=== PATIENT | male | born 1960 | race Caucasian/White ===

== ENCOUNTER 2017-05-19 13:11 | Inpatient (IN) | payer MEDICARE, MEDICAID, SELFPAY ==
[2017-05-19] VITALS (19 sets, daily range): BP systolic 96–156; BP diastolic 62–92; PULSE 86–105; RESP 10–26; TEMP 36.4–36.8; O2SAT 91–100; BMI 25.0
--- NOTE | 2017-05-19 13:38 | RAD_ITS ---
STUDY: X-RAY CHEST REASON FOR EXAM: Male, 56 years old. Chest pain TECHNIQUE: Single frontal view COMPARISON: May 17, 2017 FINDINGS: The lungs are clear and expanded. There is no demonstrated pleural abnormality. There is a vascular stent noted near the left lung apex. Normal size heart. Normal mediastinum. There are surgical clips over the left hilum.. Normal visualized pulmonary arteries. Normal visualized aortic arch and descending thoracic aorta. Normal visualized thoracic spine. Normal visualized ribs, clavicles, and shoulders. There is no demonstrated abnormality of the visualized soft tissue structures of the upper abdomen. RAD/Chest 1 View (Portable) IMPRESSION: No acute pulmonary pathology of the chest. Electronically Signed: Everett Churchill DO at 15:03 EST Tel [phone], Service support ,
--- NOTE | 2017-05-19 13:38 | EKG12_ITS ---
Test Reason : CHEST BURNING Blood Pressure : / mmHG Vent. Rate : 100 BPM Atrial Rate : 100 BPM P-R Int : 138 ms QRS Dur : 086 ms QT Int : 352 ms P-R-T Axes : 074 060 080 degrees QTc Int : 454 ms Normal sinus rhythm Normal ECG Confirmed by LATHA LEÓN, SANTY ([id number]), international editorial producer VANNA IBANEZ ([id number]) on 05/22/2017 4:07:29 PM Referred By: Confirmed By:SANTY AZUL MD
--- NOTE | 2017-05-19 13:40 | ED.VISSUMM ---
- ER Visit Summary Date of Service: 05/19/17 Chief Complaint: Nausea, vomiting History of Present Illness: The patient is a 56 M presenting with nausea, vomiting. He states he has not been able to keep anything down ?2 days. He has not had a bowel movement in 2 days. He complains of diffuse chest burning. He states this is worse with belching. His blood sugar has been running high at home. He denies fever. Denies other complaints. He was admitted in April for right foot infection with concern of osteomyelitis. Physical Examination: Vitals are stable. Patient is afebrile. Alert no acute distress. HEENT exam is unremarkable. Neck is supple. Lungs are clear and equal bilaterally. Heart is regular rate and rhythm. Abdomen is soft nontender nondistended. No guarding or rebound. Extremities right foot wound distal 4th metatarsal. Skin is warm and dry. No focal neurologic deficit. Remainder of exam is unremarkable. Emergency Department Course and Treatment: Patient given IV fluids, morphine, Phenergan. Chest x-ray shows no acute process. EKG is sinus rate of 100. White count is 18.7. Chemistries show CO2 13, anion gap 17, glucose 204, BUN 36. Lipase is normal. Troponin is negative. Blood cultures were sent. Ketones are small. Lactic acid is normal. Patient was given Zosyn and Vancomycin. He is given insulin IV as well as IV fluids. He is given morphine and Phenergan. Discussed with Dr. Delgado for admission. Disposition: Admission Impression: Mild DKA, recent osteomyelitis right foot, intractable vomiting This note was generated with [employer] dictation software. It may contain incorrect words, spelling, and punctuation that were not noted in review of the chart prior to signing ED Disposition - Plan for ED Patient: Chief Complaint: Nausea/Vomiting Referrals: Darrian Henderson Chi, MD [Primary Care Provider] -
[2017-05-19 14:21] LABS: Absolute Lymphocyte Count 1.27 X10^3/ul (0.83-4.51); Absolute Neutrophil Count 15.6 X10^3/uL (2.0-7.7); Basophil# 0.01 X10^3/uL; Basophil% 0.1 % (0-1); Hematocrit 47.5 % (40-54); Hemoglobin 15.5 g/dl (13.0-16.5); Lymphocyte # 1.27 X10^3/ul (4.0); Lymphocyte % 6.8 % (19-41); Mean Corp Hgb Conc 32.6 g/gl (32-36); Mean Corpuscular Hgb 30.4 pg (27.0-32.0); Mean Corpuscular Volume 93.1 fL (80-94); Mean Platelet Vol. 9.8 fl (6.2-12.0); Monocyte# 1.74 X10^3/uL; Monocyte% 9.3 % (0-10); Neutrophil # 15.55 X10^3/uL (2.7-7.7); Neutrophil % 83.3 % (47-70); POSITIVE COUNT NO; POSITIVE DIFFERENTIAL YES; POSITIVE MORPHOLOGY NO; Platelet Count 290 K/mm3 (150-450); RBC Distribution Width CV 13.3 % (11.6-14.6); RBC Distribution Width SD 45.2 fl (35.1-43.9); White Blood Count 18.7 K/mm3 (4.4-11.0)
[2017-05-19 14:22] LABS: Differential Indicated SCAN CRITERIA MET
[2017-05-19 14:35] LABS: Bacteria 0 SEEN /hpf (None Seen); Mucous, Urine 0 SEEN /hpf (<or=2+); Squamous Epithelial Cells - UA 0 SEEN /hpf (0-5); White Blood Cells 0 SEEN /hpf (0-5)
[2017-05-19 14:36] LABS: Color, Urine Yellow (Yellow); Glucose, Dipstick 1000 mg/dl (Normal); Leukocyte Esterase-Dipstick Negative /ul (Negative); Nitrite-Dipstick Negative (Negative); Occult Blood-Urine 10 /ul (Negative); Protein-Dipstick 30 mg/dl (Negative); Specific Gravity, Urine 1.025 (1.002-1.030); Urine Bilirubin Dipstick Negative (Negative); Urine Clarity Clear (Clear); Urine Urobilinogen Normal (Normal)
[2017-05-19 14:36] LABS: Differential Comment SCANNED
[2017-05-19 14:40] LABS: AST(SGOT) 30 U/L (15-37); Alanine Aminotransfer ALT/SGPT 26 U/L (12-78); Albumin, Serum 3.6 g/dL (3.4-5.0); Alkaline Phosphatase 121 U/L (45-117); Anion Gap 17 (5-15); BUN 36 mg/dL (7-18); Chloride 103 mmol/L (98-107); Creatinine, Serum 1.06 mg/dL (0.70-1.30); EST Glomerular Filtration Rate 77 mL/min (>60); Est Glom Filt Rate - Afr Amer 93 mL/min (>60); Estimated Creatinine Clearance 75.28 ml/min; Globulin 3.7 g/dL (2.2-4.2); Glucose 204 mg/dL (70-110); Lipase 162 U/L (73-393); Potassium 4.7 mmol/L (3.5-5.1); Protein, Total 7.3 g/dL (6.4-8.2); Sodium Level 133 mmol/L (136-145)
[2017-05-19 14:42] LABS: Calcium,Total 8.7 mg/dL (8.5-10.1)
[2017-05-19] MEDS: 0.9% Normal Saline 1,000 ML 1000 ML IV (14:43)
[2017-05-19 14:44] LABS: Ketone-Dipstick 150 mg/dl (Negative)
--- NOTE | 2017-05-19 14:46 | ED.RN ---
pt was a difficult iv start.
[2017-05-19 14:47] LABS: Red Blood Cells-Urine 0-5 SEEN /hpf (0-5)
--- NOTE | 2017-05-19 15:26 | PCM.HP.STD ---
Problem List (1) Chronic osteomyelitis, other specified site Status: Suspected (2) Peripheral vascular disease Status: Chronic (3) HTN (hypertension) Status: Chronic (4) Nicotine abuse Status: Chronic (5) Peripheral neuropathy Status: Chronic (6) CAD (coronary artery disease) Status: Chronic (7) COPD (chronic obstructive pulmonary disease) Status: Chronic (8) Type 2 diabetes mellitus with diabetic polyneuropathy Status: Chronic History of Present Illness Date of Admission: 05/19/17 Chief Complaint: N/V, cough, chest pain, shortness of breath. The patient is a 56 year old M who presents with a 3 day history of nausea, vomiting, productive cough, chest pain and shortness of breath. Patient's ex- who lives with patient is at bedside and provides most of HPI. Patient is lethargic and frustrated with questions. Ex- states patient has unable to keep any liquids or food down for 3 days. She states he has not had any diarrhea. She states he has been complaining of chest pain/burning sensation with associated shortness of breath which has been constant and not associated with exertion. She states she has been checking his blood sugar at home and it has been in the 200s. Patient was recently discharged from the emergency room 05/17/2017 where he was treated with IV fluids and Zofran for suspected viral gastroenteritis. He did not improve since that time. Patient underwent amputation of the right fourth toe due to gangrenous right fourth toe on 02/15/[address] Cantu who he had followed up with as outpatient as well. Following surgery, patient was readmitted 04/30/2017 and was found to have wound dehiscence and infected wound with suspected osteomyelitis. He was treated with IV antibiotics and left AMA the following day on 05/01/2017. Patient has an upcoming appointment 05/22/[address] Swan due to right lower extremity arterial occlusive disease. His other chronic medical history includes type 2 diabetes mellitus, hypertension, CAD status post CABG, PVD, hyperlipidemia, COPD, tobacco abuse. Past Medical History Past Medical History (Chronic Problems): Chronic Problems Peripheral vascular disease (Chronic) HTN (hypertension) (Chronic) Nicotine abuse (Chronic) Peripheral neuropathy (Chronic) CAD (coronary artery disease) (Chronic) COPD (chronic obstructive pulmonary disease) (Chronic) Type 2 diabetes mellitus with diabetic polyneuropathy (Chronic) Allergies No Known Allergies Allergy (Verified 05/19/17 13:17) Home Medications: Ambulatory Orders Medication Instructions Recorded Gabapentin [Neurontin] 800 mg PO 4X/DAY 02/14/17 Lisinopril 20 mg PO DAILY 02/14/17 Metoprolol Succinate 25 mg PO DAILY 02/14/17 Simvastatin 40 mg PO DAILY 02/14/17 Aspirin [Aspirin, Baby] 81 mg PO DAILY 02/16/17 Albuterol Inhaler [Ventolin Hfa 2 puff INHALATION Q4H PRN PRN 04/30/17 (SP)] Empagliflozin [Jardiance] 1 tab PO DAILY 05/19/17 Liraglutide [Victoza 2-Juan] 1.2 mg SQ DAILY 05/19/17 Surgical History: coronary bypass surgery, - - debridement left arm, 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 carpal tunnel release Psychiatric History: No pertinent psych hx Lives: Spouse/ Significant Other Smoking Status: Current every day smoker Tobacco Use: Cigarettes Alcohol: None Drugs: None - *Family History Maternal History Items: Heart Disease Paternal History Items: Heart Disease Review of Systems Constitutional: Reports: Anorexia, Malaise, Weakness. Denies: Chills, Fever HEENT: Reports: Sinus Congestion. Denies: Head Aches, Sinus Drainage Cardiovascular: Reports: Chest Pain, Chest Tightness. Denies: Edema, Palpitations, Syncope Respiratory: Reports: Cough, Shortness of Breath, Sputum production Gastrointestinal: Reports: Nausea, Vomiting. Denies: Abdominal Pain, Diarrhea, Hematemesis, Hematochezia Genitourinary: Denies: Dysuria Musculoskeletal: Reports: Foot Pain - Right foot pain. Denies: Joint Pain, Joint Tenderness Skin: Reports: Wounds - Nonhealing wound dehiscence status post right fourth toe amputation Neurological: Denies: Numbness, Tingling, Focal weakness Psychiatric: Denies: Anxiety, Depression, Homicidal Ideations, Suicidal Ideations Hematologic/ Lymphatic: Denies: Easy Bruising, Easy Bleeding VTE Information - Inpt Only VTE Present on Admission: No VTE Mechan Device Prophylaxis: SCD's VTE Pharm Prophylaxis ordered?: Yes - Physical Exam General: No apparent distress, Lethargic HEENT: Atraumatic, PERRLA, EOMI, Normocephalic Oral: Dry Mucosa Neck: Supple, No JVD, Negative Carotid Bruits Lungs: Clear to auscultation, Diminished Cardiovascular: Normal S1, Normal S2, No murmurs, Tachycardic Abdomen: Bowel Sounds Present, Soft, Non Tender, Non-Distended Extremities: No clubbing, No cyanosis, No edema, Capillary Refill Less than 3 Seconds Skin: No rashes, - - Right fourth toe nonhealing dehisced wound, no drainage noted however appears infected. Musculoskeletal: No Tenderness to Palpation of Joints or Extremities Neurological: Cranial nerves II-XII grossly intact Psych/Mental Status: Normal Affect, Appropriate Vital Signs Temp Pulse Resp BP Pulse Ox 97.5 F L 102 H 11 L 156/80 H 100 05/19/17 13:11 05/19/17 13:23 05/19/17 13:23 05/19/17 13:23 05/19/17 13:23 Oxygen Delivery Method Room Air Weight: 74.843 kg Body Mass Index (BMI) 25.0 Finger Stick Blood Glucose 101 Laboratory Tests Past 24 Hrs 05/19/17 05/19/17 05/19/17 14:05 14:05 14:20 WBC 18.7 H RBC 5.10 Hgb 15.5 Hct 47.5 MCV 93.1 MCH 30.4 MCHC 32.6 RDW 13.3 RDW Differential 45.2 H Plt Count 290 MPV 9.8 Immature Gran % (Auto) 0.500 Neut % (Auto) 83.3 H Lymph % (Auto) 6.8 L [place] % (Auto) 9.3 Eos % (Auto) 0.0 Baso % (Auto) 0.1 Absolute Neuts (auto) 15.6 H Absolute Lymphs (auto) 1.27 Total Counted Not Reportable Differential Comment SCANNED Sodium 133 L Potassium 4.7 Chloride 103 Carbon Dioxide 13.0 L Anion Gap 17 H BUN 36 H Creatinine 1.06 Estim Creat Clear Calc 75.28 Est GFR (MDRD) Af Amer 93 Est GFR (MDRD) Non-Af 77 BUN/Creatinine Ratio 34.0 H Glucose 204 H Lactic Acid Calcium 8.7 Total Bilirubin 0.40 AST 30 ALT 26 Alkaline Phosphatase 121 H Troponin I 0.02 Total Protein 7.3 Albumin 3.6 Globulin 3.7 Albumin/Globulin Ratio 1.0 Lipase 162 Urine Color Yellow Urine Clarity Clear Urine pH 5.0 Ur Specific [place] 1.025 Urine Protein 30 H Urine Glucose (UA) 1000 H Urine Ketones 150 H Urine Occult Blood 10 H Urine Nitrite Negative Urine Bilirubin Negative Urine Urobilinogen Normal Ur Leukocyte Esterase Negative Urine RBC 0-5 SEEN Urine WBC 0 SEEN Ur Squamous Epith Cells 0 SEEN Urine Bacteria 0 SEEN Urine Mucus 0 SEEN Acetone Level 05/19/17 05/19/17 14:58 14:58 WBC RBC Hgb Hct MCV MCH MCHC RDW RDW Differential Plt Count MPV Immature Gran % (Auto) Neut % (Auto) Lymph % (Auto) [place] % (Auto) Eos % (Auto) Baso % (Auto) Absolute Neuts (auto) Absolute Lymphs (auto) Total Counted Differential Comment Sodium Potassium Chloride Carbon Dioxide Anion Gap BUN Creatinine Estim Creat Clear Calc Est GFR (MDRD) Af Amer Est GFR (MDRD) Non-Af BUN/Creatinine Ratio Glucose Lactic Acid Pending Calcium Total Bilirubin AST ALT Alkaline Phosphatase Troponin I Total Protein Albumin Globulin Albumin/Globulin Ratio Lipase Urine Color Urine Clarity Urine pH Ur Specific [place] Urine Protein Urine Glucose (UA) Urine Ketones Urine Occult Blood Urine Nitrite Urine Bilirubin Urine Urobilinogen Ur Leukocyte Esterase Urine RBC Urine WBC Ur Squamous Epith Cells Urine Bacteria Urine Mucus Acetone Level Pending Assessment/Plan 1. Infected nonhealing wound dehiscence status post right fourth toe amputation-patient underwent right fourth toe amputation 02/15/[address] Cantu secondary to gangrene. He was again admitted and [facility] due to infection and signed out AMA. Previous wound cultures 04/30/2017 show Providencia rettgeri and Staphylococcus aureus. Recently treated as outpatient with oral Cipro and Augmentin which he began taking 05/02/17. Begin IV Vanco and Zosyn. Consult Dr. Cantu. Consult Dr. Swan. Patient has an upcoming appointment with Dr. Swan due to right lower extremity arterial occlusive disease which may be contributing to poor wound healing along with multiple comorbidities including type 2 diabetes mellitus. Blood cultures pending. Patient has an elevated white count, 18.7. Afebrile. Lactic within normal limits. Consult wound RN. 2. Mild acute DKA in the context of type 2 diabetes mellitus-blood glucose on admission 204. Anion gap 17. Urine glucose 1000. Serial BMP every 4. Aggressive IV fluids. Initiate insulin drip with Accu-Cheks per protocol. Hold home oral regimen and Victoza. 3. Intractable nausea/vomiting-possibly secondary to #2 versus underlying viral gastroenteritis-n.p.o. for now. Zofran as needed for nausea. IV fluids. 4. Hypertension-mildly elevated, continue to monitor. Continue home lisinopril and metoprolol regimen. 5. Hyperlipidemia-continue statin. 6. CAD status post CABG-complains of continuous chest pain and shortness of breath. Cycle enzymes. Repeat EKG in a.m. Continue aspirin, statin. 7. PVD/PAD-continue aspirin, statin. Consult Dr. Swan. 8. Chronic COPD-no acute exacerbation. Albuterol aerosol as needed. ATC duonebs. 9. Tobacco tsnae-ps-[id number] states patient was recently prescribed Chantix by Dr. Henderson but it was not covered by insurance. Continues to smoke daily. Encourage smoking cessation. Nicotine replacement patch if needed. DVT prophylaxis-Lovenox subcu. This patient was seen by ELYSSA Henry under the supervision of Dr. Delgado.
[2017-05-19 15:42] LABS: Lactic Acid 1.7 mmol/L (0.4-2.0)
[2017-05-19] MEDS: Piperacil/Tazobactam 3.375 GM/50 ML ML IV ×2 (16:03→22:06)
[2017-05-19] MEDS: 0.9% Normal Saline 1,000 ML 999 ML IV ×2 (17:00→17:27)
[2017-05-19 17:27] LABS: Bedside Glucose 172 mg/dL (70-110)
[2017-05-19 17:32] LABS: Anion Gap 17 (5-15); BUN 38 mg/dL (7-18); BUN/Creat Ratio 33.9 RATIO (10-20); Calcium,Total 8.3 mg/dL (8.5-10.1); Chloride 107 mmol/L (98-107); Creatinine, Serum 1.12 mg/dL (0.70-1.30); EST Glomerular Filtration Rate 72 mL/min (>60); Est Glom Filt Rate - Afr Amer 87 mL/min (>60); Estimated Creatinine Clearance 71.25 ml/min; Glucose 182 mg/dL (70-110); Potassium 4.9 mmol/L (3.5-5.1); Sodium Level 135 mmol/L (136-145)
[2017-05-19 17:44] LABS: Hemoglobin A1c 10.6 % (4.2-6.3)
[2017-05-19 17:49] LABS: Magnesium 2.4 mg/dL (1.8-2.4); Phosphorus 3.3 mg/dL (2.5-4.9)
[2017-05-19 18:26] LABS: Bedside Glucose 167 mg/dL (70-110)
--- NOTE | 2017-05-19 18:35 | PCM.HP.STD ---
Problem List (1) Ulcer of right foot with fat layer exposed Status: Chronic (2) Cellulitis of right foot Status: Resolved (3) Peripheral vascular disease Status: Chronic (4) Type 2 diabetes mellitus with diabetic polyneuropathy Status: Chronic (5) Malnutrition Status: Chronic (6) Compliance poor Status: Chronic History of Present Illness Date of Admission: 05/19/17 Chief Complaint: Right foot wound This 56-year-old male with multiple comorbidities was seen bedside in the intensive care unit for right foot wound. He is currently also diagnosed with diabetic ketoacidosis and is participating in his exam and the limited amount. He denies new foot injury progressive pain. His wound has been open since his fourth toe amputation. He has previously diagnosed peripheral vascular disease in which intervention is planned but not yet completed. He was recently treated in the outpatient setting with oral antibiotics for positive wound culture and suspected cellulitis which he reports compliance. He is not wear wound dressing all the time. Past Medical History Past Medical History (Chronic Problems): Chronic Problems Ulcer of right foot with fat layer exposed (Chronic) Malnutrition (Chronic) Compliance poor (Chronic) Peripheral vascular disease (Chronic) HTN (hypertension) (Chronic) Nicotine abuse (Chronic) Peripheral neuropathy (Chronic) CAD (coronary artery disease) (Chronic) COPD (chronic obstructive pulmonary disease) (Chronic) Type 2 diabetes mellitus with diabetic polyneuropathy (Chronic) Allergies No Known Allergies Allergy (Verified 05/19/17 13:17) Home Medications: Ambulatory Orders Medication Instructions Recorded Gabapentin [Neurontin] 800 mg PO 4X/DAY 02/14/17 Lisinopril 20 mg PO DAILY 02/14/17 Metoprolol Succinate 25 mg PO DAILY 02/14/17 Simvastatin 40 mg PO DAILY 02/14/17 Aspirin [Aspirin, Baby] 81 mg PO DAILY 02/16/17 Albuterol Inhaler [Ventolin Hfa 2 puff INHALATION Q4H PRN PRN 04/30/17 (SP)] Empagliflozin [Jardiance] 1 tab PO DAILY 05/19/17 Liraglutide [Victoza 2-Juan] 1.2 mg SQ DAILY 05/19/17 Surgical History: coronary bypass surgery, - - debridement left arm, 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 carpal tunnel release Psychiatric History: No pertinent psych hx Lives: Spouse/ Significant Other Smoking Status: Current every day smoker Tobacco Use: Cigarettes Alcohol: None Drugs: None - *Family History Maternal History Items: Heart Disease Paternal History Items: Heart Disease Review of Systems Constitutional: Reports: Malaise, Weakness. Denies: Chills, Fever Cardiovascular: Reports: Claudication. Denies: Chest Pain Respiratory: Denies: Shortness of Breath Gastrointestinal: Reports: Nausea, Vomiting Musculoskeletal: Reports: Foot Pain Skin: Reports: Wounds Neurological: Reports: Numbness VTE Information - Inpt Only VTE Present on Admission: No VTE Mechan Device Prophylaxis: SCD's VTE Pharm Prophylaxis ordered?: Yes - Physical Exam General: Alert, Cooperative, Lethargic HEENT: Atraumatic Extremities: Capillary Refill Less than 3 Seconds - All digits of the left foot and digits 1-3 and 5 of the left foot, No Calf Tenderness - Negative Jaime and Valverde sign bilateral, Diminished Peripheral Pulses - Nonpalpable PT and DP pulses bilateral, Edema - Very mild bilateral lower extremities Skin: Ulcer/ Wound - Fourth toe amputation ulcer site measures 2.3 cm x 0.8 cm x 0.3 cm with granular, fibrotic, eschar approximately 60% of the wound. There is no erythema, no purulence, no streaking, no odor, no probing to bone or deeper joint structures. There is dry cracking skin to the left hallux and no other wound or ulcer noted bilateral lower extremities. His skin is atrophic and hairless bilateral Musculoskeletal: No Tenderness to Palpation of Joints or Extremities, Muscle Wasting, - - Right fourth toe amputation. Compartments of bilateral lower extremity is remain soft. Neurological: - - Lack of sensation epicritic to light touch bilateral lower extremities Psych/Mental Status: Normal Affect, Appropriate Vital Signs Temp Pulse Resp BP Pulse Ox 97.5 F L 96 15 96/62 95 05/19/17 13:11 05/19/17 16:05 05/19/17 16:05 05/19/17 16:05 05/19/17 16:05 Oxygen Delivery Method Room Air Weight: 74.7 kg Body Mass Index (BMI) 25.0 Finger Stick Blood Glucose 172 Laboratory Tests Past 24 Hrs 05/19/17 05/19/17 05/19/17 17:00 17:00 17:00 Sodium 135 L Potassium 4.9 Chloride 107 Carbon Dioxide 11.0 L Anion Gap 17 H BUN 38 H Creatinine 1.12 Estim Creat Clear Calc 71.25 Est GFR (MDRD) Af Amer 87 Est GFR (MDRD) Non-Af 72 BUN/Creatinine Ratio 33.9 H Glucose 182 H Hemoglobin A1c 10.6 H Calcium 8.3 L Phosphorus 3.3 Magnesium 2.4 Troponin I MRSA (PCR) 05/19/17 05/19/17 17:00 17:00 Sodium Potassium Chloride Carbon Dioxide Anion Gap BUN Creatinine Estim Creat Clear Calc Est GFR (MDRD) Af Amer Est GFR (MDRD) Non-Af BUN/Creatinine Ratio Glucose Hemoglobin A1c Calcium Phosphorus Magnesium Troponin I < 0.02 MRSA (PCR) Pending POC Glucose 05/19/17 05/19/17 18:19 17:12 POC Glucose 167 H 172 H Assessment/Plan Right foot with fat layer exposed ulcer and recently treated cellulitis-improving Diabetic neuropathy Diabetic ketoacidosis Peripheral vascular disease Smoker Malnutrition Noncompliance I discussed the patient's case this evening. His diagnostic data was reviewed and his white blood cell count is over 18.7. I do not suspect this coming from his foot at this time due to improved clinical appearance. To complete course of IV antibiotics to address any potential other sources of infection. His wound was cultured during his last hospital admission in which [place] and Staphylococcus aureus growth was noted. This was previously addressed with oral antibiotics the outpatient setting with Augmentin and Cipro. His most recent foot MRI demonstrated bone edema and was not suggesting osteomyelitis. Adaptic and a dry dressing was applied to the right foot. To change daily with Santyl, enzymatic debrider. I will follow him while in-house 1-2 times per week for wound care. It is noted that he does have peripheral vascular disease and intervention was recommended by Dr. Swan. The intervention date is to be determined. I recommend consulting Dr. Swan for continuity of care while he is hospitalized to see if intervention is possible while he is here versus in the outpatient setting as previously discussed. He understands his healing potential is impaired due to his lack of peripheral flow. To d/c smoking. To keep pressure off the wound by wearing a surgical shoe. This was previously dispensed. To optimize healing with better controlled glucose levels (hemoglobin A1C level over 10), improve medical management, and improve nutritional supplementation. He will continue receive nutritional supplementation while in house. It is noted he continues on IV fluids, and insulin drip, and follow-up diagnostic data for management of diabetic ketoacidosis. Medical management and DVT prophylaxis per primary team. Thank you for the consultation. Please not hesitate to call if you have any questions. Bettie Cantu, [facility] [phone]
[2017-05-19] MEDS: 0.9% Normal Saline 1,000 ML 150 ML IV (18:38)
[2017-05-19 18:42] LABS: M R Staph aureus DNA By PCR Negative (Negative); Probe Check PASS; Specimen Processing Control PASS
[2017-05-19 19:26] LABS: Bedside Glucose 127 mg/dL (70-110)
[2017-05-19] MEDS: Ipratropium/Albuterol Sulfate 3 ML AMPUL.NEB INHALATION (19:39)
[2017-05-19 20:21] LABS: Bedside Glucose 111 mg/dL (70-110)
--- NOTE | 2017-05-19 20:43 | CT_ITS ---
STUDY: CT ABDOMEN AND PELVIS WITH CONTRAST REASON FOR EXAM: Male, 56 years old. Severe abdominal pain. RADIATION DOSAGE (If Supplied By Facility): CTDIvol = ( 15.05 ) mGy, DLP = ( 1036.07 ) mGycm TECHNIQUE: Transaxial images were obtained from the dome of the diaphragm to the symphysis pubis without oral contrast. 100ML ml of Isovue 300 contrast was administered. Sagittal and coronal images were reconstructed. Individualized dose optimization techniques were used for this CT. COMPARISON: None. FINDINGS: The visualized lung bases are unremarkable. There are coronary artery calcifications present. There is decreased attenuation of the liver consistent with steatosis. There is a focus of low attenuation within segment 4 adjacent to the falciform ligament consistent with focal fat. The gallbladder is distended measuring up to 4.5 cm in short axis. Normal spleen. There is mild pancreatic duct dilatation present. No pancreatic atrophy is seen. Normal bilateral adrenal glands. Normal right kidney. Normal left kidney. There is a small hiatal hernia. Normal small intestine. Normal colon. The appendix is visualized and appears normal. There is diffuse atherosclerotic calcification of the abdominal aorta, without a demonstrated aneurysm. Normal inferior vena cava. Normal retroperitoneum. The urinary bladder is fluid-filled and distended. Normal abdominal wall. There are mild degenerative changes of the visualized lumbar spine. CT/Abdomen/Pelvis W IV Cont ONLY IMPRESSION: Fluid-filled distended urinary bladder. Fatty infiltration of the liver. Distended gallbladder consider ultrasound for further evaluation. Atherosclerosis. Hiatal hernia. Electronically Signed: Africa Dillard MD at 21:41 EST Tel , Service support ,
[2017-05-19 20:56] LABS: Anion Gap 11 (5-15); BUN 37 mg/dL (7-18); BUN/Creat Ratio 34.3 RATIO (10-20); Calcium,Total 8.1 mg/dL (8.5-10.1); Chloride 111 mmol/L (98-107); Creatinine, Serum 1.08 mg/dL (0.70-1.30); EST Glomerular Filtration Rate 75 mL/min (>60); Est Glom Filt Rate - Afr Amer 91 mL/min (>60); Estimated Creatinine Clearance 73.89 ml/min; Glucose 123 mg/dL (70-110); Potassium 4.3 mmol/L (3.5-5.1); Sodium Level 137 mmol/L (136-145)
--- NOTE | 2017-05-19 21:34 | EKG12_ITS ---
Test Reason : CHEST PAIN Blood Pressure : / mmHG Vent. Rate : 100 BPM Atrial Rate : 100 BPM P-R Int : 134 ms QRS Dur : 088 ms QT Int : 364 ms P-R-T Axes : 068 019 083 degrees QTc Int : 469 ms Normal sinus rhythm Normal ECG When compared with ECG of 19-MAY-2017 13:22, MANUAL COMPARISON REQUIRED, DATA IS UNCONFIRMED Confirmed by LATHA LEÓN, SANTY ([id number]), automobile travel club counselor VANNA IBANEZ ([id number]) on 05/22/2017 4:28:25 PM Referred By: Confirmed By:SANTY AZUL MD
[2017-05-19 21:56] LABS: Bedside Glucose 95 mg/dL (70-110)
[2017-05-19] MEDS: Atorvastatin Calcium 20 MG Tablet PO (22:06)
[2017-05-19] MEDS: Gabapentin 800 MG Tablet PO (22:06)
[2017-05-19 22:21] LABS: Bedside Glucose 73 mg/dL (70-110)
[2017-05-19 23:11] LABS: Bedside Glucose 87 mg/dL (70-110)
[2017-05-20] VITALS (23 sets, daily range): BP systolic 113–196; BP diastolic 53–105; PULSE 85–107; RESP 12–35; TEMP 36.7–37.3; O2SAT 93–100
[2017-05-20 00:17] LABS: Bedside Glucose 101 mg/dL (70-110)
[2017-05-20 00:32] LABS: Anion Gap 10 (5-15); BUN 33 mg/dL (7-18); BUN/Creat Ratio 34.8 RATIO (10-20); Calcium,Total 7.9 mg/dL (8.5-10.1); Chloride 113 mmol/L (98-107); Creatinine, Serum 0.95 mg/dL (0.70-1.30); EST Glomerular Filtration Rate 87 mL/min (>60); Est Glom Filt Rate - Afr Amer 105 mL/min (>60); Glucose 93 mg/dL (70-110); Sodium Level 140 mmol/L (136-145)
[2017-05-20] MEDS: 0.9% Normal Saline 1,000 ML 100 ML IV ×2 (01:04→10:55)
[2017-05-20 01:11] LABS: Bedside Glucose 97 mg/dL (70-110)
[2017-05-20] MEDS: Dextrose 50%-Water 25 GM/50 ML DISP.SYRIN IV (02:46)
[2017-05-20 02:56] LABS: Bedside Glucose 64 mg/dL (70-110)
[2017-05-20 02:56] LABS: Bedside Glucose 66 mg/dL (70-110)
[2017-05-20 03:28] LABS: Anion Gap 13 (5-15); BUN 30 mg/dL (7-18); BUN/Creat Ratio 29.4 RATIO (10-20); Calcium,Total 8.3 mg/dL (8.5-10.1); Chloride 108 mmol/L (98-107); Creatinine, Serum 1.02 mg/dL (0.70-1.30); EST Glomerular Filtration Rate 80 mL/min (>60); Est Glom Filt Rate - Afr Amer 97 mL/min (>60); Estimated Creatinine Clearance 78.24 ml/min; Glucose 130 mg/dL (70-110); Sodium Level 139 mmol/L (136-145)
[2017-05-20 04:03] LABS: Vista UDS pH Range 6
[2017-05-20 04:11] LABS: Bedside Glucose 138 mg/dL (70-110)
[2017-05-20 04:16] LABS: Bedside Glucose 133 mg/dL (70-110)
[2017-05-20 04:17] LABS: Amphetamine Urine VISTA NEGATIVE (<1000 ng/mL); Barbiturate Urine VISTA NEGATIVE (< 200 ng/mL); Benzodiazepine Urine VISTA NEGATIVE (< 200 ng/mL); Cocaine Urine VISTA NEGATIVE (< 300 ng/mL); Ecstacy Urine VISTA NEGATIVE (< 500 ng/mL); Methadone Urine VISTA NEGATIVE (< 300 ng/mL); PCP Urine VISTA NEGATIVE (< 25 ng/mL); THC Urine VISTA NEGATIVE (< 50 ng/mL)
[2017-05-20] MEDS: 0.9% NaCl Peripheral Flush Adult/Peds IV (04:24)
[2017-05-20 05:14] LABS: Absolute Lymphocyte Count 1.69 X10^3/ul (0.83-4.51); Absolute Neutrophil Count 13.9 X10^3/uL (2.0-7.7); Basophil# 0.01 X10^3/uL; Basophil% 0.1 % (0-1); Hematocrit 40.2 % (40-54); Lymphocyte # 1.69 X10^3/ul (4.0); Lymphocyte % 9.6 % (19-41); Mean Corp Hgb Conc 34.8 g/gl (32-36); Mean Corpuscular Volume 89.1 fL (80-94); Mean Platelet Vol. 9.9 fl (6.2-12.0); Monocyte# 1.93 X10^3/uL; Neutrophil # 13.91 X10^3/uL (2.7-7.7); POSITIVE COUNT NO; POSITIVE MORPHOLOGY NO; Platelet Count 254 K/mm3 (150-450); RBC Distribution Width CV 13.3 % (11.6-14.6); RBC Distribution Width SD 42.9 fl (35.1-43.9); Red Blood Count 4.51 M/mm3 (4.6-6.2); White Blood Count 17.6 K/mm3 (4.4-11.0)
[2017-05-20 05:39] LABS: Cholesterol 128 mg/dL (200); High Density Lipoprotein 44 mg/dL; Magnesium 2.3 mg/dL (1.8-2.4); Phosphorus 1.5 mg/dL (2.5-4.9); Triglycerides 116 mg/dL; Very Low Density Lipoprotein 23 mg/dL (5-40)
[2017-05-20] MEDS: Piperacil/Tazobactam 3.375 GM/50 ML ML IV ×3 (05:46→22:19)
--- NOTE | 2017-05-20 05:55 | EKG12_ITS ---
Test Reason : AM EKG Blood Pressure : / mmHG Vent. Rate : 093 BPM Atrial Rate : 093 BPM P-R Int : 178 ms QRS Dur : 090 ms QT Int : 374 ms P-R-T Axes : 059 020 089 degrees QTc Int : 465 ms Normal sinus rhythm Nonspecific T wave abnormality Prolonged QT Abnormal ECG When compared with ECG of 19-MAY-2017 13:22, MANUAL COMPARISON REQUIRED, DATA IS UNCONFIRMED Confirmed by LATHA LEÓN, SANTY ([id number]), proposal editor VANNA IBANEZ ([id number]) on 05/22/2017 4:28:12 PM Referred By: DR DANGELO Confirmed By:SANTY AZUL MD
--- NOTE | 2017-05-20 05:55 | US_ITS ---
STUDY: ABDOMINAL ULTRASOUND - RIGHT UPPER QUADRANT REASON FOR VISIT: Male, 56 years old. Fatty infiltration of the liver. Abnormal appearing gallbladder on the recent CT scan. TECHNIQUE: Ultrasound evaluation of the right upper quadrant was performed with real-time and static boothe-scale imaging. TECHNICAL QUALITY: Adequate. COMPARISON: Comparison is made with prior CT scan of the abdomen and pelvis dated generally 2017. FINDINGS: Liver: The liver measures 15.6 cm. There is increased echogenicity consistent with fatty infiltration. The bile ducts are within normal limits. There is hepatic color flow. The direction of portal flow is hepatopetal. There is no demonstrated mass lesion. Gallbladder: Normal distended gallbladder. The gallbladder wall measures 1.8 mm. There is a negative sonographic Michele's sign. There is no pericholecystic fluid. There are no gallstones. Common Bile Duct (C.B.D.): The common bile duct measures 5.8 mm. Pancreas: Normal size of the head, body of the pancreas. The tail portion of the pancreas was obscured due to overlying bowel gas. There is normal echogenicity of the pancreas. There is no demonstrated pancreatic mass or cyst. Right Kidney: Normal size of the right kidney. The right kidney measures 11.3 cm x 6.3 cm x 5.2 cm. Normal renal cortex. The right cortex measures 1.4 cm. There is no demonstrated renal mass or cyst. There is no right hydronephrosis. US/Abdomen Limited IMPRESSION: Fatty infiltration of the liver. Electronically Signed: Dylan Duarte MD at 12:41 EST Tel [phone], Service support ,
[2017-05-20 06:02] LABS: Differential Comment SCANNED; Differential Indicated SCAN CRITERIA MET; POSITIVE DIFFERENTIAL YES
[2017-05-20 06:25] LABS: Bedside Glucose 127 mg/dL (70-110)
[2017-05-20] MEDS: Ipratropium/Albuterol Sulfate 3 ML AMPUL.NEB INHALATION ×3 (06:33→19:11)
[2017-05-20 06:56] LABS: Lipase 439 U/L (73-393)
--- NOTE | 2017-05-20 08:02 | NURSING ---
medicated with hydralazine as per order for bp 180/94, medicated for epigastric pain as per order
[2017-05-20 08:27] LABS: Anion Gap 10 (5-15); BUN 29 mg/dL (7-18); BUN/Creat Ratio 31.2 RATIO (10-20); Calcium,Total 8.4 mg/dL (8.5-10.1); Chloride 113 mmol/L (98-107); Creatinine, Serum 0.93 mg/dL (0.70-1.30); EST Glomerular Filtration Rate 89 mL/min (>60); Est Glom Filt Rate - Afr Amer 108 mL/min (>60); Estimated Creatinine Clearance 85.81 ml/min; Glucose 125 mg/dL (70-110); Potassium 4.1 mmol/L (3.5-5.1); Sodium Level 142 mmol/L (136-145)
[2017-05-20] MEDS: fentaNYL 100 MCG/2 ML Ampul 50 MCG IV (09:21)
--- NOTE | 2017-05-20 10:04 | PCM.CON.CC ---
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 Status: Chronic (3) Malnutrition Status: Chronic (4) Compliance poor Status: Chronic (5) Peripheral vascular disease Status: Chronic (6) HTN (hypertension) Status: Chronic (7) Nicotine abuse Status: Chronic (8) Peripheral neuropathy Status: Chronic (9) CAD (coronary artery disease) Status: Chronic (10) COPD (chronic obstructive pulmonary disease) Status: Chronic (11) Type 2 diabetes mellitus with diabetic polyneuropathy Status: Chronic Reason for Consult Date of Consultation: 05/20/17 Reason for Consultation: DKA History of Present Illness: The patient is a 56 year old M, with past medical history listed below, who presented to [facility] on 05/19/2017 secondary to nausea, vomiting and malaise. Patient did also reported a burning sensation in the epigastric area. Patient was recently admitted to [facility] on 04/30/2017, but left AMA on 1220 prior to podiatry evaluation for a nonhealing fourth toe amputation that had dehisced secondary to reported noncompliance. Patient did receive some IV antibiotics at that time, but was given ciprofloxacin and Augmentin as an outpatient in an attempt to treat the infection. On evaluation in the emergency room, patient was noted to be hypertensive at 156/80, but saturating well on room air. Patient was tachypneic and laboratory workup was consistent with an anion gap metabolic acidosis. Patient was given IV fluids, placed on an insulin drip and admitted to the intensive care unit. Given patient's abdominal pain, a CT scan of the abdomen was ordered. This showed a distended gallbladder with hiatal hernia. No pancreatic findings were appreciated. Overnight, patient has remained hemodynamically stable. Patient is currently off of the insulin drip. Patient continues to report significant epigastric burning pain. Patient denies any hematemesis, melena or hematochezia. Patient does report a sore throat, but associates this with the emesis. No URI symptoms have been noted. Review of systems was otherwise negative ?10 systems. Past Medical History Past Medical History (Chronic Problems): Chronic Problems Ulcer of right foot with fat layer exposed (Chronic) Malnutrition (Chronic) Compliance poor (Chronic) Peripheral vascular disease (Chronic) HTN (hypertension) (Chronic) Nicotine abuse (Chronic) Peripheral neuropathy (Chronic) CAD (coronary artery disease) (Chronic) COPD (chronic obstructive pulmonary disease) (Chronic) Type 2 diabetes mellitus with diabetic polyneuropathy (Chronic) Allergies No Known Allergies Allergy (Verified 05/19/17 13:17) Home Medications: Ambulatory Orders Medication Instructions Recorded Gabapentin [Neurontin] 800 mg PO 4X/DAY 02/14/17 Lisinopril 20 mg PO DAILY 02/14/17 Metoprolol Succinate 25 mg PO DAILY 02/14/17 Simvastatin 40 mg PO DAILY 02/14/17 Aspirin [Aspirin, Baby] 81 mg PO DAILY 02/16/17 Albuterol Inhaler [Ventolin Hfa 2 puff INHALATION Q4H PRN PRN 04/30/17 (SP)] Empagliflozin [Jardiance] 1 tab PO DAILY 05/19/17 Liraglutide [Victoza 2-Juan] 1.2 mg SQ DAILY 05/19/17 Surgical History: coronary bypass surgery, - - debridement left arm, 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 carpal tunnel release Psychiatric History: No pertinent psych hx Lives: Spouse/ Significant Other Smoking Status: Current every day smoker Tobacco Use: Cigarettes Alcohol: None Drugs: None - *Family History Maternal History Items: Heart Disease Paternal History Items: Heart Disease Review of Systems Comment: See HPI Objective: All imaging was personally reviewed. Agree with formal interpretation. - Physical Exam General: Alert, Cooperative - Intermittently, - - Almost histrionic in complaints of abdominal pain. HEENT: Atraumatic, PERRLA, EOMI, Normocephalic, - - No scleral icterus or injection noted. Oral: No Gingival or Mucosal Lesions/ Ulcerations, Dry Mucosa Neck: Supple, No JVD, No Nodes, Trachea Midline Lungs: Clear to auscultation, Normal air movement, No rhonchi, No wheeze, No rales, - - Some splinting noted. Cardiovascular: Normal S1, Normal S2, No murmurs, No rub noted, No Gallop, Tachycardic Abdomen: Bowel Sounds Present, Non-Distended, Guarding - No rebound tenderness noted, Tender Extremities: No clubbing, No cyanosis, No edema, Capillary Refill Less than 3 Seconds, - - Amputations of fingers noted Skin: No rashes, No breakdown Musculoskeletal: No Tenderness to Palpation of Joints or Extremities, No Muscle Wasting Lymphatic: No Cervical, Supraclavicular, or Inguinal Adenopathy Neurological: Cranial nerves II-XII grossly intact, Neuro grossly intact, Motor Exam 5/5 strength throughout Psych/Mental Status: Anxious, Impulsive, Restless Vital Signs Temp Pulse Resp BP Pulse Ox 37.3 C H 103 H 13 150/85 H 97 05/20/17 08:00 05/20/17 09:00 05/20/17 09:00 05/20/17 09:00 05/20/17 09:00 Oxygen Delivery Method Room Air Weight: 77.1 kg Body Mass Index (BMI) 25.0 Finger Stick Blood Glucose 167 Intake and Output for Last 24 Hours 05/18/17 05/19/17 05/20/17 23:59 23:59 23:59 Intake Total 1682 / 1682 1633.8 / 1633.8 Output Total 0 / 0 2200 / 2200 Balance 1682 / 1682 -566.2 / -566.2 Microbiology Past 72 Hours 05/19/17 19:40 Influenza Types A,B Direct FA (QUIANA) - Final Mucosa - Nasopharyngeal Laboratory Tests Past 24 Hrs 05/19/17 05/19/17 05/19/17 17:00 17:00 17:00 WBC RBC Hgb Hct MCV MCH MCHC RDW RDW Differential Plt Count MPV Immature Gran % (Auto) Neut % (Auto) Lymph % (Auto) [place] % (Auto) Eos % (Auto) Baso % (Auto) Absolute Neuts (auto) Absolute Lymphs (auto) Total Counted Differential Comment Diff Path Review Sodium 135 L Potassium 4.9 Chloride 107 Carbon Dioxide 11.0 L Anion Gap 17 H BUN 38 H Creatinine 1.12 Estim Creat Clear Calc 71.25 Est GFR (MDRD) Af Amer 87 Est GFR (MDRD) Non-Af 72 BUN/Creatinine Ratio 33.9 H Glucose 182 H Hemoglobin A1c 10.6 H Calcium 8.3 L Phosphorus 3.3 Magnesium 2.4 Troponin I Triglycerides Cholesterol LDL Cholesterol VLDL Cholesterol HDL Cholesterol Lipase Urine Opiates Screen Urine Methadone Screen Ur Barbiturates Screen Ur Phencyclidine Scrn Ur Amphetamines Screen U Methamphetamin-MDMA U Benzodiazepines Scrn Urine Cocaine Screen U Cannabinoids Screen Ur Drug Screen Comment MRSA (PCR) 05/19/17 05/19/17 05/19/17 17:00 17:00 20:20 WBC RBC Hgb Hct MCV MCH MCHC RDW RDW Differential Plt Count MPV Immature Gran % (Auto) Neut % (Auto) Lymph % (Auto) [place] % (Auto) Eos % (Auto) Baso % (Auto) Absolute Neuts (auto) Absolute Lymphs (auto) Total Counted Differential Comment Diff Path Review Sodium 137 Potassium 4.3 Chloride 111 H Carbon Dioxide 15.0 L Anion Gap 11 BUN 37 H Creatinine 1.08 Estim Creat Clear Calc 73.89 Est GFR (MDRD) Af Amer 91 Est GFR (MDRD) Non-Af 75 BUN/Creatinine Ratio 34.3 H Glucose 123 H Hemoglobin A1c Calcium 8.1 L Phosphorus Magnesium Troponin I < 0.02 Triglycerides Cholesterol LDL Cholesterol VLDL Cholesterol HDL Cholesterol Lipase Urine Opiates Screen Urine Methadone Screen Ur Barbiturates Screen Ur Phencyclidine Scrn Ur Amphetamines Screen U Methamphetamin-MDMA U Benzodiazepines Scrn Urine Cocaine Screen U Cannabinoids Screen Ur Drug Screen Comment MRSA (PCR) Negative 05/19/17 05/20/17 05/20/17 20:20 00:05 02:55 WBC RBC Hgb Hct MCV MCH MCHC RDW RDW Differential Plt Count MPV Immature Gran % (Auto) Neut % (Auto) Lymph % (Auto) [place] % (Auto) Eos % (Auto) Baso % (Auto) Absolute Neuts (auto) Absolute Lymphs (auto) Total Counted Differential Comment Diff Path Review Sodium 140 139 Potassium 4.0 4.0 Chloride 113 H 108 H Carbon Dioxide 17.0 L 18.0 L Anion Gap 10 13 BUN 33 H 30 H Creatinine 0.95 1.02 Estim Creat Clear Calc 84.00 78.24 Est GFR (MDRD) Af Amer 105 97 Est GFR (MDRD) Non-Af 87 80 BUN/Creatinine Ratio 34.8 H 29.4 H Glucose 93 130 H Hemoglobin A1c Calcium 7.9 L 8.3 L Phosphorus Magnesium Troponin I 0.03 Triglycerides Cholesterol LDL Cholesterol VLDL Cholesterol HDL Cholesterol Lipase Urine Opiates Screen Urine Methadone Screen Ur Barbiturates Screen Ur Phencyclidine Scrn Ur Amphetamines Screen U Methamphetamin-MDMA U Benzodiazepines Scrn Urine Cocaine Screen U Cannabinoids Screen Ur Drug Screen Comment MRSA (PCR) 05/20/17 05/20/17 05/20/17 02:55 03:30 04:50 WBC 17.6 H RBC 4.51 L Hgb 14.0 Hct 40.2 MCV 89.1 MCH 31.0 MCHC 34.8 RDW 13.3 RDW Differential 42.9 Plt Count 254 MPV 9.9 Immature Gran % (Auto) 0.300 Neut % (Auto) 79.0 H Lymph % (Auto) 9.6 L [place] % (Auto) 11.0 H Eos % (Auto) 0.0 Baso % (Auto) 0.1 Absolute Neuts (auto) 13.9 H Absolute Lymphs (auto) 1.69 Total Counted Not Reportable Differential Comment SCANNED Diff Path Review May foll Sodium Potassium Chloride Carbon Dioxide Anion Gap BUN Creatinine Estim Creat Clear Calc Est GFR (MDRD) Af Amer Est GFR (MDRD) Non-Af BUN/Creatinine Ratio Glucose Hemoglobin A1c Calcium Phosphorus Magnesium Troponin I 0.02 Triglycerides Cholesterol LDL Cholesterol VLDL Cholesterol HDL Cholesterol Lipase Urine Opiates Screen POSITIVE H Urine Methadone Screen NEGATIVE Ur Barbiturates Screen NEGATIVE Ur Phencyclidine Scrn NEGATIVE Ur Amphetamines Screen NEGATIVE U Methamphetamin-MDMA NEGATIVE U Benzodiazepines Scrn NEGATIVE Urine Cocaine Screen NEGATIVE U Cannabinoids Screen NEGATIVE Ur Drug Screen Comment MRSA (PCR) 05/20/17 05/20/17 05/20/17 04:50 04:50 05:10 WBC RBC Hgb Hct MCV MCH MCHC RDW RDW Differential Plt Count MPV Immature Gran % (Auto) Neut % (Auto) Lymph % (Auto) [place] % (Auto) Eos % (Auto) Baso % (Auto) Absolute Neuts (auto) Absolute Lymphs (auto) Total Counted Differential Comment Diff Path Review Sodium Potassium Chloride Carbon Dioxide Anion Gap BUN Creatinine Estim Creat Clear Calc Est GFR (MDRD) Af Amer Est GFR (MDRD) Non-Af BUN/Creatinine Ratio Glucose Hemoglobin A1c Calcium Phosphorus Cancelled 1.5 L Magnesium Cancelled 2.3 Troponin I Triglycerides Cancelled 116 Cholesterol Cancelled 128 LDL Cholesterol Cancelled 61 VLDL Cholesterol Cancelled 23 HDL Cholesterol Cancelled 44 Lipase Urine Opiates Screen Urine Methadone Screen Ur Barbiturates Screen Ur Phencyclidine Scrn Ur Amphetamines Screen U Methamphetamin-MDMA U Benzodiazepines Scrn Urine Cocaine Screen U Cannabinoids Screen Ur Drug Screen Comment MRSA (PCR) 05/20/17 05/20/17 05:10 08:10 WBC RBC Hgb Hct MCV MCH MCHC RDW RDW Differential Plt Count MPV Immature Gran % (Auto) Neut % (Auto) Lymph % (Auto) [place] % (Auto) Eos % (Auto) Baso % (Auto) Absolute Neuts (auto) Absolute Lymphs (auto) Total Counted Differential Comment Diff Path Review Sodium 142 Potassium 4.1 Chloride 113 H Carbon Dioxide 19.0 L Anion Gap 10 BUN 29 H Creatinine 0.93 Estim Creat Clear Calc 85.81 Est GFR (MDRD) Af Amer 108 Est GFR (MDRD) Non-Af 89 BUN/Creatinine Ratio 31.2 H Glucose 125 H Hemoglobin A1c Calcium 8.4 L Phosphorus Magnesium Troponin I Triglycerides Cholesterol LDL Cholesterol VLDL Cholesterol HDL Cholesterol Lipase 439 H Urine Opiates Screen Urine Methadone Screen Ur Barbiturates Screen Ur Phencyclidine Scrn Ur Amphetamines Screen U Methamphetamin-MDMA U Benzodiazepines Scrn Urine Cocaine Screen U Cannabinoids Screen Ur Drug Screen Comment MRSA (PCR) POC Glucose 05/20/17 05/20/17 05/20/17 06:23 04:09 03:06 POC Glucose 127 H 133 H 138 H 05/20/17 05/20/17 05/20/17 02:33 02:10 01:08 POC Glucose 64 L 66 L 97 05/20/17 05/19/17 05/19/17 00:07 23:05 22:17 POC Glucose 101 87 73 05/19/17 05/19/17 05/19/17 21:28 20:15 19:22 POC Glucose 95 111 H 127 H 05/19/17 05/19/17 18:19 17:12 POC Glucose 167 H 172 H Clinical Impression(s) from Imaging Studies Chest X-Ray 05/19/17 13:38 IMPRESSION: No acute pulmonary pathology of the chest. Electronically Signed: Everett Churchill DO at 15:03 EST Tel [phone], Service support , Abdomen/Pelvis CT 05/19/17 20:43 IMPRESSION: Fluid-filled distended urinary bladder. Fatty infiltration of the liver. Distended gallbladder consider ultrasound for further evaluation. Atherosclerosis. Hiatal hernia. Electronically Signed: Africa Dillard MD at 21:41 EST Tel , Service support , Assessment/Plan RECOMMENDATIONS: 1. Obtain right upper quadrant ultrasound 2. Possible surgical evaluation pending results of ultrasound 3. Continue empiric antibiotics 4. Podiatry to address foot wound IMPRESSIONS: 1. 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 Patient likely has not been completing wound care as previously directed. Cultures are currently pending. Agree with empiric antibiotics for now. Patient is hypertensive and tachycardic, likely secondary to abdominal pain. 2. DKA/diabetes mellitus type 2/pancreatitis CT scan of the abdomen does show a distended gallbladder, so gallstone pancreatitis may be an etiology for his diabetes. Patient does have dehiscence of the foot, which is also a possible etiology. Blood sugars are well-controlled at this time. His gap is closed. Electrolyte repletion as tolerated. 3. Epigastric chest pain Unclear etiology at this time. Patient does have rising lipase levels to indicate pancreatitis. Patient may also have GERD. No signs of bleeding ulcer been noted. Reasonable to start a PPI. Await further workup. 4. Coronary artery disease/peripheral vascular disease/reported COPD/tobacco abuse/poor compliance Complicates care, management, recovery and prognosis. Patient does not appear to be in acute exacerbation of COPD at this time. Patient is describing the pain as a burning sensation, which would be atypical for cardiac etiology. Code Visit Inpatient E&M: 87373 Init Hosp L3
--- NOTE | 2017-05-20 10:44 | CASEMGMT ---
Addendum entered by Huan Castro 05/20/17 14:48: F/U appointment made with [facility] for Jun 05 2017 @ 9 am. Original Note: Readmission note. Pt was in ER 05/17/17 for CP, sob, NV: received treatment and was discharged to Home 04/30/17-: Pt was admitted for R fourth toe wound infection. Left AMA. 05/19/17 presents with severe abd/epigastric pain, CT showed dilated gallblader, Lactic acid 1.7, WBC 21, seen by Dr. Fine for foot wound. IV antibiotics, US of gallbladder ordered. PCP: Dr. Henderson Podiatry: Dr. Cantu Vascular: Dr. Swan Endocrinology: none. Card for Saritha Romero given to pt. (pt is agreeable to have appointment made for dc- message left with office requesting appt) Pharmacy: [facility]: in past with [facility], no [facility] currently RN CM will continue to follow and assist with dc planning.
[2017-05-20] MEDS: Gabapentin 800 MG Tablet PO ×4 (10:56→22:21)
[2017-05-20] MEDS: Aspirin 81 MG TAB.CHEW PO (10:56)
[2017-05-20] MEDS: Lisinopril 20 MG Tablet PO (10:57)
[2017-05-20] MEDS: Metoprolol(XL)Succ 25 MG Tablet PO (10:57)
--- NOTE | 2017-05-20 11:01 | PCM.PN.HOSP ---
Patient Problems: Active and Suspected Problems Sepsis (Acute) Subjective: States that he is I am doing. Does not elaborate further. Vitals/I&O's: Vital Signs Temp Pulse Resp BP Pulse Ox 37.3 C H 107 H 13 169/86 H 97 05/20/17 08:00 05/20/17 10:57 05/20/17 09:00 05/20/17 10:57 05/20/17 09:00 Oxygen Delivery Method Room Air Weight: 77.1 kg Body Mass Index (BMI) 25.0 Finger Stick Blood Glucose 167 Intake and Output for Last 24 Hours 05/18/17 05/19/17 05/20/17 23:59 23:59 23:59 Intake Total 1682 / 1682 1633.8 / 1633.8 Output Total 0 / 0 2200 / 2200 Balance 1682 / 1682 -566.2 / -566.2 General: Alert, Cooperative, No apparent distress HEENT: Atraumatic, Normocephalic Neck: No Nodes, Thyroid Normal Size and Texture Lungs: Clear to auscultation, Normal air movement, No rhonchi, No wheeze Cardiovascular: Regular rate, Regular Rhythm, Normal S1, Normal S2, No murmurs Abdomen: Bowel Sounds Present, Soft, Non Tender, Non-Distended, No Hepato-splenomegaly Extremities: No edema, No Calf Tenderness Psych/Mental Status: Normal Affect, Appropriate Microbiology Past 72 Hours 05/19/17 19:40 Mucosa - Nasopharyngeal Influenza Types A,B Direct FA (QUIANA) - Final Laboratory Results 05/19/17 17:00: Phosphorus 3.3, Magnesium 2.4 05/19/17 17:00: Hemoglobin A1c 10.6 H 05/19/17 17:00: Sodium 135 L, Potassium 4.9, Chloride 107, Carbon Dioxide 11.0 L, Anion Gap 17 H, BUN 38 H, Creatinine 1.12, Estim Creat Clear Calc 71.25, Est GFR (MDRD) Af Amer 87, Est GFR (MDRD) Non-Af 72, BUN/Creatinine Ratio 33.9 H, Glucose 182 H, Calcium 8.3 L 05/19/17 17:00: Troponin I < 0.02 05/19/17 17:00: MRSA (PCR) Negative 05/19/17 17:12: POC Glucose 172 H 05/19/17 18:19: POC Glucose 167 H 05/19/17 19:22: POC Glucose 127 H 05/19/17 20:15: POC Glucose 111 H 05/19/17 20:20: Sodium 137, Potassium 4.3, Chloride 111 H, Carbon Dioxide 15.0 L, Anion Gap 11, BUN 37 H, Creatinine 1.08, Estim Creat Clear Calc 73.89, Est GFR (MDRD) Af Amer 91, Est GFR (MDRD) Non-Af 75, BUN/Creatinine Ratio 34.3 H, Glucose 123 H, Calcium 8.1 L 05/19/17 20:20: Troponin I 0.03 05/19/17 21:28: POC Glucose 95 05/19/17 22:17: POC Glucose 73 05/19/17 23:05: POC Glucose 87 05/20/17 00:05: Sodium 140, Potassium 4.0, Chloride 113 H, Carbon Dioxide 17.0 L, Anion Gap 10, BUN 33 H, Creatinine 0.95, Estim Creat Clear Calc 84.00, Est GFR (MDRD) Af Amer 105, Est GFR (MDRD) Non-Af 87, BUN/Creatinine Ratio 34.8 H, Glucose 93, Calcium 7.9 L 05/20/17 00:07: POC Glucose 101 05/20/17 01:08: POC Glucose 97 05/20/17 02:10: POC Glucose 66 L 05/20/17 02:33: POC Glucose 64 L 05/20/17 02:55: Sodium 139, Potassium 4.0, Chloride 108 H, Carbon Dioxide 18.0 L, Anion Gap 13, BUN 30 H, Creatinine 1.02, Estim Creat Clear Calc 78.24, Est GFR (MDRD) Af Amer 97, Est GFR (MDRD) Non-Af 80, BUN/Creatinine Ratio 29.4 H, Glucose 130 H, Calcium 8.3 L 05/20/17 02:55: Troponin I 0.02 05/20/17 03:06: POC Glucose 138 H 05/20/17 03:30: Urine Opiates Screen POSITIVE H, Urine Methadone Screen NEGATIVE, Ur Barbiturates Screen NEGATIVE, Ur Phencyclidine Scrn NEGATIVE, Ur Amphetamines Screen NEGATIVE, U Methamphetamin-MDMA NEGATIVE, U Benzodiazepines Scrn NEGATIVE, Urine Cocaine Screen NEGATIVE, U Cannabinoids Screen NEGATIVE, Ur Drug Screen Comment 01/08/18 04:09: POC Glucose 133 H 05/20/17 04:50: WBC 17.6 H, RBC 4.51 L, Hgb 14.0, Hct 40.2, MCV 89.1, MCH 31.0, MCHC 34.8, RDW 13.3, RDW Differential 42.9, Plt Count 254, MPV 9.9, Immature Gran % (Auto) 0.300, Neut % (Auto) 79.0 H, Lymph % (Auto) 9.6 L, [place] % (Auto) 11.0 H, Eos % (Auto) 0.0, Baso % (Auto) 0.1, Absolute Neuts (auto) 13.9 H, Absolute Lymphs (auto) 1.69, Total Counted Not Reportable, Differential Comment SCANNED, Diff Path Review September05/20/17 04:50: Magnesium Cancelled, Triglycerides Cancelled, Cholesterol Cancelled, LDL Cholesterol Cancelled, VLDL Cholesterol Cancelled, HDL Cholesterol Cancelled 05/20/17 04:50: Phosphorus Cancelled 05/20/17 05:10: Phosphorus 1.5 L, Magnesium 2.3, Triglycerides 116, Cholesterol 128, LDL Cholesterol 61, VLDL Cholesterol 23, HDL Cholesterol 44 05/20/17 05:10: Lipase 439 H 05/20/17 06:23: POC Glucose 127 H 05/20/17 08:10: Sodium 142, Potassium 4.1, Chloride 113 H, Carbon Dioxide 19.0 L, Anion Gap 10, BUN 29 H, Creatinine 0.93, Estim Creat Clear Calc 85.81, Est GFR (MDRD) Af Amer 108, Est GFR (MDRD) Non-Af 89, BUN/Creatinine Ratio 31.2 H, Glucose 125 H, Calcium 8.4 L Current Medications Acetaminophen (Tylenol) 650 mg PO Q6H PRN PRN PRN Reason: Mild Pain (scale 0-3)/T>100.7 Al Hydroxide/Mg Hydroxide (Mylanta Ii) 30 ml PO Q6H PRN PRN PRN Reason: Gastric burning Albuterol Sulfate (Ventolin Aerosols) 2.5 mg INHALATION Q2H PRN PRN PRN Reason: dyspnea, wheezing Albuterol/Ipratropium (Duoneb) 3 ml INHALATION Q6HWA.RT CECE Last Admin: 05/20/17 06:33 Dose: 3 ml Aspirin (Aspirin, Baby) 81 mg PO DAILY@0800 [facility] Last Admin: 05/20/17 10:56 Dose: 81 mg Atorvastatin Calcium (Lipitor) 20 mg PO DAILY@2200 [facility] Last Admin: 05/19/17 22:06 Dose: 20 mg Collagenase (Santyl) 1 applic TOPICAL DAILY CECE PRN Reason: Protocol Dextrose (D50w Syringe) 0 gm IV X1 PRN; Protocol PRN Reason: HYPOGLYCEMIA Last Admin: 05/20/17 02:46 Dose: 12.5 gm Fentanyl Citrate (Sublimaze) 50 mcg IV Q2H PRN PRN PRN Reason: PAIN Last Admin: 05/20/17 09:21 Dose: 50 mcg Gabapentin (Neurontin) 800 mg PO 4X/DAYCM [facility] Last Admin: 05/20/17 10:56 Dose: 800 mg Glucagon () 1 mg IM .X1 PRN PRN Reason: Hypoglycemia Heparin Sodium (Porcine) () 5,000 units SC BID [facility] Last Admin: 05/19/17 22:10 Dose: Not Given Hydralazine HCl (Apresoline) 10 mg IV Q4H PRN PRN PRN Reason: SBP > 160 Last Admin: 05/20/17 07:55 Dose: 10 mg Piperacillin Sod/Tazobactam Sod (Zosyn) 3.375 gm in 50 mls @ 12.5 mls/hr IV Q8 [facility] Last Admin: 05/20/17 05:46 Dose: 12.5 mls/hr Sodium Chloride () 1,000 mls @ 100 mls/hr IV .Q10H [facility] Last Admin: 05/20/17 10:55 Dose: 100 mls/hr Insulin Aspart (Novolog Flexpen (Bkc)) 0 units SC ACHS [facility] PRN Reason: Protocol Last Admin: 05/20/17 09:39 Dose: Not Given Insulin Detemir (Levemir (Bkc)) 10 units SC QHS [facility] Last Admin: 05/20/17 01:14 Dose: 10 u Lisinopril (Zestril) 20 mg PO DAILY [facility] Last Admin: 05/20/17 10:57 Dose: 20 mg Magnesium Hydroxide (Milk Of Magnesia) 30 ml PO DAILY PRN PRN Reason: Constipation Metoprolol Succinate (Toprol Xl (Beta Herminio)) 25 mg PO DAILY [facility] Last Admin: 05/20/17 10:57 Dose: 25 mg Morphine Sulfate (Morphine) 1 - 2 mg IV Q4H PRN PRN PRN Reason: Moderate Pain (pain scale 4-5) Nicotine (Nicoderm Cq (Pbkc)) 21 mg TRANSDERM. DAILY [facility] Last Admin: 05/20/17 10:56 Dose: 21 mg Nitroglycerin (Nitrostat) 0.4 mg SUBLINGUAL Q5M PRN PRN Reason: Angina pain Nutritional Formula (Juma - [place] Flavor) 1 packet PO BIDCM [facility] Last Admin: 05/20/17 10:55 Dose: 1 packet Ondansetron HCl (Zofran) 4 mg IV Q8H PRN PRN PRN Reason: NAUSEA Promethazine HCl (Phenergan (Ll)) 12.5 mg IV Q6H PRN PRN PRN Reason: NAUSEA/VOMITING Sodium Chloride () 5 - 30 ml IV UD PRN PRN Reason: SALINE FLUSH Last Admin: 05/20/17 04:24 Dose: 20 ml Assessment/Plan Active and Suspected Problems Sepsis (Acute) 1. Sepsis Unclear source at this time but the concern would be for right foot infection versus cholecystitis versus other. Influenza negative. Only one blood culture done yesterday and so far negative. On Zosyn plus vancomycin. 2. Right foot ulcer Not felt to be osteomyelitis by podiatry. MRI from May 01 showed slight bony edema in the fourth metatarsal head without T1 bone marrow signal alteration. And felt to be likely a reactive bone edema rather than osteomyelitis. May consider repeat MRI depending on the patient's clinical course. 3. Diabetes mellitus type 2, uncontrolled Improved Off insulin drip and on prandial basal insulin Impression not sure the patient had diabetic ketoacidosis. This is an elevated anion gap may be related with the sepsis the patient was experiencing upon arrival. 4. Distended gallbladder Really not having abdominal pain. Ultrasound has been ordered, follow-up results on that. 5. DVT prophylaxis with subcu heparin. Transfer the patient to the progressive care unit.
--- NOTE | 2017-05-20 11:12 | PN_ITS ---
Patient Problems: Active and Suspected Problems Sepsis (Acute) Subjective: States that he is I am doing. Does not elaborate further. Vitals/I&O's: Vital Signs Temp Pulse Resp BP Pulse Ox 37.3 C H 107 H 13 169/86 H 97 05/20/17 08:00 05/20/17 10:57 05/20/17 09:00 05/20/17 10:57 05/20/17 09:00 Oxygen Delivery Method Room Air Weight: 77.1 kg Body Mass Index (BMI) 25.0 Finger Stick Blood Glucose 167 Intake and Output for Last 24 Hours 05/18/17 05/19/17 05/20/17 23:59 23:59 23:59 Intake Total 1682 / 1682 1633.8 / 1633.8 Output Total 0 / 0 2200 / 2200 Balance 1682 / 1682 -566.2 / -566.2 General: Alert, Cooperative, No apparent distress HEENT: Atraumatic, Normocephalic Neck: No Nodes, Thyroid Normal Size and Texture Lungs: Clear to auscultation, Normal air movement, No rhonchi, No wheeze Cardiovascular: Regular rate, Regular Rhythm, Normal S1, Normal S2, No murmurs Abdomen: Bowel Sounds Present, Soft, Non Tender, Non-Distended, No Hepato- splenomegaly Extremities: No edema, No Calf Tenderness Psych/Mental Status: Normal Affect, Appropriate Microbiology Past 72 Hours 05/19/17 19:40 Mucosa - Nasopharyngeal Influenza Types A,B Direct FA (QUIANA) - Final Laboratory Results 05/19/17 17:00: Phosphorus 3.3, Magnesium 2.4 05/19/17 17:00: Hemoglobin A1c 10.6 H 05/19/17 17:00: Sodium 135 L, Potassium 4.9, Chloride 107, Carbon Dioxide 11.0 L , Anion Gap 17 H, BUN 38 H, Creatinine 1.12, Estim Creat Clear Calc 71.25, Est GFR (MDRD) Af Amer 87, Est GFR (MDRD) Non-Af 72, BUN/Creatinine Ratio 33.9 H, Glucose 182 H, Calcium 8.3 L 05/19/17 17:00: Troponin I < 0.02 05/19/17 17:00: MRSA (PCR) Negative 05/19/17 17:12: POC Glucose 172 H 05/19/17 18:19: POC Glucose 167 H 05/19/17 19:22: POC Glucose 127 H 05/19/17 20:15: POC Glucose 111 H 05/19/17 20:20: Sodium 137, Potassium 4.3, Chloride 111 H, Carbon Dioxide 15.0 L , Anion Gap 11, BUN 37 H, Creatinine 1.08, Estim Creat Clear Calc 73.89, Est GFR (MDRD) Af Amer 91, Est GFR (MDRD) Non-Af 75, BUN/Creatinine Ratio 34.3 H, Glucose 123 H, Calcium 8.1 L 05/19/17 20:20: Troponin I 0.03 05/19/17 21:28: POC Glucose 95 05/19/17 22:17: POC Glucose 73 05/19/17 23:05: POC Glucose 87 05/20/17 00:05: Sodium 140, Potassium 4.0, Chloride 113 H, Carbon Dioxide 17.0 L , Anion Gap 10, BUN 33 H, Creatinine 0.95, Estim Creat Clear Calc 84.00, Est GFR (MDRD) Af Amer 105, Est GFR (MDRD) Non-Af 87, BUN/Creatinine Ratio 34.8 H, Glucose 93, Calcium 7.9 L 05/20/17 00:07: POC Glucose 101 05/20/17 01:08: POC Glucose 97 05/20/17 02:10: POC Glucose 66 L 05/20/17 02:33: POC Glucose 64 L 05/20/17 02:55: Sodium 139, Potassium 4.0, Chloride 108 H, Carbon Dioxide 18.0 L , Anion Gap 13, BUN 30 H, Creatinine 1.02, Estim Creat Clear Calc 78.24, Est GFR (MDRD) Af Amer 97, Est GFR (MDRD) Non-Af 80, BUN/Creatinine Ratio 29.4 H, Glucose 130 H, Calcium 8.3 L 05/20/17 02:55: Troponin I 0.02 05/20/17 03:06: POC Glucose 138 H 05/20/17 03:30: Urine Opiates Screen POSITIVE H, Urine Methadone Screen NEGATIVE , Ur Barbiturates Screen NEGATIVE, Ur Phencyclidine Scrn NEGATIVE, Ur Amphetamines Screen NEGATIVE, U Methamphetamin-MDMA NEGATIVE, U Benzodiazepines Scrn NEGATIVE, Urine Cocaine Screen NEGATIVE, U Cannabinoids Screen NEGATIVE, Ur Drug Screen Comment 01/08/18 04:09: POC Glucose 133 H 05/20/17 04:50: WBC 17.6 H, RBC 4.51 L, Hgb 14.0, Hct 40.2, MCV 89.1, MCH 31.0, MCHC 34.8, RDW 13.3, RDW Differential 42.9, Plt Count 254, MPV 9.9, Immature Gran % (Auto) 0.300, Neut % (Auto) 79.0 H, Lymph % (Auto) 9.6 L, [place] % (Auto) 11.0 H, Eos % (Auto) 0.0, Baso % (Auto) 0.1, Absolute Neuts (auto) 13.9 H, Absolute Lymphs (auto) 1.69, Total Counted Not Reportable, Differential Comment SCANNED, Diff Path Review September05/20/17 04:50: Magnesium Cancelled, Triglycerides Cancelled, Cholesterol Cancelled, LDL Cholesterol Cancelled, VLDL Cholesterol Cancelled, HDL Cholesterol Cancelled 05/20/17 04:50: Phosphorus Cancelled 05/20/17 05:10: Phosphorus 1.5 L, Magnesium 2.3, Triglycerides 116, Cholesterol 128, LDL Cholesterol 61, VLDL Cholesterol 23, HDL Cholesterol 44 05/20/17 05:10: Lipase 439 H 05/20/17 06:23: POC Glucose 127 H 05/20/17 08:10: Sodium 142, Potassium 4.1, Chloride 113 H, Carbon Dioxide 19.0 L , Anion Gap 10, BUN 29 H, Creatinine 0.93, Estim Creat Clear Calc 85.81, Est GFR (MDRD) Af Amer 108, Est GFR (MDRD) Non-Af 89, BUN/Creatinine Ratio 31.2 H, Glucose 125 H, Calcium 8.4 L Current Medications Acetaminophen (Tylenol) 650 mg PO Q6H PRN PRN PRN Reason: Mild Pain (scale 0-3)/T>100.7 Al Hydroxide/Mg Hydroxide (Mylanta Ii) 30 ml PO Q6H PRN PRN PRN Reason: Gastric burning Albuterol Sulfate (Ventolin Aerosols) 2.5 mg INHALATION Q2H PRN PRN PRN Reason: dyspnea, wheezing Albuterol/Ipratropium (Duoneb) 3 ml INHALATION Q6HWA.RT CECE Last Admin: 05/20/17 06:33 Dose: 3 ml Aspirin (Aspirin, Baby) 81 mg PO DAILY@0800 [facility] Last Admin: 05/20/17 10:56 Dose: 81 mg Atorvastatin Calcium (Lipitor) 20 mg PO DAILY@2200 [facility] Last Admin: 05/19/17 22:06 Dose: 20 mg Collagenase (Santyl) 1 applic TOPICAL DAILY CECE PRN Reason: Protocol Dextrose (D50w Syringe) 0 gm IV X1 PRN; Protocol PRN Reason: HYPOGLYCEMIA Last Admin: 05/20/17 02:46 Dose: 12.5 gm Fentanyl Citrate (Sublimaze) 50 mcg IV Q2H PRN PRN PRN Reason: PAIN Last Admin: 05/20/17 09:21 Dose: 50 mcg Gabapentin (Neurontin) 800 mg PO 4X/DAYCM [facility] Last Admin: 05/20/17 10:56 Dose: 800 mg Glucagon () 1 mg IM .X1 PRN PRN Reason: Hypoglycemia Heparin Sodium (Porcine) () 5,000 units SC BID [facility] Last Admin: 05/19/17 22:10 Dose: Not Given Hydralazine HCl (Apresoline) 10 mg IV Q4H PRN PRN PRN Reason: SBP > 160 Last Admin: 05/20/17 07:55 Dose: 10 mg Piperacillin Sod/Tazobactam Sod (Zosyn) 3.375 gm in 50 mls @ 12.5 mls/hr IV Q8 [facility] Last Admin: 05/20/17 05:46 Dose: 12.5 mls/hr Sodium Chloride () 1,000 mls @ 100 mls/hr IV .Q10H [facility] Last Admin: 05/20/17 10:55 Dose: 100 mls/hr Insulin Aspart (Novolog Flexpen (Bkc)) 0 units SC ACHS [facility] PRN Reason: Protocol Last Admin: 05/20/17 09:39 Dose: Not Given Insulin Detemir (Levemir (Bkc)) 10 units SC QHS [facility] Last Admin: 05/20/17 01:14 Dose: 10 u Lisinopril (Zestril) 20 mg PO DAILY [facility] Last Admin: 05/20/17 10:57 Dose: 20 mg Magnesium Hydroxide (Milk Of Magnesia) 30 ml PO DAILY PRN PRN Reason: Constipation Metoprolol Succinate (Toprol Xl (Beta Herminio)) 25 mg PO DAILY [facility] Last Admin: 05/20/17 10:57 Dose: 25 mg Morphine Sulfate (Morphine) 1 - 2 mg IV Q4H PRN PRN PRN Reason: Moderate Pain (pain scale 4-5) Nicotine (Nicoderm Cq (Pbkc)) 21 mg TRANSDERM. DAILY [facility] Last Admin: 05/20/17 10:56 Dose: 21 mg Nitroglycerin (Nitrostat) 0.4 mg SUBLINGUAL Q5M PRN PRN Reason: Angina pain Nutritional Formula (Juma - [place] Flavor) 1 packet PO BIDCM [facility] Last Admin: 05/20/17 10:55 Dose: 1 packet Ondansetron HCl (Zofran) 4 mg IV Q8H PRN PRN PRN Reason: NAUSEA Promethazine HCl (Phenergan (Ll)) 12.5 mg IV Q6H PRN PRN PRN Reason: NAUSEA/VOMITING Sodium Chloride () 5 - 30 ml IV UD PRN PRN Reason: SALINE FLUSH Last Admin: 05/20/17 04:24 Dose: 20 ml Assessment/Plan Active and Suspected Problems Sepsis (Acute) 1. Sepsis Unclear source at this time but the concern would be for right foot infection versus cholecystitis versus other. Influenza negative. Only one blood culture done yesterday and so far negative. On Zosyn plus vancomycin. 2. Right foot ulcer Not felt to be osteomyelitis by podiatry. MRI from May 01 showed slight bony edema in the fourth metatarsal head without T1 bone marrow signal alteration. And felt to be likely a reactive bone edema rather than osteomyelitis. May consider repeat MRI depending on the patient's clinical course. 3. Diabetes mellitus type 2, uncontrolled Improved Off insulin drip and on prandial basal insulin Impression not sure the patient had diabetic ketoacidosis. This is an elevated anion gap may be related with the sepsis the patient was experiencing upon arrival. 4. Distended gallbladder Really not having abdominal pain. Ultrasound has been ordered, follow-up results on that. 5. DVT prophylaxis with subcu heparin. Transfer the patient to the progressive care unit.
[2017-05-20] MEDS: Heparin Injection 5,000 UNITS/ML Syringe 5000 UNITS SC ×2 (11:40→22:20)
[2017-05-20 11:56] LABS: Anion Gap 16 (5-15); BUN 28 mg/dL (7-18); BUN/Creat Ratio 32.7 RATIO (10-20); Calcium,Total 8.3 mg/dL (8.5-10.1); Chloride 109 mmol/L (98-107); Creatinine, Serum 0.86 mg/dL (0.70-1.30); EST Glomerular Filtration Rate 98 mL/min (>60); Est Glom Filt Rate - Afr Amer 118 mL/min (>60); Estimated Creatinine Clearance 92.79 ml/min; Glucose 116 mg/dL (70-110); Potassium 3.9 mmol/L (3.5-5.1); Sodium Level 142 mmol/L (136-145)
[2017-05-20 13:37] LABS: Pathologist Review Reviewed
[2017-05-20 13:42] LABS: Pathologist Review Reviewed
[2017-05-20] MEDS: Acetaminophen 325 MG Tablet 650 MG PO ×2 (13:49→20:50)
[2017-05-20] MEDS: Mag Hydrox/Al Hydrox/Simeth 30 ML UDC PO ×2 (13:52→20:50)
--- NOTE | 2017-05-20 15:13 | NURSING ---
report called to [facility] fro transfer to [id number], transferred per wheelchair with belongings
[2017-05-20 16:41] LABS: Bedside Glucose 206 mg/dL (70-110)
[2017-05-20 22:10] LABS: BUN 32 mg/dL (7-18); Creatinine, Serum 0.78 mg/dL (0.70-1.30); Estimated Creatinine Clearance 102.31 ml/min; Glucose 244 mg/dL (70-110)
[2017-05-20 22:11] LABS: Anion Gap 13 (5-15); BUN/Creat Ratio 41.2 RATIO (10-20); Calcium,Total 8.5 mg/dL (8.5-10.1); Chloride 109 mmol/L (98-107); EST Glomerular Filtration Rate 110 mL/min (>60); Est Glom Filt Rate - Afr Amer 133 mL/min (>60); Sodium Level 140 mmol/L (136-145)
[2017-05-20] MEDS: Atorvastatin Calcium 20 MG Tablet PO (22:21)
[2017-05-20 22:35] LABS: Bedside Glucose 233 mg/dL (70-110)
[2017-05-21] VITALS (20 sets, daily range): BP systolic 139–199; BP diastolic 64–95; PULSE 95–110; RESP 16–20; TEMP 36.8–37.3; O2SAT 96–99
[2017-05-21] MEDS: Collagenase 30gm Tube 1 APPLIC TOPICAL ×2 (00:17→09:27)
[2017-05-21] MEDS: 0.9% NaCl Peripheral Flush Adult/Peds IV ×3 (02:30→22:59)
[2017-05-21] MEDS: Mag Hydrox/Al Hydrox/Simeth 30 ML UDC PO ×3 (03:03→15:31)
[2017-05-21] MEDS: Piperacil/Tazobactam 3.375 GM/50 ML ML IV ×3 (05:00→22:05)
[2017-05-21] MEDS: Ipratropium/Albuterol Sulfate 3 ML AMPUL.NEB INHALATION ×3 (06:48→18:46)
[2017-05-21 06:50] LABS: Bedside Glucose 143 mg/dL (70-110)
[2017-05-21 07:51] LABS: Absolute Lymphocyte Count 2.27 X10^3/ul (0.83-4.51); Absolute Neutrophil Count 8.4 X10^3/uL (2.0-7.7); Basophil# 0.01 X10^3/uL; Basophil% 0.1 % (0-1); Eosinophil# 0.02 X10^3/uL; Eosinophils% 0.2 % (0-5); Hematocrit 42.2 % (40-54); Lymphocyte # 2.27 X10^3/ul (4.0); Lymphocyte % 18.5 % (19-41); Mean Corp Hgb Conc 33.2 g/gl (32-36); Mean Corpuscular Hgb 29.9 pg (27.0-32.0); Mean Platelet Vol. 10.9 fl (6.2-12.0); Monocyte% 12.2 % (0-10); Neutrophil # 8.42 X10^3/uL (2.7-7.7); Neutrophil % 68.7 % (47-70); Platelet Count 207 K/mm3 (150-450); RBC Distribution Width CV 13.5 % (11.6-14.6); RBC Distribution Width SD 44.1 fl (35.1-43.9); Red Blood Count 4.69 M/mm3 (4.6-6.2); White Blood Count 12.3 K/mm3 (4.4-11.0)
[2017-05-21 07:54] LABS: POSITIVE COUNT NO; POSITIVE DIFFERENTIAL NO; POSITIVE MORPHOLOGY NO
[2017-05-21 08:05] LABS: Anion Gap 13 (5-15); BUN 25 mg/dL (7-18); BUN/Creat Ratio 38.1 RATIO (10-20); Calcium,Total 8.6 mg/dL (8.5-10.1); Chloride 107 mmol/L (98-107); Creatinine, Serum 0.66 mg/dL (0.70-1.30); EST Glomerular Filtration Rate 133 mL/min (>60); Est Glom Filt Rate - Afr Amer 161 mL/min (>60); Estimated Creatinine Clearance 120.91 ml/min; Glucose 119 mg/dL (70-110); Magnesium 2.2 mg/dL (1.8-2.4); Phosphorus 0.9 mg/dL (2.5-4.9); Potassium 3.7 mmol/L (3.5-5.1); Sodium Level 139 mmol/L (136-145)
[2017-05-21] MEDS: Acetaminophen 325 MG Tablet 650 MG PO (08:22)
--- NOTE | 2017-05-21 08:22 | PCM.PROGNOTE ---
Patient Problems: Active and Suspected Problems Sepsis (Acute) Subjective: Patient was seen and examined. Upon my entering room, patient appeared to be sleeping. He awakened to voice, then reported he is having severe epigastric pain. He does complain of a somewhat sore throat and burning sensation epigastric area up to throat. Is been given Mylanta 4 separate times with very short-lived relief. Leukocytosis has improved. Patient remains hemodynamically stable and afebrile. He continues to be somewhat tachycardic. Patient maintaining saturations on room air. Objective: Clinical Impression(s) from Imaging Studies Chest X-Ray 05/19/17 13:38 IMPRESSION: No acute pulmonary pathology of the chest. Electronically Signed: Everett Churchill DO at 15:03 EST Tel [phone], Service support , Abdomen/Pelvis CT 05/19/17 20:43 IMPRESSION: Fluid-filled distended urinary bladder. Fatty infiltration of the liver. Distended gallbladder consider ultrasound for further evaluation. Atherosclerosis. Hiatal hernia. Electronically Signed: Africa Dillard MD at 21:41 EST Tel , Service support , Abdomen Ultrasound 05/20/17 05:55 IMPRESSION: Fatty infiltration of the liver. Electronically Signed: Dylan Duarte MD at 12:41 EST Tel [phone], Service support , - Physical Exam General: Alert, Oriented x3, Cooperative, - - grimacing once awakened, painful epigastric area HEENT: Atraumatic, Normocephalic Oral: Moist Mucosa, No Gingival or Mucosal Lesions/ Ulcerations Neck: Supple, No Nodes, Trachea Midline Lungs: Clear to auscultation, No rhonchi, No wheeze, No rales, Diminished Cardiovascular: Regular Rhythm, Normal S1, Normal S2, No murmurs, No rub noted, No Gallop, Tachycardic Abdomen: Bowel Sounds Present, Soft, Tender - epigastric Extremities: No clubbing, No cyanosis, No edema, - - finger amputations-remote. R foot wrapped Skin: No rashes, Ulcer/ Wound Musculoskeletal: Tenderness - R foot Lymphatic: No Cervical, Supraclavicular, or Inguinal Adenopathy Neurological: Cranial nerves II-XII grossly intact, Neuro grossly intact, Motor Exam 5/5 strength throughout Psych/Mental Status: Anxious, - - grimacing. Alert and oriented Vital Signs Temp Pulse Resp BP Pulse Ox 98.3 F 101 H 18 154/79 H 96 05/21/17 03:30 05/21/17 07:15 05/21/17 03:30 05/21/17 03:30 05/21/17 03:30 Oxygen Delivery Method Room Air Weight: 173 lb 11.588 oz Body Mass Index (BMI) 25.0 Finger Stick Blood Glucose 167 Intake and Output for Last 24 Hours 05/19/17 05/20/17 05/21/17 23:59 23:59 23:59 Intake Total 1682 / 1682 2696.8 / 2696.8 1225.4 / 1225.4 Output Total 0 / 0 4400 / 4400 1150 / 1150 Balance 1682 / 1682 -1703.2 / -1703.2 75.4 / 75.4 Microbiology Past 72 Hours 05/19/17 19:40 Influenza Types A,B Direct FA (QUIANA) - Final Mucosa - Nasopharyngeal Laboratory Tests Past 24 Hrs 05/20/17 05/20/17 05/20/17 04:50 08:10 11:40 WBC RBC Hgb Hct MCV MCH MCHC RDW RDW Differential Plt Count MPV Immature Gran % (Auto) Neut % (Auto) Lymph % (Auto) [place] % (Auto) Eos % (Auto) Baso % (Auto) Absolute Neuts (auto) Absolute Lymphs (auto) Total Counted Diff Path Review Reviewed Sodium 142 142 Potassium 4.1 3.9 Chloride 113 H 109 H Carbon Dioxide 19.0 L 17.0 L Anion Gap 10 16 H BUN 29 H 28 H Creatinine 0.93 0.86 Estim Creat Clear Calc 85.81 92.79 Est GFR (MDRD) Af Amer 108 118 Est GFR (MDRD) Non-Af 89 98 BUN/Creatinine Ratio 31.2 H 32.7 H Glucose 125 H 116 H Calcium 8.4 L 8.3 L Phosphorus Magnesium Hep C Antibody RIBA Hep C RIBA Interpret HCV RNA Quant (PCR) Hepatitis C Genotype Hepatitis C Comment 05/20/17 05/20/17 05/21/17 11:40 21:20 06:37 WBC 12.3 H RBC 4.69 Hgb 14.0 Hct 42.2 MCV 90.0 MCH 29.9 MCHC 33.2 RDW 13.5 RDW Differential 44.1 H Plt Count 207 MPV 10.9 Immature Gran % (Auto) 0.300 Neut % (Auto) 68.7 Lymph % (Auto) 18.5 L [place] % (Auto) 12.2 H Eos % (Auto) 0.2 Baso % (Auto) 0.1 Absolute Neuts (auto) 8.4 H Absolute Lymphs (auto) 2.27 Total Counted Not Reportable Diff Path Review Sodium 140 Potassium 4.0 Chloride 109 H Carbon Dioxide 18.0 L Anion Gap 13 BUN 32 H Creatinine 0.78 Estim Creat Clear Calc 102.31 Est GFR (MDRD) Af Amer 133 Est GFR (MDRD) Non-Af 110 BUN/Creatinine Ratio 41.2 H Glucose 244 H Calcium 8.5 Phosphorus Magnesium Hep C Antibody RIBA Pending Hep C RIBA Interpret Pending HCV RNA Quant (PCR) Pending Hepatitis C Genotype Pending Hepatitis C Comment Pending 05/21/17 05/21/17 06:37 06:37 WBC RBC Hgb Hct MCV MCH MCHC RDW RDW Differential Plt Count MPV Immature Gran % (Auto) Neut % (Auto) Lymph % (Auto) [place] % (Auto) Eos % (Auto) Baso % (Auto) Absolute Neuts (auto) Absolute Lymphs (auto) Total Counted Diff Path Review Sodium 139 Potassium 3.7 Chloride 107 Carbon Dioxide 19.0 L Anion Gap 13 BUN 25 H Creatinine 0.66 L Estim Creat Clear Calc 120.91 Est GFR (MDRD) Af Amer 161 Est GFR (MDRD) Non-Af 133 BUN/Creatinine Ratio 38.1 H Glucose 119 H Calcium 8.6 Phosphorus 0.9 L* Magnesium 2.2 Hep C Antibody RIBA Hep C RIBA Interpret HCV RNA Quant (PCR) Hepatitis C Genotype Hepatitis C Comment POC Glucose 05/21/17 05/20/17 05/20/17 06:48 22:19 16:20 POC Glucose 143 H 233 H 206 H Assessment/Plan Active and Suspected Problems Sepsis (Acute) RECOMMENDATIONS: 1. Continue empiric antibiotics 2. Podiatry to address foot wound 3. Electrolyte replacement as indicated 4. Await repeat lipase 5. Would initiate PPI 6. Will sign off at this time IMPRESSIONS: 1. 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 Patient likely has not been completing wound care as previously directed. Cultures are currently pending. Agree with empiric antibiotics for now. Patient is hypertensive and tachycardic, likely secondary to ongoing abdominal pain. Leukocytosis has improved. Patient has been afebrile. 2. DKA/diabetes mellitus type 2/pancreatitis CT scan of the abdomen does show a distended gallbladder, so gallstone pancreatitis was a considered etiology for his diabetes. Patient does have dehiscence of the foot, which is also a possible etiology. Blood sugars are well-controlled at this time. His gap is closed. Electrolyte repletion as tolerated. 3. Epigastric chest pain Unclear etiology at this time. Patient did have rising lipase levels to indicate pancreatitis, however repeat level is normal this a.m. Patient may also have GERD. No signs of bleeding ulcer been noted. CT the abdomen/pelvis showed distended urinary bladder, again fatty infiltration of the liver, and distended gallbladder. Also a hiatal hernia and evidence of atherosclerosis. Abdominal ultrasound was obtained and showed fatty infiltration of the liver, nothing acute. He is again today complaining of epigastric pain, hospitalist has ordered a repeat lipase. Patient is not on a PPI, will initiate today. 4. Coronary artery disease/peripheral vascular disease/reported COPD/tobacco abuse/poor compliance Complicates care, management, recovery and prognosis. Patient does not appear to be in acute exacerbation of COPD at this time. Patient is describing the pain as a burning sensation, which would be atypical for cardiac etiology. 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 This note was generated with ebridge dictation software. It may contain incorrect words, spelling, and punctuation that were not noted in checking the note before signing.
[2017-05-21] MEDS: Gabapentin 800 MG Tablet PO ×4 (08:23→21:20)
[2017-05-21] MEDS: Aspirin 81 MG TAB.CHEW PO (08:23)
[2017-05-21] MEDS: Lisinopril 20 MG Tablet PO (09:28)
[2017-05-21] MEDS: Metoprolol(XL)Succ 25 MG Tablet PO (09:28)
[2017-05-21] MEDS: Heparin Injection 5,000 UNITS/ML Syringe 5000 UNITS SC (09:29)
--- NOTE | 2017-05-21 09:53 | PCM.PN.HOSP ---
Patient Problems: Active and Suspected Problems Sepsis (Acute) Subjective: Complains of belly pain that midepigastric and then radiates up into his chest. Patient is trying to eat yogurt to coat it. Vitals/I&O's: Vital Signs Temp Pulse Resp BP Pulse Ox 37.1 C 110 H 20 H 139/64 H 97 05/21/17 09:25 05/21/17 09:28 05/21/17 09:25 05/21/17 09:25 05/21/17 09:25 Oxygen Delivery Method Room Air Weight: 78.8 kg Body Mass Index (BMI) 25.0 Finger Stick Blood Glucose 167 Intake and Output for Last 24 Hours 05/19/17 05/20/17 05/21/17 23:59 23:59 23:59 Intake Total 1682 / 1682 2696.8 / 2696.8 1225.4 / 1225.4 Output Total 0 / 0 4400 / 4400 1150 / 1150 Balance 1682 / 1682 -1703.2 / -1703.2 75.4 / 75.4 General: Alert, Cooperative, No apparent distress, - - More alert today. Speech more coherent today. HEENT: Atraumatic, Normocephalic Neck: No Nodes, Thyroid Normal Size and Texture Lungs: Clear to auscultation, Normal air movement, No rhonchi, No wheeze Cardiovascular: Regular rate, Regular Rhythm, Normal S1, Normal S2, No murmurs Abdomen: Soft, Non-Distended, Tender - Slight epigastric tenderness Extremities: No edema, No Calf Tenderness, - Microbiology Past 72 Hours 05/19/17 19:40 Mucosa - Nasopharyngeal Influenza Types A,B Direct FA (QUIANA) - Final Laboratory Results 05/20/17 04:50: Diff Path Review Reviewed 05/20/17 11:40: Sodium 142, Potassium 3.9, Chloride 109 H, Carbon Dioxide 17.0 L, Anion Gap 16 H, BUN 28 H, Creatinine 0.86, Estim Creat Clear Calc 92.79, Est GFR (MDRD) Af Amer 118, Est GFR (MDRD) Non-Af 98, BUN/Creatinine Ratio 32.7 H, Glucose 116 H, Calcium 8.3 L 05/20/17 11:40: Hep C Antibody RIBA Pending, Hep C RIBA Interpret Pending, HCV RNA Quant (PCR) Pending, Hepatitis C Genotype Pending, Hepatitis C Comment Pending 05/20/17 16:20: POC Glucose 206 H 05/20/17 21:20: Sodium 140, Potassium 4.0, Chloride 109 H, Carbon Dioxide 18.0 L, Anion Gap 13, BUN 32 H, Creatinine 0.78, Estim Creat Clear Calc 102.31, Est GFR (MDRD) Af Amer 133, Est GFR (MDRD) Non-Af 110, BUN/Creatinine Ratio 41.2 H, Glucose 244 H, Calcium 8.5 05/20/17 22:19: POC Glucose 233 H 05/21/17 06:37: WBC 12.3 H, RBC 4.69, Hgb 14.0, Hct 42.2, MCV 90.0, MCH 29.9, MCHC 33.2, RDW 13.5, RDW Differential 44.1 H, Plt Count 207, MPV 10.9, Immature Gran % (Auto) 0.300, Neut % (Auto) 68.7, Lymph % (Auto) 18.5 L, [place] % (Auto) 12.2 H, Eos % (Auto) 0.2, Baso % (Auto) 0.1, Absolute Neuts (auto) 8.4 H, Absolute Lymphs (auto) 2.27, Total Counted Not Reportable 05/21/17 06:37: Phosphorus 0.9 L*, Magnesium 2.2 05/21/17 06:37: Sodium 139, Potassium 3.7, Chloride 107, Carbon Dioxide 19.0 L, Anion Gap 13, BUN 25 H, Creatinine 0.66 L, Estim Creat Clear Calc 120.91, Est GFR (MDRD) Af Amer 161, Est GFR (MDRD) Non-Af 133, BUN/Creatinine Ratio 38.1 H, Glucose 119 H, Calcium 8.6 05/21/17 06:48: POC Glucose 143 H Current Medications Acetaminophen (Tylenol) 650 mg PO Q6H PRN PRN PRN Reason: Mild Pain (scale 0-3)/T>100.7 Last Admin: 05/21/17 08:22 Dose: 650 mg Al Hydroxide/Mg Hydroxide (Mylanta Ii) 30 ml PO Q6H PRN PRN PRN Reason: Gastric burning Last Admin: 05/21/17 09:27 Dose: 30 ml Albuterol Sulfate (Ventolin Aerosols) 2.5 mg INHALATION Q2H PRN PRN PRN Reason: dyspnea, wheezing Albuterol/Ipratropium (Duoneb) 3 ml INHALATION Q6HWA.RT [facility] Last Admin: 05/21/17 06:48 Dose: 3 ml Aspirin (Aspirin, Baby) 81 mg PO DAILY@0800 [facility] Last Admin: 05/21/17 08:23 Dose: 81 mg Atorvastatin Calcium (Lipitor) 20 mg PO DAILY@2200 [facility] Last Admin: 05/20/17 22:21 Dose: 20 mg Collagenase (Santyl) 1 applic TOPICAL DAILY [facility] PRN Reason: Protocol Last Admin: 05/21/17 09:27 Dose: 1 applicatio Dextrose (D50w Syringe) 0 gm IV X1 PRN; Protocol PRN Reason: HYPOGLYCEMIA Last Admin: 05/20/17 02:46 Dose: 12.5 gm Gabapentin (Neurontin) 800 mg PO 4X/DAYCM [facility] Last Admin: 05/21/17 08:23 Dose: 800 mg Glucagon () 1 mg IM .X1 PRN PRN Reason: Hypoglycemia Heparin Sodium (Porcine) () 5,000 units SC BID [facility] Last Admin: 05/21/17 09:29 Dose: 5,000 units Hydralazine HCl (Apresoline) 20 mg IV Q6H PRN PRN PRN Reason: BLOOD PRESSURE Last Admin: 05/21/17 08:34 Dose: 20 mg Piperacillin Sod/Tazobactam Sod (Zosyn) 3.375 gm in 50 mls @ 12.5 mls/hr IV Q8 [facility] Last Admin: 05/21/17 05:00 Dose: 12.5 mls/hr Insulin Aspart (Novolog Flexpen (Bkc)) 0 units SC ACHS [facility] PRN Reason: Protocol Last Admin: 05/21/17 06:55 Dose: Not Given Insulin Detemir (Levemir (Bkc)) 10 units SC QHS [facility] Last Admin: 05/20/17 22:20 Dose: 10 u Lisinopril (Zestril) 20 mg PO DAILY [facility] Last Admin: 05/21/17 09:28 Dose: 20 mg Magnesium Hydroxide (Milk Of Magnesia) 30 ml PO DAILY PRN PRN Reason: Constipation Metoprolol Succinate (Toprol Xl (Beta Herminio)) 25 mg PO DAILY [facility] Last Admin: 05/21/17 09:28 Dose: 25 mg Nicotine (Nicoderm Cq (Pbkc)) 21 mg TRANSDERM. DAILY [facility] Last Admin: 05/21/17 09:27 Dose: 21 mg Nitroglycerin (Nitrostat) 0.4 mg SUBLINGUAL Q5M PRN PRN Reason: Angina pain Nutritional Formula (Juma - [place] Flavor) 1 packet PO BIDCM [facility] Last Admin: 05/21/17 08:23 Dose: 1 packet Ondansetron HCl (Zofran) 4 mg IV Q8H PRN PRN PRN Reason: NAUSEA Promethazine HCl (Phenergan (Ll)) 12.5 mg IV Q6H PRN PRN PRN Reason: NAUSEA/VOMITING Sodium Chloride () 5 - 30 ml IV UD PRN PRN Reason: SALINE FLUSH Last Admin: 05/21/17 06:54 Dose: 10 ml Tramadol HCl (Ultram (G)) 50 mg PO Q6H PRN PRN PRN Reason: MODERATE PAIN (4-5/10) Last Admin: 05/21/17 04:58 Dose: 50 mg Assessment/Plan Active and Suspected Problems Sepsis (Acute) 1. Sepsis Unclear source at this time but the concern would be for right foot infection. Influenza negative. Gallbladder ultrasound negative for cholecystitis Only one blood culture done yesterday and so far negative. On Zosyn plus vancomycin. 2. Right foot ulcer Not felt to be osteomyelitis by podiatry. MRI from May 01 showed slight bony edema in the fourth metatarsal head without T1 bone marrow signal alteration. And felt to be likely a reactive bone edema rather than osteomyelitis. May consider repeat MRI depending on the patient's clinical course. 3. Diabetes mellitus type 2, uncontrolled Improved Off insulin drip and on prandial basal insulin Impression not sure the patient had diabetic ketoacidosis. This is an elevated anion gap may be related with the sepsis the patient was experiencing upon arrival. 4. Distended gallbladder Ultrasound negative. Patient was slightly elevated lipase yesterday. Patient with epigastric abdominal pain. Will recheck lipase today 5. DVT prophylaxis with subcu heparin. Code Visit Inpatient E&M: 82980 Subs Hosp L2
--- NOTE | 2017-05-21 09:57 | PN_ITS ---
Patient Problems: Active and Suspected Problems Sepsis (Acute) Subjective: Complains of belly pain that midepigastric and then radiates up into his chest. Patient is trying to eat yogurt to coat it. Vitals/I&O's: Vital Signs Temp Pulse Resp BP Pulse Ox 37.1 C 110 H 20 H 139/64 H 97 05/21/17 09:25 05/21/17 09:28 05/21/17 09:25 05/21/17 09:25 05/21/17 09:25 Oxygen Delivery Method Room Air Weight: 78.8 kg Body Mass Index (BMI) 25.0 Finger Stick Blood Glucose 167 Intake and Output for Last 24 Hours 05/19/17 05/20/17 05/21/17 23:59 23:59 23:59 Intake Total 1682 / 1682 2696.8 / 2696.8 1225.4 / 1225.4 Output Total 0 / 0 4400 / 4400 1150 / 1150 Balance 1682 / 1682 -1703.2 / -1703.2 75.4 / 75.4 General: Alert, Cooperative, No apparent distress, - - More alert today. Speech more coherent today. HEENT: Atraumatic, Normocephalic Neck: No Nodes, Thyroid Normal Size and Texture Lungs: Clear to auscultation, Normal air movement, No rhonchi, No wheeze Cardiovascular: Regular rate, Regular Rhythm, Normal S1, Normal S2, No murmurs Abdomen: Soft, Non-Distended, Tender - Slight epigastric tenderness Extremities: No edema, No Calf Tenderness, - Microbiology Past 72 Hours 05/19/17 19:40 Mucosa - Nasopharyngeal Influenza Types A,B Direct FA (QUIANA) - Final Laboratory Results 05/20/17 04:50: Diff Path Review Reviewed 05/20/17 11:40: Sodium 142, Potassium 3.9, Chloride 109 H, Carbon Dioxide 17.0 L , Anion Gap 16 H, BUN 28 H, Creatinine 0.86, Estim Creat Clear Calc 92.79, Est GFR (MDRD) Af Amer 118, Est GFR (MDRD) Non-Af 98, BUN/Creatinine Ratio 32.7 H, Glucose 116 H, Calcium 8.3 L 05/20/17 11:40: Hep C Antibody RIBA Pending, Hep C RIBA Interpret Pending, HCV RNA Quant (PCR) Pending, Hepatitis C Genotype Pending, Hepatitis C Comment Pending 05/20/17 16:20: POC Glucose 206 H 05/20/17 21:20: Sodium 140, Potassium 4.0, Chloride 109 H, Carbon Dioxide 18.0 L , Anion Gap 13, BUN 32 H, Creatinine 0.78, Estim Creat Clear Calc 102.31, Est GFR (MDRD) Af Amer 133, Est GFR (MDRD) Non-Af 110, BUN/Creatinine Ratio 41.2 H, Glucose 244 H, Calcium 8.5 05/20/17 22:19: POC Glucose 233 H 05/21/17 06:37: WBC 12.3 H, RBC 4.69, Hgb 14.0, Hct 42.2, MCV 90.0, MCH 29.9, MCHC 33.2, RDW 13.5, RDW Differential 44.1 H, Plt Count 207, MPV 10.9, Immature Gran % (Auto) 0.300, Neut % (Auto) 68.7, Lymph % (Auto) 18.5 L, [place] % (Auto) 12.2 H, Eos % (Auto) 0.2, Baso % (Auto) 0.1, Absolute Neuts (auto) 8.4 H, Absolute Lymphs (auto) 2.27, Total Counted Not Reportable 05/21/17 06:37: Phosphorus 0.9 L*, Magnesium 2.2 05/21/17 06:37: Sodium 139, Potassium 3.7, Chloride 107, Carbon Dioxide 19.0 L, Anion Gap 13, BUN 25 H, Creatinine 0.66 L, Estim Creat Clear Calc 120.91, Est GFR (MDRD) Af Amer 161, Est GFR (MDRD) Non-Af 133, BUN/Creatinine Ratio 38.1 H, Glucose 119 H, Calcium 8.6 05/21/17 06:48: POC Glucose 143 H Current Medications Acetaminophen (Tylenol) 650 mg PO Q6H PRN PRN PRN Reason: Mild Pain (scale 0-3)/T>100.7 Last Admin: 05/21/17 08:22 Dose: 650 mg Al Hydroxide/Mg Hydroxide (Mylanta Ii) 30 ml PO Q6H PRN PRN PRN Reason: Gastric burning Last Admin: 05/21/17 09:27 Dose: 30 ml Albuterol Sulfate (Ventolin Aerosols) 2.5 mg INHALATION Q2H PRN PRN PRN Reason: dyspnea, wheezing Albuterol/Ipratropium (Duoneb) 3 ml INHALATION Q6HWA.RT [facility] Last Admin: 05/21/17 06:48 Dose: 3 ml Aspirin (Aspirin, Baby) 81 mg PO DAILY@0800 [facility] Last Admin: 05/21/17 08:23 Dose: 81 mg Atorvastatin Calcium (Lipitor) 20 mg PO DAILY@2200 [facility] Last Admin: 05/20/17 22:21 Dose: 20 mg Collagenase (Santyl) 1 applic TOPICAL DAILY [facility] PRN Reason: Protocol Last Admin: 05/21/17 09:27 Dose: 1 applicatio Dextrose (D50w Syringe) 0 gm IV X1 PRN; Protocol PRN Reason: HYPOGLYCEMIA Last Admin: 05/20/17 02:46 Dose: 12.5 gm Gabapentin (Neurontin) 800 mg PO 4X/DAYCM [facility] Last Admin: 05/21/17 08:23 Dose: 800 mg Glucagon () 1 mg IM .X1 PRN PRN Reason: Hypoglycemia Heparin Sodium (Porcine) () 5,000 units SC BID [facility] Last Admin: 05/21/17 09:29 Dose: 5,000 units Hydralazine HCl (Apresoline) 20 mg IV Q6H PRN PRN PRN Reason: BLOOD PRESSURE Last Admin: 05/21/17 08:34 Dose: 20 mg Piperacillin Sod/Tazobactam Sod (Zosyn) 3.375 gm in 50 mls @ 12.5 mls/hr IV Q8 [facility] Last Admin: 05/21/17 05:00 Dose: 12.5 mls/hr Insulin Aspart (Novolog Flexpen (Bkc)) 0 units SC ACHS [facility] PRN Reason: Protocol Last Admin: 05/21/17 06:55 Dose: Not Given Insulin Detemir (Levemir (Bkc)) 10 units SC QHS [facility] Last Admin: 05/20/17 22:20 Dose: 10 u Lisinopril (Zestril) 20 mg PO DAILY [facility] Last Admin: 05/21/17 09:28 Dose: 20 mg Magnesium Hydroxide (Milk Of Magnesia) 30 ml PO DAILY PRN PRN Reason: Constipation Metoprolol Succinate (Toprol Xl (Beta Herminio)) 25 mg PO DAILY [facility] Last Admin: 05/21/17 09:28 Dose: 25 mg Nicotine (Nicoderm Cq (Pbkc)) 21 mg TRANSDERM. DAILY [facility] Last Admin: 05/21/17 09:27 Dose: 21 mg Nitroglycerin (Nitrostat) 0.4 mg SUBLINGUAL Q5M PRN PRN Reason: Angina pain Nutritional Formula (Juma - [place] Flavor) 1 packet PO BIDCM [facility] Last Admin: 05/21/17 08:23 Dose: 1 packet Ondansetron HCl (Zofran) 4 mg IV Q8H PRN PRN PRN Reason: NAUSEA Promethazine HCl (Phenergan (Ll)) 12.5 mg IV Q6H PRN PRN PRN Reason: NAUSEA/VOMITING Sodium Chloride () 5 - 30 ml IV UD PRN PRN Reason: SALINE FLUSH Last Admin: 05/21/17 06:54 Dose: 10 ml Tramadol HCl (Ultram (G)) 50 mg PO Q6H PRN PRN PRN Reason: MODERATE PAIN (4-5/10) Last Admin: 05/21/17 04:58 Dose: 50 mg Assessment/Plan Active and Suspected Problems Sepsis (Acute) 1. Sepsis Unclear source at this time but the concern would be for right foot infection. Influenza negative. Gallbladder ultrasound negative for cholecystitis Only one blood culture done yesterday and so far negative. On Zosyn plus vancomycin. 2. Right foot ulcer Not felt to be osteomyelitis by podiatry. MRI from May 01 showed slight bony edema in the fourth metatarsal head without T1 bone marrow signal alteration. And felt to be likely a reactive bone edema rather than osteomyelitis. May consider repeat MRI depending on the patient's clinical course. 3. Diabetes mellitus type 2, uncontrolled Improved Off insulin drip and on prandial basal insulin Impression not sure the patient had diabetic ketoacidosis. This is an elevated anion gap may be related with the sepsis the patient was experiencing upon arrival. 4. Distended gallbladder Ultrasound negative. Patient was slightly elevated lipase yesterday. Patient with epigastric abdominal pain. Will recheck lipase today 5. DVT prophylaxis with subcu heparin. Code Visit Inpatient E&M: 02797 Subs Hosp L2
[2017-05-21 10:33] LABS: Lipase 176 U/L (73-393)
[2017-05-21] MEDS: Na Biphos/Potassium Phosphate PACKET 1 PACKET PO ×4 (11:29→21:21)
[2017-05-21] MEDS: Pantoprazole Sodium 40 MG Tablet PO ×2 (11:29→21:20)
[2017-05-21 11:31] LABS: Bedside Glucose 247 mg/dL (70-110)
[2017-05-21 16:41] LABS: Bedside Glucose 182 mg/dL (70-110)
[2017-05-21] MEDS: Atorvastatin Calcium 20 MG Tablet PO (21:21)
[2017-05-21 21:36] LABS: Bedside Glucose 207 mg/dL (70-110)
[2017-05-22] VITALS (13 sets, daily range): BP systolic 139–182; BP diastolic 83–95; PULSE 88–111; RESP 16–18; TEMP 36.6–37.1; O2SAT 96–99
[2017-05-22] MEDS: 0.9% NaCl Peripheral Flush Adult/Peds IV (03:18)
[2017-05-22] MEDS: Piperacil/Tazobactam 3.375 GM/50 ML ML IV (05:07)
[2017-05-22 06:36] LABS: Absolute Lymphocyte Count 2.33 X10^3/ul (0.83-4.51); Absolute Neutrophil Count 5.7 X10^3/uL (2.0-7.7); Basophil# 0.02 X10^3/uL; Basophil% 0.2 % (0-1); Eosinophil# 0.08 X10^3/uL; Eosinophils% 0.9 % (0-5); Hematocrit 40.3 % (40-54); Hemoglobin 13.8 g/dl (13.0-16.5); Lymphocyte # 2.33 X10^3/ul (4.0); Lymphocyte % 24.8 % (19-41); Mean Corp Hgb Conc 34.2 g/gl (32-36); Mean Corpuscular Hgb 30.7 pg (27.0-32.0); Mean Corpuscular Volume 89.6 fL (80-94); Monocyte# 1.28 X10^3/uL; Monocyte% 13.6 % (0-10); Neutrophil # 5.67 X10^3/uL (2.7-7.7); Neutrophil % 60.3 % (47-70); Platelet Count 208 K/mm3 (150-450); RBC Distribution Width CV 13.3 % (11.6-14.6); White Blood Count 9.4 K/mm3 (4.4-11.0)
[2017-05-22 06:38] LABS: POSITIVE COUNT NO; POSITIVE DIFFERENTIAL NO; POSITIVE MORPHOLOGY NO
[2017-05-22 06:51] LABS: Bedside Glucose 158 mg/dL (70-110)
[2017-05-22 06:57] LABS: Phosphorus 1.9 mg/dL (2.5-4.9)
[2017-05-22] MEDS: Ipratropium/Albuterol Sulfate 3 ML AMPUL.NEB INHALATION ×2 (07:02→13:58)
--- NOTE | 2017-05-22 08:04 | CON.PCM_ITS ---
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 Status: Chronic (3) Peripheral vascular disease Status: Chronic Reason for Consult Date of Consultation: 05/22/17 History of Present Illness: The patient is a 56 year old M with nonhealing toe amputation site and his known peripheral arterial disease with history of noncompliance poorly controlled diabetes admitted with diabetic ketoacidosis. We seen him about a month ago had missed 1 of the follow-up appointments was actually due to see me in the clinic today had a duplex last visit that showed a distal right SFA occlusion discussed with him that we are probably need to do an angiogram through this have not been able to get scheduled yet. He is now in inpatient vascular surgeon been asked to evaluate see if we can do intervention while he is here we discussed with the patient. His previous studies showed the right distal SFA occluded right peroneal occluded GABRIEL with biphasic flow is 0.61 with the digit brachial index around 0.49 on the right side. [] Past Medical History Past Medical History (Chronic Problems): Chronic Problems Ulcer of right foot with fat layer exposed (Chronic) Malnutrition (Chronic) Compliance poor (Chronic) Peripheral vascular disease (Chronic) HTN (hypertension) (Chronic) Nicotine abuse (Chronic) Peripheral neuropathy (Chronic) CAD (coronary artery disease) (Chronic) COPD (chronic obstructive pulmonary disease) (Chronic) Type 2 diabetes mellitus with diabetic polyneuropathy (Chronic) Allergies No Known Allergies Allergy (Verified 05/19/17 13:17) Home Medications: Ambulatory Orders Medication Instructions Recorded Gabapentin [Neurontin] 800 mg PO 4X/DAY 02/14/17 Lisinopril 20 mg PO DAILY 02/14/17 Metoprolol Succinate 25 mg PO DAILY 02/14/17 Simvastatin 40 mg PO DAILY 02/14/17 Aspirin [Aspirin, Baby] 81 mg PO DAILY 02/16/17 Albuterol Inhaler [Ventolin Hfa 2 puff INHALATION Q4H PRN PRN 04/30/17 (SP)] Empagliflozin [Jardiance] 1 tab PO DAILY 05/19/17 Liraglutide [Victoza 2-Juan] 1.2 mg SQ DAILY 05/19/17 Surgical History: coronary bypass surgery, - - debridement left arm, 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 carpal tunnel release Psychiatric History: No pertinent psych hx Lives: Spouse/ Significant Other Smoking Status: Current every day smoker Tobacco Use: Cigarettes Alcohol: None Drugs: None - *Family History Maternal History Items: Heart Disease Paternal History Items: Heart Disease Review of Systems Constitutional: Denies: Chills, Fever, Weight Change HEENT: Denies: Head Aches, Sinus Congestion, Sinus Drainage Cardiovascular: Denies: Chest Pain, Palpitations Respiratory: Denies: Cough, Shortness of breath at rest, Sputum production Gastrointestinal: Denies: Abdominal Pain, Nausea, Vomiting Genitourinary: Denies: Dysuria Musculoskeletal: Reports: - - nonhealing. Denies: Joint Pain, Joint Tenderness Skin: Denies: Rash, Wounds Psychiatric: Denies: Anxiety, Depression, Homicidal Ideations, Suicidal Ideations Patient Problems: Active and Suspected Problems Sepsis (Acute) - Physical Exam General: Alert, Oriented x3, Cooperative HEENT: Atraumatic, PERRLA, EOMI, Normocephalic Neck: Supple, No JVD, Negative Carotid Bruits Lungs: Clear to auscultation Cardiovascular: Regular rate Abdomen: Soft, Non Tender Extremities: - - Signals noted in the foot. Palpable femoral pulse. Nonhealing wound right foot dressing intact Vital Signs Temp Pulse Resp BP Pulse Ox 98.8 F 98 16 165/87 H 99 05/22/17 03:20 05/22/17 07:03 05/22/17 07:03 05/22/17 03:20 05/22/17 07:03 Oxygen Flow Rate 1.5 Oxygen Delivery Method Nasal Cannula Weight: 174 lb 9.698 oz Body Mass Index (BMI) 25.0 Finger Stick Blood Glucose 167 Intake and Output for Last 24 Hours 05/20/17 05/21/17 05/22/17 23:59 23:59 23:59 Intake Total 2696.8 / 2696.8 2804.4 / 2804.4 58 / 58 Output Total 4400 / 4400 2850 / 2850 975 / 975 Balance -1703.2 / -1703.2 -45.6 / -45.6 -917 / -917 Microbiology Past 72 Hours 05/19/17 19:40 Influenza Types A,B Direct FA (QUIANA) - Final Mucosa - Nasopharyngeal Laboratory Tests Past 24 Hrs 05/21/17 05/21/17 05/21/17 06:12 06:37 06:37 WBC RBC Hgb Hct MCV MCH MCHC RDW RDW Differential Plt Count MPV Immature Gran % (Auto) Neut % (Auto) Lymph % (Auto) [place] % (Auto) Eos % (Auto) Baso % (Auto) Absolute Neuts (auto) Absolute Lymphs (auto) Total Counted Sodium 139 Potassium 3.7 Chloride 107 Carbon Dioxide 19.0 L Anion Gap 13 BUN 25 H Creatinine 0.66 L Estim Creat Clear Calc 120.91 Est GFR (MDRD) Af Amer 161 Est GFR (MDRD) Non-Af 133 BUN/Creatinine Ratio 38.1 H Glucose 119 H Calcium 8.6 Phosphorus 0.9 L* Magnesium 2.2 Lipase 176 05/22/17 05/22/17 06:15 06:15 WBC 9.4 RBC 4.50 L Hgb 13.8 Hct 40.3 MCV 89.6 MCH 30.7 MCHC 34.2 RDW 13.3 RDW Differential 43.0 Plt Count 208 MPV 10.0 Immature Gran % (Auto) 0.200 Neut % (Auto) 60.3 Lymph % (Auto) 24.8 [place] % (Auto) 13.6 H Eos % (Auto) 0.9 Baso % (Auto) 0.2 Absolute Neuts (auto) 5.7 Absolute Lymphs (auto) 2.33 Total Counted Not Reportable Sodium Potassium Chloride Carbon Dioxide Anion Gap BUN Creatinine Estim Creat Clear Calc Est GFR (MDRD) Af Amer Est GFR (MDRD) Non-Af BUN/Creatinine Ratio Glucose Calcium Phosphorus 1.9 L Magnesium 2.0 Lipase POC Glucose 05/22/17 05/21/17 05/21/17 06:44 21:19 16:26 POC Glucose 158 H 207 H 182 H 05/21/17 11:21 POC Glucose 247 H Assessment/Plan Active and Suspected Problems Sepsis (Acute) Patient with severe PAD and poorly controlled diabetes with nonhealing wound. 1. PAD we will plan for right leg angiogram with SFA stent this Saturday
[2017-05-22] MEDS: Aspirin 81 MG TAB.CHEW PO (08:43)
[2017-05-22] MEDS: Gabapentin 800 MG Tablet PO ×4 (08:43→21:51)
[2017-05-22] MEDS: Na Biphos/Potassium Phosphate PACKET 1 PACKET PO ×4 (08:44→21:51)
[2017-05-22] MEDS: Pantoprazole Sodium 40 MG Tablet PO ×2 (08:53→21:52)
--- NOTE | 2017-05-22 10:04 | PCM.PN.HOSP ---
Patient Problems: Active and Suspected Problems Sepsis (Acute) Subjective: Feeling better. Tolerating diet. Patient's entered the room and said that she was very concerned about his significant pain that he was having with his reflux. Informed her that his infection may have been viral and she seemed completely dismissive of that to be a possibility. Vitals/I&O's: Vital Signs Temp Pulse Resp BP Pulse Ox 37.1 C 99 16 165/87 H 99 05/22/17 03:20 05/22/17 07:03 05/22/17 07:03 05/22/17 03:20 05/22/17 07:03 Oxygen Flow Rate 1.5 Oxygen Delivery Method Nasal Cannula Weight: 79.2 kg Body Mass Index (BMI) 25.0 Finger Stick Blood Glucose 167 Intake and Output for Last 24 Hours 05/20/17 05/21/17 05/22/17 23:59 23:59 23:59 Intake Total 2696.8 / 2696.8 2804.4 / 2804.4 58 / 58 Output Total 4400 / 4400 2850 / 2850 975 / 975 Balance -1703.2 / -1703.2 -45.6 / -45.6 -917 / -917 General: Alert, Cooperative, No apparent distress HEENT: Atraumatic, Normocephalic Neck: No Nodes, Thyroid Normal Size and Texture Lungs: Clear to auscultation, Normal air movement, No rhonchi, No wheeze Cardiovascular: Regular rate, Regular Rhythm, Normal S1, Normal S2 Abdomen: Bowel Sounds Present, Soft, Non Tender, Non-Distended, No Hepato-splenomegaly Extremities: No edema, No Calf Tenderness Microbiology Past 72 Hours 05/19/17 19:40 Mucosa - Nasopharyngeal Influenza Types A,B Direct FA (QUIANA) - Final Laboratory Results 05/21/17 06:12: Lipase 176 05/21/17 11:21: POC Glucose 247 H 05/21/17 16:26: POC Glucose 182 H 05/21/17 21:19: POC Glucose 207 H 05/22/17 06:15: WBC 9.4, RBC 4.50 L, Hgb 13.8, Hct 40.3, MCV 89.6, MCH 30.7, MCHC 34.2, RDW 13.3, RDW Differential 43.0, Plt Count 208, MPV 10.0, Immature Gran % (Auto) 0.200, Neut % (Auto) 60.3, Lymph % (Auto) 24.8, [place] % (Auto) 13.6 H, Eos % (Auto) 0.9, Baso % (Auto) 0.2, Absolute Neuts (auto) 5.7, Absolute Lymphs (auto) 2.33, Total Counted Not Reportable 05/22/17 06:15: Phosphorus 1.9 L, Magnesium 2.0 05/22/17 06:44: POC Glucose 158 H Current Medications Acetaminophen (Tylenol) 650 mg PO Q6H PRN PRN PRN Reason: Mild Pain (scale 0-3)/T>100.7 Last Admin: 05/21/17 08:22 Dose: 650 mg Al Hydroxide/Mg Hydroxide (Mylanta Ii) 30 ml PO Q6H PRN PRN PRN Reason: Gastric burning Last Admin: 05/21/17 15:31 Dose: 30 ml Albuterol Sulfate (Ventolin Aerosols) 2.5 mg INHALATION Q2H PRN PRN PRN Reason: dyspnea, wheezing Albuterol/Ipratropium (Duoneb) 3 ml INHALATION Q6HWA.RT [facility] Last Admin: 05/22/17 07:02 Dose: 3 ml Aspirin (Aspirin, Baby) 81 mg PO DAILY@0800 [facility] Last Admin: 05/22/17 08:43 Dose: 81 mg Atorvastatin Calcium (Lipitor) 20 mg PO DAILY@2200 [facility] Last Admin: 05/21/17 21:21 Dose: 20 mg Collagenase (Santyl) 1 applic TOPICAL DAILY [facility] PRN Reason: Protocol Last Admin: 05/21/17 09:27 Dose: 1 applicatio Dextrose (D50w Syringe) 0 gm IV X1 PRN; Protocol PRN Reason: HYPOGLYCEMIA Last Admin: 05/20/17 02:46 Dose: 12.5 gm [facility] ([facility]) [facility] Last Admin: 05/22/17 08:43 Dose: 800 mg Glucagon () 1 mg IM .X1 PRN PRN Reason: Hypoglycemia Heparin Sodium (Porcine) () 5,000 units SC BID [facility] Last Admin: 05/21/17 21:21 Dose: Not Given Hydralazine HCl (Apresoline) 20 mg IV Q6H PRN PRN PRN Reason: BLOOD PRESSURE Last Admin: 05/22/17 03:19 Dose: 20 mg Piperacillin Sod/Tazobactam Sod (Zosyn) 3.375 gm in 50 mls @ 12.5 mls/hr IV Q8 [facility] Last Admin: 05/22/17 05:07 Dose: 12.5 mls/hr Insulin Aspart (Novolog Flexpen (Bk)) 0 units SC ACHS [facility] PRN Reason: Protocol Last Admin: 05/22/17 08:43 Dose: 3 u Insulin Detemir (Levemir (Bkc)) 10 units SC QHS [facility] Last Admin: 05/21/17 21:21 Dose: 10 u Lisinopril (Zestril) 20 mg PO DAILY [facility] Last Admin: 05/21/17 09:28 Dose: 20 mg Magnesium Hydroxide (Milk Of Magnesia) 30 ml PO DAILY PRN PRN Reason: Constipation Metoprolol Succinate (Toprol Xl (Beta Herminio)) 25 mg PO DAILY [facility] Last Admin: 05/21/17 09:28 Dose: 25 mg Nicotine (Nicoderm Cq (Pbkc)) 21 mg TRANSDERM. DAILY [facility] Last Admin: 05/21/17 09:27 Dose: 21 mg Nitroglycerin (Nitrostat) 0.4 mg SUBLINGUAL Q5M PRN PRN Reason: Angina pain Nutritional Formula (Juma - [place] Flavor) 1 packet PO BIDCM [facility] Last Admin: 05/22/17 08:43 Dose: 1 packet Ondansetron HCl (Zofran) 4 mg IV Q8H PRN PRN PRN Reason: NAUSEA Pantoprazole Sodium (Protonix) 40 mg PO BID [facility] Last Admin: 05/22/17 08:53 Dose: 40 mg Potassium Phos/Sodium Phos (Neutra-Phos Packet) 1 packet PO 4X/DAY [facility] Last Admin: 05/22/17 08:44 Dose: 1 packet Promethazine HCl (Phenergan (Ll)) 12.5 mg IV Q6H PRN PRN PRN Reason: NAUSEA/VOMITING Sodium Chloride () 5 - 30 ml IV UD PRN PRN Reason: SALINE FLUSH Last Admin: 05/22/17 03:18 Dose: 10 ml Tramadol HCl (Ultram (G)) 50 mg PO Q6H PRN PRN PRN Reason: MODERATE PAIN (4-5/10) Last Admin: 05/21/17 11:29 Dose: 50 mg Assessment/Plan Active and Suspected Problems Sepsis (Acute) 1. Sepsis Unclear source at this time but the concern would be for right foot infection. Influenza negative. Gallbladder ultrasound negative for cholecystitis Only one blood culture done on the and was negative. Change antibiotics over to Levaquin. Patient had previously had procidentia as well as MSSA from a wound culture that were both sensitive to Levaquin. Though it is still unclear if this is actual infection or just a viral infection. And despite the patient's insisted that it was not viral this infection could very well been viral. 2. Right foot ulcer Not felt to be osteomyelitis by podiatry. MRI from May 01 showed slight bony edema in the fourth metatarsal head without T1 bone marrow signal alteration. And felt to be likely a reactive bone edema rather than osteomyelitis. May consider repeat MRI depending on the patient's clinical course. 3. Diabetes mellitus type 2, uncontrolled Improved Off insulin drip and on prandial basal insulin Impression not sure the patient had diabetic ketoacidosis. This is an elevated anion gap may be related with the sepsis the patient was experiencing upon arrival. 4. Distended gallbladder Ultrasound negative. Patient was slightly elevated lipase yesterday. Patient with epigastric abdominal pain. Will recheck lipase today 5. Peripheral arterial disease Patient is to undergo angiogram with stents on the with Dr. Swan. 6. Possible reflux May have esophageal spasms patient seen to be better at this time. Try to reassure the patient's that we will continue with PPI as well as supportive therapy. Did recommend patient gastroenterology follow-up for this. She was very upset saying that her daughter was brushed off as having the flu and she apparently had an issue with her flap. Asked her to clarify this is related with an epiglottal issue but she did not further elaborate. I told her that I am not concerned about his epiglottis and so seems to have more esophageal spasms. 7. DVT prophylaxis with subcu heparin. Code Visit Inpatient E&M: 18404 Subs Hosp L2
--- NOTE | 2017-05-22 10:09 | PN_ITS ---
Patient Problems: Active and Suspected Problems Sepsis (Acute) Subjective: Feeling better. Tolerating diet. Patient's entered the room and said that she was very concerned about his significant pain that he was having with his reflux. Informed her that his infection may have been viral and she seemed completely dismissive of that to be a possibility. Vitals/I&O's: Vital Signs Temp Pulse Resp BP Pulse Ox 37.1 C 99 16 165/87 H 99 05/22/17 03:20 05/22/17 07:03 05/22/17 07:03 05/22/17 03:20 05/22/17 07:03 Oxygen Flow Rate 1.5 Oxygen Delivery Method Nasal Cannula Weight: 79.2 kg Body Mass Index (BMI) 25.0 Finger Stick Blood Glucose 167 Intake and Output for Last 24 Hours 05/20/17 05/21/17 05/22/17 23:59 23:59 23:59 Intake Total 2696.8 / 2696.8 2804.4 / 2804.4 58 / 58 Output Total 4400 / 4400 2850 / 2850 975 / 975 Balance -1703.2 / -1703.2 -45.6 / -45.6 -917 / -917 General: Alert, Cooperative, No apparent distress HEENT: Atraumatic, Normocephalic Neck: No Nodes, Thyroid Normal Size and Texture Lungs: Clear to auscultation, Normal air movement, No rhonchi, No wheeze Cardiovascular: Regular rate, Regular Rhythm, Normal S1, Normal S2 Abdomen: Bowel Sounds Present, Soft, Non Tender, Non-Distended, No Hepato- splenomegaly Extremities: No edema, No Calf Tenderness Microbiology Past 72 Hours 05/19/17 19:40 Mucosa - Nasopharyngeal Influenza Types A,B Direct FA (QUIANA) - Final Laboratory Results 05/21/17 06:12: Lipase 176 05/21/17 11:21: POC Glucose 247 H 05/21/17 16:26: POC Glucose 182 H 05/21/17 21:19: POC Glucose 207 H 05/22/17 06:15: WBC 9.4, RBC 4.50 L, Hgb 13.8, Hct 40.3, MCV 89.6, MCH 30.7, MCHC 34.2, RDW 13.3, RDW Differential 43.0, Plt Count 208, MPV 10.0, Immature Gran % (Auto) 0.200, Neut % (Auto) 60.3, Lymph % (Auto) 24.8, [place] % (Auto) 13.6 H, Eos % (Auto) 0.9, Baso % (Auto) 0.2, Absolute Neuts (auto) 5.7, Absolute Lymphs (auto) 2.33, Total Counted Not Reportable 05/22/17 06:15: Phosphorus 1.9 L, Magnesium 2.0 05/22/17 06:44: POC Glucose 158 H Current Medications Acetaminophen (Tylenol) 650 mg PO Q6H PRN PRN PRN Reason: Mild Pain (scale 0-3)/T>100.7 Last Admin: 05/21/17 08:22 Dose: 650 mg Al Hydroxide/Mg Hydroxide (Mylanta Ii) 30 ml PO Q6H PRN PRN PRN Reason: Gastric burning Last Admin: 05/21/17 15:31 Dose: 30 ml Albuterol Sulfate (Ventolin Aerosols) 2.5 mg INHALATION Q2H PRN PRN PRN Reason: dyspnea, wheezing Albuterol/Ipratropium (Duoneb) 3 ml INHALATION Q6HWA.RT [facility] Last Admin: 05/22/17 07:02 Dose: 3 ml Aspirin (Aspirin, Baby) 81 mg PO DAILY@0800 [facility] Last Admin: 05/22/17 08:43 Dose: 81 mg Atorvastatin Calcium (Lipitor) 20 mg PO DAILY@2200 [facility] Last Admin: 05/21/17 21:21 Dose: 20 mg Collagenase (Santyl) 1 applic TOPICAL DAILY [facility] PRN Reason: Protocol Last Admin: 05/21/17 09:27 Dose: 1 applicatio Dextrose (D50w Syringe) 0 gm IV X1 PRN; Protocol PRN Reason: HYPOGLYCEMIA Last Admin: 05/20/17 02:46 Dose: 12.5 gm Gabapentin (Neurontin) [facility] Last Admin: 05/22/17 08:43 Dose: 800 mg Glucagon () 1 mg IM .X1 PRN PRN Reason: Hypoglycemia Heparin Sodium (Porcine) () 5,000 units SC BID [facility] Last Admin: 05/21/17 21:21 Dose: Not Given Hydralazine HCl (Apresoline) 20 mg IV Q6H PRN PRN PRN Reason: BLOOD PRESSURE Last Admin: 05/22/17 03:19 Dose: 20 mg Piperacillin Sod/Tazobactam Sod (Zosyn) 3.375 gm in 50 mls @ 12.5 mls/hr IV Q8 [facility] Last Admin: 05/22/17 05:07 Dose: 12.5 mls/hr Insulin Aspart (Novolog Flexpen (Bk)) 0 units SC ACHS [facility] PRN Reason: Protocol Last Admin: 05/22/17 08:43 Dose: 3 u Insulin Detemir (Levemir (Bkc)) 10 units SC QHS [facility] Last Admin: 05/21/17 21:21 Dose: 10 u Lisinopril (Zestril) 20 mg PO DAILY [facility] Last Admin: 05/21/17 09:28 Dose: 20 mg Magnesium Hydroxide (Milk Of Magnesia) 30 ml PO DAILY PRN PRN Reason: Constipation Metoprolol Succinate (Toprol Xl (Beta Herminio)) 25 mg PO DAILY [facility] Last Admin: 05/21/17 09:28 Dose: 25 mg Nicotine (Nicoderm Cq (Pbkc)) 21 mg TRANSDERM. DAILY [facility] Last Admin: 05/21/17 09:27 Dose: 21 mg Nitroglycerin (Nitrostat) 0.4 mg SUBLINGUAL Q5M PRN PRN Reason: Angina pain Nutritional Formula (Juma - [place] Flavor) 1 packet PO BIDCM [facility] Last Admin: 05/22/17 08:43 Dose: 1 packet Ondansetron HCl (Zofran) 4 mg IV Q8H PRN PRN PRN Reason: NAUSEA Pantoprazole Sodium (Protonix) 40 mg PO BID [facility] Last Admin: 05/22/17 08:53 Dose: 40 mg Potassium Phos/Sodium Phos (Neutra-Phos Packet) 1 packet PO 4X/DAY [facility] Last Admin: 05/22/17 08:44 Dose: 1 packet Promethazine HCl (Phenergan (Ll)) 12.5 mg IV Q6H PRN PRN PRN Reason: NAUSEA/VOMITING Sodium Chloride () 5 - 30 ml IV UD PRN PRN Reason: SALINE FLUSH Last Admin: 05/22/17 03:18 Dose: 10 ml Tramadol HCl (Ultram (G)) 50 mg PO Q6H PRN PRN PRN Reason: MODERATE PAIN (4-5/10) Last Admin: 05/21/17 11:29 Dose: 50 mg Assessment/Plan Active and Suspected Problems Sepsis (Acute) 1. Sepsis Unclear source at this time but the concern would be for right foot infection. Influenza negative. Gallbladder ultrasound negative for cholecystitis Only one blood culture done on the and was negative. Change antibiotics over to Levaquin. Patient had previously had procidentia as well as MSSA from a wound culture that were both sensitive to Levaquin. Though it is still unclear if this is actual infection or just a viral infection. And despite the patient's insisted that it was not viral this infection could very well been viral. 2. Right foot ulcer Not felt to be osteomyelitis by podiatry. MRI from May 01 showed slight bony edema in the fourth metatarsal head without T1 bone marrow signal alteration. And felt to be likely a reactive bone edema rather than osteomyelitis. May consider repeat MRI depending on the patient's clinical course. 3. Diabetes mellitus type 2, uncontrolled Improved Off insulin drip and on prandial basal insulin Impression not sure the patient had diabetic ketoacidosis. This is an elevated anion gap may be related with the sepsis the patient was experiencing upon arrival. 4. Distended gallbladder Ultrasound negative. Patient was slightly elevated lipase yesterday. Patient with epigastric abdominal pain. Will recheck lipase today 5. Peripheral arterial disease Patient is to undergo angiogram with stents on the with Dr. Swan. 6. Possible reflux May have esophageal spasms patient seen to be better at this time. Try to reassure the patient's that we will continue with PPI as well as supportive therapy. Did recommend patient gastroenterology follow-up for this. She was very upset saying that her daughter was brushed off as having the flu and she apparently had an issue with her flap. Asked her to clarify this is related with an epiglottal issue but she did not further elaborate. I told her that I am not concerned about his epiglottis and so seems to have more esophageal spasms. 7. DVT prophylaxis with subcu heparin. Code Visit Inpatient E&M: 69293 Subs Hosp L2
[2017-05-22] MEDS: Metoprolol(XL)Succ 25 MG Tablet PO (12:03)
[2017-05-22] MEDS: Heparin Injection 5,000 UNITS/ML Syringe 5000 UNITS SC ×2 (12:03→21:51)
[2017-05-22] MEDS: Lisinopril 20 MG Tablet PO (12:03)
[2017-05-22 12:11] LABS: Bedside Glucose 193 mg/dL (70-110)
[2017-05-22] MEDS: Mag Hydrox/Al Hydrox/Simeth 30 ML UDC PO (12:13)
[2017-05-22] MEDS: levoFLOXacin 500 MG Tablet PO (14:36)
[2017-05-22] MEDS: Collagenase 30gm Tube 1 APPLIC TOPICAL (14:36)
[2017-05-22 17:15] LABS: Bedside Glucose 163 mg/dL (70-110)
[2017-05-22] MEDS: Atorvastatin Calcium 20 MG Tablet PO (21:51)
[2017-05-22 22:41] LABS: Bedside Glucose 217 mg/dL (70-110)
[2017-05-23] VITALS (17 sets, daily range): BP systolic 129–196; BP diastolic 62–96; PULSE 86–100; RESP 16–24; TEMP 36.5–37.3; O2SAT 94–99
[2017-05-23] MEDS: Mag Hydrox/Al Hydrox/Simeth 30 ML UDC PO ×3 (01:30→18:05)
[2017-05-23] MEDS: levoFLOXacin 500 MG Tablet PO (05:52)
[2017-05-23 06:11] LABS: Absolute Lymphocyte Count 2.96 X10^3/ul (0.83-4.51); Absolute Neutrophil Count 4.3 X10^3/uL (2.0-7.7); Basophil# 0.02 X10^3/uL; Basophil% 0.2 % (0-1); Eosinophil# 0.18 X10^3/uL; Eosinophils% 2.1 % (0-5); Hematocrit 39.3 % (40-54); Hemoglobin 12.9 g/dl (13.0-16.5); Lymphocyte # 2.96 X10^3/ul (4.0); Lymphocyte % 35.2 % (19-41); Mean Corp Hgb Conc 32.8 g/gl (32-36); Mean Corpuscular Hgb 29.7 pg (27.0-32.0); Mean Corpuscular Volume 90.3 fL (80-94); Mean Platelet Vol. 10.4 fl (6.2-12.0); Monocyte# 0.92 X10^3/uL; Monocyte% 10.9 % (0-10); Neutrophil # 4.32 X10^3/uL (2.7-7.7); Neutrophil % 51.4 % (47-70); Platelet Count 215 K/mm3 (150-450); RBC Distribution Width CV 12.9 % (11.6-14.6); RBC Distribution Width SD 42.8 fl (35.1-43.9); Red Blood Count 4.35 M/mm3 (4.6-6.2); White Blood Count 8.4 K/mm3 (4.4-11.0)
[2017-05-23 06:14] LABS: POSITIVE COUNT NO; POSITIVE DIFFERENTIAL NO; POSITIVE MORPHOLOGY NO
[2017-05-23 06:28] LABS: Magnesium 1.8 mg/dL (1.8-2.4); Phosphorus 2.7 mg/dL (2.5-4.9)
[2017-05-23 06:46] LABS: Bedside Glucose 155 mg/dL (70-110)
[2017-05-23] MEDS: Ipratropium/Albuterol Sulfate 3 ML AMPUL.NEB INHALATION (06:51)
[2017-05-23] MEDS: Aspirin 81 MG TAB.CHEW PO (09:48)
[2017-05-23] MEDS: Gabapentin 800 MG Tablet PO ×4 (09:48→21:10)
[2017-05-23] MEDS: Pantoprazole Sodium 40 MG Tablet PO ×2 (09:49→21:10)
[2017-05-23] MEDS: Metoprolol(XL)Succ 25 MG Tablet PO (09:49)
[2017-05-23] MEDS: Na Biphos/Potassium Phosphate PACKET 1 PACKET PO ×4 (09:49→21:10)
[2017-05-23] MEDS: Lisinopril 20 MG Tablet PO (09:50)
[2017-05-23] MEDS: Collagenase 30gm Tube 1 APPLIC TOPICAL (10:27)
--- NOTE | 2017-05-23 10:30 | NURSING ---
Dressing changed to right foot 4th digit. Scant amount of dry still drainage noted on old dressing. No active drainage noted. Area cleansed with normal saline and patted dry. Santyl applied to wound bed per order. Area covered with gauze. Right foot wrapped with Kerlix and secured with tape. Patient tolerated well. Dr. Cantu at bedside and observed wound.
[2017-05-23 11:06] LABS: Bedside Glucose 208 mg/dL (70-110)
--- NOTE | 2017-05-23 12:37 | OP.PCM_ITS ---
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 Status: Chronic (3) Peripheral vascular disease Status: Chronic Report of Operation Date of Procedure: 05/23/17 Pre-Operative Diagnosis: Nonhealing wound right lower extremity with severe PAD Post-Operative Diagnosis: The same Surgery/Procedure Performed:: 1. Ultrasound-guided access retrograde left common femoral artery. #2 right lower extremity angiogram. Catheter placed into the popliteal artery. #3 stent the SFA to through the proximal popliteal with a 6 x 1 50 balloon and post balloon with a 5 and 6 mm. #4 closure was Star close Type of Anesthesia:: Sedation,Conscious Description of Procedure: Patient brought to the [employer] [facility]. Underwent the appropriate timeout consent. Underwent conscious sedation. Prepped and draped in a sterile fashion. We did also get access retrograde in the left common femoral artery put a wire and 5 [place] sheath gave 5000 units of heparin. We got up and over the bifurcation image from the right external iliac artery show in the profunda common femoral widely patent SFA widely patent to the, distal SFA proximal popliteal at the adductor with some stenosis occlusion about over 10 cm segment proximal popliteal and recanalized with flow down through the anterior tib posterior tib into the ankle some disease in the peroneal appeared occluded in the distal third of the calf. We replaced brought in a long 6 [place]ian sheath using a quick cross catheter got through the area the occlusion confirmed in the [place] popliteal we ballooned it with a 5 x 1 22 different inflations to get a better flow channel still significant narrowing throughout this we then stented with a 6 x 1 50 stent post ballooned with a 5 mm balloon part of it was not expanding within the ballooned that with a 6 x 80 for over 2 minutes this appear to be much improved with brisk flow all the way through this and still good rundown all the way to the ankle we then removed out the sheath deployed a Star close with good hemostasis he was brought to recovery stable condition
[2017-05-23] MEDS: hydroCHLOROthiazide 25 MG Tablet PO (14:45)
--- NOTE | 2017-05-23 15:28 | CT_ITS ---
STUDY: CT CHEST WITH CONTRAST REASON FOR EXAM: Male, 56 years old. Chest pain when eating or drinking. Patient has to spit up. Recent sepsis, DTPA. Diabetes. Infection of the fourth toe. RADIATION DOSAGE (If Supplied By Facility): CTDIvol = ( 18.55 ) mGy, DLP = ( 367.68 ) mGycm TECHNIQUE: Transaxial imaging was performed following intravenous administration of 100ML ml of Isovue 300 contrast material. Individualized dose optimization techniques were used for this CT. COMPARISON: CT scan abdomen and pelvis 05/19/2017. FINDINGS: There is mild atelectasis in the posterior lungs and lung bases. There are no demonstrated pulmonary infiltrates. There are a few small pleural calcifications in the posterior right lung base. There is a very small right pleural effusion. Normal heart and pericardium. There are coronary artery calcifications. There is at least one coronary artery stent. There is evidence for previous mediastinal surgery. There are multiple small lymph nodes within the mediastinum, which are normal in size and morphology most compatible with reactive lymph hyperplasia. There are bilateral hilar lymph nodes which are normal in size and morphology. Normal enhanced pulmonary arteries. There are atherosclerotic calcifications of the thoracic aorta and great vessels. There is a proximal left subclavian artery stent, which appears to be occluded. There is contrast enhancement of the distal left subclavian vein which may receive some of its blood supply from the contrast-enhanced left vertebral artery.. There are mild multi-level degenerative changes of the thoracic spine. There is mild diffuse mural thickening of the distal thoracic esophagus with adjacent fat infiltration, suggesting esophagitis. There is no demonstrated paraesophageal fluid collection. Assessment of the esophagus is limited by nondistention. There is fatty infiltration of the liver. CT/Chest WITH Contrast IMPRESSION: Mural thickening of the distal thoracic esophagus with mild adjacent fat infiltration, probably representing esophagitis. Suggest upper endoscopy for further evaluation. Status post stent placement in the left subclavian artery. The stent is occluded. This may result in subclavian steal syndrome. Atherosclerosis. Very small right pleural effusion. No demonstrated pulmonary infiltrates. Fatty liver. Electronically Signed: Ankit Xie MD at 2:10 EST , Service support ,
--- NOTE | 2017-05-23 15:29 | PCM.PN.HOSP ---
Patient Problems: Active and Suspected Problems Sepsis (Acute) Subjective: Still with chest pain. Vomits when he eats or drinks. Vitals/I&O's: Vital Signs Temp Pulse Resp BP Pulse Ox 36.5 C L 100 24 H 184/93 H 99 05/23/17 14:36 05/23/17 14:36 05/23/17 14:36 05/23/17 14:36 05/23/17 14:36 Oxygen Flow Rate 2 Oxygen Delivery Method Room Air Weight: 78.8 kg Body Mass Index (BMI) 25.0 Finger Stick Blood Glucose 167 Intake and Output for Last 24 Hours 05/21/17 05/22/17 05/23/17 23:59 23:59 23:59 Intake Total 2804.4 / 2804.4 478 / 478 1140 / 1140 Output Total 2850 / 2850 1825 / 1825 1275 / 1275 Balance -45.6 / -45.6 -1347 / -1347 -135 / -135 General: Alert, Cooperative, No apparent distress HEENT: Atraumatic, Normocephalic Neck: No Nodes, Thyroid Normal Size and Texture Lungs: Clear to auscultation, Normal air movement, No rhonchi, No wheeze Cardiovascular: Regular rate, Regular Rhythm, Normal S1, Normal S2, No murmurs Extremities: No edema, - - Right foot wrapped, did not remove. Psych/Mental Status: Normal Affect, Appropriate Laboratory Results 05/22/17 16:44: POC Glucose 163 H 05/22/17 22:04: POC Glucose 217 H 05/23/17 04:55: WBC 8.4, RBC 4.35 L, Hgb 12.9 L, Hct 39.3 L, MCV 90.3, MCH 29.7, MCHC 32.8, RDW 12.9, RDW Differential 42.8, Plt Count 215, MPV 10.4, Immature Gran % (Auto) 0.200, Neut % (Auto) 51.4, Lymph % (Auto) 35.2, Tate % (Auto) 10.9 H, Eos % (Auto) 2.1, Baso % (Auto) 0.2, Absolute Neuts (auto) 4.3, Absolute Lymphs (auto) 2.96, Total Counted Not Reportable 05/23/17 04:55: Phosphorus 2.7, Magnesium 1.8 05/23/17 06:37: POC Glucose 155 H 05/23/17 11:02: POC Glucose 208 H Current Medications Acetaminophen (Tylenol) 650 mg PO Q6H PRN PRN PRN Reason: Mild Pain (scale 0-3)/T>100.7 Last Admin: 05/21/17 08:22 Dose: 650 mg Acetaminophen (Tylenol) 325 - 650 mg PO Q6H PRN PRN PRN Reason: PAIN Al Hydroxide/Mg Hydroxide (Mylanta Ii) 30 ml PO Q6H PRN PRN PRN Reason: Gastric burning Last Admin: 05/23/17 10:13 Dose: 30 ml Albuterol Sulfate (Ventolin Aerosols) 2.5 mg INHALATION Q2H PRN PRN PRN Reason: dyspnea, wheezing Albuterol/Ipratropium (Duoneb) 3 ml INHALATION Q6HWA.RT [facility] Last Admin: 05/23/17 12:38 Dose: Not Given Aspirin (Aspirin, Baby) 81 mg PO DAILY@0800 [facility] Last Admin: 05/23/17 09:48 Dose: 81 mg Atorvastatin Calcium (Lipitor) 20 mg PO DAILY@2200 [facility] Last Admin: 05/22/17 21:51 Dose: 20 mg Collagenase (Santyl) 1 applic TOPICAL DAILY [facility] PRN Reason: Protocol Last Admin: 05/23/17 10:27 Dose: 1 applicatio Dextrose (D50w Syringe) 0 gm IV X1 PRN; Protocol PRN Reason: HYPOGLYCEMIA Last Admin: 05/20/17 02:46 Dose: 12.5 gm Gabapentin (Neurontin) 800 mg PO 4X/DAYCM [facility] Last Admin: 05/23/17 14:46 Dose: 800 mg Glucagon () 1 mg IM .X1 PRN PRN Reason: Hypoglycemia Heparin Sodium (Porcine) () 5,000 units SC BID [facility] Last Admin: 05/23/17 12:58 Dose: Not Given Hydralazine HCl (Apresoline) 20 mg IV Q6H PRN PRN PRN Reason: BLOOD PRESSURE Last Admin: 05/22/17 03:19 Dose: 20 mg Hydrochlorothiazide (Hctz) 25 mg PO DAILY [facility] Last Admin: 05/23/17 14:45 Dose: 25 mg Sodium Chloride () 500 mls @ 100 mls/hr IV .Q5H [facility] Stop: 05/23/17 18:58 Last Admin: 05/23/17 14:46 Dose: 100 mls/hr Insulin Aspart (Novolog Flexpen (Bkc)) 0 units SC ACHS [facility] PRN Reason: Protocol Last Admin: 05/23/17 14:45 Dose: 3 u Insulin Detemir (Levemir (Bkc)) 10 units SC QHS [facility] Last Admin: 05/22/17 22:04 Dose: 10 u Levofloxacin (Levaquin) 500 mg PO DAILY@0600 [facility] Last Admin: 05/23/17 05:52 Dose: 500 mg Lisinopril (Zestril) 20 mg PO DAILY [facility] Last Admin: 05/23/17 09:50 Dose: 20 mg Magnesium Hydroxide (Milk Of Magnesia) 30 ml PO DAILY PRN PRN Reason: Constipation Metoprolol Succinate (Toprol Xl (Beta Herminio)) 25 mg PO DAILY [facility] Last Admin: 05/23/17 09:49 Dose: 25 mg Morphine Sulfate (Morphine) 2 mg IV Q3H PRN PRN PRN Reason: SEVERE PAIN () Nicotine (Nicoderm Cq (Pbkc)) 21 mg TRANSDERM. DAILY [facility] Last Admin: 05/23/17 09:49 Dose: 21 mg Nitroglycerin (Nitrostat) 0.4 mg SUBLINGUAL Q5M PRN PRN Reason: Angina pain Nutritional Formula (Juma - Yulee Flavor) [facility] Last Admin: 05/23/17 09:48 Dose: 1 packet Ondansetron HCl (Zofran) 4 mg IV Q8H PRN PRN PRN Reason: NAUSEA Pantoprazole Sodium (Protonix) 40 mg PO BID [facility] Last Admin: 05/23/17 09:49 Dose: 40 mg Potassium Phos/Sodium Phos (Neutra-Phos Packet) 1 packet PO 4X/DAY [facility] Last Admin: 05/23/17 14:46 Dose: 1 packet Promethazine HCl (Phenergan (Ll)) 12.5 mg IV Q6H PRN PRN PRN Reason: NAUSEA/VOMITING Sodium Chloride () 5 - 30 ml IV UD PRN PRN Reason: SALINE FLUSH Last Admin: 05/22/17 03:18 Dose: 10 ml Tramadol HCl (Ultram (G)) 50 mg PO Q6H PRN PRN PRN Reason: MODERATE PAIN (4-5/10) Last Admin: 05/21/17 11:29 Dose: 50 mg Assessment/Plan Active and Suspected Problems Sepsis (Acute) 1. Sepsis Unclear source at this time but the concern would be for right foot infection. Influenza negative. Gallbladder ultrasound negative for cholecystitis Only one blood culture done on the seventh and was negative. Change antibiotics over to Levaquin. Patient had previously had procidentia as well as MSSA from a wound culture that were both sensitive to Levaquin. Though it is still unclear if this is actual infection or just a viral infection. And despite the patient's insisted that it was not viral this infection could very well been viral. 2. Right foot ulcer Not felt to be osteomyelitis by podiatry. MRI from May 01 showed slight bony edema in the fourth metatarsal head without T1 bone marrow signal alteration. And felt to be likely a reactive bone edema rather than osteomyelitis. May consider repeat MRI depending on the patient's clinical course. 3. Diabetes mellitus type 2, uncontrolled Improved Off insulin drip and on prandial basal insulin Impression not sure the patient had diabetic ketoacidosis. This is an elevated anion gap may be related with the sepsis the patient was experiencing upon arrival. 4. Distended gallbladder Ultrasound negative. Patient was slightly elevated lipase yesterday. Patient with epigastric abdominal pain. Will recheck lipase today 5. Peripheral arterial disease Patient is to undergo angiogram with stents on the with Dr. Swan. 6. Possible reflux May have esophageal spasms patient seen to be better at this time. Try to reassure the patient's that we will continue with PPI as well as supportive therapy. Did recommend patient gastroenterology follow-up for this. She was very upset saying that her daughter was brushed off as having the flu and she apparently had an issue with her flap. Asked her to clarify this is related with an epiglottal issue but she did not further elaborate. I told her that I am not concerned about his epiglottis and so seems to have more esophageal spasms. 7. DVT prophylaxis with subcu heparin. 8. Chest pain: Patient is having issues where he was eating earlier during this admission but now he does have ischemic pain where he eats or drinks something. Patient said he had a grilled cheese and then he vomited that up and is able to drink but just gets this exquisite midsternal pain when he does so. Explained to him that initially is felt to be reflux and start him on PPI therapy would be of benefit but he has been on it and does not seem to be affecting him. Thought may be esophageal spasm but the fact that it happens every time he eats is concerning for something such as a stricture or some kind of mass or some the else going on. Pain patient does not have any coffee-ground emesis.. So I recommended an esophagram as well as a CT of his chest to see what else may be going on in regards to his symptoms which are certainly atypical. I did see if we have gastroenterology coverage here. We do not. So I have recommended patient given his symptoms affect his vomiting for him to go to a tertiary center with gastroenterology coverage. He states that he would rather just be discharged and then discard the clinic and set up an appointment I told him that if that were the case with severity of symptoms and that it may be a few weeks out before he can actually see someone and then they may not even do an endoscopy at that time that would be at a later point. He is in a talk with his and get back to us. Greater than 35 minutes of which greater than 50% of the time was counseling and coordinating care with the patient in regards to his chest pain and reflux and vomiting. Code Visit Inpatient E&M: [id number] [facility] Hosp L3
--- NOTE | 2017-05-23 15:42 | PN_ITS ---
Patient Problems: Active and Suspected Problems Sepsis (Acute) Subjective: Still with chest pain. Vomits when he eats or drinks. Vitals/I&O's: Vital Signs Temp Pulse Resp BP Pulse Ox 36.5 C L 100 24 H 184/93 H 99 05/23/17 14:36 05/23/17 14:36 05/23/17 14:36 05/23/17 14:36 05/23/17 14:36 Oxygen Flow Rate 2 Oxygen Delivery Method Room Air Weight: 78.8 kg Body Mass Index (BMI) 25.0 Finger Stick Blood Glucose 167 Intake and Output for Last 24 Hours 05/21/17 05/22/17 05/23/17 23:59 23:59 23:59 Intake Total 2804.4 / 2804.4 478 / 478 1140 / 1140 Output Total 2850 / 2850 1825 / 1825 1275 / 1275 Balance -45.6 / -45.6 -1347 / -1347 -135 / -135 General: Alert, Cooperative, No apparent distress HEENT: Atraumatic, Normocephalic Neck: No Nodes, Thyroid Normal Size and Texture Lungs: Clear to auscultation, Normal air movement, No rhonchi, No wheeze Cardiovascular: Regular rate, Regular Rhythm, Normal S1, Normal S2, No murmurs Extremities: No edema, - - Right foot wrapped, did not remove. Psych/Mental Status: Normal Affect, Appropriate Laboratory Results 05/22/17 16:44: POC Glucose 163 H 05/22/17 22:04: POC Glucose 217 H 05/23/17 04:55: WBC 8.4, RBC 4.35 L, Hgb 12.9 L, Hct 39.3 L, MCV 90.3, MCH 29.7 , MCHC 32.8, RDW 12.9, RDW Differential 42.8, Plt Count 215, MPV 10.4, Immature Gran % (Auto) 0.200, Neut % (Auto) 51.4, Lymph % (Auto) 35.2, Reynolds % (Auto) 10.9 H, Eos % (Auto) 2.1, Baso % (Auto) 0.2, Absolute Neuts (auto) 4.3, Absolute Lymphs (auto) 2.96, Total Counted Not Reportable 05/23/17 04:55: Phosphorus 2.7, Magnesium 1.8 05/23/17 06:37: POC Glucose 155 H 05/23/17 11:02: POC Glucose 208 H Current Medications Acetaminophen (Tylenol) 650 mg PO Q6H PRN PRN PRN Reason: Mild Pain (scale 0-3)/T>100.7 Last Admin: 05/21/17 08:22 Dose: 650 mg Acetaminophen (Tylenol) 325 - 650 mg PO Q6H PRN PRN PRN Reason: PAIN Al Hydroxide/Mg Hydroxide (Mylanta Ii) 30 ml PO Q6H PRN PRN PRN Reason: Gastric burning Last Admin: 05/23/17 10:13 Dose: 30 ml Albuterol Sulfate (Ventolin Aerosols) 2.5 mg INHALATION Q2H PRN PRN PRN Reason: dyspnea, wheezing Albuterol/Ipratropium (Duoneb) 3 ml INHALATION Q6HWA.RT [facility] Last Admin: 05/23/17 12:38 Dose: Not Given Aspirin (Aspirin, Baby) 81 mg PO DAILY@0800 [facility] Last Admin: 05/23/17 09:48 Dose: 81 mg Atorvastatin Calcium (Lipitor) 20 mg PO DAILY@2200 [facility] Last Admin: 05/22/17 21:51 Dose: 20 mg Collagenase (Santyl) 1 applic TOPICAL DAILY [facility] PRN Reason: Protocol Last Admin: 05/23/17 10:27 Dose: 1 applicatio Dextrose (D50w Syringe) 0 gm IV X1 PRN; Protocol PRN Reason: HYPOGLYCEMIA Last Admin: 05/20/17 02:46 Dose: 12.5 gm Gabapentin (Neurontin) 800 mg PO 4X/DAYCM [facility] Last Admin: 05/23/17 14:46 Dose: 800 mg Glucagon () 1 mg IM .X1 PRN PRN Reason: Hypoglycemia Heparin Sodium (Porcine) () 5,000 units SC BID [facility] Last Admin: 05/23/17 12:58 Dose: Not Given Hydralazine HCl (Apresoline) 20 mg IV Q6H PRN PRN PRN Reason: BLOOD PRESSURE Last Admin: 05/22/17 03:19 Dose: 20 mg Hydrochlorothiazide (Hctz) 25 mg PO DAILY [facility] Last Admin: 05/23/17 14:45 Dose: 25 mg Sodium Chloride () 500 mls @ 100 mls/hr IV .Q5H [facility] Stop: 05/23/17 18:58 Last Admin: 05/23/17 14:46 Dose: 100 mls/hr Insulin Aspart (Novolog Flexpen (Bkc)) 0 units SC ACHS [facility] PRN Reason: Protocol Last Admin: 05/23/17 14:45 Dose: 3 u Insulin Detemir (Levemir (Bkc)) 10 units SC QHS [facility] Last Admin: 05/22/17 22:04 Dose: 10 u Levofloxacin (Levaquin) 500 mg PO DAILY@0600 [facility] Last Admin: 05/23/17 05:52 Dose: 500 mg Lisinopril (Zestril) 20 mg PO DAILY [facility] Last Admin: 05/23/17 09:50 Dose: 20 mg Magnesium Hydroxide (Milk Of Magnesia) 30 ml PO DAILY PRN PRN Reason: Constipation Metoprolol Succinate (Toprol Xl (Beta Herminio)) 25 mg PO DAILY [facility] Last Admin: 05/23/17 09:49 Dose: 25 mg Morphine Sulfate (Morphine) 2 mg IV Q3H PRN PRN PRN Reason: SEVERE PAIN () Nicotine (Nicoderm Cq (Pbkc)) 21 mg TRANSDERM. DAILY [facility] Last Admin: 05/23/17 09:49 Dose: 21 mg Nitroglycerin (Nitrostat) 0.4 mg SUBLINGUAL Q5M PRN PRN Reason: Angina pain Nutritional Formula (Juma - Garden Flavor) [facility] Last Admin: 05/23/17 09:48 Dose: 1 packet Ondansetron HCl (Zofran) 4 mg IV Q8H PRN PRN PRN Reason: NAUSEA Pantoprazole Sodium (Protonix) 40 mg PO BID [facility] Last Admin: 05/23/17 09:49 Dose: 40 mg Potassium Phos/Sodium Phos (Neutra-Phos Packet) 1 packet PO 4X/DAY [facility] Last Admin: 05/23/17 14:46 Dose: 1 packet Promethazine HCl (Phenergan (Ll)) 12.5 mg IV Q6H PRN PRN PRN Reason: NAUSEA/VOMITING Sodium Chloride () 5 - 30 ml IV UD PRN PRN Reason: SALINE FLUSH Last Admin: 05/22/17 03:18 Dose: 10 ml Tramadol HCl (Ultram (G)) 50 mg PO Q6H PRN PRN PRN Reason: MODERATE PAIN (4-5/10) Last Admin: 05/21/17 11:29 Dose: 50 mg Assessment/Plan Active and Suspected Problems Sepsis (Acute) 1. Sepsis Unclear source at this time but the concern would be for right foot infection. Influenza negative. Gallbladder ultrasound negative for cholecystitis Only one blood culture done on the seventh and was negative. Change antibiotics over to Levaquin. Patient had previously had procidentia as well as MSSA from a wound culture that were both sensitive to Levaquin. Though it is still unclear if this is actual infection or just a viral infection. And despite the patient's insisted that it was not viral this infection could very well been viral. 2. Right foot ulcer Not felt to be osteomyelitis by podiatry. MRI from May 01 showed slight bony edema in the fourth metatarsal head without T1 bone marrow signal alteration. And felt to be likely a reactive bone edema rather than osteomyelitis. May consider repeat MRI depending on the patient's clinical course. 3. Diabetes mellitus type 2, uncontrolled Improved Off insulin drip and on prandial basal insulin Impression not sure the patient had diabetic ketoacidosis. This is an elevated anion gap may be related with the sepsis the patient was experiencing upon arrival. 4. Distended gallbladder Ultrasound negative. Patient was slightly elevated lipase yesterday. Patient with epigastric abdominal pain. Will recheck lipase today 5. Peripheral arterial disease Patient is to undergo angiogram with stents on the with Dr. Swan. 6. Possible reflux May have esophageal spasms patient seen to be better at this time. Try to reassure the patient's that we will continue with PPI as well as supportive therapy. Did recommend patient gastroenterology follow-up for this. She was very upset saying that her daughter was brushed off as having the flu and she apparently had an issue with her flap. Asked her to clarify this is related with an epiglottal issue but she did not further elaborate. I told her that I am not concerned about his epiglottis and so seems to have more esophageal spasms. 7. DVT prophylaxis with subcu heparin. 8. Chest pain: Patient is having issues where he was eating earlier during this admission but now he does have ischemic pain where he eats or drinks something. Patient said he had a grilled cheese and then he vomited that up and is able to drink but just gets this exquisite midsternal pain when he does so. Explained to him that initially is felt to be reflux and start him on PPI therapy would be of benefit but he has been on it and does not seem to be affecting him. Thought may be esophageal spasm but the fact that it happens every time he eats is concerning for something such as a stricture or some kind of mass or some the else going on. Pain patient does not have any coffee-ground emesis.. So I recommended an esophagram as well as a CT of his chest to see what else may be going on in regards to his symptoms which are certainly atypical. I did see if we have gastroenterology coverage here. We do not. So I have recommended patient given his symptoms affect his vomiting for him to go to a tertiary center with gastroenterology coverage. He states that he would rather just be discharged and then discard the clinic and set up an appointment I told him that if that were the case with severity of symptoms and that it may be a few weeks out before he can actually see someone and then they may not even do an endoscopy at that time that would be at a later point. He is in a talk with his and get back to us. Greater than 35 minutes of which greater than 50% of the time was counseling and coordinating care with the patient in regards to his chest pain and reflux and vomiting. Code Visit Inpatient E&M: [id number] [facility] Hosp L3
--- NOTE | 2017-05-23 17:29 | PCM.PROGNOTE ---
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 He has demonstrated significant delayed healing and is scheduled for vascular intervention this afternoon with Dr. Swan to restore peripheral perfusion. He denies worsening foot pain, redness, or odor. He is trying to keep weight on his heel during ambulation. - Physical Exam General: Alert, Oriented x3, Cooperative Extremities: Capillary Refill Less than 3 Seconds - Digits 1, 2, 3, 5 right foot, No Calf Tenderness - Negative Jaime and Valverde sign bilateral, Diminished Peripheral Pulses, Edema - Scant right foot Skin: Ulcer/ Wound - Delayed healing ulcer at previous fourth right toe amputation site is 100% fibers. There is no probe to bone or eschar noted at this time. There is no granulation tissue. There is no streaking, odor, maceration, erythema noted to the right foot. His skin is atrophic. Musculoskeletal: No Tenderness to Palpation of Joints or Extremities, Muscle Wasting, Tenderness - Pain with wound manipulation right foot, - - Fourth toe amputation Neurological: - - Lack of normal epicritic sensation light touch right foot Psych/Mental Status: Normal Affect, Appropriate Vital Signs Temp Pulse Resp BP Pulse Ox 98.9 F 97 18 156/77 H 98 05/23/17 16:36 05/23/17 16:36 05/23/17 16:36 05/23/17 16:36 05/23/17 16:36 Oxygen Flow Rate 2 Oxygen Delivery Method Room Air Weight: 78.8 kg Body Mass Index (BMI) 25.0 Finger Stick Blood Glucose 167 Intake and Output for Last 24 Hours 05/21/17 05/22/17 05/23/17 23:59 23:59 23:59 Intake Total 2804.4 / 2804.4 478 / 478 1140 / 1140 Output Total 2850 / 2850 1825 / 1825 1275 / 1275 Balance -45.6 / -45.6 -1347 / -1347 -135 / -135 Laboratory Tests Past 24 Hrs 05/23/17 05/23/17 04:55 04:55 WBC 8.4 RBC 4.35 L Hgb 12.9 L Hct 39.3 L MCV 90.3 MCH 29.7 MCHC 32.8 RDW 12.9 RDW Differential 42.8 Plt Count 215 MPV 10.4 Immature Gran % (Auto) 0.200 Neut % (Auto) 51.4 Lymph % (Auto) 35.2 Bledsoe % (Auto) 10.9 H Eos % (Auto) 2.1 Baso % (Auto) 0.2 Absolute Neuts (auto) 4.3 Absolute Lymphs (auto) 2.96 Total Counted Not Reportable Phosphorus 2.7 Magnesium 1.8 POC Glucose 05/23/17 05/23/17 05/22/17 11:02 06:37 22:04 POC Glucose 208 H 155 H 217 H Assessment/Plan Active and Suspected Problems Sepsis (Acute) Right foot with fat layer exposed ulcer and resolved cellulitis Diabetic neuropathy Peripheral vascular disease Smoker Malnutrition Noncompliance Other comorbidities I discussed the patient's case this morning. Santyl dry dressing was applied to the right foot. To change daily with Santyl, enzymatic debrider daily. He is scheduled for vascular intervention with Dr. Swan this afternoon. Anticipated healing and wound care plan was discussed in detail. He understands serial debridements and close monitoring will be required after perfusion is hopefully restore this afternoon. I recommend he follow up with the wound care center next Saturday after discharge. To d/c smoking. To keep pressure off the wound by wearing a surgical shoe; heel weight-bear. This was previously dispensed. To optimize healing with better controlled glucose levels (hemoglobin A1C level over 10), improve medical management, and improve nutritional supplementation. He will continue receive nutritional supplementation while in house. Medical management and DVT prophylaxis per primary team. Please not hesitate to call if you have any questions. Bettie Cantu [facility]PC[facility] [phone]
[2017-05-23 18:06] LABS: Bedside Glucose 133 mg/dL (70-110)
--- NOTE | 2017-05-23 18:17 | NURSING ---
Patient states that he wants to try and take his Gabapentin. Same given per his request. After patient took med, he immediately began complaining of a stabbing pain in his epigastric area that radiates into his back. Patient reports that the pain is similiar to how he felt when he took a bite of his sandwich earlier. Morphine 2mg given for pain. Patient states that his pain is getting better. Patient encouraged to wait to eat anything solid until after his chest CT tonight. Patient agrees to same.
[2017-05-23 20:08] LABS: HCV Quant. RNA PCR HCV Not Detected IU/mL (.)
[2017-05-23] MEDS: Atorvastatin Calcium 20 MG Tablet PO (21:10)
[2017-05-23 21:11] LABS: Bedside Glucose 200 mg/dL (70-110)
[2017-05-23] MEDS: 0.9% NaCl Peripheral Flush Adult/Peds IV (21:17)
[2017-05-24] VITALS (9 sets, daily range): BP systolic 121–187; BP diastolic 69–83; PULSE 81–110; RESP 17–19; TEMP 36.9–37.1; O2SAT 93–98
[2017-05-24] MEDS: Mag Hydrox/Al Hydrox/Simeth 30 ML UDC PO ×2 (02:23→21:34)
[2017-05-24] MEDS: 0.9% NaCl Peripheral Flush Adult/Peds IV ×3 (02:29→19:57)
[2017-05-24 05:53] LABS: Absolute Neutrophil Count 6.4 X10^3/uL (2.0-7.7); Basophil# 0.03 X10^3/uL; Basophil% 0.3 % (0-1); Eosinophil# 0.23 X10^3/uL; Eosinophils% 2.1 % (0-5); Hematocrit 41.9 % (40-54); Hemoglobin 13.8 g/dl (13.0-16.5); Lymphocyte % 25.2 % (19-41); Mean Corp Hgb Conc 32.9 g/gl (32-36); Mean Corpuscular Hgb 29.9 pg (27.0-32.0); Mean Corpuscular Volume 90.7 fL (80-94); Mean Platelet Vol. 9.9 fl (6.2-12.0); Monocyte# 1.28 X10^3/uL; Neutrophil # 6.44 X10^3/uL (2.7-7.7); Neutrophil % 60.1 % (47-70); Platelet Count 232 K/mm3 (150-450); RBC Distribution Width SD 42.6 fl (35.1-43.9); Red Blood Count 4.62 M/mm3 (4.6-6.2); White Blood Count 10.7 K/mm3 (4.4-11.0)
[2017-05-24 06:03] LABS: POSITIVE COUNT NO; POSITIVE DIFFERENTIAL NO; POSITIVE MORPHOLOGY NO
[2017-05-24 06:04] LABS: Magnesium 1.9 mg/dL (1.8-2.4)
[2017-05-24 06:13] LABS: Phosphorus 2.9 mg/dL (2.5-4.9)
[2017-05-24 06:56] LABS: Bedside Glucose 179 mg/dL (70-110)
[2017-05-24] MEDS: Ipratropium/Albuterol Sulfate 3 ML AMPUL.NEB INHALATION ×2 (07:15→18:50)
--- NOTE | 2017-05-24 08:50 | PCM.PN.HOSP ---
Patient Problems: Active and Suspected Problems Dysphagia (Acute) Sepsis (Acute) Subjective: Still with difficulty swallowing. Discussed with the patient last night that we do a CAT scan as well as a esophagram to evaluate that issues in regards to his dysphagia. He did not want to make any further decisions in regards to being transferred. I did contact see if we do have gastroneurology coverage and we do not. The patient did have CAT scan that showed what appeared to be some esophagitis and recommended upper endoscopy. I contacted Dr. Erazo, who would be willing to see the patient for an EGD tentatively planned for this afternoon. Vitals/I&O's: Vital Signs Temp Pulse Resp BP Pulse Ox 37.1 C 81 19 H 147/80 H 93 05/24/17 03:06 05/24/17 07:00 05/24/17 07:00 05/24/17 03:06 05/24/17 07:37 Oxygen Flow Rate 2 Oxygen Delivery Method Room Air Weight: 77.1 kg Body Mass Index (BMI) 25.0 Finger Stick Blood Glucose 167 Intake and Output for Last 24 Hours 05/22/17 05/23/17 05/24/17 23:59 23:59 23:59 Intake Total 478 / 478 1380 / 1380 60 / 60 Output Total 1825 / 1825 2225 / 2225 Balance -1347 / -1347 -845 / -845 60 / 60 General: Alert, Cooperative, No apparent distress HEENT: Atraumatic, Normocephalic Neck: No Nodes, Thyroid Normal Size and Texture Lungs: Clear to auscultation, Normal air movement, No rhonchi, No wheeze Cardiovascular: Regular rate, Regular Rhythm, Normal S1, Normal S2 Abdomen: Bowel Sounds Present, Soft, Non Tender, Non-Distended Extremities: No edema, No Calf Tenderness Skin: No rashes, No breakdown Psych/Mental Status: Normal Affect, Appropriate Laboratory Results 05/20/17 11:40: Hepatitis C Ab Confirm >11.0 H, HCV RNA Quant (PCR) HCV Not Detected, HCV RNA (PCR) log10 TNP, Hepatitis C RNA Comment Comment, Hep C Genotype Comment TNP 05/23/17 11:02: POC Glucose 208 H 05/23/17 17:59: POC Glucose 133 H 05/23/17 21:07: POC Glucose 200 H 05/24/17 05:30: WBC 10.7, RBC 4.62, Hgb 13.8, Hct 41.9, MCV 90.7, MCH 29.9, MCHC 32.9, RDW 13.0, RDW Differential 42.6, Plt Count 232, MPV 9.9, Immature Gran % (Auto) 0.300, Neut % (Auto) 60.1, Lymph % (Auto) 25.2, [place] % (Auto) 12.0 H, Eos % (Auto) 2.1, Baso % (Auto) 0.3, Absolute Neuts (auto) 6.4, Absolute Lymphs (auto) 2.70, Total Counted Not Reportable 05/24/17 05:30: Magnesium 1.9 05/24/17 05:30: Phosphorus 2.9 05/24/17 06:51: POC Glucose 179 H Current Medications Acetaminophen (Tylenol) 650 mg PO Q6H PRN PRN PRN Reason: Mild Pain (scale 0-3)/T>100.7 Last Admin: 05/21/17 08:22 Dose: 650 mg Acetaminophen (Tylenol) 325 - 650 mg PO Q6H PRN PRN PRN Reason: PAIN Al Hydroxide/Mg Hydroxide (Mylanta Ii) 30 ml PO Q6H PRN PRN PRN Reason: Gastric burning Last Admin: 05/24/17 02:23 Dose: 30 ml Albuterol Sulfate (Ventolin Aerosols) 2.5 mg INHALATION Q2H PRN PRN PRN Reason: dyspnea, wheezing Albuterol/Ipratropium (Duoneb) 3 ml INHALATION Q6HWA.RT [facility] Last Admin: 05/24/17 07:15 Dose: 3 ml Atorvastatin Calcium (Lipitor) 20 mg PO DAILY@2200 [facility] Last Admin: 05/23/17 21:10 Dose: 20 mg Collagenase (Santyl) 1 applic TOPICAL DAILY [facility] PRN Reason: Protocol Last Admin: 05/23/17 10:27 Dose: 1 applicatio Dextrose (D50w Syringe) 0 gm IV X1 PRN; Protocol PRN Reason: HYPOGLYCEMIA Last Admin: 05/20/17 02:46 Dose: 12.5 gm Gabapentin (Neurontin) 800 mg PO 4X/DAYCM [facility] Last Admin: 05/23/17 21:10 Dose: 800 mg Glucagon () 1 mg IM .X1 PRN PRN Reason: Hypoglycemia Hydralazine HCl (Apresoline) 20 mg IV Q6H PRN PRN PRN Reason: BLOOD PRESSURE Last Admin: 05/22/17 03:19 Dose: 20 mg Hydrochlorothiazide (Hctz) 25 mg PO DAILY [facility] Last Admin: 05/23/17 14:45 Dose: 25 mg Pantoprazole Sodium 40 mg/ (Sodium Chloride) 110 mls @ 330 mls/hr IV Q12 [facility] Insulin Aspart (Novolog Flexpen (Bkc)) 0 units SC ACHS [facility] PRN Reason: Protocol Last Admin: 05/23/17 21:10 Dose: 3 u Insulin Detemir (Levemir (Bkc)) 10 units SC QHS [facility] Last Admin: 05/23/17 21:10 Dose: 10 u Levofloxacin (Levaquin) 500 mg PO DAILY@0600 [facility] Last Admin: 05/23/17 05:52 Dose: 500 mg Lisinopril (Zestril) 20 mg PO DAILY [facility] Last Admin: 05/23/17 09:50 Dose: 20 mg Magnesium Hydroxide (Milk Of Magnesia) 30 ml PO DAILY PRN PRN Reason: Constipation Metoprolol Succinate (Toprol Xl (Beta Herminio)) 25 mg PO DAILY [facility] Last Admin: 05/23/17 09:49 Dose: 25 mg Morphine Sulfate (Morphine) 2 mg IV Q3H PRN PRN PRN Reason: SEVERE PAIN (6-10/10) Last Admin: 05/24/17 02:29 Dose: 2 mg Nicotine (Nicoderm Cq (Pbkc)) 21 mg TRANSDERM. DAILY [facility] Last Admin: 05/23/17 09:49 Dose: 21 mg Nitroglycerin (Nitrostat) 0.4 mg SUBLINGUAL Q5M PRN PRN Reason: Angina pain Nutritional Formula (Juma - [place] Flavor) 1 packet PO BIDCM [facility] Last Admin: 05/24/17 08:42 Dose: Not Given Ondansetron HCl (Zofran) 4 mg IV Q8H PRN PRN PRN Reason: NAUSEA Potassium Phos/Sodium Phos (Neutra-Phos Packet) 1 packet PO 4X/DAY [facility] Last Admin: 05/23/17 21:10 Dose: 1 packet Promethazine HCl (Phenergan (Ll)) 12.5 mg IV Q6H PRN PRN PRN Reason: NAUSEA/VOMITING Sodium Chloride () 5 - 30 ml IV UD PRN PRN Reason: SALINE FLUSH Last Admin: 05/24/17 02:29 Dose: 10 ml Sucralfate (Carafate) 1 gm PO 1HR_ACHS CECE Tramadol HCl (Ultram (G)) 50 mg PO Q6H PRN PRN PRN Reason: MODERATE PAIN (4-5/10) Last Admin: 05/21/17 11:29 Dose: 50 mg Assessment/Plan Active and Suspected Problems Dysphagia (Acute) Sepsis (Acute) 1. Sepsis Unclear source at this time but the concern would be for right foot infection. Influenza negative. Gallbladder ultrasound negative for cholecystitis Only one blood culture done on the and was negative. Change antibiotics over to Levaquin. Patient had previously had procidentia as well as MSSA from a wound culture that were both sensitive to Levaquin. Though it is still unclear if this is actual infection or just a viral infection. And despite the patient's insisted that it was not viral this infection could very well been viral. 2. Right foot ulcer Not felt to be osteomyelitis by podiatry. MRI from May 01 showed slight bony edema in the fourth metatarsal head without T1 bone marrow signal alteration. And felt to be likely a reactive bone edema rather than osteomyelitis. May consider repeat MRI depending on the patient's clinical course. continue with levaquin through 05/26 3. Diabetes mellitus type 2, uncontrolled Improved Off insulin drip and on prandial basal insulin Impression not sure the patient had diabetic ketoacidosis. This is an elevated anion gap may be related with the sepsis the patient was experiencing upon arrival. 4. Distended gallbladder Ultrasound negative. Patient was slightly elevated lipase yesterday. Patient with epigastric abdominal pain. Will recheck lipase today 5. Peripheral arterial disease Patient is to undergo angiogram with stents on the with Dr. Swan. #3 stent the SFA to through the proximal popliteal with a 6 x 1 50 balloon and post balloon with a 5 and 6 mm. On May 23. Incidentally, with CT of his chest, patient was noted to have a stent in the left subclavian artery and was noted to be occluded. Follow-up Dr. Swan in regards to further evaluation of this. Patient appears to be asymptomatic with that at this time. 6. Dysphagia: Patient is having issues where he was eating earlier during this admission but now he does have ischemic pain where he eats or drinks something. Patient said he had a grilled cheese and then he vomited that up and is able to drink but just gets this exquisite midsternal pain when he does so. Explained to him that initially is felt to be reflux and start him on PPI therapy would be of benefit but he has been on it and does not seem to be affecting him. Thought may be esophageal spasm but the fact that it happens every time he eats is concerning for something such as a stricture or some kind of mass or some the else going on. Pain patient does not have any coffee-ground emesis.. CAT scan yesterday shows what appears to be esophagitis. We will change patient over to IV PPI therapy as well as add Carafate. Discussed with Dr. Erazo, general surgery, he be willing to do an EGD possibly later on today. So we will see what the EGD shows and patient's response to treatments and then proceed from there. 7. DVT prophylaxis with subcu heparin. Code Visit Inpatient E&M: 02191 Subs Hosp L2
--- NOTE | 2017-05-24 08:57 | PN_ITS ---
Patient Problems: Active and Suspected Problems Dysphagia (Acute) Sepsis (Acute) Subjective: Still with difficulty swallowing. Discussed with the patient last night that we do a CAT scan as well as a esophagram to evaluate that issues in regards to his dysphagia. He did not want to make any further decisions in regards to being transferred. I did contact see if we do have gastroneurology coverage and we do not. The patient did have CAT scan that showed what appeared to be some esophagitis and recommended upper endoscopy. I contacted Dr. Erazo, who would be willing to see the patient for an EGD tentatively planned for this afternoon. Vitals/I&O's: Vital Signs Temp Pulse Resp BP Pulse Ox 37.1 C 81 19 H 147/80 H 93 05/24/17 03:06 05/24/17 07:00 05/24/17 07:00 05/24/17 03:06 05/24/17 07:37 Oxygen Flow Rate 2 Oxygen Delivery Method Room Air Weight: 77.1 kg Body Mass Index (BMI) 25.0 Finger Stick Blood Glucose 167 Intake and Output for Last 24 Hours 05/22/17 05/23/17 05/24/17 23:59 23:59 23:59 Intake Total 478 / 478 1380 / 1380 60 / 60 Output Total 1825 / 1825 2225 / 2225 Balance -1347 / -1347 -845 / -845 60 / 60 General: Alert, Cooperative, No apparent distress HEENT: Atraumatic, Normocephalic Neck: No Nodes, Thyroid Normal Size and Texture Lungs: Clear to auscultation, Normal air movement, No rhonchi, No wheeze Cardiovascular: Regular rate, Regular Rhythm, Normal S1, Normal S2 Abdomen: Bowel Sounds Present, Soft, Non Tender, Non-Distended Extremities: No edema, No Calf Tenderness Skin: No rashes, No breakdown Psych/Mental Status: Normal Affect, Appropriate Laboratory Results 05/20/17 11:40: Hepatitis C Ab Confirm >11.0 H, HCV RNA Quant (PCR) HCV Not Detected, HCV RNA (PCR) log10 TNP, Hepatitis C RNA Comment Comment, Hep C Genotype Comment TNP 05/23/17 11:02: POC Glucose 208 H 05/23/17 17:59: POC Glucose 133 H 05/23/17 21:07: POC Glucose 200 H 05/24/17 05:30: WBC 10.7, RBC 4.62, Hgb 13.8, Hct 41.9, MCV 90.7, MCH 29.9, MCHC 32.9, RDW 13.0, RDW Differential 42.6, Plt Count 232, MPV 9.9, Immature Gran % (Auto) 0.300, Neut % (Auto) 60.1, Lymph % (Auto) 25.2, [place] % (Auto) 12.0 H, Eos % (Auto) 2.1, Baso % (Auto) 0.3, Absolute Neuts (auto) 6.4, Absolute Lymphs (auto) 2.70, Total Counted Not Reportable 05/24/17 05:30: Magnesium 1.9 05/24/17 05:30: Phosphorus 2.9 05/24/17 06:51: POC Glucose 179 H Current Medications Acetaminophen (Tylenol) 650 mg PO Q6H PRN PRN PRN Reason: Mild Pain (scale 0-3)/T>100.7 Last Admin: 05/21/17 08:22 Dose: 650 mg Acetaminophen (Tylenol) 325 - 650 mg PO Q6H PRN PRN PRN Reason: PAIN Al Hydroxide/Mg Hydroxide (Mylanta Ii) 30 ml PO Q6H PRN PRN PRN Reason: Gastric burning Last Admin: 05/24/17 02:23 Dose: 30 ml Albuterol Sulfate (Ventolin Aerosols) 2.5 mg INHALATION Q2H PRN PRN PRN Reason: dyspnea, wheezing Albuterol/Ipratropium (Duoneb) 3 ml INHALATION Q6HWA.RT [facility] Last Admin: 05/24/17 07:15 Dose: 3 ml Atorvastatin Calcium (Lipitor) 20 mg PO DAILY@2200 [facility] Last Admin: 05/23/17 21:10 Dose: 20 mg Collagenase (Santyl) 1 applic TOPICAL DAILY [facility] PRN Reason: Protocol Last Admin: 05/23/17 10:27 Dose: 1 applicatio Dextrose (D50w Syringe) 0 gm IV X1 PRN; Protocol PRN Reason: HYPOGLYCEMIA Last Admin: 05/20/17 02:46 Dose: 12.5 gm Gabapentin (Neurontin) 800 mg PO 4X/DAYCM [facility] Last Admin: 05/23/17 21:10 Dose: 800 mg Glucagon () 1 mg IM .X1 PRN PRN Reason: Hypoglycemia Hydralazine HCl (Apresoline) 20 mg IV Q6H PRN PRN PRN Reason: BLOOD PRESSURE Last Admin: 05/22/17 03:19 Dose: 20 mg Hydrochlorothiazide (Hctz) 25 mg PO DAILY [facility] Last Admin: 05/23/17 14:45 Dose: 25 mg Pantoprazole Sodium 40 mg/ (Sodium Chloride) 110 mls @ 330 mls/hr IV Q12 [facility] Insulin Aspart (Novolog Flexpen (Bkc)) 0 units SC ACHS [facility] PRN Reason: Protocol Last Admin: 05/23/17 21:10 Dose: 3 u Insulin Detemir (Levemir (Bkc)) 10 units SC QHS [facility] Last Admin: 05/23/17 21:10 Dose: 10 u Levofloxacin (Levaquin) 500 mg PO DAILY@0600 [facility] Last Admin: 05/23/17 05:52 Dose: 500 mg Lisinopril (Zestril) 20 mg PO DAILY [facility] Last Admin: 05/23/17 09:50 Dose: 20 mg Magnesium Hydroxide (Milk Of Magnesia) 30 ml PO DAILY PRN PRN Reason: Constipation Metoprolol Succinate (Toprol Xl (Beta Herminio)) 25 mg PO DAILY [facility] Last Admin: 05/23/17 09:49 Dose: 25 mg Morphine Sulfate (Morphine) 2 mg IV Q3H PRN PRN PRN Reason: SEVERE PAIN (6-10/10) Last Admin: 05/24/17 02:29 Dose: 2 mg Nicotine (Nicoderm Cq (Pbkc)) 21 mg TRANSDERM. DAILY [facility] Last Admin: 05/23/17 09:49 Dose: 21 mg Nitroglycerin (Nitrostat) 0.4 mg SUBLINGUAL Q5M PRN PRN Reason: Angina pain Nutritional Formula (Juma - [place] Flavor) 1 packet PO BIDCM [facility] Last Admin: 05/24/17 08:42 Dose: Not Given Ondansetron HCl (Zofran) 4 mg IV Q8H PRN PRN PRN Reason: NAUSEA Potassium Phos/Sodium Phos (Neutra-Phos Packet) 1 packet PO 4X/DAY [facility] Last Admin: 05/23/17 21:10 Dose: 1 packet Promethazine HCl (Phenergan (Ll)) 12.5 mg IV Q6H PRN PRN PRN Reason: NAUSEA/VOMITING Sodium Chloride () 5 - 30 ml IV UD PRN PRN Reason: SALINE FLUSH Last Admin: 05/24/17 02:29 Dose: 10 ml Sucralfate (Carafate) 1 gm PO 1HR_ACHS CECE Tramadol HCl (Ultram (G)) 50 mg PO Q6H PRN PRN PRN Reason: MODERATE PAIN (4-5/10) Last Admin: 05/21/17 11:29 Dose: 50 mg Assessment/Plan Active and Suspected Problems Dysphagia (Acute) Sepsis (Acute) 1. Sepsis Unclear source at this time but the concern would be for right foot infection. Influenza negative. Gallbladder ultrasound negative for cholecystitis Only one blood culture done on the and was negative. Change antibiotics over to Levaquin. Patient had previously had procidentia as well as MSSA from a wound culture that were both sensitive to Levaquin. Though it is still unclear if this is actual infection or just a viral infection. And despite the patient's insisted that it was not viral this infection could very well been viral. 2. Right foot ulcer Not felt to be osteomyelitis by podiatry. MRI from May 01 showed slight bony edema in the fourth metatarsal head without T1 bone marrow signal alteration. And felt to be likely a reactive bone edema rather than osteomyelitis. May consider repeat MRI depending on the patient's clinical course. continue with levaquin through 05/26 3. Diabetes mellitus type 2, uncontrolled Improved Off insulin drip and on prandial basal insulin Impression not sure the patient had diabetic ketoacidosis. This is an elevated anion gap may be related with the sepsis the patient was experiencing upon arrival. 4. Distended gallbladder Ultrasound negative. Patient was slightly elevated lipase yesterday. Patient with epigastric abdominal pain. Will recheck lipase today 5. Peripheral arterial disease Patient is to undergo angiogram with stents on the with Dr. Swan. #3 stent the SFA to through the proximal popliteal with a 6 x 1 50 balloon and post balloon with a 5 and 6 mm. On May 23. Incidentally, with CT of his chest, patient was noted to have a stent in the left subclavian artery and was noted to be occluded. Follow-up Dr. Sawn in regards to further evaluation of this. Patient appears to be asymptomatic with that at this time. 6. Dysphagia: Patient is having issues where he was eating earlier during this admission but now he does have ischemic pain where he eats or drinks something. Patient said he had a grilled cheese and then he vomited that up and is able to drink but just gets this exquisite midsternal pain when he does so. Explained to him that initially is felt to be reflux and start him on PPI therapy would be of benefit but he has been on it and does not seem to be affecting him. Thought may be esophageal spasm but the fact that it happens every time he eats is concerning for something such as a stricture or some kind of mass or some the else going on. Pain patient does not have any coffee-ground emesis.. CAT scan yesterday shows what appears to be esophagitis. We will change patient over to IV PPI therapy as well as add Carafate. Discussed with Dr. Erazo, general surgery, he be willing to do an EGD possibly later on today. So we will see what the EGD shows and patient's response to treatments and then proceed from there. 7. DVT prophylaxis with subcu heparin. Code Visit Inpatient E&M: 15066 Subs Hosp L2
--- NOTE | 2017-05-24 09:26 | NURSING ---
Explained to pt as to why test was pushed back till 11am. pt very upset, yelling at this RN stating he does not care about test, that he needs to eat and they can do test tomorrow. Explained that the doctors have schedules and have fit him into their schedule today and tomorrow they may not have a time. Pt yelled at nurse to leave room and shut the door behind me.
--- NOTE | 2017-05-24 11:25 | PCM.CONS.GEN ---
Problem List (1) Nausea & vomiting Status: Acute (2) Abnormal CT scan, esophagus Status: Acute Reason for Consult Date of Consultation: 05/24/17 History of Present Illness: The patient is a 56 year old M who was admitted to [facility] with sepsis diabetic ketoacidosis. Through his hospitalization he subsequently underwent an arteriogram with balloon dilatation of his popliteal artery and stent placement. Since then he has been complaining of some chest pain with nausea and vomiting. A CAT scan of the chest revealed there to be some thickening of the esophagus. He is subsequently going to undergo an esophagram today. I am being consulted for possible upper endoscopy. Past Medical History Past Medical History (Chronic Problems): Chronic Problems Ulcer of right foot with fat layer exposed (Chronic) Malnutrition (Chronic) Compliance poor (Chronic) Peripheral vascular disease (Chronic) HTN (hypertension) (Chronic) Nicotine abuse (Chronic) Peripheral neuropathy (Chronic) CAD (coronary artery disease) (Chronic) COPD (chronic obstructive pulmonary disease) (Chronic) Type 2 diabetes mellitus with diabetic polyneuropathy (Chronic) Allergies No Known Allergies Allergy (Verified 05/19/17 13:17) Home Medications: Ambulatory Orders Medication Instructions Recorded Gabapentin [Neurontin] 800 mg PO 4X/DAY 02/14/17 Lisinopril 20 mg PO DAILY 02/14/17 Metoprolol Succinate 25 mg PO DAILY 02/14/17 Simvastatin 40 mg PO DAILY 02/14/17 Aspirin [Aspirin, Baby] 81 mg PO DAILY 02/16/17 Albuterol Inhaler [Ventolin Hfa 2 puff INHALATION Q4H PRN PRN 04/30/17 (SP)] Empagliflozin [Jardiance] 1 tab PO DAILY 05/19/17 Liraglutide [Victoza 2-Juan] 1.2 mg SQ DAILY 05/19/17 Surgical History: coronary bypass surgery, - - debridement left arm, 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 carpal tunnel release Psychiatric History: No pertinent psych hx Lives: Spouse/ Significant Other Smoking Status: Current every day smoker Tobacco Use: Cigarettes Alcohol: None Drugs: None - *Family History Maternal History Items: Heart Disease Paternal History Items: Heart Disease Review of Systems Cardiovascular: Reports: Chest Pain - Patient is complaining of midsternal chest pain. He is having difficulty keeping things down and it is tender when he swallows. Patient Problems: Active and Suspected Problems Nausea & vomiting (Acute) Abnormal CT scan, esophagus (Acute) Dysphagia (Acute) Sepsis (Acute) - Physical Exam HEENT: Atraumatic, PERRLA, EOMI, Normocephalic Lungs: Clear to auscultation Cardiovascular: Regular rate, Regular Rhythm, No murmurs Abdomen: Bowel Sounds Present, Soft, Non Tender, Non-Distended Vital Signs Temp Pulse Resp BP Pulse Ox 98.4 F 107 H 18 166/83 H 97 05/24/17 09:00 05/24/17 09:00 05/24/17 09:00 05/24/17 09:00 05/24/17 09:00 Oxygen Flow Rate 2 Oxygen Delivery Method Room Air Weight: 169 lb 15.622 oz Body Mass Index (BMI) 25.0 Finger Stick Blood Glucose 167 Intake and Output for Last 24 Hours 05/22/17 05/23/17 05/24/17 23:59 23:59 23:59 Intake Total 478 / 478 1380 / 1380 60 / 60 Output Total 1825 / 1825 2225 / 2225 Balance -1347 / -1347 -845 / -845 60 / 60 Microbiology Past 72 Hours 05/23/17 10:28 Gram Stain - Final Wound - Right Foot Laboratory Tests Past 24 Hrs 05/20/17 05/24/17 05/24/17 11:40 05:30 05:30 WBC 10.7 RBC 4.62 Hgb 13.8 Hct 41.9 MCV 90.7 MCH 29.9 MCHC 32.9 RDW 13.0 RDW Differential 42.6 Plt Count 232 MPV 9.9 Immature Gran % (Auto) 0.300 Neut % (Auto) 60.1 Lymph % (Auto) 25.2 [place] % (Auto) 12.0 H Eos % (Auto) 2.1 Baso % (Auto) 0.3 Absolute Neuts (auto) 6.4 Absolute Lymphs (auto) 2.70 Total Counted Not Reportable Phosphorus Magnesium 1.9 Hepatitis C Ab Confirm >11.0 H HCV RNA Quant (PCR) HCV Not Detected HCV RNA (PCR) log10 TNP Hepatitis C RNA Comment Comment Hep C Genotype Comment TNP 05/24/17 05:30 WBC RBC Hgb Hct MCV MCH MCHC RDW RDW Differential Plt Count MPV Immature Gran % (Auto) Neut % (Auto) Lymph % (Auto) [place] % (Auto) Eos % (Auto) Baso % (Auto) Absolute Neuts (auto) Absolute Lymphs (auto) Total Counted Phosphorus 2.9 Magnesium Hepatitis C Ab Confirm HCV RNA Quant (PCR) HCV RNA (PCR) log10 Hepatitis C RNA Comment Hep C Genotype Comment POC Glucose 05/24/17 05/23/17 05/23/17 06:51 21:07 17:59 POC Glucose 179 H 200 H 133 H Assessment/Plan Active and Suspected Problems Nausea & vomiting (Acute) Abnormal CT scan, esophagus (Acute) Dysphagia (Acute) Sepsis (Acute) My plan is to evaluate the esophagram. If this shows no abnormality then I probably will elect not to do an upper endoscopy at this admission providing his nausea and vomiting resolves. If the esophagram does show some abnormality and I am more likely going to do an EGD sometime on Saturday.
[2017-05-24] MEDS: Na Biphos/Potassium Phosphate PACKET 1 PACKET PO ×4 (11:56→21:28)
[2017-05-24] MEDS: Lisinopril 20 MG Tablet PO (11:57)
[2017-05-24] MEDS: hydroCHLOROthiazide 25 MG Tablet PO (11:57)
[2017-05-24] MEDS: Metoprolol(XL)Succ 25 MG Tablet PO (11:57)
[2017-05-24] MEDS: Gabapentin 800 MG Tablet PO ×3 (11:58→21:28)
[2017-05-24] MEDS: Collagenase 30gm Tube 1 APPLIC TOPICAL (11:58)
[2017-05-24] MEDS: Sucralfate 1 GM Tablet PO ×3 (12:06→21:28)
[2017-05-24 12:20] LABS: Bedside Glucose 169 mg/dL (70-110)
--- NOTE | 2017-05-24 15:24 | RAD_ITS ---
STUDY: AIR-CONTRAST UPPER GI SERIES. REASON FOR EXAM: Male, 56 years old. Vomiting. Chest burning. FLUOROSCOPY TIME (if supplied): (0:59) minutes/seconds TECHNIQUE: The patient ingested barium. Multiple images of the esophagus stomach and duodenum were obtained. COMPARISON: None. FINDINGS: Surgical clips are seen in the left hilar region. A vascular stent is seen in the left subclavian region. The patient ingested barium. The patient experienced extreme chest discomfort during ingestion of barium. There appears to be small ulcerations in the mid and distal esophagus. Candidiasis should be ruled out. There is no evidence of gastric esophageal reflux. The stomach and duodenum are unremarkable. RAD/Upper GI Series Only IMPRESSION: Possible candidiasis of the esophagus. The patient is experiencing severe chest pain during ingestion of the barium. Electronically Signed: Dylan Duarte MD at 12:22 EST Tel [phone], Service support ,
[2017-05-24 16:30] LABS: Bedside Glucose 208 mg/dL (70-110)
[2017-05-24] MEDS: Atorvastatin Calcium 20 MG Tablet PO (21:28)
[2017-05-25] VITALS (13 sets, daily range): BP systolic 96–156; BP diastolic 57–93; PULSE 88–104; RESP 16–18; TEMP 36.6–37.3; O2SAT 95–98; BMI 25.7
[2017-05-25] MEDS: 0.9% NaCl Peripheral Flush Adult/Peds IV ×7 (00:39→22:49)
[2017-05-25 01:01] LABS: Bedside Glucose 338 mg/dL (70-110)
[2017-05-25] MEDS: Sucralfate 1 GM Tablet PO ×4 (06:23→22:08)
[2017-05-25] MEDS: levoFLOXacin 500 MG Tablet PO (06:23)
[2017-05-25 07:06] LABS: Bedside Glucose 132 mg/dL (70-110)
[2017-05-25] MEDS: Ipratropium/Albuterol Sulfate 3 ML AMPUL.NEB INHALATION ×2 (07:13→19:05)
[2017-05-25] MEDS: Gabapentin 800 MG Tablet PO ×4 (10:07→22:07)
[2017-05-25] MEDS: hydroCHLOROthiazide 25 MG Tablet PO (10:07)
[2017-05-25] MEDS: Lisinopril 20 MG Tablet PO (10:08)
[2017-05-25] MEDS: Metoprolol(XL)Succ 25 MG Tablet PO (10:08)
--- NOTE | 2017-05-25 10:12 | PCM.PN.HOSP ---
Patient Problems: Active and Suspected Problems Nausea & vomiting (Acute) Abnormal CT scan, esophagus (Acute) Subjective: States that he still had some dysphasia last night and today but feels somewhat better than the previous. Vitals/I&O's: Vital Signs Temp Pulse Resp BP Pulse Ox 37.1 C 96 18 130/68 H 96 05/25/17 06:21 05/25/17 07:16 05/25/17 07:16 05/25/17 06:21 05/25/17 07:16 Oxygen Flow Rate 2 Oxygen Delivery Method Room Air Weight: 76.6 kg Body Mass Index (BMI) 25.7 Finger Stick Blood Glucose 167 Intake and Output for Last 24 Hours 05/23/17 05/24/17 05/25/17 23:59 23:59 23:59 Intake Total 1380 / 1380 640 / 640 607 / 607 Output Total 2225 / 2225 1200 / 1200 Balance -845 / -845 -560 / -560 606 / 606 General: Alert, Cooperative, No apparent distress HEENT: Atraumatic, Normocephalic Neck: No Nodes, Thyroid Normal Size and Texture Lungs: Clear to auscultation, Normal air movement, No rhonchi, No wheeze Cardiovascular: Regular rate, Regular Rhythm, Normal S1, Normal S2 Abdomen: Bowel Sounds Present, Soft, Non Tender, Non-Distended Extremities: No edema, No Calf Tenderness Microbiology Past 72 Hours 05/23/17 10:28 Wound - Right Foot Gram Stain - Final 05/23/17 10:28 Wound - Right Foot Wound Culture - Final Escherichia coli Enterococcus faecalis Laboratory Results 05/24/17 12:05: POC Glucose 169 H 05/24/17 16:19: POC Glucose 208 H 05/24/17 21:25: POC Glucose 338 H 05/25/17 06:51: POC Glucose 132 H Current Medications Acetaminophen (Tylenol) 650 mg PO Q6H PRN PRN PRN Reason: Mild Pain (scale 0-3)/T>100.7 Last Admin: 05/21/17 08:22 Dose: 650 mg Acetaminophen (Tylenol) 325 - 650 mg PO Q6H PRN PRN PRN Reason: PAIN Al Hydroxide/Mg Hydroxide (Mylanta Ii) 30 ml PO Q6H PRN PRN PRN Reason: Gastric burning Last Admin: 05/24/17 21:34 Dose: 30 ml Albuterol Sulfate (Ventolin Aerosols) 2.5 mg INHALATION Q2H PRN PRN PRN Reason: dyspnea, wheezing Albuterol/Ipratropium (Duoneb) 3 ml INHALATION Q6HWA.RT [facility] Last Admin: 05/25/17 07:13 Dose: 3 ml Atorvastatin Calcium (Lipitor) 20 mg PO DAILY@2200 [facility] Last Admin: 05/24/17 21:28 Dose: 20 mg Collagenase (Santyl) 1 applic TOPICAL DAILY CECE PRN Reason: Protocol Last Admin: 05/24/17 11:58 Dose: 1 applicatio Dextrose (D50w Syringe) 0 gm IV X1 PRN; Protocol PRN Reason: HYPOGLYCEMIA Last Admin: 05/20/17 02:46 Dose: 12.5 gm Gabapentin (Neurontin) 800 mg PO 4X/DAYCM [facility] Last Admin: 05/24/17 21:28 Dose: 800 mg Glucagon () 1 mg IM .X1 PRN PRN Reason: Hypoglycemia Hydralazine HCl (Apresoline) 20 mg IV Q6H PRN PRN PRN Reason: BLOOD PRESSURE Last Admin: 05/22/17 03:19 Dose: 20 mg Hydrochlorothiazide (Hctz) 25 mg PO DAILY [facility] Last Admin: 05/24/17 11:57 Dose: 25 mg Pantoprazole Sodium 40 mg/ (Sodium Chloride) 110 mls @ 330 mls/hr IV Q12 [facility] Last Admin: 05/24/17 21:28 Dose: 330 mls/hr Fluconazole (Diflucan) 200 mg in 100 mls @ 100 mls/hr IV Q24 [facility] Insulin Aspart (Novolog Flexpen (Bkc)) 0 units SC ACHS [facility] PRN Reason: Protocol Last Admin: 05/25/17 08:14 Dose: Not Given Insulin Detemir (Levemir (Bkc)) 10 units SC QHS [facility] Last Admin: 05/24/17 21:26 Dose: 10 u Levofloxacin (Levaquin) 500 mg PO DAILY@0600 [facility] Last Admin: 05/25/17 06:23 Dose: 500 mg Lisinopril (Zestril) 20 mg PO DAILY [facility] Last Admin: 05/24/17 11:57 Dose: 20 mg Magnesium Hydroxide (Milk Of Magnesia) 30 ml PO DAILY PRN PRN Reason: Constipation Metoprolol Succinate (Toprol Xl (Beta Herminio)) 25 mg PO DAILY [facility] Last Admin: 05/24/17 11:57 Dose: 25 mg Morphine Sulfate (Morphine) 2 mg IV Q3H PRN PRN PRN Reason: SEVERE PAIN (6-10/10) Last Admin: 05/25/17 06:25 Dose: 2 mg Nicotine (Nicoderm Cq (Pbkc)) 21 mg TRANSDERM. DAILY [facility] Last Admin: 05/24/17 11:57 Dose: 21 mg Nitroglycerin (Nitrostat) 0.4 mg SUBLINGUAL Q5M PRN PRN Reason: Angina pain Nutritional Formula (Juma - [place] Flavor) 1 packet PO BIDCM [facility] Last Admin: 05/24/17 14:18 Dose: 1 packet Ondansetron HCl (Zofran) 4 mg IV Q8H PRN PRN PRN Reason: NAUSEA Potassium Phos/Sodium Phos (Neutra-Phos Packet) 1 packet PO 4X/DAY [facility] Last Admin: 05/24/17 21:28 Dose: 1 packet Promethazine HCl (Phenergan (Ll)) 12.5 mg IV Q6H PRN PRN PRN Reason: NAUSEA/VOMITING Sodium Chloride () 5 - 30 ml IV UD PRN PRN Reason: SALINE FLUSH Last Admin: 05/25/17 06:25 Dose: 10 ml Sucralfate (Carafate) 1 gm PO 1HR_ACHS [facility] Last Admin: 05/25/17 06:23 Dose: 1 gm Tramadol HCl (Ultram (G)) 50 mg PO Q6H PRN PRN PRN Reason: MODERATE PAIN (4-5/10) Last Admin: 05/21/17 11:29 Dose: 50 mg Assessment/Plan Active and Suspected Problems Nausea & vomiting (Acute) Abnormal CT scan, esophagus (Acute) 1. Sepsis Unclear source at this time but the concern would be for right foot infection. Influenza negative. Gallbladder ultrasound negative for cholecystitis Only one blood culture done on the seventh and was negative. Change antibiotics over to Levaquin. Patient had previously had procidentia as well as MSSA from a wound culture that were both sensitive to Levaquin. Though it is still unclear if this is actual infection or just a viral infection. And despite the patient's insisted that it was not viral this infection could very well been viral. 2. Right foot ulcer Not felt to be osteomyelitis by podiatry. MRI from May 01 showed slight bony edema in the fourth metatarsal head without T1 bone marrow signal alteration. And felt to be likely a reactive bone edema rather than osteomyelitis. May consider repeat MRI depending on the patient's clinical course. continue with levaquin through 05/26 3. Diabetes mellitus type 2, uncontrolled Improved Off insulin drip and on prandial basal insulin Impression not sure the patient had diabetic ketoacidosis. This is an elevated anion gap may be related with the sepsis the patient was experiencing upon arrival. 4. Distended gallbladder Ultrasound negative. Patient was slightly elevated lipase yesterday. Patient with epigastric abdominal pain. Will recheck lipase today 5. Peripheral arterial disease Patient is to undergo angiogram with stents on the with Dr. Swan. #3 stent the SFA to through the proximal popliteal with a 6 x 1 50 balloon and post balloon with a 5 and 6 mm. On May 23. Incidentally, with CT of his chest, patient was noted to have a stent in the left subclavian artery and was noted to be occluded. Follow-up Dr. Swan in regards to further evaluation of this. Patient appears to be asymptomatic with that at this time. 6. Dysphagia: Patient is having issues where he was eating earlier during this admission but now he does have ischemic pain where he eats or drinks something. Patient said he had a grilled cheese and then he vomited that up and is able to drink but just gets this exquisite midsternal pain when he does so. Explained to him that initially is felt to be reflux and start him on PPI therapy would be of benefit but he has been on it and does not seem to be affecting him. Thought may be esophageal spasm but the fact that it happens every time he eats is concerning for something such as a stricture or some kind of mass or some the else going on. Pain patient does not have any coffee-ground emesis. CAT scan yesterday shows what appears to be esophagitis. We will change patient over to IV PPI therapy as well as add Carafate. Discussed with Dr. Erazo, general surgery, he be willing to do an EGD possibly later on today. So we will see what the EGD shows and patient's response to treatments and then proceed from there. Patient will Yee esophagitis on barium esophagram. Patient was started on fluconazole. EGD will definitely told the patient does have Yee esophagitis or not however some other process that may be causing his symptoms. If no obvious Yee esophagitis then would discontinue fluconazole. 7. DVT prophylaxis with subcu heparin. Code Visit Inpatient E&M: 09224 Subs Hosp L2
[2017-05-25] MEDS: Collagenase 30gm Tube 1 APPLIC TOPICAL (10:27)
[2017-05-25 11:15] LABS: Bedside Glucose 140 mg/dL (70-110)
--- NOTE | 2017-05-25 12:20 | EGD_PTH ---
PATIENT: ROMELIA DAVIS Jr. LOC: [facility] U#:[id number] AGE/SX: 56/M ROOM: [facility] RE05/19/[address]: Dr. Tico Steve DO : 1960 BED: 1 DIS: 05/26/2017 SPEC #: [id number] RECD: 05/25/17 13:36 STATUS: ARASH REQ #: [id number] FABI: 05/25/17 12:[address]: Daniel Erazo DEPT: SURGICAL PATHOLOGY RECD BY: Chuy Hutchinson ENTERED: 05/27/17 07:56 SP TYPE: EGD BIOPSY OTHR DR: MD Dr. Chet Serrano MD Dr. Derek Brown, DO Dr. Bettie Chavez Dr., ORALIA Henderson MD Tissues: Esophagus, NOS Procedures: Special Stain Group I Surgery Specimen Level IV GMS Stain (control) Comments: @ Ordering doctor for SUIV edited from to @ by FLIP at 05/27/17 1439 @ Submitting doctor edited from to @ by FLIP at 05/27/17 1434 HEADER OPERATION: EGD PRE-OP DIAGNOSIS: Nausea and vomiting; abnormal CT scan TISSUE SUBMITTED: Esophageal biopsy MICROSCOPIC DIAGNOSIS Esophageal biopsy: Fragments of fibrinopurulent exudate. See comment. Special stain for fungi is negative for organisms; matched control is appropriate. SJ:elaina 05/28/17 COMMENT No viable epithelium is noted. Correlation with clinical, endoscopic findings and appropriate follow up are necessary. Case has been reviewed in consultation with Dr. Yañez who concurs with the above diagnosis. IDC:AM MICROSCOPIC DESCRIPTION Slides are reviewed. GROSS DESCRIPTION Received in fixative is one container labeled with the patient's name and designated esophageal biopsy. The specimen consists of two irregular fragments of light still soft tissue that in aggregate measure 0.4 x 0.3 x 0.1 cm. The specimen is totally submitted in one cassette. / GOVIND:elaina 05/27/17 TC:2 CPT: 12542, 01694
--- NOTE | 2017-05-25 13:06 | PCM.OPRPT ---
Problem List (1) Nausea & vomiting Status: Acute (2) Abnormal CT scan, esophagus Status: Acute Report of Operation Date of Procedure: 05/23/17 Pre-Operative Diagnosis: 1. Nausea and vomiting. 2. Abnormal finding on CT scan of esophagus consistent with Yee esophagitis Post-Operative Diagnosis: The same Surgery/Procedure Performed:: Esophagogastroduodenoscopy with biopsy Type of Anesthesia:: MAC, Sedation,Conscious Anesthesiologist: Natalia Lopes Description of Procedure: Patient was brought into the endoscopy suite. Back of his throat was sprayed with Cetacaine spray. Bite block was placed. He was placed in the left lateral decubitus position. He was given graded anesthesia. Scope was inserted into the oropharynx and directed down through the esophagus into the stomach and into the duodenum. Operative findings: 1. Duodenum: Normal appearance no mass lesions no ulcerations. 2. Stomach: Mild to moderate amount of gastritis is identified I see for H. pylori was taken. Retroflexion did not show any signs of hiatal hernia 3. Esophagus: The distal two thirds of the esophagus was consistent with Yee esophagitis and a severe form. White plaque exudate throughout the distal esophagus. I suck some aspirate into a Luken's tube and will send for culture to confirm Yee infection. A biopsy of this was also obtained and sent. The scope was withdrawn he tolerated this well. I discussed the case with the hospitalist. He will need to be placed on high doses of Diflucan and continued with this as an outpatient basis for at least 2 weeks. - Admit VTE Documentation VTE Present on Admission: No VTE Mechan Device Prophylaxis: SCD's VTE Pharm Prophylaxis ordered?: No Reason prophylaxis not ordered:: Treatment Not Indicated
[2017-05-25 17:20] LABS: Bedside Glucose 321 mg/dL (70-110)
[2017-05-25] MEDS: Mag Hydrox/Al Hydrox/Simeth 30 ML UDC PO (21:59)
[2017-05-25] MEDS: Atorvastatin Calcium 20 MG Tablet PO (22:07)
[2017-05-25 22:21] LABS: Bedside Glucose 336 mg/dL (70-110)
[2017-05-26] MEDS: 0.9% NaCl Peripheral Flush Adult/Peds IV ×4 (03:54→10:34)
[2017-05-26 04:04] VITALS: BP 143/77; PULSE 103; RESP 18; TEMP 36.7; O2SAT 100
[2017-05-26] MEDS: Mag Hydrox/Al Hydrox/Simeth 30 ML UDC PO (04:09)
[2017-05-26 04:15] VITALS: PULSE 93; RESP 18
[2017-05-26] MEDS: Albuterol 2.5 MG/3 ML VIAL.NEB. INHALATION (04:15)
[2017-05-26] MEDS: Sucralfate 1 GM Tablet PO ×2 (05:55→11:26)
[2017-05-26] MEDS: levoFLOXacin 500 MG Tablet PO (05:55)
[2017-05-26 06:57] VITALS: BP 132/72
[2017-05-26 07:11] LABS: Bedside Glucose 321 mg/dL (70-110)
[2017-05-26] MEDS: Ipratropium/Albuterol Sulfate 3 ML AMPUL.NEB INHALATION (07:24)
[2017-05-26 07:25] VITALS: PULSE 87; RESP 18; O2SAT 97
[2017-05-26] MEDS: Gabapentin 800 MG Tablet PO ×2 (07:42→11:26)
--- NOTE | 2017-05-26 09:02 | PCM.PN.HOSP ---
Patient Problems: Active and Suspected Problems Nausea & vomiting (Acute) Abnormal CT scan, esophagus (Acute) Yee esophagitis (Acute) Dysphagia (Acute) Sepsis (Acute) Subjective: Still some chest pain overall better. Patient is able to eat soft food and tolerated well without throwing it up. States that he has been checked for HIV about a year ago and was negative states that he has not been sexually active in 2 years. Denies any history of IV drug abuse. Vitals/I&O's: Vital Signs Temp Pulse Resp BP Pulse Ox 36.7 C 87 18 132/72 H 97 05/26/17 04:04 05/26/17 07:25 05/26/17 07:25 05/26/17 06:57 05/26/17 07:25 Oxygen Flow Rate 2 Oxygen Delivery Method Room Air Weight: 77 kg Body Mass Index (BMI) 25.7 Finger Stick Blood Glucose 167 Intake and Output for Last 24 Hours 05/24/17 05/25/17 05/26/17 23:59 23:59 23:59 Intake Total 640 / 640 2162 / 2162 400 / 400 Output Total 1200 / 1200 326 / 326 Balance -560 / -560 1836 / 1836 400 / 400 General: Alert, Cooperative, No apparent distress, Well developed, Well nourished HEENT: Atraumatic, Normocephalic Psych/Mental Status: Normal Affect, Appropriate Microbiology Past 72 Hours 05/25/17 Unknown Aspirate - Other Gram Stain - Final 05/23/17 10:28 Wound - Right Foot Gram Stain - Final 05/23/17 10:28 Wound - Right Foot Wound Culture - Final Escherichia coli Enterococcus faecalis Laboratory Results 05/25/17 11:10: POC Glucose 140 H 05/25/17 16:48: POC Glucose 321 H 05/25/17 22:03: POC Glucose 336 H 05/26/17 06:54: POC Glucose 321 H Current Medications Acetaminophen (Tylenol) 650 mg PO Q6H PRN PRN PRN Reason: Mild Pain (scale 0-3)/T>100.7 Last Admin: 05/21/17 08:22 Dose: 650 mg Acetaminophen (Tylenol) 325 - 650 mg PO Q6H PRN PRN PRN Reason: PAIN Al Hydroxide/Mg Hydroxide (Mylanta Ii) 30 ml PO Q6H PRN PRN PRN Reason: Gastric burning Last Admin: 05/26/17 04:09 Dose: 30 ml Albuterol Sulfate (Ventolin Aerosols) 2.5 mg INHALATION Q2H PRN PRN PRN Reason: dyspnea, wheezing Last Admin: 05/26/17 04:15 Dose: 2.5 mg Albuterol/Ipratropium (Duoneb) 3 ml INHALATION Q6HWA.RT [facility] Last Admin: 05/26/17 07:24 Dose: 3 ml Atorvastatin Calcium (Lipitor) 20 mg PO DAILY@2200 [facility] Last Admin: 05/25/17 22:07 Dose: 20 mg Collagenase (Santyl) 1 applic TOPICAL DAILY [facility] PRN Reason: Protocol Last Admin: 05/25/17 10:27 Dose: 1 applicatio Dextrose (D50w Syringe) 0 gm IV X1 PRN; Protocol PRN Reason: HYPOGLYCEMIA Last Admin: 05/20/17 02:46 Dose: 12.5 gm Gabapentin (Neurontin) 800 mg PO 4X/DAYCM [facility] Last Admin: 05/26/17 07:42 Dose: 800 mg Glucagon () 1 mg IM .X1 PRN PRN Reason: Hypoglycemia Hydralazine HCl (Apresoline) 20 mg IV Q6H PRN PRN PRN Reason: BLOOD PRESSURE Last Admin: 05/22/17 03:19 Dose: 20 mg Hydrochlorothiazide (Hctz) 25 mg PO DAILY [facility] Last Admin: 05/25/17 10:07 Dose: 25 mg Pantoprazole Sodium 40 mg/ (Sodium Chloride) 110 mls @ 330 mls/hr IV Q12 [facility] Last Admin: 05/25/17 22:08 Dose: 330 mls/hr Fluconazole (Diflucan) 400 mg in 200 mls @ 100 mls/hr IV Q24 [facility] Insulin Aspart (Novolog Flexpen (Bkc)) 0 units SC ACHS [facility] PRN Reason: Protocol Last Admin: 05/26/17 07:41 Dose: 9 u Insulin Detemir (Levemir (Bkc)) 10 units SC QHS [facility] Last Admin: 05/25/17 22:08 Dose: 10 u Levofloxacin (Levaquin) 500 mg PO DAILY@0600 [facility] Last Admin: 05/26/17 05:55 Dose: 500 mg Lisinopril (Zestril) 20 mg PO DAILY [facility] Last Admin: 05/25/17 10:08 Dose: 20 mg Magnesium Hydroxide (Milk Of Magnesia) 30 ml PO DAILY PRN PRN Reason: Constipation Metoprolol Succinate (Toprol Xl (Beta Herminio)) 25 mg PO DAILY [facility] Last Admin: 05/25/17 10:08 Dose: 25 mg Morphine Sulfate (Morphine) 2 mg IV Q3H PRN PRN PRN Reason: SEVERE PAIN (6-10/10) Last Admin: 05/26/17 07:02 Dose: 2 mg Nicotine (Nicoderm Cq (Pbkc)) 21 mg TRANSDERM. DAILY [facility] Last Admin: 05/25/17 10:27 Dose: 21 mg Nitroglycerin (Nitrostat) 0.4 mg SUBLINGUAL Q5M PRN PRN Reason: Angina pain Nutritional Formula (Juma - [place] Flavor) 1 packet PO BIDCM [facility] Last Admin: 05/26/17 07:42 Dose: 1 packet Ondansetron HCl (Zofran) 4 mg IV Q8H PRN PRN PRN Reason: NAUSEA Potassium Phos/Sodium Phos (Neutra-Phos Packet) 1 packet PO 4X/DAY [facility] Last Admin: 05/25/17 22:17 Dose: Not Given Promethazine HCl (Phenergan (Ll)) 12.5 mg IV Q6H PRN PRN PRN Reason: NAUSEA/VOMITING Sodium Chloride () 5 - 30 ml IV UD PRN PRN Reason: SALINE FLUSH Last Admin: 05/26/17 07:02 Dose: 10 ml Sucralfate (Carafate) 1 gm PO 1HR_ACHS [facility] Last Admin: 05/26/17 05:55 Dose: 1 gm Tramadol HCl (Ultram (G)) 50 mg PO Q6H PRN PRN PRN Reason: MODERATE PAIN (4-5/10) Last Admin: 05/21/17 11:29 Dose: 50 mg Assessment/Plan Active and Suspected Problems Nausea & vomiting (Acute) Abnormal CT scan, esophagus (Acute) Yee esophagitis (Acute) Dysphagia (Acute) Sepsis (Acute) 1. Sepsis Unclear source at this time but the concern would be for right foot infection. Influenza negative. Gallbladder ultrasound negative for cholecystitis Only one blood culture done on the seventh and was negative. Change antibiotics over to Levaquin. Patient had previously had procidentia as well as MSSA from a wound culture that were both sensitive to Levaquin. Though it is still unclear if this is actual infection or just a viral infection. And despite the patient's insisted that it was not viral this infection could very well been viral. 2. Right foot ulcer Not felt to be osteomyelitis by podiatry. MRI from May 01 showed slight bony edema in the fourth metatarsal head without T1 bone marrow signal alteration. And felt to be likely a reactive bone edema rather than osteomyelitis. May consider repeat MRI depending on the patient's clinical course. continue with levaquin through 05/26 3. Diabetes mellitus type 2, uncontrolled Improved Off insulin drip and on prandial basal insulin Impression not sure the patient had diabetic ketoacidosis. This is an elevated anion gap may be related with the sepsis the patient was experiencing upon arrival. 4. Distended gallbladder Ultrasound negative. Patient was slightly elevated lipase yesterday. Patient with epigastric abdominal pain. Will recheck lipase today 5. Peripheral arterial disease Patient is to undergo angiogram with stents on the with Dr. Swan. #3 stent the SFA to through the proximal popliteal with a 6 x 1 50 balloon and post balloon with a 5 and 6 mm. On May 23. Incidentally, with CT of his chest, patient was noted to have a stent in the left subclavian artery and was noted to be occluded. Follow-up Dr. Swan in regards to further evaluation of this. Patient appears to be asymptomatic with that at this time. 6. Dysphagia: Patient is having issues where he was eating earlier during this admission but now he does have ischemic pain where he eats or drinks something. Patient said he had a grilled cheese and then he vomited that up and is able to drink but just gets this exquisite midsternal pain when he does so. Explained to him that initially is felt to be reflux and start him on PPI therapy would be of benefit but he has been on it and does not seem to be affecting him. Thought may be esophageal spasm but the fact that it happens every time he eats is concerning for something such as a stricture or some kind of mass or some the else going on. Pain patient does not have any coffee-ground emesis. CAT scan yesterday shows what appears to be esophagitis. Likely Yee esophagitis on EGD. Cultures were obtained with the results are still pending. Patient on GI Diflucan patient is actually improving. Continue Diflucan and PPI therapy. Patient will Yee esophagitis on barium esophagram. Patient was started on fluconazole. EGD will definitely told the patient does have Yee esophagitis or not however some other process that may be causing his symptoms. If no obvious Yee esophagitis then would discontinue fluconazole. 7. DVT prophylaxis with subcu heparin. 8. Yee esophagitis: Patient denies any history of IV drug abuse and states he is not sexually active in 2 years. States is also been checked for HIV about a year ago and that was reportedly negative. I told him that Yee esophagitis is an AIDS defining illness and I recommend HIV test. He is okay with getting a check. Told that we would not have the results right away and that he would follow-up with Dr. Ward anyways for post hospital follow-up to see if that is come back positive or not. In the meantime, patient will continue with Diflucan 400 mg daily for 2 weeks. Follow-up with Dr. Erazo for results of the biopsies.
--- NOTE | 2017-05-26 09:05 | PN_ITS ---
Patient Problems: Active and Suspected Problems Nausea & vomiting (Acute) Abnormal CT scan, esophagus (Acute) Yee esophagitis (Acute) Dysphagia (Acute) Sepsis (Acute) Subjective: Still some chest pain overall better. Patient is able to eat soft food and tolerated well without throwing it up. States that he has been checked for HIV about a year ago and was negative states that he has not been sexually active in 2 years. Denies any history of IV drug abuse. Vitals/I&O's: Vital Signs Temp Pulse Resp BP Pulse Ox 36.7 C 87 18 132/72 H 97 05/26/17 04:04 05/26/17 07:25 05/26/17 07:25 05/26/17 06:57 05/26/17 07:25 Oxygen Flow Rate 2 Oxygen Delivery Method Room Air Weight: 77 kg Body Mass Index (BMI) 25.7 Finger Stick Blood Glucose 167 Intake and Output for Last 24 Hours 05/24/17 05/25/17 05/26/17 23:59 23:59 23:59 Intake Total 640 / 640 2162 / 2162 400 / 400 Output Total 1200 / 1200 326 / 326 Balance -560 / -560 1836 / 1836 400 / 400 General: Alert, Cooperative, No apparent distress, Well developed, Well nourished HEENT: Atraumatic, Normocephalic Psych/Mental Status: Normal Affect, Appropriate Microbiology Past 72 Hours 05/25/17 Unknown Aspirate - Other Gram Stain - Final 05/23/17 10:28 Wound - Right Foot Gram Stain - Final 05/23/17 10:28 Wound - Right Foot Wound Culture - Final Escherichia coli Enterococcus faecalis Laboratory Results 05/25/17 11:10: POC Glucose 140 H 05/25/17 16:48: POC Glucose 321 H 05/25/17 22:03: POC Glucose 336 H 05/26/17 06:54: POC Glucose 321 H Current Medications Acetaminophen (Tylenol) 650 mg PO Q6H PRN PRN PRN Reason: Mild Pain (scale 0-3)/T>100.7 Last Admin: 05/21/17 08:22 Dose: 650 mg Acetaminophen (Tylenol) 325 - 650 mg PO Q6H PRN PRN PRN Reason: PAIN Al Hydroxide/Mg Hydroxide (Mylanta Ii) 30 ml PO Q6H PRN PRN PRN Reason: Gastric burning Last Admin: 05/26/17 04:09 Dose: 30 ml Albuterol Sulfate (Ventolin Aerosols) 2.5 mg INHALATION Q2H PRN PRN PRN Reason: dyspnea, wheezing Last Admin: 05/26/17 04:15 Dose: 2.5 mg Albuterol/Ipratropium (Duoneb) 3 ml INHALATION Q6HWA.RT [facility] Last Admin: 05/26/17 07:24 Dose: 3 ml Atorvastatin Calcium (Lipitor) 20 mg PO DAILY@2200 [facility] Last Admin: 05/25/17 22:07 Dose: 20 mg Collagenase (Santyl) 1 applic TOPICAL DAILY [facility] PRN Reason: Protocol Last Admin: 05/25/17 10:27 Dose: 1 applicatio Dextrose (D50w Syringe) 0 gm IV X1 PRN; Protocol PRN Reason: HYPOGLYCEMIA Last Admin: 05/20/17 02:46 Dose: 12.5 gm Gabapentin (Neurontin) 800 mg PO 4X/DAYCM [facility] Last Admin: 05/26/17 07:42 Dose: 800 mg Glucagon () 1 mg IM .X1 PRN PRN Reason: Hypoglycemia Hydralazine HCl (Apresoline) 20 mg IV Q6H PRN PRN PRN Reason: BLOOD PRESSURE Last Admin: 05/22/17 03:19 Dose: 20 mg Hydrochlorothiazide (Hctz) 25 mg PO DAILY [facility] Last Admin: 05/25/17 10:07 Dose: 25 mg Pantoprazole Sodium 40 mg/ (Sodium Chloride) 110 mls @ 330 mls/hr IV Q12 [facility] Last Admin: 05/25/17 22:08 Dose: 330 mls/hr Fluconazole (Diflucan) 400 mg in 200 mls @ 100 mls/hr IV Q24 [facility] Insulin Aspart (Novolog Flexpen (Bkc)) 0 units SC ACHS [facility] PRN Reason: Protocol Last Admin: 05/26/17 07:41 Dose: 9 u Insulin Detemir (Levemir (Bkc)) 10 units SC QHS [facility] Last Admin: 05/25/17 22:08 Dose: 10 u Levofloxacin (Levaquin) 500 mg PO DAILY@0600 [facility] Last Admin: 05/26/17 05:55 Dose: 500 mg Lisinopril (Zestril) 20 mg PO DAILY [facility] Last Admin: 05/25/17 10:08 Dose: 20 mg Magnesium Hydroxide (Milk Of Magnesia) 30 ml PO DAILY PRN PRN Reason: Constipation Metoprolol Succinate (Toprol Xl (Beta Herminio)) 25 mg PO DAILY [facility] Last Admin: 05/25/17 10:08 Dose: 25 mg Morphine Sulfate (Morphine) 2 mg IV Q3H PRN PRN PRN Reason: SEVERE PAIN (6-10/10) Last Admin: 05/26/17 07:02 Dose: 2 mg Nicotine (Nicoderm Cq (Pbkc)) 21 mg TRANSDERM. DAILY [facility] Last Admin: 05/25/17 10:27 Dose: 21 mg Nitroglycerin (Nitrostat) 0.4 mg SUBLINGUAL Q5M PRN PRN Reason: Angina pain Nutritional Formula (Juma - [place] Flavor) 1 packet PO BIDCM [facility] Last Admin: 05/26/17 07:42 Dose: 1 packet Ondansetron HCl (Zofran) 4 mg IV Q8H PRN PRN PRN Reason: NAUSEA Potassium Phos/Sodium Phos (Neutra-Phos Packet) 1 packet PO 4X/DAY [facility] Last Admin: 05/25/17 22:17 Dose: Not Given Promethazine HCl (Phenergan (Ll)) 12.5 mg IV Q6H PRN PRN PRN Reason: NAUSEA/VOMITING Sodium Chloride () 5 - 30 ml IV UD PRN PRN Reason: SALINE FLUSH Last Admin: 05/26/17 07:02 Dose: 10 ml Sucralfate (Carafate) 1 gm PO 1HR_ACHS [facility] Last Admin: 05/26/17 05:55 Dose: 1 gm Tramadol HCl (Ultram (G)) 50 mg PO Q6H PRN PRN PRN Reason: MODERATE PAIN (4-5/10) Last Admin: 05/21/17 11:29 Dose: 50 mg Assessment/Plan Active and Suspected Problems Nausea & vomiting (Acute) Abnormal CT scan, esophagus (Acute) Yee esophagitis (Acute) Dysphagia (Acute) Sepsis (Acute) 1. Sepsis Unclear source at this time but the concern would be for right foot infection. Influenza negative. Gallbladder ultrasound negative for cholecystitis Only one blood culture done on the seventh and was negative. Change antibiotics over to Levaquin. Patient had previously had procidentia as well as MSSA from a wound culture that were both sensitive to Levaquin. Though it is still unclear if this is actual infection or just a viral infection. And despite the patient's insisted that it was not viral this infection could very well been viral. 2. Right foot ulcer Not felt to be osteomyelitis by podiatry. MRI from May 01 showed slight bony edema in the fourth metatarsal head without T1 bone marrow signal alteration. And felt to be likely a reactive bone edema rather than osteomyelitis. May consider repeat MRI depending on the patient's clinical course. continue with levaquin through 05/26 3. Diabetes mellitus type 2, uncontrolled Improved Off insulin drip and on prandial basal insulin Impression not sure the patient had diabetic ketoacidosis. This is an elevated anion gap may be related with the sepsis the patient was experiencing upon arrival. 4. Distended gallbladder Ultrasound negative. Patient was slightly elevated lipase yesterday. Patient with epigastric abdominal pain. Will recheck lipase today 5. Peripheral arterial disease Patient is to undergo angiogram with stents on the with Dr. Swan. #3 stent the SFA to through the proximal popliteal with a 6 x 1 50 balloon and post balloon with a 5 and 6 mm. On May 23. Incidentally, with CT of his chest, patient was noted to have a stent in the left subclavian artery and was noted to be occluded. Follow-up Dr. Swan in regards to further evaluation of this. Patient appears to be asymptomatic with that at this time. 6. Dysphagia: Patient is having issues where he was eating earlier during this admission but now he does have ischemic pain where he eats or drinks something. Patient said he had a grilled cheese and then he vomited that up and is able to drink but just gets this exquisite midsternal pain when he does so. Explained to him that initially is felt to be reflux and start him on PPI therapy would be of benefit but he has been on it and does not seem to be affecting him. Thought may be esophageal spasm but the fact that it happens every time he eats is concerning for something such as a stricture or some kind of mass or some the else going on. Pain patient does not have any coffee-ground emesis. CAT scan yesterday shows what appears to be esophagitis. Likely Yee esophagitis on EGD. Cultures were obtained with the results are still pending. Patient on GI Diflucan patient is actually improving. Continue Diflucan and PPI therapy. Patient will Yee esophagitis on barium esophagram. Patient was started on fluconazole. EGD will definitely told the patient does have Yee esophagitis or not however some other process that may be causing his symptoms. If no obvious Yee esophagitis then would discontinue fluconazole. 7. DVT prophylaxis with subcu heparin. 8. Yee esophagitis: Patient denies any history of IV drug abuse and states he is not sexually active in 2 years. States is also been checked for HIV about a year ago and that was reportedly negative. I told him that Yee esophagitis is an AIDS defining illness and I recommend HIV test. He is okay with getting a check. Told that we would not have the results right away and that he would follow-up with Dr. Ward anyways for post hospital follow-up to see if that is come back positive or not. In the meantime, patient will continue with Diflucan 400 mg daily for 2 weeks. Follow-up with Dr. Erazo for results of the biopsies.
--- NOTE | 2017-05-26 09:21 | PCM.DC ---
- Discharge Diagnoses Current Active Problems: Current Active and Chronic Problems Yee esophagitis (Acute) Nausea & vomiting (Acute) Abnormal CT scan, esophagus (Acute) Dysphagia (Acute) Sepsis (Acute) Ulcer of right foot with fat layer exposed (Chronic) Malnutrition (Chronic) Compliance poor (Chronic) You will use the following diet at home:: Calorie/Carbohydrate Controlled (specify 1200, 1400, etc) - 2000 kcal/day Your food should be the consistency of: Mechanical soft (ground) - advance as tolerated Your liquids should be the consistency of: Regular/Thin Call your doctor if you observe: Fever of 101 or Higher, Shortness of breath, - - more difficulty swallowing. Allergies/Adverse Reactions: Allergies No Known Allergies Allergy (Verified 05/19/17 13:17) Medications to take at Discharge Gabapentin [Neurontin] 800 mg PO 4X/DAY 02/14/17 Lisinopril 20 mg PO DAILY 02/14/17 Metoprolol Succinate 25 mg PO DAILY 02/14/17 Simvastatin 40 mg PO DAILY 02/14/17 Aspirin [Aspirin, Baby] 81 mg PO DAILY 02/16/17 Albuterol Inhaler [Ventolin Hfa] 2 puff INHALATION Q4H PRN PRN 04/30/17 Empagliflozin [Jardiance] 1 tab PO DAILY 05/19/17 Liraglutide [Victoza 2-Juan] 1.2 mg SQ DAILY 05/19/17 Fluconazole [Diflucan] 400 mg PO DAILY #21 tab 05/26/17 Hydrocodone/Acetaminophen [[place] 5-325 Tablet] 1 each PO Q6H PRN #12 tablet 05/26/17 Mag Hydrox/Al Hydrox/Simeth [Mylanta II] 30 ml PO Q6H PRN PRN udc 05/26/17 Pantoprazole Sodium [Protonix] 40 mg PO DAILY #30 tab 05/26/17 The following prescriptions were given: Fluconazole [Diflucan] 400 mg PO DAILY #21 tab Pantoprazole Sodium [Protonix] 40 mg PO DAILY #30 tab Hydrocodone/Acetaminophen [[place] 5-325 Tablet] 1 each PO Q6H PRN #12 tablet PRN Reason: Severe Pain (6-10/10) Primary Care Physician: Darrian Henderson Chi, MD [Primary Care Provider] - Within 2 Weeks Please Follow Up With: Daniel Erazo MD When: 1-2 months Please Follow Up With: Berkley Romero [employer] CONSULTANT-C When: Saturday Please Follow Up With: Chet Swan MD When: 2-4 weeks Proposed Discharge Date: 05/26/17
--- NOTE | 2017-05-26 09:23 | PCM.DC.SUM ---
Discharge Date and Diagnosis - Problem List Patient Problems: Active and Suspected Problems Yee esophagitis (Acute) Nausea & vomiting (Acute) Abnormal CT scan, esophagus (Acute) Dysphagia (Acute) Sepsis (Acute) Date of Admission: 05/19/17 Date of Discharge: 05/26/17 - Primary Discharge Diagnosis Active and Suspected Problems Yee esophagitis (Acute) Nausea & vomiting (Acute) Abnormal CT scan, esophagus (Acute) Dysphagia (Acute) Sepsis (Acute) 1. Sepsis Unclear source at this time but the concern would be for right foot infection. Influenza negative. Gallbladder ultrasound negative for cholecystitis Only one blood culture done on the and was negative. Change antibiotics over to Levaquin. Patient had previously had procidentia as well as MSSA from a wound culture that were both sensitive to Levaquin. Though it is still unclear if this is actual infection or just a viral infection. And despite the patient's insisted that it was not viral this infection could very well been viral. 2. Right foot ulcer Not felt to be osteomyelitis by podiatry. MRI from May 01 showed slight bony edema in the fourth metatarsal head without T1 bone marrow signal alteration. And felt to be likely a reactive bone edema rather than osteomyelitis. May consider repeat MRI depending on the patient's clinical course. continue with levaquin through 05/26 3. Diabetes mellitus type 2, uncontrolled Improved Off insulin drip and on prandial basal insulin Impression not sure the patient had diabetic ketoacidosis. This is an elevated anion gap may be related with the sepsis the patient was experiencing upon arrival. 4. Distended gallbladder Ultrasound negative. Patient was slightly elevated lipase yesterday. Patient with epigastric abdominal pain. Will recheck lipase today 5. Peripheral arterial disease Patient is to undergo angiogram with stents on the with Dr. Swan. #3 stent the SFA to through the proximal popliteal with a 6 x 1 50 balloon and post balloon with a 5 and 6 mm. On May 23. Incidentally, with CT of his chest, patient was noted to have a stent in the left subclavian artery and was noted to be occluded. Follow-up Dr. Swan in regards to further evaluation of this. Patient appears to be asymptomatic with that at this time. 6. Dysphagia: Patient is having issues where he was eating earlier during this admission but now he does have ischemic pain where he eats or drinks something. Patient said he had a grilled cheese and then he vomited that up and is able to drink but just gets this exquisite midsternal pain when he does so. Explained to him that initially is felt to be reflux and start him on PPI therapy would be of benefit but he has been on it and does not seem to be affecting him. Thought may be esophageal spasm but the fact that it happens every time he eats is concerning for something such as a stricture or some kind of mass or some the else going on. Pain patient does not have any coffee-ground emesis. CAT scan yesterday shows what appears to be esophagitis. Likely Yee esophagitis on EGD. Cultures were obtained with the results are still pending. Patient on GI Diflucan patient is actually improving. Continue Diflucan and PPI therapy. Patient will Yee esophagitis on barium esophagram. Patient was started on fluconazole. EGD will definitely told the patient does have Yee esophagitis or not however some other process that may be causing his symptoms. If no obvious Yee esophagitis then would discontinue fluconazole. 7. DVT prophylaxis with subcu heparin. 8. Yee esophagitis: Patient denies any history of IV drug abuse and states he is not sexually active in 2 years. States is also been checked for HIV about a year ago and that was reportedly negative. I told him that Yee esophagitis is an AIDS defining illness and I recommend HIV test. He is okay with getting a check. Told that we would not have the results right away and that he would follow-up with Dr. Ward anyways for post hospital follow-up to see if that is come back positive or not. In the meantime, patient will continue with Diflucan 400 mg daily for 2 weeks. Follow-up with Dr. Erazo for results of the biopsies. - Secondary Discharge Diagnosis Chronic Problems Ulcer of right foot with fat layer exposed (Chronic) Malnutrition (Chronic) Compliance poor (Chronic) Peripheral vascular disease (Chronic) HTN (hypertension) (Chronic) Nicotine abuse (Chronic) Peripheral neuropathy (Chronic) CAD (coronary artery disease) (Chronic) COPD (chronic obstructive pulmonary disease) (Chronic) Type 2 diabetes mellitus with diabetic polyneuropathy (Chronic) Hospital Course and Treatment Imaging Results: Clinical Impression(s) from Imaging Studies Chest X-Ray 05/19/17 13:38 IMPRESSION: No acute pulmonary pathology of the chest. Electronically Signed: Everett Churchill DO at 15:03 EST Tel [phone], Service support , Abdomen/Pelvis CT 05/19/17 20:43 IMPRESSION: Fluid-filled distended urinary bladder. Fatty infiltration of the liver. Distended gallbladder consider ultrasound for further evaluation. Atherosclerosis. Hiatal hernia. Electronically Signed: Africa Dillard MD at 21:41 EST Tel , Service support , Abdomen Ultrasound 05/20/17 05:55 IMPRESSION: Fatty infiltration of the liver. Electronically Signed: Dylan Duarte MD at 12:41 EST Tel [phone], Service support , Chest CT 05/23/17 15:28 IMPRESSION: Mural thickening of the distal thoracic esophagus with mild adjacent fat infiltration, probably representing esophagitis. Suggest upper endoscopy for further evaluation. Status post stent placement in the left subclavian artery. The stent is occluded. This may result in subclavian steal syndrome. Atherosclerosis. Very small right pleural effusion. No demonstrated pulmonary infiltrates. Fatty liver. Electronically Signed: Ankit Xie MD at 2:10 EST , Service support , Upper GI Series 05/24/17 15:24 IMPRESSION: Possible candidiasis of the esophagus. The patient is experiencing severe chest pain during ingestion of the barium. Electronically Signed: Dylan Duarte MD at 12:22 EST Tel [phone], Service support , Operations: - - amputation of affected toe Procedures: EGD, - - . Ultrasound-guided access retrograde left common femoral artery. #2 right lower extremity angiogram. Catheter placed into the popliteal artery. #3 stent the SFA to through the proximal popliteal with a 6 x 1 50 balloon and post balloon with a 5 and 6 mm. #4 closure was Star close Summary of Care Provided: The patient is a 56 year old M presents with sepsis. Concern was also for DKA as well. Patient was having intractable nausea and vomiting. Patient is also having trouble swallowing as well. Patient has a known ulcer on his right fourth toe. Patient seen in consultation by Dr. ayala did not feel that there is any active infection. And patient started on broad-spectrum antibiotics. Overall patient sepsis did improve and his antibiotics changed from Levaquin to cover previous organisms from that foot infection. Patient complete a seven-day course of antibiotics during his hospitalization is now being discontinued. Patient does have peripheral vascular disease and was seen by Dr. Swan and did actually perform a angiogram the right lower extremity and this #3 stent to this superficial femoral artery as well as angioplasty. The patient has done well from that standpoint but and his question will diabetic ketoacidosis patient was put on insulin drip the patient may just had severe sepsis which may explain the metabolic acidosis but the patient was eventually transitioned over to subcu Levemir and log. Patient blood sugars remained fairly controlled and still does have some insulins and 300 range. Patient will be resumed back on his oral regimen at home and patient has a follow-up appointment with CHEYENNE Romero. Also no clear source is identified for the patient's sepsis questionable right foot cellulitis but no pneumonia. Patient's big complaint was trouble swallowing and just exquisite pain. Patient had a CAT scan that showed esophagitis. Patient had a barium esophagram that was concerning for Yee esophagitis. Patient was seen by Dr. Erazo, of general surgery, and had an EGD performed on the that showed Yee esophagitis. Patient was started on high-dose Diflucan and has improved still has having difficulty swallowing but much improved now. Concern is that this being an AIDS defining illness that an HIV test has been ordered. Patient states that he has not been sexually active in 2 years and has been checked previously for HIV about a year ago which was negative. I told patient that I feel it is most appropriate to check HIV and see if he does indeed have it. The patient will be on Diflucan 400 mg daily for 21 days. Patient will follow up with Dr. Erazo in regards to results of the biopsies he did perform looking for H pylori and. But otherwise patient is ready for discharge. [] Discharge Diet: Soft diet, 2000 Calorie Control Diet Discharge Activity: Return to Normal Activity Call your doctor if you observe: Fever of 101 or Higher, Shortness of breath, - - more difficulty swallowing. Home Medications: Medications to take at Discharge Gabapentin [Neurontin] 800 mg PO 4X/DAY 02/14/17 Lisinopril 20 mg PO DAILY 02/14/17 Metoprolol Succinate 25 mg PO DAILY 02/14/17 Simvastatin 40 mg PO DAILY 02/14/17 Aspirin [Aspirin, Baby] 81 mg PO DAILY 02/16/17 Albuterol Inhaler [Ventolin Hfa] 2 puff INHALATION Q4H PRN PRN 04/30/17 Empagliflozin [Jardiance] 1 tab PO DAILY 05/19/17 Liraglutide [Victoza 2-Juan] 1.2 mg SQ DAILY 05/19/17 Fluconazole [Diflucan] 400 mg PO DAILY #21 tab 05/26/17 Hydrocodone/Acetaminophen [[place] 5-325 Tablet] 1 each PO Q6H PRN #12 tablet 05/26/17 Mag Hydrox/Al Hydrox/Simeth [Mylanta II] 30 ml PO Q6H PRN PRN udc 05/26/17 Pantoprazole Sodium [Protonix] 40 mg PO DAILY #30 tab 05/26/17 Following Prescrptions Were Given to Patient: Fluconazole [Diflucan] 400 mg PO DAILY #21 tab Pantoprazole Sodium [Protonix] 40 mg PO DAILY #30 tab Hydrocodone/Acetaminophen [[place] 5-325 Tablet] 1 each PO Q6H PRN #12 tablet PRN Reason: Severe Pain (6-10) Primary Care Physician: Darrian Henderson Chi, MD [Primary Care Provider] - Within 2 Weeks Please Follow Up With: Daniel Erazo MD When: 1-2 months Please Follow Up With: Berkley Romero [employer]ER-C When: Saturday Please Follow Up With: Chet Swan MD When: 2-4 weeks Disposition: Home Minutes spent on discharge:: 35 Patient Condition:: Good Meaningful Use Info Meaningful Use Diagnoses (Choose all that apply): None applicable Code Visit Inpatient E&M: 95701 Disch Hosp
[2017-05-26 09:28] VITALS: BP 123/61; PULSE 102; RESP 17; TEMP 37.2; O2SAT 98
--- NOTE | 2017-05-26 09:32 | DS.PCM_ITS ---
Discharge Date and Diagnosis - Problem List Patient Problems: Active and Suspected Problems Yee esophagitis (Acute) Nausea & vomiting (Acute) Abnormal CT scan, esophagus (Acute) Dysphagia (Acute) Sepsis (Acute) Date of Admission: 05/19/17 Date of Discharge: 05/26/17 - Primary Discharge Diagnosis Active and Suspected Problems Yee esophagitis (Acute) Nausea & vomiting (Acute) Abnormal CT scan, esophagus (Acute) Dysphagia (Acute) Sepsis (Acute) 1. Sepsis Unclear source at this time but the concern would be for right foot infection. Influenza negative. Gallbladder ultrasound negative for cholecystitis Only one blood culture done on the and was negative. Change antibiotics over to Levaquin. Patient had previously had procidentia as well as MSSA from a wound culture that were both sensitive to Levaquin. Though it is still unclear if this is actual infection or just a viral infection. And despite the patient's insisted that it was not viral this infection could very well been viral. 2. Right foot ulcer Not felt to be osteomyelitis by podiatry. MRI from May 01 showed slight bony edema in the fourth metatarsal head without T1 bone marrow signal alteration. And felt to be likely a reactive bone edema rather than osteomyelitis. May consider repeat MRI depending on the patient's clinical course. continue with levaquin through 05/26 3. Diabetes mellitus type 2, uncontrolled Improved Off insulin drip and on prandial basal insulin Impression not sure the patient had diabetic ketoacidosis. This is an elevated anion gap may be related with the sepsis the patient was experiencing upon arrival. 4. Distended gallbladder Ultrasound negative. Patient was slightly elevated lipase yesterday. Patient with epigastric abdominal pain. Will recheck lipase today 5. Peripheral arterial disease Patient is to undergo angiogram with stents on the with Dr. Swan. #3 stent the SFA to through the proximal popliteal with a 6 x 1 50 balloon and post balloon with a 5 and 6 mm. On May 23. Incidentally, with CT of his chest, patient was noted to have a stent in the left subclavian artery and was noted to be occluded. Follow-up Dr. Swan in regards to further evaluation of this. Patient appears to be asymptomatic with that at this time. 6. Dysphagia: Patient is having issues where he was eating earlier during this admission but now he does have ischemic pain where he eats or drinks something. Patient said he had a grilled cheese and then he vomited that up and is able to drink but just gets this exquisite midsternal pain when he does so. Explained to him that initially is felt to be reflux and start him on PPI therapy would be of benefit but he has been on it and does not seem to be affecting him. Thought may be esophageal spasm but the fact that it happens every time he eats is concerning for something such as a stricture or some kind of mass or some the else going on. Pain patient does not have any coffee-ground emesis. CAT scan yesterday shows what appears to be esophagitis. Likely Yee esophagitis on EGD. Cultures were obtained with the results are still pending. Patient on GI Diflucan patient is actually improving. Continue Diflucan and PPI therapy. Patient will Yee esophagitis on barium esophagram. Patient was started on fluconazole. EGD will definitely told the patient does have Yee esophagitis or not however some other process that may be causing his symptoms. If no obvious Yee esophagitis then would discontinue fluconazole. 7. DVT prophylaxis with subcu heparin. 8. Yee esophagitis: Patient denies any history of IV drug abuse and states he is not sexually active in 2 years. States is also been checked for HIV about a year ago and that was reportedly negative. I told him that Yee esophagitis is an AIDS defining illness and I recommend HIV test. He is okay with getting a check. Told that we would not have the results right away and that he would follow-up with Dr. Ward anyways for post hospital follow-up to see if that is come back positive or not. In the meantime, patient will continue with Diflucan 400 mg daily for 2 weeks. Follow-up with Dr. Erazo for results of the biopsies. - Secondary Discharge Diagnosis Chronic Problems Ulcer of right foot with fat layer exposed (Chronic) Malnutrition (Chronic) Compliance poor (Chronic) Peripheral vascular disease (Chronic) HTN (hypertension) (Chronic) Nicotine abuse (Chronic) Peripheral neuropathy (Chronic) CAD (coronary artery disease) (Chronic) COPD (chronic obstructive pulmonary disease) (Chronic) Type 2 diabetes mellitus with diabetic polyneuropathy (Chronic) Hospital Course and Treatment Imaging Results: Clinical Impression(s) from Imaging Studies Chest X-Ray 05/19/17 13:38 IMPRESSION: No acute pulmonary pathology of the chest. Electronically Signed: Everett Churchill DO at 15:03 EST Tel [phone], Service support , Abdomen/Pelvis CT 05/19/17 20:43 IMPRESSION: Fluid-filled distended urinary bladder. Fatty infiltration of the liver. Distended gallbladder consider ultrasound for further evaluation. Atherosclerosis. Hiatal hernia. Electronically Signed: Africa Dillard MD at 21:41 EST Tel , Service support , Abdomen Ultrasound 05/20/17 05:55 IMPRESSION: Fatty infiltration of the liver. Electronically Signed: Dylan Duarte MD at 12:41 EST Tel [phone], Service support , Chest CT 05/23/17 15:28 IMPRESSION: Mural thickening of the distal thoracic esophagus with mild adjacent fat infiltration, probably representing esophagitis. Suggest upper endoscopy for further evaluation. Status post stent placement in the left subclavian artery. The stent is occluded. This may result in subclavian steal syndrome. Atherosclerosis. Very small right pleural effusion. No demonstrated pulmonary infiltrates. Fatty liver. Electronically Signed: Ankit Xie MD at 2:10 EST , Service support , Upper GI Series 05/24/17 15:24 IMPRESSION: Possible candidiasis of the esophagus. The patient is experiencing severe chest pain during ingestion of the barium. Electronically Signed: Dylan Duarte MD at 12:22 EST Tel [phone], Service support , Operations: - - amputation of affected toe Procedures: EGD, - - . Ultrasound-guided access retrograde left common femoral artery. #2 right lower extremity angiogram. Catheter placed into the popliteal artery. #3 stent the SFA to through the proximal popliteal with a 6 x 1 50 balloon and post balloon with a 5 and 6 mm. #4 closure was Star close Summary of Care Provided: The patient is a 56 year old M presents with sepsis. Concern was also for DKA as well. Patient was having intractable nausea and vomiting. Patient is also having trouble swallowing as well. Patient has a known ulcer on his right fourth toe. Patient seen in consultation by Dr. ayala did not feel that there is any active infection. And patient started on broad-spectrum antibiotics. Overall patient sepsis did improve and his antibiotics changed from Levaquin to cover previous organisms from that foot infection. Patient complete a seven-day course of antibiotics during his hospitalization is now being discontinued. Patient does have peripheral vascular disease and was seen by Dr. Swan and did actually perform a angiogram the right lower extremity and this #3 stent to this superficial femoral artery as well as angioplasty. The patient has done well from that standpoint but and his question will diabetic ketoacidosis patient was put on insulin drip the patient may just had severe sepsis which may explain the metabolic acidosis but the patient was eventually transitioned over to subcu Levemir and log. Patient blood sugars remained fairly controlled and still does have some insulins and 300 range. Patient will be resumed back on his oral regimen at home and patient has a follow-up appointment with CHEYENNE Romero. Also no clear source is identified for the patient's sepsis questionable right foot cellulitis but no pneumonia. Patient's big complaint was trouble swallowing and just exquisite pain. Patient had a CAT scan that showed esophagitis. Patient had a barium esophagram that was concerning for Yee esophagitis. Patient was seen by Dr. Erazo, of general surgery, and had an EGD performed on the that showed Yee esophagitis. Patient was started on high-dose Diflucan and has improved still has having difficulty swallowing but much improved now. Concern is that this being an AIDS defining illness that an HIV test has been ordered. Patient states that he has not been sexually active in 2 years and has been checked previously for HIV about a year ago which was negative. I told patient that I feel it is most appropriate to check HIV and see if he does indeed have it. The patient will be on Diflucan 400 mg daily for 21 days. Patient will follow up with Dr. Erazo in regards to results of the biopsies he did perform looking for H pylori and. But otherwise patient is ready for discharge. [] Discharge Diet: Soft diet, 2000 Calorie Control Diet Discharge Activity: Return to Normal Activity Call your doctor if you observe: Fever of 101 or Higher, Shortness of breath, - - more difficulty swallowing. Home Medications: Medications to take at Discharge Gabapentin [Neurontin] 800 mg PO 4X/DAY 02/14/17 Lisinopril 20 mg PO DAILY 02/14/17 Metoprolol Succinate 25 mg PO DAILY 02/14/17 Simvastatin 40 mg PO DAILY 02/14/17 Aspirin [Aspirin, Baby] 81 mg PO DAILY 02/16/17 Albuterol Inhaler [Ventolin Hfa] 2 puff INHALATION Q4H PRN PRN 04/30/17 Empagliflozin [Jardiance] 1 tab PO DAILY 05/19/17 Liraglutide [Victoza 2-Juan] 1.2 mg SQ DAILY 05/19/17 Fluconazole [Diflucan] 400 mg PO DAILY #21 tab 05/26/17 Hydrocodone/Acetaminophen [Denton 5-325 Tablet] 1 each PO Q6H PRN #12 tablet Mag Hydrox/Al Hydrox/Simeth [Mylanta II] 30 ml PO Q6H PRN PRN udc 05/26/17 Pantoprazole Sodium [Protonix] 40 mg PO DAILY #30 tab 05/26/17 Following Prescrptions Were Given to Patient: Fluconazole [Diflucan] 400 mg PO DAILY #21 tab Pantoprazole Sodium [Protonix] 40 mg PO DAILY #30 tab Hydrocodone/Acetaminophen [Denton 5-325 Tablet] 1 each PO Q6H PRN #12 tablet PRN Reason: Severe Pain (6-10) Primary Care Physician: Darrian Henderson Chi, MD [Primary Care Provider] - Within 2 Weeks Please Follow Up With: Daniel Erazo MD When: 1-2 months Please Follow Up With: Berkley Romero [employer] When: Saturday Please Follow Up With: Chet Swan MD When: 2-4 weeks Disposition: Home Minutes spent on discharge:: 35 Patient Condition:: Good Meaningful Use Info Meaningful Use Diagnoses (Choose all that apply): None applicable Code Visit Inpatient E&M: 26845 Disch Hosp
[2017-05-26] MEDS: Collagenase 30gm Tube 1 APPLIC TOPICAL (09:33)
[2017-05-26 09:35] VITALS: PULSE 102
[2017-05-26] MEDS: Metoprolol(XL)Succ 25 MG Tablet PO (09:35)
[2017-05-26] MEDS: Lisinopril 20 MG Tablet PO (09:35)
[2017-05-26] MEDS: hydroCHLOROthiazide 25 MG Tablet PO (09:35)
[2017-05-26 12:01] LABS: Bedside Glucose 263 mg/dL (70-110)
[2017-05-27 13:39] LABS: Hepatitis C Ab >11.0 s/co ratio (0.0-0.9)
[2017-05-28 11:17] LABS: HIV 1/0/2 SCREEN 4TH GEN Non Reactive (Non Reactive)
== END 2017-05-26 12:37 | disposition home or self-care (01) | DRG 856 ==
LOC: ED 15:51 → ICU 16:07 → PCU 05-21 10:50
PROVIDERS: Internal Medicine; Internal Medicine Critical Care Medicine; Surgery; Admitting Provider Family Medicine; Emergency Provider Emergency Medicine; Family Provider Family Medicine Geriatric Medicine; PCP Family Medicine Geriatric Medicine
PROC: 0DJ08ZZ Inspection of Upper Intestinal Tract, Via Natural or Artificial Opening Endoscopic (ICD-10-PCS; CPT 43235; principal; 2017-05-25 11:30)
DX: T81.4XXA Infection following a procedure, initial encounter (principal); R65.20 Severe sepsis without septic shock; B37.81 Candidal esophagitis; E11.42 Type 2 diabetes mellitus with diabetic polyneuropathy; E11.51 Type 2 diabetes mellitus with diabetic peripheral angiopathy without gangrene; E11.621 Type 2 diabetes mellitus with foot ulcer; A41.9 Sepsis, unspecified organism; T87.43 Infection of amputation stump, right lower extremity; T87.81 Dehiscence of amputation stump; E11.65 Type 2 diabetes mellitus with hyperglycemia; L97.512 Non-pressure chronic ulcer of other part of right foot with fat layer exposed; K82.8 Other specified diseases of gallbladder; J44.9 Chronic obstructive pulmonary disease, unspecified; I25.10 Atherosclerotic heart disease of native coronary artery without angina pectoris; I10 Essential (primary) hypertension; K29.70 Gastritis, unspecified, without bleeding; F17.210 Nicotine dependence, cigarettes, uncomplicated; Z79.84 Long term (current) use of oral hypoglycemic drugs; Z95.1 Presence of aortocoronary bypass graft; E78.5 Hyperlipidemia, unspecified; Z89.421 Acquired absence of other right toe(s); A08.4 Viral intestinal infection, unspecified; R11.2 Nausea with vomiting, unspecified; R19.7 Diarrhea, unspecified; E86.0 Dehydration; F41.9 Anxiety disorder, unspecified; Z79.82 Long term (current) use of aspirin; Z79.899 Other long term (current) drug therapy; Z72.0 Tobacco use
CPT/HCPCS: 36245; 36415; 37226; 71045; 71260; 74176; 74246; 75710; 76705; 76937; 80048; 80053; 80061; 80076; 80307; 81001; 82009; 82962; 83036; 83605; 83690; 83735; 84100; 84484; 85025; 86703; 86803; 86804; 87040; 87070; 87075; 87076; 87077; 87102; 87106; 87186; 87205; 87206; 87522; 87641; 87804; 87902; 88305; 88312; 93005; 94640; 96361; 96374; 97166; 97530; 97802; 99152; 99153; 99285; 99406; J7030; J7040; J7050; Q9967; A4216; C1725; C1760; C1769; C1876; C1887; C1894; J2405

== ENCOUNTER 2017-06-10 12:40 | Inpatient (IN) | payer MEDICARE, MEDICAID, SELFPAY ==
[2017-06-10 13:01] VITALS: BMI 25.8
[2017-06-10 13:12] VITALS: BMI 25.8
[2017-06-10 13:20] VITALS: BP 132/69; PULSE 79; RESP 14; TEMP 36.6; O2SAT 98
--- NOTE | 2017-06-10 13:53 | MRI_ITS ---
STUDY: MRI RIGHT FOREFOOT WITH AND WITHOUT CONTRAST REASON FOR EXAM: Male, 56 years old. Amputation fourth toe, infection TECHNIQUE: Standardized fat and water weighted pulse sequences were obtained in all 3 orthogonal planes, post contrast administration. 7 ml of Gadavist contrast material was administered intravenously for the contrast portion of the examination. COMPARISON: X-ray right foot 04/30/2017 MRI right foot 05/01/2017 FINDINGS: There is resection of the fourth phalanges (image 11, 12, 13/21 coronal T2). There is induration/enhancement at the soft tissues adjacent to the fourth metatarsal head (image 22, 21/30 sagittal T1, T1 fat-sat postcontrast). There is focal erosion at the metatarsal head. There are mild degenerative changes at the first MTP joint (image 14/21 coronal T2, 6, 7/30 sagittal T2 fat sat). There is bone marrow edema at the base of the fourth metatarsal (image 22, 21/30 sagittal inversion recovery). There is soft tissue fullness at the plantar aspect of the metatarsal heads at the second webspace compatible with Olivares's neuroma (image 17/32 axial T1). Normal medial and lateral heads of the flexor hallucis brevis tendons. Normal flexor and extensor hallucis longus tendons. Normal flexor and extensor tendons of the second through fifth toes. MRI/Lower Ext No Joint W/WO Cont IMPRESSION: Status post resection fourth phalanges Cellulitis at the soft tissues adjacent of the fourth metatarsal head with focal osteomyelitis of the fourth metatarsal head Electronically Signed: Laci Matias MD at 21:35 EST Tel , Service support ,
--- NOTE | 2017-06-10 14:02 | PCM.HP.STD ---
Problem List (1) Yee esophagitis Status: Chronic (2) Dysphagia Status: Chronic (3) CAD (coronary artery disease) Status: Chronic (4) COPD (chronic obstructive pulmonary disease) Status: Chronic (5) HTN (hypertension) Status: Chronic (6) Malnutrition Status: Chronic (7) Nicotine abuse Status: Chronic (8) Peripheral neuropathy Status: Chronic (9) Peripheral vascular disease Status: Chronic (10) Type 2 diabetes mellitus with diabetic polyneuropathy Status: Chronic (11) Chronic osteomyelitis, other specified site Status: Chronic (12) Cellulitis of right foot Status: Resolved (13) Foot osteomyelitis, right Status: Acute (14) Foot ulcer, right Status: Acute (15) Ulcer of right foot with necrosis of muscle Status: Acute History of Present Illness Date of Admission: 06/10/17 Chief Complaint: Right fourth toe amputation with ulcer with purulent discharge The patient is a 56 year old M With multiple comorbidities including diabetes mellitus type 2, uncontrolled with complications of neuropathy and recurrent foot infection with osteomyelitis Status post right fourth toe amputation about 2 months ago was sent for direct admit from Dr. Guerin on wound clinic for follow smelling ulcer on the previous fourth toe operative site. As per the patient, the wound healed well and was closed and then opened up about 3 weeks ago. He was admitted between 05/19- 05/26/2017 for Yee esophagitis, dysphagia and odynophagia due to above along with right foot ulcer which was felt not to be osteomyelitis by the senior abap developer. Patient had MRI on May 01 which showed slight bony edema on the fourth metatarsal head which look like reactive bone edema rather than osteitis. Patient was treated with Levaquin through May 26. Currently, patient denies any fever or chills. Patient still has dysphagia and odynophagia which is much better and is on Diflucan. Patient had barium esophagogram and EGD on 05/25/2017 which showed severe Yee esophagitis and distal two third. Past Medical History Past Medical History (Chronic Problems): Chronic Problems Yee esophagitis (Chronic) Dysphagia (Chronic) Chronic osteomyelitis, other specified site (Chronic) Malnutrition (Chronic) Compliance poor (Chronic) Peripheral vascular disease (Chronic) HTN (hypertension) (Chronic) Nicotine abuse (Chronic) Peripheral neuropathy (Chronic) CAD (coronary artery disease) (Chronic) COPD (chronic obstructive pulmonary disease) (Chronic) Type 2 diabetes mellitus with diabetic polyneuropathy (Chronic) Allergies No Known Allergies Allergy (Verified 05/19/17 13:17) Home Medications: Ambulatory Orders Medication Instructions Recorded Gabapentin [Neurontin] 800 mg PO 4X/DAY 02/14/17 Lisinopril 20 mg PO DAILY 02/14/17 Metoprolol Succinate 25 mg PO DAILY 02/14/17 Simvastatin 40 mg PO DAILY 02/14/17 Aspirin [Aspirin, Baby] 81 mg PO DAILY 02/16/17 Albuterol Inhaler [Ventolin Hfa] 2 puff INHALATION Q4H PRN PRN 04/30/17 Empagliflozin [Jardiance] 1 tab PO DAILY 05/19/17 Mag Hydrox/Al Hydrox/Simeth 30 ml PO Q6H PRN PRN udc 05/26/17 [Mylanta II] Fluconazole [Diflucan] 400 mg PO DAILY 06/10/17 Pantoprazole Sodium [Protonix] 40 mg PO DAILY 06/10/17 Surgical History: coronary bypass surgery, - - debridement left arm, 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 carpal tunnel release Psychiatric History: No pertinent psych hx Smoking Status: Current every day smoker - *Family History Maternal History Items: Heart Disease Paternal History Items: Heart Disease Review of Systems Constitutional: Reports: Malaise. Denies: Chills, Fever, Weight Change HEENT: Reports: Difficulty Hearing, Difficulty Swallowing, Dysphasia, -. Denies: Head Aches, Sinus Congestion, Sinus Drainage Cardiovascular: Denies: Chest Pain, Palpitations Respiratory: Denies: Cough, Shortness of breath at rest, Sputum production Gastrointestinal: Denies: Abdominal Pain, Nausea, Vomiting Genitourinary: Denies: Dysuria Musculoskeletal: Reports: Joint Pain, Leg Pain, Muscle pain. Denies: Joint Tenderness Skin: Reports: Wounds. Denies: Rash Neurological: Denies: Numbness, Tingling, Focal weakness Psychiatric: Denies: Anxiety, Depression, Homicidal Ideations, Suicidal Ideations Hematologic/ Lymphatic: Denies: Easy Bruising, Easy Bleeding VTE Information - Inpt Only VTE Present on Admission: No VTE Mechan Device Prophylaxis: SCD's VTE Pharm Prophylaxis ordered?: Yes Patient Problems: Active and Suspected Problems Foot osteomyelitis, right (Acute) Foot ulcer, right (Acute) Ulcer of right foot with necrosis of muscle (Acute) - Physical Exam General: Alert, Oriented x3, Cooperative HEENT: Atraumatic, PERRLA, EOMI, Normocephalic Oral: Dry Mucosa Neck: Supple, No JVD, Negative Carotid Bruits Lungs: Clear to auscultation, Normal air movement, No wheeze, No rales Cardiovascular: Regular rate, Regular Rhythm, Normal S1, Normal S2, No murmurs Abdomen: Bowel Sounds Present, Soft, Non Tender, Non-Distended Extremities: No edema, Capillary Refill Less than 3 Seconds Skin: Ulcer/ Wound - Ulcer over the operative site of right fourth toe amputation, floor covered with slough and purulent material, foul-smelling felt to be muscle deep Musculoskeletal: Arthritic Changes, Muscle Wasting, Tenderness Neurological: Cranial nerves II-XII grossly intact Psych/Mental Status: Normal Affect, Appropriate Vital Signs Temp Pulse Resp BP Pulse Ox 97.8 F 79 14 132/69 H 98 06/10/17 13:20 06/10/17 13:20 06/10/17 13:20 06/10/17 13:20 06/10/17 13:20 Oxygen Delivery Method Room Air Weight: 169 lb 15.622 oz Body Mass Index (BMI) 25.8 Finger Stick Blood Glucose 167 Assessment/Plan Active and Suspected Problems Foot osteomyelitis, right (Acute) Foot ulcer, right (Acute) Ulcer of right foot with necrosis of muscle (Acute) The patient is a 56 year old M With multiple comorbidities including diabetes mellitus type 2, uncontrolled with complications of neuropathy and recurrent foot infection with osteomyelitis Status post right fourth toe amputation about 2 months ago was sent for direct admit from Dr. Guerin on wound clinic for follow smelling ulcer on the previous fourth toe operative site. As per the patient, the wound healed well and was closed and then opened up about 3 weeks ago. He was admitted between 05/19- 05/26/2017 for Yee esophagitis, dysphagia and odynophagia due to above along with right foot ulcer which was felt not to be osteomyelitis by the senior abap developer. Patient had MRI on May 01 which showed slight bony edema on the fourth metatarsal head which look like reactive bone edema rather than osteitis. Patient was treated with Levaquin through May 26. Currently, patient denies any fever or chills. Patient still has dysphagia and odynophagia which is much better and is on Diflucan. Patient had barium esophagogram and EGD on 05/25/2017 which showed severe Yee esophagitis and distal two third. 1. Infected right foot ulcer over right fourth metatarsal with possibility of osteomyelitis:. Patient is directly admitted to the floor. Started on IV vancomycin and ertapenem based on the previous wound culture. Previous wound culture showed MRSA, Klebsiella, Enterococcus faecalis, not VRE; and E. coli which is resistant to fluoroquinolones and Zosyn, cefazolin and other penicillin group. ID and senior abap developer consult. Blood cultures ?2, wound culture ordered. MRSA nasal screen. Wound care nurse consult and advertising director consult. Basic labs including, CRP, A1c ordered. 2. Diabetes mellitus type II, uncontrolled complicated with diabetic nephropathy and recurrent foot infection. Accu-Chek before meals and at bedtime and cover with NovoLog sliding scale. As per the patient recently his blood sugar has been less than 200 but Accu-Cheks and previous admission ranges in 250-300s. A1c 10.6% on May 19, 2017. 3:On Diflucan.. Dysphagia/odynophagia due to severe distal two third yee esophagitis 4. Peripheral arterial disease: Patient underwent angiogram with a stent on May 23, [address] Swan. Patient has stent placed in SFA and balloon angioplasty. 5. Coronary artery disease 6. COPD: Controlled not on acute exacerbation. Other multiple comorbidities history of chronic osteomyelitis, moderate protein calorie malnutrition malnutrition, hypertension, peripheral neuropathy, nicotine abuse home medication reconciliation done. BMI is 25.8. Moderate muscle atrophy. Multiple comorbidities complicates the present care. Code Visit Inpatient E&M: 94558 Init Hosp L3
--- NOTE | 2017-06-10 14:13 | HP.PCM_ITS ---
Problem List (1) Yee esophagitis Status: Chronic (2) Dysphagia Status: Chronic (3) CAD (coronary artery disease) Status: Chronic (4) COPD (chronic obstructive pulmonary disease) Status: Chronic (5) HTN (hypertension) Status: Chronic (6) Malnutrition Status: Chronic (7) Nicotine abuse Status: Chronic (8) Peripheral neuropathy Status: Chronic (9) Peripheral vascular disease Status: Chronic (10) Type 2 diabetes mellitus with diabetic polyneuropathy Status: Chronic (11) Chronic osteomyelitis, other specified site Status: Chronic (12) Cellulitis of right foot Status: Resolved (13) Foot osteomyelitis, right Status: Acute (14) Foot ulcer, right Status: Acute (15) Ulcer of right foot with necrosis of muscle Status: Acute History of Present Illness Date of Admission: 06/10/17 Chief Complaint: Right fourth toe amputation with ulcer with purulent discharge The patient is a 56 year old M With multiple comorbidities including diabetes mellitus type 2, uncontrolled with complications of neuropathy and recurrent foot infection with osteomyelitis Status post right fourth toe amputation about 2 months ago was sent for direct admit from Dr. Guerin on wound clinic for follow smelling ulcer on the previous fourth toe operative site. As per the patient, the wound healed well and was closed and then opened up about 3 weeks ago. He was admitted between 05/19- 05/26 for Yee esophagitis, dysphagia and odynophagia due to above along with right foot ulcer which was felt not to be osteomyelitis by the physician scientist. Patient had MRI on May 01 which showed slight bony edema on the fourth metatarsal head which look like reactive bone edema rather than osteitis. Patient was treated with Levaquin through May 26. Currently, patient denies any fever or chills. Patient still has dysphagia and odynophagia which is much better and is on Diflucan. Patient had barium esophagogram and EGD on 05/25/2017 which showed severe Yee esophagitis and distal two third. Past Medical History Past Medical History (Chronic Problems): Chronic Problems Yee esophagitis (Chronic) Dysphagia (Chronic) Chronic osteomyelitis, other specified site (Chronic) Malnutrition (Chronic) Compliance poor (Chronic) Peripheral vascular disease (Chronic) HTN (hypertension) (Chronic) Nicotine abuse (Chronic) Peripheral neuropathy (Chronic) CAD (coronary artery disease) (Chronic) COPD (chronic obstructive pulmonary disease) (Chronic) Type 2 diabetes mellitus with diabetic polyneuropathy (Chronic) Allergies No Known Allergies Allergy (Verified 05/19/17 13:17) Home Medications: Ambulatory Orders Medication Instructions Recorded Gabapentin [Neurontin] 800 mg PO 4X/DAY 02/14/17 Lisinopril 20 mg PO DAILY 02/14/17 Metoprolol Succinate 25 mg PO DAILY 02/14/17 Simvastatin 40 mg PO DAILY 02/14/17 Aspirin [Aspirin, Baby] 81 mg PO DAILY 02/16/17 Albuterol Inhaler [Ventolin Hfa] 2 puff INHALATION Q4H PRN PRN 04/30/17 Empagliflozin [Jardiance] 1 tab PO DAILY 05/19/17 Mag Hydrox/Al Hydrox/Simeth 30 ml PO Q6H PRN PRN udc 05/26/17 [Mylanta II] Fluconazole [Diflucan] 400 mg PO DAILY 06/10/17 Pantoprazole Sodium [Protonix] 40 mg PO DAILY 06/10/17 Surgical History: coronary bypass surgery, - - debridement left arm, 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 carpal tunnel release Psychiatric History: No pertinent psych hx Smoking Status: Current every day smoker - *Family History Maternal History Items: Heart Disease Paternal History Items: Heart Disease Review of Systems Constitutional: Reports: Malaise. Denies: Chills, Fever, Weight Change HEENT: Reports: Difficulty Hearing, Difficulty Swallowing, Dysphasia, -. Denies : Head Aches, Sinus Congestion, Sinus Drainage Cardiovascular: Denies: Chest Pain, Palpitations Respiratory: Denies: Cough, Shortness of breath at rest, Sputum production Gastrointestinal: Denies: Abdominal Pain, Nausea, Vomiting Genitourinary: Denies: Dysuria Musculoskeletal: Reports: Joint Pain, Leg Pain, Muscle pain. Denies: Joint Tenderness Skin: Reports: Wounds. Denies: Rash Neurological: Denies: Numbness, Tingling, Focal weakness Psychiatric: Denies: Anxiety, Depression, Homicidal Ideations, Suicidal Ideations Hematologic/ Lymphatic: Denies: Easy Bruising, Easy Bleeding VTE Information - Inpt Only VTE Present on Admission: No VTE Mechan Device Prophylaxis: SCD's VTE Pharm Prophylaxis ordered?: Yes Patient Problems: Active and Suspected Problems Foot osteomyelitis, right (Acute) Foot ulcer, right (Acute) Ulcer of right foot with necrosis of muscle (Acute) - Physical Exam General: Alert, Oriented x3, Cooperative HEENT: Atraumatic, PERRLA, EOMI, Normocephalic Oral: Dry Mucosa Neck: Supple, No JVD, Negative Carotid Bruits Lungs: Clear to auscultation, Normal air movement, No wheeze, No rales Cardiovascular: Regular rate, Regular Rhythm, Normal S1, Normal S2, No murmurs Abdomen: Bowel Sounds Present, Soft, Non Tender, Non-Distended Extremities: No edema, Capillary Refill Less than 3 Seconds Skin: Ulcer/ Wound - Ulcer over the operative site of right fourth toe amputation, floor covered with slough and purulent material, foul-smelling felt to be muscle deep Musculoskeletal: Arthritic Changes, Muscle Wasting, Tenderness Neurological: Cranial nerves II-XII grossly intact Psych/Mental Status: Normal Affect, Appropriate Vital Signs Temp Pulse Resp BP Pulse Ox 97.8 F 79 14 132/69 H 98 06/10/17 13:20 06/10/17 13:20 06/10/17 13:20 06/10/17 13:20 06/10/17 13:20 Oxygen Delivery Method Room Air Weight: 169 lb 15.622 oz Body Mass Index (BMI) 25.8 Finger Stick Blood Glucose 167 Assessment/Plan Active and Suspected Problems Foot osteomyelitis, right (Acute) Foot ulcer, right (Acute) Ulcer of right foot with necrosis of muscle (Acute) The patient is a 56 year old M With multiple comorbidities including diabetes mellitus type 2, uncontrolled with complications of neuropathy and recurrent foot infection with osteomyelitis Status post right fourth toe amputation about 2 months ago was sent for direct admit from Dr. Guerin on wound clinic for follow smelling ulcer on the previous fourth toe operative site. As per the patient, the wound healed well and was closed and then opened up about 3 weeks ago. He was admitted between 05/19- 05/26 for Yee esophagitis, dysphagia and odynophagia due to above along with right foot ulcer which was felt not to be osteomyelitis by the physician scientist. Patient had MRI on May 01 which showed slight bony edema on the fourth metatarsal head which look like reactive bone edema rather than osteitis. Patient was treated with Levaquin through May 26. Currently, patient denies any fever or chills. Patient still has dysphagia and odynophagia which is much better and is on Diflucan. Patient had barium esophagogram and EGD on 05/25/2017 which showed severe Yee esophagitis and distal two third. 1. Infected right foot ulcer over right fourth metatarsal with possibility of osteomyelitis:. Patient is directly admitted to the floor. Started on IV vancomycin and ertapenem based on the previous wound culture. Previous wound culture showed MRSA, Klebsiella, Enterococcus faecalis, not VRE; and E. coli which is resistant to fluoroquinolones and Zosyn, cefazolin and other penicillin group. ID and physician scientist consult. Blood cultures ?2, wound culture ordered. MRSA nasal screen. Wound care nurse consult and keyboard operator consult. Basic labs including, CRP, A1c ordered. 2. Diabetes mellitus type II, uncontrolled complicated with diabetic nephropathy and recurrent foot infection. Accu-Chek before meals and at bedtime and cover with NovoLog sliding scale. As per the patient recently his blood sugar has been less than 200 but Accu-Cheks and previous admission ranges in 250-300s. A1c 10.6% on May 19, 2017. 3:On Diflucan.. Dysphagia/odynophagia due to severe distal two third yee esophagitis 4. Peripheral arterial disease: Patient underwent angiogram with a stent on May 23, [address] Swan. Patient has stent placed in SFA and balloon angioplasty. 5. Coronary artery disease 6. COPD: Controlled not on acute exacerbation. Other multiple comorbidities history of chronic osteomyelitis, moderate protein calorie malnutrition malnutrition, hypertension, peripheral neuropathy, nicotine abuse home medication reconciliation done. BMI is 25.8. Moderate muscle atrophy. Multiple comorbidities complicates the present care. Code Visit Inpatient E&M: 12098 Init Hosp L3
[2017-06-10 14:36] LABS: Bedside Glucose 130 mg/dL (70-110)
[2017-06-10] MEDS: 0.9% Normal Saline 1,000 ML 75 ML IV (15:14)
[2017-06-10] MEDS: 0.9% NaCl Peripheral Flush Adult/Peds IV (15:14)
[2017-06-10] MEDS: Glucerna Shake 120 ML LIQUID PO ×3 (15:26→21:22)
--- NOTE | 2017-06-10 15:50 | NURSING ---
wound photo: right foot s/p 4th toe amputation
[2017-06-10 15:58] LABS: CRP < 2.90 mg/L (0.0-3.0); Phosphorus 3.5 mg/dL (2.5-4.9)
[2017-06-10 17:13] LABS: M R Staph aureus DNA By PCR Negative (Negative); Probe Check PASS; Specimen Processing Control PASS; Staph aureus DNA By PCR NEGATIVE (Negative)
[2017-06-10] MEDS: Gabapentin 800 MG Tablet PO (18:28)
[2017-06-10] MEDS: oxyCODONE 5 MG Tablet PO ×2 (18:30→22:59)
[2017-06-10 18:46] VITALS: BP 193/96; PULSE 84; RESP 14; TEMP 36.3; O2SAT 97
[2017-06-10 18:52] LABS: Bedside Glucose 122 mg/dL (70-110)
[2017-06-10] MEDS: MethylPREDNISolone 125 MG/2 ML Vial 60 MG IV (19:22)
--- NOTE | 2017-06-10 20:23 | PCM.PROGNOTE ---
Patient Problems: Active and Suspected Problems Foot osteomyelitis, right (Acute) Foot ulcer, right (Acute) Ulcer of right foot with necrosis of muscle (Acute) Subjective: This [facility] and advised to go for admission due to worsening status of infected right foot non healing open fourth ray resection site. He has worse odor, swelling, and discomfort with wound palpation. He also has new onset of chills. He has failed outpatient care of oral antibiotics. He was admitted and started on IV antibiotics. An MRI of the foot was also ordered with results pending. Likely he will require a surgery of the foot including soft tissue and bone debridement including up to a 4th ray resection or transmetatarsal amputation pending the MRI results. The results are still pending. His case will be added on when there is operating room availability tomorrow. He will be made NPO. It is ok for him to continue on any of his post vascular surgery anticoagulation medication, hold additional heparin, and stop all AM meds, and consents will be signed. [facility] note was faxed and placed in the charting area for communication purposes. - Physical Exam Vital Signs Temp Pulse Resp BP Pulse Ox 97.4 F L 84 14 193/96 H 97 06/10/17 18:46 06/10/17 18:46 06/10/17 18:46 06/10/17 18:46 06/10/17 18:46 Oxygen Delivery Method Room Air Weight: 77.1 kg Body Mass Index (BMI) 25.8 Finger Stick Blood Glucose 167 Intake and Output for Last 24 Hours 06/08/17 06/09/17 06/10/17 23:59 23:59 23:59 Intake Total 480 / 480 Output Total 525 / 525 Balance -45 / -45 Laboratory Tests Past 24 Hrs 06/10/17 06/10/17 14:55 15:35 Phosphorus 3.5 C-React Prot Ext Range < 2.90 Prealbumin 18.0 L S.aureus Protein A PCR NEGATIVE MRSA (PCR) Negative POC Glucose 06/10/17 06/10/17 18:27 14:30 POC Glucose 122 H 130 H Assessment/Plan Active and Suspected Problems Foot osteomyelitis, right (Acute) Foot ulcer, right (Acute) Ulcer of right foot with necrosis of muscle (Acute)
[2017-06-10 21:13] VITALS: BP 154/85; PULSE 92; RESP 18; TEMP 37.4; O2SAT 95
[2017-06-10 21:39] LABS: Absolute Neutrophil Count 4.8 X10^3/uL (2.0-7.7); Basophil# 0.06 X10^3/uL; Eosinophil# 0.17 X10^3/uL; Eosinophils% 2.8 % (0-5); Hematocrit 39.3 % (40-54); Hemoglobin 12.9 g/dl (13.0-16.5); Lymphocyte % 11.6 % (19-41); Mean Corp Hgb Conc 32.8 g/gl (32-36); Mean Corpuscular Hgb 30.4 pg (27.0-32.0); Mean Corpuscular Volume 92.5 fL (80-94); Mean Platelet Vol. 8.8 fl (6.2-12.0); Monocyte# 0.33 X10^3/uL; Monocyte% 5.5 % (0-10); Neutrophil # 4.75 X10^3/uL (2.7-7.7); Neutrophil % 78.9 % (47-70); POSITIVE COUNT NO; POSITIVE DIFFERENTIAL NO; POSITIVE MORPHOLOGY NO; Platelet Count 363 K/mm3 (150-450); RBC Distribution Width CV 13.4 % (11.6-14.6); RBC Distribution Width SD 45.2 fl (35.1-43.9); Red Blood Count 4.25 M/mm3 (4.6-6.2)
[2017-06-10 21:46] LABS: ALB/GLOB Ratio 0.8 RATIO (0.9-2.4); AST(SGOT) 46 U/L (15-37); Alanine Aminotransfer ALT/SGPT 45 U/L (16-61); Alkaline Phosphatase 109 U/L (45-117); Anion Gap 8 (5-15); BUN 12 mg/dL (7-18); BUN/Creat Ratio 12.2 RATIO (10-20); Calcium,Total 8.6 mg/dL (8.5-10.1); Chloride 105 mmol/L (98-107); Creatinine, Serum 0.98 mg/dL (0.70-1.30); EST Glomerular Filtration Rate 84 mL/min (>60); Est Glom Filt Rate - Afr Amer 101 mL/min (>60); Estimated Creatinine Clearance 81.43 ml/min; Globulin 3.9 g/dL (2.2-4.2); Glucose 193 mg/dL (70-110); Potassium 4.4 mmol/L (3.5-5.1); Protein, Total 6.9 g/dL (6.4-8.2); Sodium Level 138 mmol/L (136-145)
[2017-06-10 21:56] LABS: Bedside Glucose 198 mg/dL (70-110)
[2017-06-10 23:28] VITALS: BMI 25.8
[2017-06-11] VITALS (18 sets, daily range): BP systolic 130–188; BP diastolic 66–92; PULSE 73–96; RESP 12–18; TEMP 36.1–37; O2SAT 92–97
--- NOTE | 2017-06-11 05:55 | EKG12_ITS ---
Test Reason : MORNING EKG Blood Pressure : / mmHG Vent. Rate : 087 BPM Atrial Rate : 087 BPM P-R Int : 140 ms QRS Dur : 088 ms QT Int : 372 ms P-R-T Axes : 066 026 080 degrees QTc Int : 447 ms Normal sinus rhythm Normal ECG When compared with ECG of 20-MAY-2017 06:03, No significant change was found Confirmed by SAMMIE JACK ([id number]), order editor VANNA IBANEZ ([id number]) on 06/13/2017 12:05:48 PM Referred By: ANANYA Confirmed By:SAMMIE JACK
[2017-06-11] MEDS: Albuterol 2.5 MG/3 ML VIAL.NEB. INHALATION (06:07)
[2017-06-11] MEDS: 0.9% NaCl Peripheral Flush Adult/Peds IV ×2 (06:07→12:35)
[2017-06-11] MEDS: 0.9% Normal Saline 1,000 ML 75 ML IV ×2 (06:11→14:00)
[2017-06-11 06:56] LABS: Bedside Glucose 230 mg/dL (70-110)
[2017-06-11 06:56] LABS: Bedside Glucose 213 mg/dL (70-110)
[2017-06-11 07:29] LABS: Absolute Lymphocyte Count 0.72 X10^3/ul (0.83-4.51); Absolute Neutrophil Count 4.2 X10^3/uL (2.0-7.7); Basophil# 0.02 X10^3/uL; Basophil% 0.4 % (0-1); Hematocrit 39.2 % (40-54); Lymphocyte # 0.72 X10^3/ul (4.0); Mean Corp Hgb Conc 33.2 g/gl (32-36); Mean Corpuscular Hgb 30.2 pg (27.0-32.0); Mean Platelet Vol. 9.3 fl (6.2-12.0); Monocyte# 0.14 X10^3/uL; Monocyte% 2.7 % (0-10); Neutrophil # 4.24 X10^3/uL (2.7-7.7); Neutrophil % 82.7 % (47-70); Platelet Count 417 K/mm3 (150-450); RBC Distribution Width CV 13.1 % (11.6-14.6); RBC Distribution Width SD 42.7 fl (35.1-43.9); Red Blood Count 4.31 M/mm3 (4.6-6.2); White Blood Count 5.1 K/mm3 (4.4-11.0)
--- NOTE | 2017-06-11 07:30 | BON_PTH ---
PATIENT: ROMELIA DAVIS Jr. LOC: [facility] U#:[id number] AGE/SX: 56/M ROOM: [facility] RE06/10/[address]: Dr. Denise Nair DO : 1960 BED: 1 DIS: 06/14/2017 SPEC #: [id number] RECD: 06/12/17 07:35 STATUS: ARASH RELeno #: [id number] FABI: 06/11/17 07:[address]: Bettie Cantu DEPT: SURGICAL PATHOLOGY RECD BY: Chuy Hutchinson ENTERED: 06/12/17 10:42 SP TYPE: Bone OTHR DR: DO Dr. Noel Chen MD Dr. Tai Chi Kwok, MD Tissues: A - Bone of foot, NOS B - Bone of foot, NOS Procedures: Decalcification bone/plaque Surgery Specimen Level III Comments: @ Ordering doctor for DEC edited from to @ by FLIP at 06/13/17 0846 @ Ordering doctor for SUIII edited from to @ by FLIP at 06/13/17 0846 @ Submitting doctor edited from to @ by FLIP at 06/13/17 0846 HEADER OPERATION: Resection, soft tissue/bone, fourth ray PRE-OP DIAGNOSIS: Subacute osteomyelitis right ankle and foot TISSUE SUBMITTED: A ? Right foot fourth metatarsal head, B ? Right foot clearance segments MICROSCOPIC DIAGNOSIS A. Right foot fourth metatarsal head, resection: A piece of bone with focal minimal chronic inflammation, negative for acute osteomyelitis. B. Right foot clearance fragment: A piece of bone, negative for acute osteomyelitis. GOVIND:elaina 06/17/17 MICROSCOPIC DESCRIPTION Slides are reviewed. GROSS DESCRIPTION A - Received in fixative is one container labeled with the patient's name and designated right foot fourth metatarsal head. The specimen consists of a piece of bone measuring 1.3 x 1.3 x 1.2 cm. The entire specimen is submitted in one cassette after decalcification. B - Received in fixative is one container labeled with the patient's name and designated right foot clearance fragments. The specimen consists of a piece of bone measuring 1.7 x 0.5 x 0.3 cm. The entire specimen is submitted in one cassette after decalcification. / GOVIND:elaina 06/12/17 TC:3 CPT: 97264 x2, 19095 x2
[2017-06-11 07:37] LABS: POSITIVE COUNT NO; POSITIVE DIFFERENTIAL NO; POSITIVE MORPHOLOGY NO
[2017-06-11 07:42] LABS: Anion Gap 9 (5-15); BUN 16 mg/dL (7-18); BUN/Creat Ratio 17.7 RATIO (10-20); Calcium,Total 8.5 mg/dL (8.5-10.1); Chloride 101 mmol/L (98-107); Creatinine, Serum 0.91 mg/dL (0.70-1.30); EST Glomerular Filtration Rate 92 mL/min (>60); Est Glom Filt Rate - Afr Amer 111 mL/min (>60); Estimated Creatinine Clearance 87.69 ml/min; Glucose 208 mg/dL (70-110); Potassium 4.6 mmol/L (3.5-5.1); Sodium Level 135 mmol/L (136-145)
[2017-06-11 07:52] LABS: Hemoglobin A1c 9.8 % (4.2-6.3)
[2017-06-11] MEDS: Fluconazole 100 MG Tablet 400 MG PO (08:42)
[2017-06-11] MEDS: Metoprolol(XL)Succ 25 MG Tablet PO (08:43)
[2017-06-11] MEDS: Aspirin 81 MG TAB.CHEW PO (08:52)
[2017-06-11] MEDS: Gabapentin 800 MG Tablet PO ×2 (08:53→17:32)
[2017-06-11] MEDS: Pantoprazole Sodium 40 MG Tablet PO (08:55)
[2017-06-11] MEDS: Lisinopril 20 MG Tablet PO (08:55)
[2017-06-11] MEDS: oxyCODONE 5 MG Tablet PO ×3 (08:56→22:13)
--- NOTE | 2017-06-11 10:32 | CON.PCM_ITS ---
Problem List (1) Foot osteomyelitis, right Status: Acute Reason for Consult: osteo Consulted by: Dr. Nair History of Present Illness: The patient is a 56 year old M with DM neuropathy and recent admission for yee esophagitis who presented with 3 weeks of worsening R foot swelling, pain, and purulent/brownish drainage. Had been on po abx for his foot with no improvement, does not recall what he was taking. Also on fluconazole for the yeast. Some chills at home. Sent to ED, admitted on vanc and ertapenem. Vanc stopped yesterday due to itching and redness at infusion site, resolved when drug was stopped. Plan is for OR today due to MRI showing osteo. 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 He also reports h/o staph sternal infection requiring picc line for iv abx, managed at [facility]. Full ROS performed and neg except as noted above. - Medical History Past Medical History (Chronic Problems): Chronic Problems Yee esophagitis (Chronic) Dysphagia (Chronic) Chronic osteomyelitis, other specified site (Chronic) Malnutrition (Chronic) Compliance poor (Chronic) Peripheral vascular disease (Chronic) HTN (hypertension) (Chronic) Nicotine abuse (Chronic) Peripheral neuropathy (Chronic) CAD (coronary artery disease) (Chronic) COPD (chronic obstructive pulmonary disease) (Chronic) Type 2 diabetes mellitus with diabetic polyneuropathy (Chronic) Allergies/Adverse Reactions: Allergies vancomycin Allergy (Verified 06/10/17 18:55) Itching Home Medications: Ambulatory Orders Medication Instructions Recorded Gabapentin [Neurontin] 800 mg PO 4X/DAY 02/14/17 Lisinopril 20 mg PO DAILY 02/14/17 Metoprolol Succinate 25 mg PO DAILY 02/14/17 Simvastatin 40 mg PO DAILY 02/14/17 Aspirin [Aspirin, Baby] 81 mg PO DAILY 02/16/17 Albuterol Inhaler [Ventolin Hfa] 2 puff INHALATION Q4H PRN PRN 04/30/17 Empagliflozin [Jardiance] 1 tab PO DAILY 05/19/17 Mag Hydrox/Al Hydrox/Simeth 30 ml PO Q6H PRN PRN udc 05/26/17 [Mylanta II] Fluconazole [Diflucan] 400 mg PO DAILY 06/10/17 Insulin Aspart [Novolog Flexpen] See Protocol ACHS 06/10/17 Insulin Glargine,Hum.rec.anlog 28 unit SQ QHS 06/10/17 [Lantus] Pantoprazole Sodium [Protonix] 40 mg PO DAILY 06/10/17 - Social History Tobacco Use: cigarettes Vital Signs Temp Pulse Resp BP Pulse Ox 98.5 F 96 14 130/67 H 96 06/11/17 09:04 06/11/17 09:04 06/11/17 09:04 06/11/17 09:04 06/11/17 08:59 Oxygen Delivery Method Room Air Weight: 77.1 kg Body Mass Index (BMI) 25.8 Finger Stick Blood Glucose 167 Laboratory Tests Past 24 Hrs 06/10/17 06/10/17 06/10/17 14:55 15:35 21:20 WBC 6.0 RBC 4.25 L Hgb 12.9 L Hct 39.3 L MCV 92.5 MCH 30.4 MCHC 32.8 RDW 13.4 RDW Differential 45.2 H Plt Count 363 MPV 8.8 Immature Gran % (Auto) 0.200 Neut % (Auto) 78.9 H Lymph % (Auto) 11.[address] [place] % (Auto) 5.5 Eos % (Auto) 2.8 Baso % (Auto) 1.0 Absolute Neuts (auto) 4.8 Absolute Lymphs (auto) 0.70 L Total Counted Not Reportable Sodium Potassium Chloride Carbon Dioxide Anion Gap BUN Creatinine Estim Creat Clear Calc Est GFR (MDRD) Af Amer Est GFR (MDRD) Non-Af BUN/Creatinine Ratio Glucose Hemoglobin A1c Calcium Phosphorus 3.5 Total Bilirubin AST ALT Alkaline Phosphatase C-React Prot Ext Range < 2.90 Total Protein Albumin Globulin Albumin/Globulin Ratio Prealbumin 18.0 L S.aureus Protein A PCR NEGATIVE MRSA (PCR) Negative 06/10/17 06/11/17 06/11/17 21:20 06:13 06:13 WBC 5.1 RBC 4.31 L Hgb 13.0 Hct 39.2 L MCV 91.0 MCH 30.2 MCHC 33.2 RDW 13.1 RDW Differential 42.7 Plt Count 417 MPV 9.3 Immature Gran % (Auto) 0.200 Neut % (Auto) 82.7 H Lymph % (Auto) 14.[address] [place] % (Auto) 2.7 Eos % (Auto) 0.0 Baso % (Auto) 0.4 Absolute Neuts (auto) 4.2 Absolute Lymphs (auto) 0.72 L Total Counted Not Reportable Sodium 138 Potassium 4.4 Chloride 105 Carbon Dioxide 25.0 Anion Gap 8 BUN 12 Creatinine 0.98 Estim Creat Clear Calc 81.43 Est GFR (MDRD) Af Amer 101 Est GFR (MDRD) Non-Af 84 BUN/Creatinine Ratio 12.2 Glucose 193 H Hemoglobin A1c 9.8 H Calcium 8.6 Phosphorus Total Bilirubin 0.20 AST 46 H ALT 45 Alkaline Phosphatase 109 C-React Prot Ext Range Total Protein 6.9 Albumin 3.0 L Globulin 3.9 Albumin/Globulin Ratio 0.8 L Prealbumin S.aureus Protein A PCR MRSA (PCR) 06/11/17 06:13 WBC RBC Hgb Hct MCV MCH MCHC RDW RDW Differential Plt Count MPV Immature Gran % (Auto) Neut % (Auto) Lymph % (Auto) [place] % (Auto) Eos % (Auto) Baso % (Auto) Absolute Neuts (auto) Absolute Lymphs (auto) Total Counted Sodium 135 L Potassium 4.6 Chloride 101 Carbon Dioxide 25.0 Anion Gap 9 BUN 16 Creatinine 0.91 Estim Creat Clear Calc 87.69 Est GFR (MDRD) Af Amer 111 Est GFR (MDRD) Non-Af 92 BUN/Creatinine Ratio 17.7 Glucose 208 H Hemoglobin A1c Calcium 8.5 Phosphorus Total Bilirubin AST ALT Alkaline Phosphatase C-React Prot Ext Range Total Protein Albumin Globulin Albumin/Globulin Ratio Prealbumin S.aureus Protein A PCR MRSA (PCR) - Other Studies Radiology: [] reviewed Other Studies: [] Route of nutrition/ use of supplements: [] Nutritional Intake: [] IV Site: [] Ramirez Catheter: [] - Physical Exam General: Alert, Oriented x3, Cooperative, No apparent distress Neck: Supple, No Nodes Lungs: Clear to auscultation, Normal air movement Cardiovascular: Regular rate, Regular Rhythm, No murmurs Abdomen: Bowel Sounds Present, Soft, Non Tender, Non-Distended Skin: - - R foot wrapped, reviewed photos IV Site: Peripheral, without redness Musculoskeletal: No Tenderness to Palpation of Joints or Extremities - Assessment/Plan Antibiotics: [] Assessment/Plan: [] Active and Suspected Problems Foot osteomyelitis, right (Acute) Foot ulcer, right (Acute) Ulcer of right foot with necrosis of muscle (Acute) R foot osteo - recent wound cxs with strep mitis rothia, anaerobes, ecoli, and entercoccus faecalis. Continue ertapenem. He does need the vanc for the enterococcus coverage, so will restart at half normal infusion rate with benadryl prn for Red Man Syndrome. OR today planned for debridement/ amputation. 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 Thank you, will follow, d/w pharmacy.
[2017-06-11] MEDS: DiphenhydrAMINE 25 MG Capsule 50 MG PO ×2 (10:51→22:13)
[2017-06-11 12:26] LABS: Bedside Glucose 276 mg/dL (70-110)
--- NOTE | 2017-06-11 12:49 | CASEMGMT ---
Readmission note. Pt was admitted from 05/19/17 - 05/26/17 for DKA and right 4th toe infection. 05/31/17: Patient presents as a direct admit from Dr. Guerin in wound clinic for foul smelling ulcer on the previous fourth toe operative site. No change in providers. Patient states he was having trouble with receiving his diabetic supplies, but he has resolved this problem with his pharmacy. Insurance is [employer] and [facility]. Address updated with registration. Pharmacy updated: [facility] in [facility]. Plan: Home with family. RN CM will continue to follow and assist with dc planning.
--- NOTE | 2017-06-11 14:09 | NURSING ---
report called to rohini . patient taken down to surgery
--- NOTE | 2017-06-11 14:25 | RAD_ITS ---
STUDY: X-RAY - RIGHT FOOT CLINICAL: Male, 56 years old. Intraoperative TECHNIQUE: 3 view(s) of the foot. COMPARISON: MRI June 10, 2017 FINDINGS: Intraoperative fluoroscopy utilized for 0 minutes 4 seconds during amputation of the fourth metatarsal . RAD/Foot 2 Views IMPRESSION: Intraoperative fluoroscopy during amputation of the fourth metatarsal. Electronically Signed: Jarret Lawrence MD at 19:57 EST , Service support ,
[2017-06-11] MEDS: Bupivacaine Mpf 0.5% 30 ML VIAL (14:39)
--- NOTE | 2017-06-11 15:54 | RAD_ITS ---
STUDY: X-RAY - RIGHT FOOT CLINICAL: Male, 56 years old. Postop. TECHNIQUE: 3 view(s) of the foot. COMPARISON: MRI June 10, 2017 FINDINGS: Normal talus, calcaneus, and tarsal bones. Normal visualized subtalar, talonavicular, calcaneocuboid, tarsal and tarsometatarsal articulations. Amputation of the fourth digit at the mid metatarsal. Postoperative changes in the adjacent soft tissues. Normal metatarsophalangeal joint of the great toe. Normal tibial and fibular sesamoid bones. Normal interphalangeal joint of the great toe. Normal phalanges of the great toe. Normal second through fifth metatarsophalangeal joints. Normal interphalangeal joints and phalanges of the lesser toes. RAD/Foot min 3 Views IMPRESSION: Fourth digit amputation. Electronically Signed: Jarret Lawrence MD at 20:06 EST , Service support ,
--- NOTE | 2017-06-11 15:59 | PCM.IMDPSTOP ---
Problem List (1) Foot osteomyelitis, right Status: Acute (2) Ulcer of right foot with necrosis of muscle Status: Chronic (3) Peripheral vascular disease Status: Chronic (4) Type 2 diabetes mellitus with diabetic polyneuropathy Status: Chronic Immediate Post-Op Note Date of Procedure: 06/11/17 Primary Surgeon/Physician: Bettie Cantu DPM staff mine warfare officer: none Pre-Operative Diagnosis: chronic right foot ulcer. osteomyelitis of right fourth metatarsal Post-Operative Diagnosis: chronic right foot ulcer. osteomyelitis of right fourth metatarsal Surgery/Procedure Performed:: fourth metatarsal head resection with bone biopsy, right foot. (ulcer debridement including subcutaneous tissue and bone) Description of Surgical Findings:: Hemostasis controlled No purulence or necrosis after metatarsal head resection was performed and irrigation See detailed operation report The patient tolerated the procedure and anesthesia well. He was transferred to the PACU with vital signs stable and vascular status intact to the right lower extremity. [facility] will [facility] transferred [facility] floor upon continued stability. All of his postoperative orders were entered electronically. His microbiology and pathology specimens are pending. Estimated Blood Loss: <100 mL Specimen's removed: 1. Pathology: Right fourth metatarsal head. 2. Pathology: Right fourth metatarsal head clearance fragment. 3. Microbiology: Right fourth metatarsal head clearance fragment (aerobic, anaerobic, acid-fast, fungal ) Type of Anesthesia:: Local MAC - Preoperative: 10 cc of 1: 1 mixture of 1% lidocaine plain and 0.5% Marcaine plain administered in typical third, fourth, and fifth ray block typical fashion to the right foot - Admit VTE Documentation VTE Present on Admission: No VTE Mechan Device Prophylaxis: SCD's VTE Pharm Prophylaxis ordered?: Yes
--- NOTE | 2017-06-11 16:07 | OP.PN_ITS ---
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 osteomyelitis of right fourth metatarsal Post-Operative Diagnosis: chronic right foot ulcer. osteomyelitis of right fourth metatarsal Surgery/Procedure Performed:: fourth metatarsal head resection with bone biopsy , right foot. (ulcer debridement including subcutaneous tissue and bone) Description of Surgical Findings:: Hemostasis controlled No purulence or necrosis after metatarsal head resection was performed and irrigation See detailed operation report The patient tolerated the procedure and anesthesia well. He was transferred to the PACU with vital signs stable and vascular status intact to the right lower extremity. He will be transferred back to the [facility] medical surgical floor upon continued stability. All of his postoperative orders were entered electronically. His microbiology and pathology specimens are pending. Estimated Blood Loss: <100 mL Specimen's removed: 1. Pathology: Right fourth metatarsal head. 2. Pathology : Right fourth metatarsal head clearance fragment. 3. Microbiology: Right fourth metatarsal head clearance fragment (aerobic, anaerobic, acid-fast, fungal ) Type of Anesthesia:: Local MAC - Preoperative: 10 cc of 1: 1 mixture of 1% lidocaine plain and 0.5% Marcaine plain administered in typical third, fourth, and fifth ray block typical fashion to the right foot - Admit VTE Documentation VTE Present on Admission: No VTE Mechan Device Prophylaxis: SCD's VTE Pharm Prophylaxis ordered?: Yes
--- NOTE | 2017-06-11 16:08 | PCM.OPRPT ---
Problem List (1) Foot osteomyelitis, right Status: Chronic (2) Ulcer of right foot with necrosis of muscle Status: Chronic (3) Peripheral vascular disease Status: Chronic (4) Type 2 diabetes mellitus with diabetic polyneuropathy Status: Chronic Report of Operation Date of Procedure: 06/11/17 Pre-Operative Diagnosis: chronic right foot ulcer. osteomyelitis of right fourth metatarsal Post-Operative Diagnosis: chronic right foot ulcer. osteomyelitis of right fourth metatarsal Surgery/Procedure Performed:: fourth metatarsal head resection with bone biopsy, right foot. (ulcer debridement including subcutaneous tissue and bone) Description of Surgical Findings:: Hemostasis: No tourniquet utilized, anatomic dissection performed, minimal electrocauterization Materials: 2-0 nylon Complications: None administrative project coordinator: none Type of Anesthesia:: Local MAC - Preoperative: 10 cc of 1: 1 mixture of 1% lidocaine plain and 0.5% Marcaine plain administered in typical third, fourth, and fifth ray block typical fashion to the right foot Specimen's removed: 1. Pathology: Right fourth metatarsal head. 2. Pathology: Right fourth metatarsal head clearance fragment. 3. Microbiology: Right fourth metatarsal head clearance fragment (aerobic, anaerobic, acid-fast, fungal ) Estimated Blood Loss (mL): <100 mL Description of Procedure: Indications: This 56 year old male patient with significant past medical history of diabetes with neuropathy, peripheral vascular disease, CAD, COPD, h/o delayed healing/infections/amputations and HTN has a non healing open 4th toe amputation performed in February 2017. He recently had a revascularization of the right lower extremity with vascular surgeon Dr. Swan. Recently his foot has developed an odor with increased pain and progressive infection. He was admitted for IV antibiotics and surgical debridement including metatarsal head resection. His x-rays did not demonstrate any soft tissue emphysema or acute fractures or dislocations. There is some diminished visualization of the metatarsal heads in general but no jacques osseous destruction. Therefore, an MRI was ordered which did suggest osteomyelitis locally at the fourth metatarsal head where an area of increased hyperintensity on T2 corresponded with hypointensity on T1. Clinically, the fourth toe amputation ulcer site is fibrous with an odor and partially liquefied tissue. There is no jacques purulence or necrosis on palpation. His capillary refill time is less than 3 seconds to all the other remaining digits of the right foot. Medical management is performed by the hospitalist team as well as infectious disease team which is greatly appreciated. His preoperative diagnostic data including lab values (cbc, cmp) were also reviewed prior to going surgery. He did not demonstrate leukocytosis (wbc 5.1) and ESR 22. His last hemoglobin A1C was 9.8%. The preoperative indications, planned procedure, possible benefits, risks, complications, and anticipated healing time and management were discussed in detail the patient. He understands and elects to proceed with surgery at this time. No guarantees were made. He understands the following potential complications may occur but are not limited to: Continued pain, swelling, scarring, continued infection, delayed or nonhealing, allergy, blood clot, need for revisional surgery, loss of limb, function, or life. I answered all of his questions. The surgical limb and the surgical consent was signed. Procedure in detail: This patient was transported to the operating room via cart and placed on the operating table in supine position. Final verification the patient, surgery, and limb designation was performed via the timeout procedure. The preoperative local anesthetic was administered as noted above by myself. A well-padded pneumatic right ankle tourniquet was placed however this was not utilized. A right hip bump was placed to allow good exposure. The right lower extremity was prepped and draped according to standard protocol. IV antibiotics are already being administered on the regular medicine floor and additional antibiotics were not administered. MAC anesthesia was initiated by the anesthesia team. Surgery began as a following: Attention was first directed to the open right foot wound at the initial fourth toe amputation site in which a 15 blade was used to excise the nonviable fibrous ulcer which was removed from the table in total. Care was taken to identify, protect, and retract all neurovascular structures throughout the entire procedure. Next a 15 blade was used to extend the incision dorsally on the foot to expose the fourth metatarsal head. Soft tissue was gently pushed to the side with a edwards elevator and a sagittal saw was used to resect the fourth metatarsal head. This was sent to microbiology. Next clean instrumentation drapery and gloves were used after the site was copiously irrigated with normal saline. A clearance fragment was next obtained with the sagittal saw and this was sent as a clearance fragment to both microbiology and pathology. The bone was firm and not discolored. The wound bed was checked for devitalized tissue which was removed. Capillary refill time was noted to be brisk to the adjacent third and fourth toes. Minimal electrocauterization and was used in addition to pressure for hemostasis. The tissues appeared very healthy at this time and there is no deep purulence or odors noted. An intraoperative fluoroscopy x-ray exam was utilized to confirm adequate fourth ray resection in 3 planes. No acute injuries were noted. The skin and deep tissues were gently rotated reapproximated with retention 2-0 nylon sutures to allow continued drainage in a non-tensile manner. A postoperative dressing consisting of Adaptic soaked in Betadine, gauze, Kerlix, and Mello wrap were applied. After procedure: The patient tolerated the procedure and anesthesia well. He was transferred to the PACU with vital signs stable and vascular status intact to the right lower extremity. He will be transferred back to the regular medical surgical floor upon continued stability. He will be advised to keep his dressing clean, dry, and intact. To remain nonweightbearing at this time and to use a walker for assistive device. His microbiology and pathology specimen results are pending. To continue on IV antibiotics per infectious disease. To continue medical management and DVT prophylaxis with the hospitalist team. To elevate his limb for postoperative pain and inflammation management. I will continue to follow him closely while in house. Bettie Cantu DPM, [facility]
--- NOTE | 2017-06-11 16:18 | OP.PCM_ITS ---
Problem List (1) Foot osteomyelitis, right Status: Chronic (2) Ulcer of right foot with necrosis of muscle Status: Chronic (3) Peripheral vascular disease Status: Chronic (4) Type 2 diabetes mellitus with diabetic polyneuropathy Status: Chronic Report of Operation Date of Procedure: 06/11/17 Pre-Operative Diagnosis: chronic right foot ulcer. osteomyelitis of right fourth metatarsal Post-Operative Diagnosis: chronic right foot ulcer. osteomyelitis of right fourth metatarsal Surgery/Procedure Performed:: fourth metatarsal head resection with bone biopsy , right foot. (ulcer debridement including subcutaneous tissue and bone) Description of Surgical Findings:: Hemostasis: No tourniquet utilized, anatomic dissection performed, minimal electrocauterization Materials: 2-0 nylon Complications: None print graphic designer: none Type of Anesthesia:: Local MAC - Preoperative: 10 cc of 1: 1 mixture of 1% lidocaine plain and 0.5% Marcaine plain administered in typical third, fourth, and fifth ray block typical fashion to the right foot Specimen's removed: 1. Pathology: Right fourth metatarsal head. 2. Pathology : Right fourth metatarsal head clearance fragment. 3. Microbiology: Right fourth metatarsal head clearance fragment (aerobic, anaerobic, acid-fast, fungal ) Estimated Blood Loss (mL): <100 mL Description of Procedure: Indications: This 56 year old male patient with significant past medical history of diabetes with neuropathy, peripheral vascular disease, CAD, COPD, h/o delayed healing/ infections/amputations and HTN has a non healing open 4th toe amputation performed in February 2017. He recently had a revascularization of the right lower extremity with vascular surgeon Dr. Swan. Recently his foot has developed an odor with increased pain and progressive infection. He was admitted for IV antibiotics and surgical debridement including metatarsal head resection. His x-rays did not demonstrate any soft tissue emphysema or acute fractures or dislocations. There is some diminished visualization of the metatarsal heads in general but no jacques osseous destruction. Therefore, an MRI was ordered which did suggest osteomyelitis locally at the fourth metatarsal head where an area of increased hyperintensity on T2 corresponded with hypointensity on T1. Clinically, the fourth toe amputation ulcer site is fibrous with an odor and partially liquefied tissue. There is no jacques purulence or necrosis on palpation. His capillary refill time is less than 3 seconds to all the other remaining digits of the right foot. Medical management is performed by the hospitalist team as well as infectious disease team which is greatly appreciated. His preoperative diagnostic data including lab values (cbc, cmp) were also reviewed prior to going surgery. He did not demonstrate leukocytosis (wbc 5.1) and ESR 22. His last hemoglobin A1C was 9.8%. The preoperative indications, planned procedure, possible benefits, risks, complications, and anticipated healing time and management were discussed in detail the patient. He understands and elects to proceed with surgery at this time. No guarantees were made. He understands the following potential complications may occur but are not limited to: Continued pain, swelling, scarring, continued infection, delayed or nonhealing, allergy, blood clot, need for revisional surgery, loss of limb, function, or life. I answered all of his questions. The surgical limb and the surgical consent was signed. Procedure in detail: This patient was transported to the operating room via cart and placed on the operating table in supine position. Final verification the patient, surgery, and limb designation was performed via the timeout procedure. The preoperative local anesthetic was administered as noted above by myself. A well-padded pneumatic right ankle tourniquet was placed however this was not utilized. A right hip bump was placed to allow good exposure. The right lower extremity was prepped and draped according to standard protocol. IV antibiotics are already being administered on the regular medicine floor and additional antibiotics were not administered. MAC anesthesia was initiated by the anesthesia team. Surgery began as a following: Attention was first directed to the open right foot wound at the initial fourth toe amputation site in which a 15 blade was used to excise the nonviable fibrous ulcer which was removed from the table in total. Care was taken to identify, protect, and retract all neurovascular structures throughout the entire procedure. Next a 15 blade was used to extend the incision dorsally on the foot to expose the fourth metatarsal head. Soft tissue was gently pushed to the side with a edwards elevator and a sagittal saw was used to resect the fourth metatarsal head. This was sent to microbiology. Next clean instrumentation drapery and gloves were used after the site was copiously irrigated with normal saline. A clearance fragment was next obtained with the sagittal saw and this was sent as a clearance fragment to both microbiology and pathology. The bone was firm and not discolored. The wound bed was checked for devitalized tissue which was removed. Capillary refill time was noted to be brisk to the adjacent third and fourth toes. Minimal electrocauterization and was used in addition to pressure for hemostasis. The tissues appeared very healthy at this time and there is no deep purulence or odors noted. An intraoperative fluoroscopy x-ray exam was utilized to confirm adequate fourth ray resection in 3 planes. No acute injuries were noted. The skin and deep tissues were gently rotated reapproximated with retention 2-0 nylon sutures to allow continued drainage in a non-tensile manner. A postoperative dressing consisting of Adaptic soaked in Betadine, gauze, Kerlix, and Mello wrap were applied. After procedure: The patient tolerated the procedure and anesthesia well. He was transferred to the PACU with vital signs stable and vascular status intact to the right lower extremity. He will be transferred back to the regular medical surgical floor upon continued stability. He will be advised to keep his dressing clean, dry, and intact. To remain nonweightbearing at this time and to use a walker for assistive device. His microbiology and pathology specimen results are pending. To continue on IV antibiotics per infectious disease. To continue medical management and DVT prophylaxis with the hospitalist team. To elevate his limb for postoperative pain and inflammation management. I will continue to follow him closely while in house. Bettie Cantu DPM, [facility]
[2017-06-11] MEDS: Glucerna Shake 120 ML LIQUID PO (17:31)
[2017-06-11] MEDS: Atorvastatin Calcium 20 MG Tablet PO (17:32)
[2017-06-11 17:41] LABS: Bedside Glucose 142 mg/dL (70-110)
--- NOTE | 2017-06-11 19:29 | PN_ITS ---
Patient Problems: Active and Suspected Problems Foot osteomyelitis, right (Acute) Foot ulcer, right (Acute) Subjective: Patient was seen and examined postoperatively today. He denies chest pain, shortness of breath, nausea, abdominal pain, dizziness, shortness of breath. His only complaint currently is pain in his right foot. Current vital signs are temperature 97?F, heart rate 84, blood pressure 141/76, respiratory rate 14 and he is 95% saturated on room air. Blood pressures have been mildly elevated since admission. All lab was reviewed. White blood cell count remains within normal limits with a left shift. Hemoglobin and platelets are normal. Sodium is mildly decreased at 135 and the other electrolytes are within normal limits. BUN is 16 with a creatinine of 0.91. Hemoglobin A1c is 9.8. Blood sugars today have been erratic because he was n.p.o. for surgery. Wound culture sent on 06/10/2017 shows a gram-negative gonzales lactose director of health care marketing and a gram-positive organism. Repeat cultures were obtained at the time of surgery today. MRI showed focal osteomyelitis of the right fourth metatarsal head. The surgery performed today was resection of the fourth metatarsal head with bone biopsy. The ulcer was debrided including subcutaneous tissue and bone. - Physical Exam General: Alert, Oriented x3, Cooperative, - - having some pain currently ans is requesting pain medication which he states is helpful in relieving the pain but it comes back. HEENT: Atraumatic, Normocephalic Oral: No Gingival or Mucosal Lesions/ Ulcerations, Dry Mucosa Neck: Supple, Negative Carotid Bruits Lungs: Clear to auscultation Cardiovascular: Regular rate, Regular Rhythm, Normal S1, Normal S2, No murmurs, No Ectopic Activity, No rub noted, No Gallop Abdomen: Bowel Sounds Present, Soft, Non Tender, Non-Distended Extremities: No clubbing, No cyanosis, No edema, - - The right foot is dressed and will examine in the AM when podiatry changes the dressing Neurological: Cranial nerves II-XII grossly intact, Neuro grossly intact Psych/Mental Status: Normal Affect, Appropriate Vital Signs Temp Pulse Resp BP Pulse Ox 97 F L 84 14 141/76 H 95 06/11/17 19:13 06/11/17 19:13 06/11/17 19:13 06/11/17 19:13 06/11/17 19:13 Oxygen Delivery Method Room Air Weight: 169 lb 15.622 oz Body Mass Index (BMI) 25.8 Finger Stick Blood Glucose 167 Intake and Output for Last 24 Hours 06/09/17 06/10/17 06/11/17 23:59 23:59 23:59 Intake Total 1176 / 1176 2623 / 2623 Output Total 875 / 875 700 / 700 Balance 301 / 301 1923 / 1923 Microbiology Past 72 Hours 06/10/17 15:35 Gram Stain - Final Wound - Right Foot Wound Culture - Preliminary GNR lactose director of health care marketing Gram positive organism Laboratory Tests Past 24 Hrs 06/10/17 06/10/17 06/11/17 21:20 21:20 06:13 WBC 6.0 RBC 4.25 L Hgb 12.9 L Hct 39.3 L MCV 92.5 MCH 30.4 MCHC 32.8 RDW 13.4 RDW Differential 45.2 H Plt Count 363 MPV 8.8 Immature Gran % (Auto) 0.200 Neut % (Auto) 78.9 H Lymph % (Auto) 11.6 L Gaines % (Auto) 5.5 Eos % (Auto) 2.8 Baso % (Auto) 1.0 Absolute Neuts (auto) 4.8 Absolute Lymphs (auto) 0.70 L Total Counted Not Reportable Sodium 138 Potassium 4.4 Chloride 105 Carbon Dioxide 25.0 Anion Gap 8 BUN 12 Creatinine 0.98 Estim Creat Clear Calc 81.43 Est GFR (MDRD) Af Amer 101 Est GFR (MDRD) Non-Af 84 BUN/Creatinine Ratio 12.2 Glucose 193 H Hemoglobin A1c 9.8 H Calcium 8.6 Total Bilirubin 0.20 AST 46 H ALT 45 Alkaline Phosphatase 109 Total Protein 6.9 Albumin 3.0 L Globulin 3.9 Albumin/Globulin Ratio 0.8 L 06/11/17 06/11/17 06:13 06:13 WBC 5.1 RBC 4.31 L Hgb 13.0 Hct 39.2 L MCV 91.0 MCH 30.2 MCHC 33.2 RDW 13.1 RDW Differential 42.7 Plt Count 417 MPV 9.3 Immature Gran % (Auto) 0.200 Neut % (Auto) 82.7 H Lymph % (Auto) 14.0 L Gaines % (Auto) 2.7 Eos % (Auto) 0.0 Baso % (Auto) 0.4 Absolute Neuts (auto) 4.2 Absolute Lymphs (auto) 0.72 L Total Counted Not Reportable Sodium 135 L Potassium 4.6 Chloride 101 Carbon Dioxide 25.0 Anion Gap 9 BUN 16 Creatinine 0.91 Estim Creat Clear Calc 87.69 Est GFR (MDRD) Af Amer 111 Est GFR (MDRD) Non-Af 92 BUN/Creatinine Ratio 17.7 Glucose 208 H Hemoglobin A1c Calcium 8.5 Total Bilirubin AST ALT Alkaline Phosphatase Total Protein Albumin Globulin Albumin/Globulin Ratio POC Glucose 06/11/17 06/11/17 06/11/17 17:29 12:17 06:50 POC Glucose 142 H 276 H 213 H 06/11/17 06/10/17 02:10 21:17 POC Glucose 230 H 198 H Assessment/Plan Active and Suspected Problems Foot osteomyelitis, right (Acute) Foot ulcer, right (Acute) Ertapenem and vancomycin day #2 Impressions 1. Infected Diabetic ulcer right foot with necrotic muscle and focal osteomyelitis of the right fourth metatarsal head - S/P resection of the right fourth metatarsal head and debridement of necrotic bone and muscle by Dr. Cantu on 06/11/2017 2. Peripheral vascular disease 3. Recently diagnosed Yee esophagitis-on Diflucan 4. Uncontrolled diabetes mellitus type 2 - non-compliant with diet 5. Coronary artery disease with hx of CABG and still smoking 6. COPD 7. Hypertension 8. malnutrition ruled out...please see the dieticians note 9. Nicotine dependence 10. Diabetic peripheral polyneuropathy 11. Hyperlipidemia 12. subclavian stenosis - previous stent occluded on CT chest with contrast on 05/24/17 13. Fatty infiltration of the liver Continue ertapenem and vancomycin until wound cultures are available Pt has CAD, HTN, HLD, continued nicotine dependence, uncontrolled DM II, non- compliance with diet and severe PVD with hx of stents......his chance for a long life is seriously limited. Smoking cessation advised and counselling given. Will need to be non-weight bearing on the R forefoot...PT consult to instruct in proper use of assistive device to facilitate non-weight bearing. Code Visit Inpatient E&M: 37516 Subs Hosp L3
[2017-06-11 22:56] LABS: Bedside Glucose 220 mg/dL (70-110)
[2017-06-12] VITALS (11 sets, daily range): BP systolic 129–189; BP diastolic 64–90; PULSE 66–90; RESP 12–18; TEMP 36.3–37.1; O2SAT 95–97
[2017-06-12] MEDS: oxyCODONE 5 MG Tablet PO ×5 (03:45→22:23)
[2017-06-12] MEDS: 0.9% Normal Saline 1,000 ML 75 ML IV ×2 (06:54→23:13)
[2017-06-12 07:10] LABS: Bedside Glucose 103 mg/dL (70-110)
[2017-06-12] MEDS: Gabapentin 800 MG Tablet PO ×4 (08:40→21:38)
[2017-06-12] MEDS: Metoprolol(XL)Succ 25 MG Tablet PO ×2 (08:40→23:52)
[2017-06-12] MEDS: Aspirin 81 MG TAB.CHEW PO (08:40)
[2017-06-12] MEDS: Lisinopril 20 MG Tablet PO ×2 (08:40→23:52)
[2017-06-12] MEDS: Fluconazole 100 MG Tablet 400 MG PO (08:40)
[2017-06-12] MEDS: Pantoprazole Sodium 40 MG Tablet PO (08:40)
[2017-06-12] MEDS: Glucerna Shake 120 ML LIQUID PO ×2 (08:41→21:38)
--- NOTE | 2017-06-12 10:29 | PN.ID_ITS ---
Patient Problems: Active and Suspected Problems Foot osteomyelitis, right (Acute) Foot ulcer, right (Acute) Subjective: Doing ok post-op, no fever. No n/v/d. Pain in foot. - Physical Exam General: Alert, Cooperative, No apparent distress Lungs: Clear to auscultation, Normal air movement Cardiovascular: Regular rate, Regular Rhythm Abdomen: Soft, Non Tender, Non-Distended Skin: - - Foot wrapped s/p OR Vital Signs Temp Pulse Resp BP Pulse Ox 97.9 F 71 14 176/85 H 97 06/12/17 08:36 06/12/17 08:40 06/12/17 08:36 06/12/17 08:36 06/12/17 08:36 Oxygen Delivery Method Room Air Weight: 77.1 kg Body Mass Index (BMI) 25.8 Finger Stick Blood Glucose 167 Intake and Output for Last 24 Hours 06/10/17 06/11/17 06/12/17 23:59 23:59 23:59 Intake Total 1176 / 1176 3063 / 3063 553 / 553 Output Total 875 / 875 1000 / 1000 450 / 450 Balance 301 / 301 2063 / 2063 103 / 103 Microbiology Past 72 Hours 06/11/17 Unknown Gram Stain - Final Biopsy - Bone Wound Culture - Preliminary No growth-Final to follow 06/10/17 15:35 Gram Stain - Final Wound - Right Foot Wound Culture - Preliminary Escherichia coli Gram positive organism Anaerobic Culture - Preliminary Checking for anaerobes, further studies to follow. POC Glucose 06/12/17 06/11/17 06/11/17 06:53 21:58 17:29 POC Glucose 103 220 H 142 H 06/11/17 12:17 POC Glucose 276 H Route of nutrition/ use of supplements: [] Nutritional Intake: [] IV Site: [] Ramirez Catheter: [] - Assessment/Plan Antibiotics: [] Assessment/Plan: [] Active and Suspected Problems Foot osteomyelitis, right (Acute) Foot ulcer, right (Acute) Ulcer of right foot with necrosis of muscle (Acute) R foot osteo - recent wound cxs with strep mitis rothia, anaerobes, ecoli, and entercoccus faecalis. Continue ertapenem. Tolerating vanc well at half normal infusion rate with benadryl prn for Red Man Syndrome. Taken to OR 06/[address] Cantu for resection. Surg cx and path pending. If clearance fragments are clear, could leave on short 5 day course of po linezolid/flagyl/cefdinir to cover prior growth. If fragments are (+) for residual infection, plan would be for 6 week course of iv abx, likely vanc and erta. will follow, d/w disease case manager
[2017-06-12] MEDS: DiphenhydrAMINE 25 MG Capsule 50 MG PO ×2 (10:48→22:23)
[2017-06-12 11:36] LABS: Bedside Glucose 134 mg/dL (70-110)
--- NOTE | 2017-06-12 13:04 | PN_ITS ---
Patient Problems: Active and Suspected Problems Foot osteomyelitis, right (Acute) Foot ulcer, right (Acute) Subjective: This 56-year-old male with diabetes and peripheral vascular disease status post intervention was seen bedside postoperative right foot fourth metatarsal head resection including bone biopsy. He relates his foot is sore to a moderate degree. He denies fever, chill, nausea, vomiting. He has been elevating his foot. He is eager to return home. - Physical Exam General: Alert, Oriented x3, Cooperative Extremities: No cyanosis, Capillary Refill Less than 3 Seconds - Digits 1-3 and 5 right foot, No Calf Tenderness - Negative Jaime and Valverde sign right lower extremity, Diminished Peripheral Pulses, Edema - Minimal right foot Skin: Incision - Well aligned and partially coapted with spaced out retention sutures in place. There is some moisture along the lateral border without jacques maceration, purulence, odor, streaking, or acute infection. There is no necrosis., - - His skin is atrophic Musculoskeletal: No Tenderness to Palpation of Joints or Extremities, Muscle Wasting, - - Fourth toe has been surgically removed right foot. Active range of motion of remaining digits noted right foot Neurological: - - Lack of epicritic sensation to light touch right lower extremity Psych/Mental Status: Normal Affect, Appropriate Vital Signs Temp Pulse Resp BP Pulse Ox 97.9 F 71 14 176/85 H 97 06/12/17 08:36 06/12/17 08:40 06/12/17 08:36 06/12/17 08:36 06/12/17 08:36 Oxygen Delivery Method Room Air Weight: 77.1 kg Body Mass Index (BMI) 25.8 Finger Stick Blood Glucose 167 Intake and Output for Last 24 Hours 06/10/17 06/11/17 06/12/17 23:59 23:59 23:59 Intake Total 1176 / 1176 3063 / 3063 1156 / 1156 Output Total 875 / 875 1000 / 1000 450 / 450 Balance 301 / 301 2063 / 2063 706 / 706 Microbiology Past 72 Hours 06/10/17 15:35 Gram Stain - Final Wound - Right Foot Wound Culture - Preliminary Escherichia coli Gram Positive Cocci Gram positive gonzales Anaerobic Culture - Preliminary Checking for anaerobes, further studies to follow. 06/11/17 Unknown Gram Stain - Final Biopsy - Bone Wound Culture - Preliminary No growth-Final to follow POC Glucose 06/12/17 06/12/17 06/11/17 11:25 06:53 21:58 POC Glucose 134 H 103 220 H 06/11/17 17:29 POC Glucose 142 H Assessment/Plan Active and Suspected Problems Foot osteomyelitis, right (Acute) Foot ulcer, right (Acute) Postoperative day #1 fourth ray resection including bone biopsy right foot secondary to infection and osteomyelitis and chronic nonhealing ulcer diabetes with neuropathy Peripheral vascular disease Malnutrition suspected Smoker History of compliance difficulty I reviewed and discussed his case today. His surgical site was undressed and evaluated. A new dressing consisting of Betadine soaked gauze, Guillermo and Mello wrap were reapplied. To keep clean dry and intact. I plan changes again tomorrow. To elevate limb at rest. His intraoperative microbiology and pathology specimens of the fourth metatarsal clearance fragment are pending. His recent clinical wound cultures had strep mitis rothia, anaerobes, ecoli, and entercoccus faecalis. He continues on vancomycin and ertapenem at this time. Infectious disease on consult and is greatly appreciated. IV versus oral antibiotics will be implemented pending his clearance fragment results. Post operative x-rays were reviewed with status post excision of the fourth metatarsal head. No acute injuries are noted. Lab trends will be monitored. To keep weight off of the forefoot of his right lower extremity it is okay for him to heal weight-bear with surgical shoe in place. If he is unable to do so I recommend he goes nonweightbearing with use of a walker for assistance. To continue with proper glycemic control nutritional supplementation optimize healing. To quit smoking to optimize healing. It is noted he had recent vascular surgery intervention to optimize his peripheral flow and he will follow -up with Dr. Swan in the outpatient setting. I will continue to follow him closely while in house. Medical management and DVT prophylaxis per primary team is appreciated. At time of discharge I recommend he [facility]. Bettie Cantu, [facility] [phone]
--- NOTE | 2017-06-12 14:18 | NURSING ---
Dressing to the right foot was performed by Dr Cantu today. Dressing is to remain in place and Dr Cantu plans to re-evaluate again tomorrow.
[2017-06-12] MEDS: Mag Hydrox/Al Hydrox/Simeth 30 ML UDC PO (14:30)
[2017-06-12] MEDS: Escitalopram Oxalate 10 MG Tablet PO (15:33)
[2017-06-12 16:21] LABS: Bedside Glucose 171 mg/dL (70-110)
[2017-06-12] MEDS: Albuterol 2.5 MG/3 ML VIAL.NEB. INHALATION (21:20)
[2017-06-12] MEDS: Atorvastatin Calcium 20 MG Tablet PO (21:32)
[2017-06-12 21:46] LABS: Bedside Glucose 161 mg/dL (70-110)
[2017-06-12 23:28] LABS: Vancomycin, Trough Level 14.8 ug/mL (5.0-15.0)
[2017-06-13] VITALS (7 sets, daily range): BP systolic 133–177; BP diastolic 77–87; PULSE 78–95; RESP 14–18; TEMP 36.6–37.4; O2SAT 95–100
[2017-06-13] MEDS: oxyCODONE 5 MG Tablet PO ×4 (04:17→20:02)
[2017-06-13 06:52] LABS: Bedside Glucose 60 mg/dL (70-110)
[2017-06-13 07:26] LABS: Bedside Glucose 79 mg/dL (70-110)
[2017-06-13 07:26] LABS: Bedside Glucose 54 mg/dL (70-110)
[2017-06-13] MEDS: Aspirin 81 MG TAB.CHEW PO (08:39)
[2017-06-13] MEDS: Gabapentin 800 MG Tablet PO ×4 (08:39→22:16)
--- NOTE | 2017-06-13 08:44 | PN_ITS ---
Patient Problems: Active and Suspected Problems Foot osteomyelitis, right (Acute) Foot ulcer, right (Acute) Subjective: This 56-year-old male was seen bedside postoperative day #2 right foot fourth ray resection for treatment of osteomyelitis and nonhealing ulcer. He denies fever, chill, nausea, vomiting. He does still have some pain to his surgical site. He is kept his dressing intact and elevating at the time of the evaluation. - Physical Exam General: Alert, Oriented x3, Cooperative Extremities: No cyanosis, Capillary Refill Less than 3 Seconds, No Calf Tenderness - Negative Jaime and Valverde right, Diminished Peripheral Pulses, Edema - Decreased right forefoot Skin: Incision - Well aligned and partially coapted with 3 tension spaced out sutures to the fourth ray resection site. There is no erythema, no odor, no purulence on expression, no crepitus on palpation. Musculoskeletal: Muscle Wasting, Tenderness - Surgical site and not to the remainder of the foot right lower extremity, - - Fourth ray resection Neurological: - - Lack of epicritic sensation light touch right foot Psych/Mental Status: Normal Affect, Appropriate Vital Signs Temp Pulse Resp BP Pulse Ox 97.9 F 78 16 177/77 H 95 06/13/17 04:05 06/13/17 04:05 06/13/17 04:05 06/13/17 04:05 06/13/17 04:05 Oxygen Delivery Method Room Air Weight: 77.1 kg Body Mass Index (BMI) 25.8 Finger Stick Blood Glucose 167 Intake and Output for Last 24 Hours 06/11/17 06/12/17 06/13/17 23:59 23:59 23:59 Intake Total 3063 / 3063 2263 / 2263 421 / 421 Output Total 1000 / 1000 950 / 950 350 / 350 Balance 2063 / 2063 1313 / 1313 71 / 71 Microbiology Past 72 Hours 06/10/17 15:35 Gram Stain - Final Wound - Right Foot Wound Culture - Final Escherichia coli Enterococcus faecalis Corynebacterium amycolatum Anaerobic Culture - Preliminary Checking for anaerobes, further studies to follow. 06/10/17 15:03 Blood Culture - Preliminary Blood Culture (Wb) #2 - Anticubital Right No growth in 48 hours. 06/10/17 14:55 Blood Culture - Preliminary Blood Culture (Wb) - Anticubital Left No growth in 48 hours. 06/11/17 Unknown Gram Stain - Final Biopsy - Bone Wound Culture - Preliminary No growth-Final to follow Laboratory Tests Past 24 Hrs 06/12/17 22:45 Vancomycin Trough 14.8 POC Glucose 06/13/17 06/13/17 06/13/17 07:17 07:00 06:42 POC Glucose 79 54 L 60 L 06/12/17 06/12/17 06/12/17 21:35 16:04 11:25 POC Glucose 161 H 171 H 134 H Assessment/Plan Active and Suspected Problems Foot osteomyelitis, right (Acute) Foot ulcer, right (Acute) Postoperative day #2 fourth ray resection including bone biopsy right foot secondary to infection and osteomyelitis and chronic nonhealing ulcer diabetes with neuropathy Peripheral vascular disease Malnutrition suspected Smoker History of compliance difficulty I reviewed and discussed his case today. His surgical site was undressed and evaluated. A new dressing consisting of Betadine soaked gauze, Guillermo and Mello wrap were reapplied. I recommend home health twice weekly to help with this dressing care at the time of discharge. To keep clean dry and intact. To elevate limb at rest. His intraoperative final microbiology and pathology specimens of the fourth metatarsal clearance fragment are pending. The preliminary microbiology specimen from the clearance fragment demonstrates gram-positive growth. The clearance fragment pathology specimen is still decalcifying in the report is pending. Infectious disease on consult and is greatly appreciated. A PICC line will be placed in plan is for 6 weeks of IV antibiotics (vancomycin and ertapenem) with serial labs. To keep weight off of the forefoot of his right lower extremity it is okay for him to heel weight-bear with surgical shoe in place. If he is unable to do so I recommend he goes nonweightbearing with use of a walker for assistance. To continue with proper glycemic control nutritional supplementation optimize healing. To quit smoking to optimize healing. It is noted he had recent vascular surgery intervention to optimize his peripheral flow and he will follow -up with Dr. Swan in the outpatient setting. Medical management and DVT prophylaxis per primary team is appreciated. At time of discharge I recommend he follows up with [facility] in one [facility]. Bettie Cantu, [facility] [phone]
--- NOTE | 2017-06-13 09:00 | CASEMGMT ---
Addendum entered by Chelsie Hung 06/13/17 11:01: Per Darby RN, received call from Dr. Keller that pt now has a positive culture and will need PICC line and IV antibx at discharge. Script obtained from Dr. Keller at this time and referral faxed to [facility] at this time. Per Christa, wound nurse, for Dr. Cantu, pt will need dressing change 1-2 times/week by C RN. This RN CM attempted to speak with pt regarding discharge planning and he is asleep at this time and does not awaken to knock on door or verbal stimuli. Mitesh CARBAJAL CM Original Note: Per Dr. Keller, pt to home on po antibx at this time with pending cultures. Mitesh CARBAJAL CM
[2017-06-13] MEDS: Fluconazole 100 MG Tablet 400 MG PO (09:31)
[2017-06-13] MEDS: Glucerna Shake 120 ML LIQUID PO ×3 (09:31→22:15)
[2017-06-13] MEDS: hydroCHLOROthiazide 25 MG Tablet 12.5 MG PO (09:31)
[2017-06-13] MEDS: Lisinopril 40 MG Tablet PO (09:31)
[2017-06-13] MEDS: Escitalopram Oxalate 10 MG Tablet PO (09:31)
[2017-06-13] MEDS: Pantoprazole Sodium 40 MG Tablet PO (09:31)
[2017-06-13] MEDS: Metoprolol(XL)Succ 50 MG Tablet PO (09:31)
--- NOTE | 2017-06-13 10:08 | PCM.PN.ID ---
Patient Problems: Active and Suspected Problems Foot osteomyelitis, right (Acute) Foot ulcer, right (Acute) Subjective: Feeling ok, no fever, wants to go home. - Physical Exam General: Alert, Cooperative Lungs: Clear to auscultation, Normal air movement Cardiovascular: Regular rate, Regular Rhythm Abdomen: Soft, Non Tender, Non-Distended Skin: No rashes, Incision - foot wrapped Vital Signs Temp Pulse Resp BP Pulse Ox 99.0 F 78 16 156/80 H 100 06/13/17 09:30 06/13/17 09:31 06/13/17 09:30 06/13/17 09:30 06/13/17 09:30 Oxygen Delivery Method Room Air Weight: 77.1 kg Body Mass Index (BMI) 25.8 Finger Stick Blood Glucose 167 Intake and Output for Last 24 Hours 06/11/17 06/12/17 06/13/17 23:59 23:59 23:59 Intake Total 3063 / 3063 2263 / 2263 421 / 421 Output Total 1000 / 1000 950 / 950 350 / 350 Balance 2063 / 2063 1313 / 1313 71 / 71 Microbiology Past 72 Hours 06/11/17 Unknown Gram Stain - Final Biopsy - Bone Wound Culture - Preliminary Gram positive organism 06/10/17 15:35 Gram Stain - Final Wound - Right Foot Wound Culture - Final Escherichia coli Enterococcus faecalis Corynebacterium amycolatum Anaerobic Culture - Preliminary Checking for anaerobes, further studies to follow. 06/10/17 15:03 Blood Culture - Preliminary Blood Culture (Wb) #2 - Anticubital Right No growth in 48 hours. 06/10/17 14:55 Blood Culture - Preliminary Blood Culture (Wb) - Anticubital Left No growth in 48 hours. Laboratory Tests Past 24 Hrs 06/12/17 22:45 Vancomycin Trough 14.8 POC Glucose 06/13/17 06/13/17 06/13/17 07:17 07:00 06:42 POC Glucose 79 54 L 60 L 06/12/17 06/12/17 06/12/17 21:35 16:04 11:25 POC Glucose 161 H 171 H 134 H Route of nutrition/ use of supplements: [] Nutritional Intake: [] IV Site: [] Ramirez Catheter: [] - Assessment/Plan Antibiotics: [] Assessment/Plan: [] Active and Suspected Problems Foot osteomyelitis, right (Acute) Foot ulcer, right (Acute) Ulcer of right foot with necrosis of muscle (Acute) R foot osteo - recent wound cxs with strep mitis rothia, anaerobes, ecoli, and entercoccus faecalis. Continue ertapenem. Tolerating vanc well at half normal infusion rate with benadryl prn for Red Man Syndrome. Taken to OR 06/[address] Cantu for resection. Surg cx and path pending, so plan on leaving on 10 day course of po linezolid 600mg bid/flagyl 500 mg tid/cefdinir 300mg bid to cover prior growth. If fragments are (+) for residual infection, will need to re-eval as an outpatient and possibly arrange for picc. will follow, d/w bilingual patient support caseworker
[2017-06-13] MEDS: DiphenhydrAMINE 25 MG Capsule 50 MG PO ×2 (10:43→20:01)
[2017-06-13] MEDS: 0.9% NaCl Peripheral Flush Adult/Peds IV ×2 (10:44→20:04)
[2017-06-13 11:25] LABS: Bedside Glucose 152 mg/dL (70-110)
--- NOTE | 2017-06-13 13:49 | CASEMGMT ---
Call placed to Bisi at [facility] in regards to referral for pt for iv antibx and wound care/dressing changes and she states that she will give this RN CM a call back with approval or denial for them to take pt. This RN CM spoke with Darby at [facility] in regards to infusion supplies for pt. Per Darby, they are still awaiting Part D co-pays and she is inquiring about [facility] for pt. Advised her that this RN CM is awaiting call back from [facility] at this time, voices understanding. Mitesh CARBAJAL CM
--- NOTE | 2017-06-13 14:00 | CASEMGMT ---
This RN CM to room to speak with pt regarding HHC and iv antibx at home and pt is sleeping without distress at this time. Unable to wake pt with verbal stimuli or knock on door. SStaten RAVEN CM
--- NOTE | 2017-06-13 14:30 | CASEMGMT ---
This RN CM back to bedside and pt is awake at this time. Discussed HHC and IV antibx with pt at this time and he agrees to all and states that him and also his ex- are teachable and pt states that he has had home iv antibx in the past also. Awaiting call back from [facility] and [facility] at this time. Mitesh CARBAJAL CM
--- NOTE | 2017-06-13 14:54 | PCM.PROGNOTE ---
Subjective: He was hypoglycemic this morning. At bedtime blood sugar was 161. Afebrile, blood pressures are mildly increased. Currently 100% saturated on room air. Bone biopsy is growing a gram-positive organism. Final wound culture from the specimen taken prior to surgery grew E. coli, Enterococcus faecalis and corynebacterium. I review Dr. Keller's progress note from today and patient will be discharged on a 6 weeks course of IV vancomycin and ertapenem with the stop date 07/23/2017. digital sales planner is working on this currently. - Physical Exam General: Alert, Oriented x3, Cooperative Oral: Moist Mucosa, No Gingival or Mucosal Lesions/ Ulcerations Lungs: Clear to auscultation, Diminished Cardiovascular: Regular rate, Regular Rhythm Abdomen: Bowel Sounds Present, Soft, Non Tender, Non-Distended, - - No diarrhea Extremities: - - The wound is clean and has no odor. There is no periwound erythema. No purulent DC Skin: No rashes Vital Signs Temp Pulse Resp BP Pulse Ox 99.0 F 78 16 156/80 H 100 06/13/17 09:30 06/13/17 09:31 06/13/17 09:30 06/13/17 09:30 06/13/17 09:30 Oxygen Delivery Method Room Air Weight: 169 lb 15.622 oz Body Mass Index (BMI) 25.8 Finger Stick Blood Glucose 167 Intake and Output for Last 24 Hours 06/11/17 06/12/17 06/13/17 23:59 23:59 23:59 Intake Total 3063 / 3063 2263 / 2263 1473 / 1473 Output Total 1000 / 1000 950 / 950 350 / 350 Balance 2063 / 2063 1313 / 1313 1123 / 1123 Microbiology Past 72 Hours 06/11/17 Unknown Gram Stain - Final Biopsy - Bone Wound Culture - Preliminary Gram positive organism Anaerobic Culture - Preliminary 06/10/17 15:35 Gram Stain - Final Wound - Right Foot Wound Culture - Final Escherichia coli Enterococcus faecalis Corynebacterium amycolatum Anaerobic Culture - Preliminary Checking for anaerobes, further studies to follow. 06/10/17 15:03 Blood Culture - Preliminary Blood Culture (Wb) #2 - Anticubital Right No growth in 48 hours. 06/10/17 14:55 Blood Culture - Preliminary Blood Culture (Wb) - Anticubital Left No growth in 48 hours. Laboratory Tests Past 24 Hrs 06/12/17 22:45 Vancomycin Trough 14.8 POC Glucose 06/13/17 06/13/17 06/13/17 11:11 07:17 07:00 POC Glucose 152 H 79 54 L 06/13/17 06/12/17 06/12/17 06:42 21:35 16:04 POC Glucose 60 L 161 H 171 H Assessment/Plan Ertapenem and vancomycin day #2 Impressions 1. Infected Diabetic ulcer right foot with necrotic muscle and focal osteomyelitis of the right fourth metatarsal head - S/P resection of the right fourth metatarsal head and debridement of necrotic bone and muscle by Dr. Cantu on 06/11/2017 2. Peripheral vascular disease 3. Recently diagnosed Yee esophagitis-on Diflucan 4. Uncontrolled diabetes mellitus type 2 - non-compliant with diet 5. Coronary artery disease with hx of CABG and still smoking 6. COPD 7. Hypertension 8. malnutrition ruled out...please see the dieticians note 9. Nicotine dependence 10. Diabetic peripheral polyneuropathy 11. Hyperlipidemia 12. subclavian stenosis - previous stent occluded on CT chest with contrast on 05/24/17 13. Fatty infiltration of the liver Continue the current care. Will arrange the Home antibiotics when DC community planner available tomorrow. BS control is good in the hospital on less medication than he takes at home.......non-compliant with diet at home. Code Visit Inpatient E&M: [id number] [facility] L[facility]
--- NOTE | 2017-06-13 15:02 | PN_ITS ---
Subjective: He was hypoglycemic this morning. At bedtime blood sugar was 161. Afebrile, blood pressures are mildly increased. Currently 100% saturated on room air. Bone biopsy is growing a gram-positive organism. Final wound culture from the specimen taken prior to surgery grew E. coli, Enterococcus faecalis and corynebacterium. I review Dr. Keller's progress note from today and patient will be discharged on a 6 weeks course of IV vancomycin and ertapenem with the stop date 07/23/2017. regional planner is working on this currently. - Physical Exam General: Alert, Oriented x3, Cooperative Oral: Moist Mucosa, No Gingival or Mucosal Lesions/ Ulcerations Lungs: Clear to auscultation, Diminished Cardiovascular: Regular rate, Regular Rhythm Abdomen: Bowel Sounds Present, Soft, Non Tender, Non-Distended, - - No diarrhea Extremities: - - The wound is clean and has no odor. There is no periwound erythema. No purulent DC Skin: No rashes Vital Signs Temp Pulse Resp BP Pulse Ox 99.0 F 78 16 156/80 H 100 06/13/17 09:30 06/13/17 09:31 06/13/17 09:30 06/13/17 09:30 06/13/17 09:30 Oxygen Delivery Method Room Air Weight: 169 lb 15.622 oz Body Mass Index (BMI) 25.8 Finger Stick Blood Glucose 167 Intake and Output for Last 24 Hours 06/11/17 06/12/17 06/13/17 23:59 23:59 23:59 Intake Total 3063 / 3063 2263 / 2263 1473 / 1473 Output Total 1000 / 1000 950 / 950 350 / 350 Balance 2063 / 2063 1313 / 1313 1123 / 1123 Microbiology Past 72 Hours 06/11/17 Unknown Gram Stain - Final Biopsy - Bone Wound Culture - Preliminary Gram positive organism Anaerobic Culture - Preliminary 06/10/17 15:35 Gram Stain - Final Wound - Right Foot Wound Culture - Final Escherichia coli Enterococcus faecalis Corynebacterium amycolatum Anaerobic Culture - Preliminary Checking for anaerobes, further studies to follow. 06/10/17 15:03 Blood Culture - Preliminary Blood Culture (Wb) #2 - Anticubital Right No growth in 48 hours. 06/10/17 14:55 Blood Culture - Preliminary Blood Culture (Wb) - Anticubital Left No growth in 48 hours. Laboratory Tests Past 24 Hrs 06/12/17 22:45 Vancomycin Trough 14.8 POC Glucose 06/13/17 06/13/17 06/13/17 11:11 07:17 07:00 POC Glucose 152 H 79 54 L 06/13/17 06/12/17 06/12/17 06:42 21:35 16:04 POC Glucose 60 L 161 H 171 H Assessment/Plan Ertapenem and vancomycin day #2 Impressions 1. Infected Diabetic ulcer right foot with necrotic muscle and focal osteomyelitis of the right fourth metatarsal head - S/P resection of the right fourth metatarsal head and debridement of necrotic bone and muscle by Dr. Cantu on 06/11/2017 2. Peripheral vascular disease 3. Recently diagnosed Yee esophagitis-on Diflucan 4. Uncontrolled diabetes mellitus type 2 - non-compliant with diet 5. Coronary artery disease with hx of CABG and still smoking 6. COPD 7. Hypertension 8. malnutrition ruled out...please see the dieticians note 9. Nicotine dependence 10. Diabetic peripheral polyneuropathy 11. Hyperlipidemia 12. subclavian stenosis - previous stent occluded on CT chest with contrast on 05/24/17 13. Fatty infiltration of the liver Continue the current care. Will arrange the Home antibiotics when DC planner chief available tomorrow. BS control is good in the hospital on less medication than he takes at home.......non-compliant with diet at home. Code Visit Inpatient E&M: [id number] [facility] L1
[2017-06-13] MEDS: Albuterol 2.5 MG/3 ML VIAL.NEB. INHALATION ×2 (16:06→20:55)
[2017-06-13 16:26] LABS: Bedside Glucose 145 mg/dL (70-110)
[2017-06-13] MEDS: Atorvastatin Calcium 20 MG Tablet PO (22:16)
[2017-06-13 22:26] LABS: Bedside Glucose 151 mg/dL (70-110)
[2017-06-14] MEDS: oxyCODONE 5 MG Tablet PO ×2 (04:07→08:43)
[2017-06-14 04:08] VITALS: BP 120/89; PULSE 85; RESP 16; TEMP 36.9; O2SAT 95
[2017-06-14] MEDS: DiphenhydrAMINE 25 MG Capsule 50 MG PO (06:43)
[2017-06-14] MEDS: Mag Hydrox/Al Hydrox/Simeth 30 ML UDC PO (06:43)
[2017-06-14 06:56] LABS: Bedside Glucose 90 mg/dL (70-110)
[2017-06-14] MEDS: Aspirin 81 MG TAB.CHEW PO (08:45)
[2017-06-14] MEDS: Gabapentin 800 MG Tablet PO ×2 (08:45→13:14)
--- NOTE | 2017-06-14 09:48 | CASEMGMT ---
This RAVEN TRINH spoke with Bisi from [facility] and she states that she has a RN scheduled to see pt ghassan for 2000 med. This RAVEN TRINH received call from Darby at [facility] and she states that pt's cost for vancomycin will be $3.70 per dose and invanz will be $3.70 per dose. Updated labs faxed at this time per request. Advised Darby that [facility] would take pt at this time, voices understanding. Message sent to Dr. Nair advising her of same. Pt updated on all at this time. Mitesh CARBAJAL CM
[2017-06-14 10:08] VITALS: BP 102/75; PULSE 73; RESP 18; TEMP 36; O2SAT 96
[2017-06-14] MEDS: Pantoprazole Sodium 40 MG Tablet PO (10:36)
[2017-06-14] MEDS: Escitalopram Oxalate 10 MG Tablet PO (10:36)
[2017-06-14] MEDS: Fluconazole 100 MG Tablet 400 MG PO (10:36)
[2017-06-14] MEDS: Glucerna Shake 120 ML LIQUID PO (10:37)
[2017-06-14] MEDS: hydroCHLOROthiazide 25 MG Tablet 12.5 MG PO (10:38)
[2017-06-14 10:41] VITALS: BP 102/75; PULSE 72
[2017-06-14] MEDS: Lisinopril 40 MG Tablet PO (10:41)
[2017-06-14] MEDS: Metoprolol(XL)Succ 50 MG Tablet PO (10:41)
--- NOTE | 2017-06-14 11:56 | DCINST_ITS ---
- Discharge Diagnoses Current Active Problems: Current Active and Chronic Problems Foot osteomyelitis, right (Acute) Foot ulcer, right (Acute) Ulcer of right foot with necrosis of muscle (Chronic) You will use the following diet at home:: Calorie/Carbohydrate Controlled ( specify 1200, 1400, etc) - 1800 hernando, Cardiac Your food should be the consistency of: Soft (bite-sized & easy to chew/swallow) Your liquids should be the consistency of: Regular/Thin Discharge Activity: - - no weight bearing on the right forefoot Weight Bearing Status: No weight bearing - R forefoot Keep extremity elevated above heart level: Right Leg Call your doctor if your incision/area has: Sudden Increased Bleeding, Increased Pain/ Swelling, Increased Redness, Foul Smelling Discharge Cleanse incision/area with: Normal Saline, Keep Dressing Clean & Dry, - - cover the wound with Betadine soaked gauze, Guillermo wrap and the wrap with an TATIANNA Additional Instructions: 1. you have diabetes, heart disease, peripheral vascular disease, COPD, high cholesterol and you have now had 2 amputations on your foot. It would be in your best interest to quit smoking. Studies show that once you start amputating toes a majority of diabetics go on to have an amputation of the leg and after you have 1 leg amputated most people have the second leg amputated within 5 years after. I have given you a prescription for a Nicotine patch and I hope you fill it. There is a smoking cessation program at the hospital run by the respiratory therapists. If you want to check this out call [phone] and ask to be connected to the respresentative for smoking cessation. Allergies/Adverse Reactions: Allergies vancomycin Allergy (Verified 06/11/17 18:16) MAYE SYNDROME NEED TO MEDICATE PRE AND GIVE 1/2 RATE Medications to take at Discharge Gabapentin [Neurontin] 800 mg PO 4X/DAY 02/14/17 Lisinopril 20 mg PO DAILY 02/14/17 Metoprolol Succinate 25 mg PO DAILY 02/14/17 Simvastatin 40 mg PO DAILY 02/14/17 Aspirin [Aspirin, Baby] 81 mg PO DAILY 02/16/17 Albuterol Inhaler [Ventolin Hfa] 2 puff INHALATION Q4H PRN PRN 04/30/17 Empagliflozin [Jardiance] 1 tab PO DAILY 05/19/17 Mag Hydrox/Al Hydrox/Simeth [Mylanta II] 30 ml PO Q6H PRN PRN udc 05/26/17 Fluconazole [Diflucan] 400 mg PO DAILY 06/10/17 Insulin Aspart [Novolog Flexpen] See Protocol ACHS 06/10/17 Insulin Glargine,Hum.rec.anlog [Lantus] 28 unit SQ QHS 06/10/17 Pantoprazole Sodium [Protonix] 40 mg PO DAILY 06/10/17 Escitalopram Oxalate [Lexapro] 10 mg PO DAILY 06/12/17 Acetaminophen [Tylenol Tablet] 650 mg PO Q6H PRN PRN tablet 06/14/17 DiphenhydrAMINE [Benadryl] 50 mg PO Q12H #60 cap 06/14/17 Ertapenem Sod [Invanz] 1 gm IV Q24 vial 06/14/17 Hydrochlorothiazide [Hctz] 12.5 mg PO DAILY #30 tab 06/14/17 Lisinopril [Zestril] 40 mg PO DAILY #30 tab 06/14/17 Metoprolol(XL)Succ [Toprol Xl (Beta Herminio)] 50 mg PO DAILY #60 tab 06/14/17 Nicotine [Nicoderm] 14 mg TRANSDERM. DAILY #28 patch 06/14/17 Oxycodone [Oxyir] 5 mg PO Q4H PRN PRN 7 Days #30 tab 06/14/17 Vancomycin 1,250 mg IV Q12H vial 06/14/17 The following prescriptions were given: Oxycodone [Oxyir] 5 mg PO Q4H PRN PRN 7 Days #30 tab PRN Reason: Moderate Pain (4-5/10) DiphenhydrAMINE [Benadryl] 50 mg PO Q12H #60 cap Hydrochlorothiazide [Hctz] 12.5 mg PO DAILY #30 tab Lisinopril [Zestril] 40 mg PO DAILY #30 tab Metoprolol(XL)Succ [Toprol Xl (Beta Herminio)] 50 mg PO DAILY #60 tab Nicotine [Nicoderm] 14 mg TRANSDERM. DAILY #28 patch Primary Care Physician: Darrian Henderson Chi, MD [Primary Care Provider] - Please follow up with your Primary Care Physician in: 7-10 days Please Follow Up With: Bettie Cantu DPM When: 1 week Please Follow Up With: Noel Keller MD When: 2-3 weeks in the wound care center Proposed Discharge Date: 06/14/17
[2017-06-14 12:00] VITALS: BP 102/75; PULSE 76; RESP 16; TEMP 36.1; O2SAT 96
--- NOTE | 2017-06-14 12:07 | PCM.DC.SUM ---
Discharge Date and Diagnosis Date of Admission: 06/10/17 Date of Discharge: 06/14/17 - Primary Discharge Diagnosis Active and Suspected Problems Osteomyelitis fourth metatarsal head R foot (Acute) Necrotic Diabetic ulcer R foot with fat layer exposed and necrotic muscle - Secondary Discharge Diagnosis Chronic Problems Fatty infiltration of liver (Chronic) Subclavian arterial stenosis (Chronic) - stent is completely occluded Ulcer of right foot with necrosis of muscle (Chronic) Marquita esophagitis (Chronic) Abnormal CT scan, esophagus (Chronic) - due to marquita esophagitis Dysphagia (Chronic) Compliance poor (Chronic) Peripheral vascular disease (Chronic) with stent RLE by Dr. Swan HTN (hypertension) (Chronic) Nicotine abuse (Chronic) Peripheral neuropathy (Chronic) CAD (coronary artery disease) (Chronic) COPD (chronic obstructive pulmonary disease) (Chronic) Type 2 diabetes mellitus with diabetic polyneuropathy (Chronic) - uncontrolled Hospital Course and Treatment Imaging Results: Clinical Impression(s) from Imaging Studies Lower Extremity MRI 06/10/17 13:53 IMPRESSION: Status post resection fourth phalanges Cellulitis at the soft tissues adjacent of the fourth metatarsal head with focal osteomyelitis of the fourth metatarsal head Electronically Signed: Laci Matias MD at 21:35 EST Tel , Service support , Foot X-Ray 06/11/17 14:25 IMPRESSION: Intraoperative fluoroscopy during amputation of the fourth metatarsal. Electronically Signed: Jarret Lawrence MD at 19:57 EST , Service support , Foot X-Ray 06/11/17 15:54 IMPRESSION: Fourth digit amputation. Electronically Signed: Jarret Lawrence MD at 20:06 EST , Service support , Laboratory Results - last 24 hr 06/13/17 06/13/17 06/14/17 16:17 22:14 06:48 POC Glucose 145 H 151 H 90 Microbiology 06/10/17 15:35 Wound - Right Foot Gram Stain - Final 06/10/17 15:35 Wound - Right Foot Wound Culture - Final Escherichia coli Enterococcus faecalis Corynebacterium amycolatum 06/10/17 15:35 Wound - Right Foot Anaerobic Culture - Preliminary Checking for anaerobes, further studies to follow. 06/11/17 Unknown Biopsy - Bone Gram Stain - Final 06/11/17 Unknown Biopsy - Bone Wound Culture - Preliminary Gram Positive Cocci 06/10/17 15:03 Blood Culture (Wb) #2 - Anticubital Right Blood Culture - Preliminary No growth in 48 hours. 06/10/17 14:55 Blood Culture (Wb) - Anticubital Left Blood Culture - Preliminary No growth in 48 hours. Consultations 06/10/17 14:15 Consult: Onc/Wound/truck crane operator helper Routine Comment: Operations: - - Amputation of the fourth metatarsal head with debridement of skin and necrotic muscle [address] Cantu Procedures: None Summary of Care Provided: The patient is a 56 year old M with PMH of controlled diabetes mellitus type 2, coronary artery disease, COPD, hypertension, diabetic peripheral neuropathy, peripheral vascular disease and history of multiple diabetic ulcerations with amputation of the right fourth toe who was sent to the hospital by Dr. Cantu due to a nonhealing ulceration necrosis of muscle and evidence of osteomyelitis of the right fourth metatarsal head. Can do surgery on 06/11/[address] Cantu for debridement and resection of the fourth metatarsal head with bone biopsy. Both the fourth metatarsal head and the clearance fragment were negative for osteomyelitis. Culture on the bone grew Enterococcus faecalis. Wound culture grew E. coli, Enterococcus faecalis and corynebacterium. Seen in consultation by Dr. Keller from infectious disease amended 6 week course of IV vancomycin and ertapenem with the stop date 07/23/2017. He was discharged home on 06/14/17 with home health therapy for IV antibiotics. He will remain nonweightbearing on the right forefoot. He will follow-up with his primary care physician, Dr. Henderson, in 7-[address] Cantu in 1 week. He will follow-up with Dr. Keller in the wound care center in 2-3 weeks. Patient counseling was given during his hospital stay and he was given a prescription for NicoDerm patches at the time of discharge. He was also referred to the smoking cessation program run by the respiratory therapist at [facility]. This note was generated with Dragon dictation software. It may contain incorrect words, spelling, and punctuation that were not noted in checking the note before signing. Discharge Activity: - - no weight bearing on the right forefoot Weight Bearing Status: No weight bearing - R forefoot Keep extremity elevated above heart level: Right Leg Call your doctor if your incision/area has: Sudden Increased Bleeding, Increased Pain/ Swelling, Increased Redness, Foul Smelling Discharge Cleanse incision/area with: Normal Saline, Keep Dressing Clean & Dry, - - cover the wound with Betadine soaked gauze, Guillermo wrap and the wrap with an TATIANNA Home Medications: Medications to take at Discharge Gabapentin [Neurontin] 800 mg PO 4X/DAY 02/14/17 Lisinopril 20 mg PO DAILY 02/14/17 Metoprolol Succinate 25 mg PO DAILY 02/14/17 Simvastatin 40 mg PO DAILY 02/14/17 Aspirin [Aspirin, Baby] 81 mg PO DAILY 02/16/17 Albuterol Inhaler [Ventolin Hfa] 2 puff INHALATION Q4H PRN PRN 04/30/17 Empagliflozin [Jardiance] 1 tab PO DAILY 05/19/17 Mag Hydrox/Al Hydrox/Simeth [Mylanta II] 30 ml PO Q6H PRN PRN udc 05/26/17 Fluconazole [Diflucan] 400 mg PO DAILY 06/10/17 Insulin Aspart [Novolog Flexpen] See Protocol ACHS 06/10/17 Insulin Glargine,Hum.rec.anlog [Lantus] 28 unit SQ QHS 06/10/17 Pantoprazole Sodium [Protonix] 40 mg PO DAILY 06/10/17 Escitalopram Oxalate [Lexapro] 10 mg PO DAILY 06/12/17 Acetaminophen [Tylenol Tablet] 650 mg PO Q6H PRN PRN tablet 06/14/17 DiphenhydrAMINE [Benadryl] 50 mg PO Q12H #60 cap 06/14/17 Ertapenem Sod [Invanz] 1 gm IV Q24 vial 06/14/17 Hydrochlorothiazide [Hctz] 12.5 mg PO DAILY #30 tab 06/14/17 Lisinopril [Zestril] 40 mg PO DAILY #30 tab 06/14/17 Metoprolol(XL)Succ [Toprol Xl (Beta Herminio)] 50 mg PO DAILY #60 tab 06/14/17 Nicotine [Nicoderm] 14 mg TRANSDERM. DAILY #28 patch 06/14/17 Oxycodone [Oxyir] 5 mg PO Q4H PRN PRN 7 Days #30 tab 06/14/17 Vancomycin 1,250 mg IV Q12H vial 06/14/17 Following Prescrptions Were Given to Patient: Oxycodone [Oxyir] 5 mg PO Q4H PRN PRN 7 Days #30 tab PRN Reason: Moderate Pain (4-5) DiphenhydrAMINE [Benadryl] 50 mg PO Q12H #60 cap Hydrochlorothiazide [Hctz] 12.5 mg PO DAILY #30 tab Lisinopril [Zestril] 40 mg PO DAILY #30 tab Metoprolol(XL)Succ [Toprol Xl (Beta Herminio)] 50 mg PO DAILY #60 tab Nicotine [Nicoderm] 14 mg TRANSDERM. DAILY #28 patch Primary Care Physician: Darrian Henderson Chi, MD [Primary Care Provider] - Please follow up with your Primary Care Physician in: 7-10 days Please Follow Up With: Bettie Cantu DPM When: 1 week Please Follow Up With: Noel Keller MD When: 2-3 weeks in the wound care center Meaningful Use Info Meaningful Use Diagnoses (Choose all that apply): None applicable Code Visit Inpatient E&M: 15539 Disch Hosp
--- NOTE | 2017-06-14 12:13 | DS.PCM_ITS ---
Discharge Date and Diagnosis Date of Admission: 06/10/17 Date of Discharge: 06/14/17 - Primary Discharge Diagnosis Active and Suspected Problems Osteomyelitis fourth metatarsal head R foot (Acute) Necrotic Diabetic ulcer R foot with fat layer exposed and necrotic muscle - Secondary Discharge Diagnosis Chronic Problems Fatty infiltration of liver (Chronic) Subclavian arterial stenosis (Chronic) - stent is completely occluded Ulcer of right foot with necrosis of muscle (Chronic) Marquita esophagitis (Chronic) Abnormal CT scan, esophagus (Chronic) - due to marquita esophagitis Dysphagia (Chronic) Compliance poor (Chronic) Peripheral vascular disease (Chronic) with stent RLE by Dr. Swan HTN (hypertension) (Chronic) Nicotine abuse (Chronic) Peripheral neuropathy (Chronic) CAD (coronary artery disease) (Chronic) COPD (chronic obstructive pulmonary disease) (Chronic) Type 2 diabetes mellitus with diabetic polyneuropathy (Chronic) - uncontrolled Hospital Course and Treatment Imaging Results: Clinical Impression(s) from Imaging Studies Lower Extremity MRI 06/10/17 13:53 IMPRESSION: Status post resection fourth phalanges Cellulitis at the soft tissues adjacent of the fourth metatarsal head with focal osteomyelitis of the fourth metatarsal head Electronically Signed: Laci Matias MD at 21:35 EST Tel , Service support , Foot X-Ray 06/11/17 14:25 IMPRESSION: Intraoperative fluoroscopy during amputation of the fourth metatarsal. Electronically Signed: Jarret Lawrence MD at 19:57 EST , Service support , Foot X-Ray 06/11/17 15:54 IMPRESSION: Fourth digit amputation. Electronically Signed: Jarret Lawrence MD at 20:06 EST , Service support , Laboratory Results - last 24 hr 06/13/17 06/13/17 06/14/17 16:17 22:14 06:48 POC Glucose 145 H 151 H 90 Microbiology 06/10/17 15:35 Wound - Right Foot Gram Stain - Final 06/10/17 15:35 Wound - Right Foot Wound Culture - Final Escherichia coli Enterococcus faecalis Corynebacterium amycolatum 06/10/17 15:35 Wound - Right Foot Anaerobic Culture - Preliminary Checking for anaerobes, further studies to follow. 06/11/17 Unknown Biopsy - Bone Gram Stain - Final 06/11/17 Unknown Biopsy - Bone Wound Culture - Preliminary Gram Positive Cocci 06/10/17 15:03 Blood Culture (Wb) #2 - Anticubital Right Blood Culture - Preliminary No growth in 48 hours. 06/10/17 14:55 Blood Culture (Wb) - Anticubital Left Blood Culture - Preliminary No growth in 48 hours. Consultations 06/10/17 14:15 Consult: Onc/Wound/seismology teacher Routine Comment: Operations: - - Amputation of the fourth metatarsal head with debridement of skin and necrotic muscle [address] Cantu Procedures: None Summary of Care Provided: The patient is a 56 year old M with PMH of controlled diabetes mellitus type 2, coronary artery disease, COPD, hypertension, diabetic peripheral neuropathy, peripheral vascular disease and history of multiple diabetic ulcerations with amputation of the right fourth toe who was sent to the hospital by Dr. Cantu due to a nonhealing ulceration necrosis of muscle and evidence of osteomyelitis of the right fourth metatarsal head. Can do surgery on 06/11/[address] Cantu for debridement and resection of the fourth metatarsal head with bone biopsy. Both the fourth metatarsal head and the clearance fragment were negative for osteomyelitis. Culture on the bone grew Enterococcus faecalis. Wound culture grew E. coli, Enterococcus faecalis and corynebacterium. Seen in consultation by Dr. Keller from infectious disease amended 6 week course of IV vancomycin and ertapenem with the stop date 07/23/2017. He was discharged home on 06/14/17 with home health therapy for IV antibiotics. He will remain nonweightbearing on the right forefoot. He will follow-up with his primary care physician, Dr. Henderson, in 7-[address] Cantu in 1 week. He will follow-up with Dr. Keller in the wound care center in 2-3 weeks. Patient counseling was given during his hospital stay and he was given a prescription for NicoDerm patches at the time of discharge. He was also referred to the smoking cessation program run by the respiratory therapist at [facility]. This note was generated with Dragon dictation software. It may contain incorrect words, spelling, and punctuation that were not noted in checking the note before signing. Discharge Activity: - - no weight bearing on the right forefoot Weight Bearing Status: No weight bearing - R forefoot Keep extremity elevated above heart level: Right Leg Call your doctor if your incision/area has: Sudden Increased Bleeding, Increased Pain/ Swelling, Increased Redness, Foul Smelling Discharge Cleanse incision/area with: Normal Saline, Keep Dressing Clean & Dry, - - cover the wound with Betadine soaked gauze, Guillermo wrap and the wrap with an TATIANNA Home Medications: Medications to take at Discharge Gabapentin [Neurontin] 800 mg PO 4X/DAY 02/14/17 Lisinopril 20 mg PO DAILY 02/14/17 Metoprolol Succinate 25 mg PO DAILY 02/14/17 Simvastatin 40 mg PO DAILY 02/14/17 Aspirin [Aspirin, Baby] 81 mg PO DAILY 02/16/17 Albuterol Inhaler [Ventolin Hfa] 2 puff INHALATION Q4H PRN PRN 04/30/17 Empagliflozin [Jardiance] 1 tab PO DAILY 05/19/17 Mag Hydrox/Al Hydrox/Simeth [Mylanta II] 30 ml PO Q6H PRN PRN udc 05/26/17 Fluconazole [Diflucan] 400 mg PO DAILY 06/10/17 Insulin Aspart [Novolog Flexpen] See Protocol ACHS 06/10/17 Insulin Glargine,Hum.rec.anlog [Lantus] 28 unit SQ QHS 06/10/17 Pantoprazole Sodium [Protonix] 40 mg PO DAILY 06/10/17 Escitalopram Oxalate [Lexapro] 10 mg PO DAILY 06/12/17 Acetaminophen [Tylenol Tablet] 650 mg PO Q6H PRN PRN tablet 06/14/17 DiphenhydrAMINE [Benadryl] 50 mg PO Q12H #60 cap 06/14/17 Ertapenem Sod [Invanz] 1 gm IV Q24 vial 06/14/17 Hydrochlorothiazide [Hctz] 12.5 mg PO DAILY #30 tab 06/14/17 Lisinopril [Zestril] 40 mg PO DAILY #30 tab 06/14/17 Metoprolol(XL)Succ [Toprol Xl (Beta Herminio)] 50 mg PO DAILY #60 tab 06/14/17 Nicotine [Nicoderm] 14 mg TRANSDERM. DAILY #28 patch 06/14/17 Oxycodone [Oxyir] 5 mg PO Q4H PRN PRN 7 Days #30 tab 06/14/17 Vancomycin 1,250 mg IV Q12H vial 06/14/17 Following Prescrptions Were Given to Patient: Oxycodone [Oxyir] 5 mg PO Q4H PRN PRN 7 Days #30 tab PRN Reason: Moderate Pain (4-5) DiphenhydrAMINE [Benadryl] 50 mg PO Q12H #60 cap Hydrochlorothiazide [Hctz] 12.5 mg PO DAILY #30 tab Lisinopril [Zestril] 40 mg PO DAILY #30 tab Metoprolol(XL)Succ [Toprol Xl (Beta Herminio)] 50 mg PO DAILY #60 tab Nicotine [Nicoderm] 14 mg TRANSDERM. DAILY #28 patch Primary Care Physician: Darrian Henderson Chi, MD [Primary Care Provider] - Please follow up with your Primary Care Physician in: 7-10 days Please Follow Up With: Bettie Cantu DPM When: 1 week Please Follow Up With: Noel Kleler MD When: 2-3 weeks in the wound care center Meaningful Use Info Meaningful Use Diagnoses (Choose all that apply): None applicable Code Visit Inpatient E&M: 39599 Disch Hosp
[2017-06-14 12:41] LABS: Bedside Glucose 81 mg/dL (70-110)
--- NOTE | 2017-06-14 13:47 | CASEMGMT ---
F2F and script for antibx faxed to [facility] at this time. Mitesh CARBAJAL CM
== END 2017-06-14 13:35 | disposition home health service (06) | DRG 629 ==
PROVIDERS: Internal Medicine Infectious Disease; Podiatrist; Admitting Provider Internal Medicine; Family Provider Family Medicine Geriatric Medicine; PCP Family Medicine Geriatric Medicine; Visit Provider Internal Medicine
PROC: 0QBN0ZZ Excision of Right Metatarsal, Open Approach (ICD-10-PCS; principal; 2017-06-11 07:20)
DX: E11.69 Type 2 diabetes mellitus with other specified complication (principal); B37.81 Candidal esophagitis; M86.8X7 Other osteomyelitis, ankle and foot; E11.42 Type 2 diabetes mellitus with diabetic polyneuropathy; E11.621 Type 2 diabetes mellitus with foot ulcer; E11.65 Type 2 diabetes mellitus with hyperglycemia; K76.0 Fatty (change of) liver, not elsewhere classified; I10 Essential (primary) hypertension; F17.210 Nicotine dependence, cigarettes, uncomplicated; I25.10 Atherosclerotic heart disease of native coronary artery without angina pectoris; L97.513 Non-pressure chronic ulcer of other part of right foot with necrosis of muscle; J44.9 Chronic obstructive pulmonary disease, unspecified; Z89.421 Acquired absence of other right toe(s); I73.9 Peripheral vascular disease, unspecified; Z95.1 Presence of aortocoronary bypass graft; B96.20 Unspecified Escherichia coli [E. coli] as the cause of diseases classified elsewhere; B95.2 Enterococcus as the cause of diseases classified elsewhere; Z79.4 Long term (current) use of insulin
CPT/HCPCS: 36415; 36569; 73620; 73630; 73720; 76000; 80048; 80053; 80202; 82962; 83036; 84100; 84134; 85025; 86140; 87015; 87040; 87070; 87075; 87076; 87077; 87102; 87116; 87186; 87205; 87206; 87640; 88304; 88311; 93005; 94640; 97161; 97802; 99406; A9585; J7030; J7050; A4216

== ENCOUNTER → 2017-06-10 16:26 | Outpatient (CLI) | payer MEDICARE, MEDICAID, SELFPAY ==
[2017-06-10 17:53] LABS: M R Staph aureus DNA By PCR Negative (Negative); Probe Check PASS; Specimen Processing Control PASS; Staph aureus DNA By PCR NEGATIVE (Negative)
== END ==
PROVIDERS: Family Provider Family Medicine Geriatric Medicine; PCP Family Medicine Geriatric Medicine; Visit Provider Podiatrist
DX: S91.301A Unspecified open wound, right foot, initial encounter (principal); L08.9 Local infection of the skin and subcutaneous tissue, unspecified; X58.XXXA Exposure to other specified factors, initial encounter; Z22.322 Carrier or suspected carrier of Methicillin resistant Staphylococcus aureus
CPT/HCPCS: 87070; 87077; 87186; 87205; 87640

== ENCOUNTER → 2017-06-21 06:43 | Outpatient (CLI) | payer MEDICARE, MEDICAID, SELFPAY ==
--- NOTE | 2017-06-21 10:36 | PFTCOMP ---
COMPLETE PULMONARY FUNCTION TEST INTERPRETATION Brief HPI: Patient is a 57 year old male, currently under the care of Dr. Henderson, who presents to [facility] for complete pulmonary function tests secondary to diagnosis of COPD. Respiratory therapist reports good effort and reproducible results. Interpretation: Forced expiration spirometry shows no large airways obstructive ventilatory defect with an FEV1 of 78 % predicted. There is no significant bronchodilator response by ATS criteria. Spirograms are of good quality and plateau normally. The respiratory flow volume loop shows a normal pattern. Lung volumes by body plethysmography show a decreased total lung capacity at 4.59 L, 74 % predicted. All other lung volumes are reduced symmetrically. Diffusion capacity by carbon monoxide is decreased at 58 % predicted. The airway resistance is normal. No previous pulmonary function tests were available for review. Impression: Irreversible mild large airways restrictive ventilatory defect with a symmetric reduction diffusing capacity consistent with possible interstitial lung disease. Consider chest imaging if not completed previously.
[2017-06-21 14:58] LABS: Hematocrit 38.7 % (40-54); Hemoglobin 12.5 g/dl (13.0-16.5); Mean Corp Hgb Conc 32.3 g/gl (32-36); Mean Corpuscular Hgb 29.3 pg (27.0-32.0); Mean Corpuscular Volume 90.6 fL (80-94); Mean Platelet Vol. 9.4 fl (6.2-12.0); Platelet Count 394 K/mm3 (150-450); RBC Distribution Width CV 13.4 % (11.6-14.6); RBC Distribution Width SD 44.2 fl (35.1-43.9); Red Blood Count 4.27 M/mm3 (4.6-6.2); White Blood Count 8.6 K/mm3 (4.4-11.0)
[2017-06-21 14:59] LABS: Scan Indicated on CBC? Y/N NO
[2017-06-21 15:03] LABS: Erythrocyte Sedimentation Rate 35 mm/hr (0-20)
[2017-06-21 15:08] LABS: Vancomycin, Trough Level 10.8 ug/mL (5.0-15.0)
[2017-06-21 15:11] LABS: AST(SGOT) 21 U/L (15-37); Alanine Aminotransfer ALT/SGPT 30 U/L (16-61); Alkaline Phosphatase 126 U/L (45-117); Anion Gap 11 (5-15); BUN 15 mg/dL (7-18); Bilirubin, Direct 0.12 mg/dL (0.00-0.30); Calcium,Total 8.9 mg/dL (8.5-10.1); Chloride 101 mmol/L (98-107); Creatinine, Serum 0.94 mg/dL (0.70-1.30); EST Glomerular Filtration Rate 88 mL/min (>60); Est Glom Filt Rate - Afr Amer 107 mL/min (>60); Globulin 3.9 g/dL (2.2-4.2); Glucose 316 mg/dL (74-106); Potassium 4.2 mmol/L (3.5-5.1); Protein, Total 6.9 g/dL (6.4-8.2); Sodium Level 137 mmol/L (136-145)
== END ==
PROVIDERS: Internal Medicine Infectious Disease; Family Provider Family Medicine Geriatric Medicine; PCP Family Medicine Geriatric Medicine; Visit Provider Family Medicine Geriatric Medicine
DX: J44.9 Chronic obstructive pulmonary disease, unspecified (principal); M86.071 Acute hematogenous osteomyelitis, right ankle and foot; E11.69 Type 2 diabetes mellitus with other specified complication
CPT/HCPCS: 80048; 80076; 80202; 85027; 85652; 94060; 94726; 94729

== ENCOUNTER → 2017-06-21 14:12 | Outpatient (CLI) | payer MEDICARE, MEDICAID, SELFPAY | PROVIDERS: Family Provider Family Medicine Geriatric Medicine; PCP Family Medicine Geriatric Medicine; Visit Provider Internal Medicine Infectious Disease | DX: M86.071 Acute hematogenous osteomyelitis, right ankle and foot (principal); E11.69 Type 2 diabetes mellitus with other specified complication ==

== ENCOUNTER → 2017-06-26 10:55 | Outpatient (CLI) | payer MEDICARE, MEDICAID, SELFPAY ==
[2017-06-26 11:17] LABS: Erythrocyte Sedimentation Rate 24 mm/hr (0-20)
[2017-06-26 11:19] LABS: Hematocrit 41.3 % (40-54); Hemoglobin 13.3 g/dl (13.0-16.5); Mean Corp Hgb Conc 32.2 g/gl (32-36); Mean Corpuscular Hgb 29.6 pg (27.0-32.0); Mean Platelet Vol. 9.5 fl (6.2-12.0); Platelet Count 374 K/mm3 (150-450); RBC Distribution Width CV 13.4 % (11.6-14.6); RBC Distribution Width SD 44.8 fl (35.1-43.9); Red Blood Count 4.49 M/mm3 (4.6-6.2); Scan Indicated on CBC? Y/N NO; White Blood Count 8.6 K/mm3 (4.4-11.0)
[2017-06-26 11:24] LABS: AST(SGOT) 55 U/L (15-37); Alanine Aminotransfer ALT/SGPT 49 U/L (16-61); Albumin, Serum 3.2 g/dL (3.2-5.0); Alkaline Phosphatase 117 U/L (45-117); Anion Gap 8 (5-15); BUN 16 mg/dL (7-18); Chloride 101 mmol/L (98-107); Creatinine, Serum 0.84 mg/dL (0.70-1.30); EST Glomerular Filtration Rate 100 mL/min (>60); Est Glom Filt Rate - Afr Amer 121 mL/min (>60); Globulin 3.6 g/dL (2.2-4.2); Glucose 248 mg/dL (74-106); Protein, Total 6.8 g/dL (6.4-8.2); Sodium Level 138 mmol/L (136-145)
== END ==
PROVIDERS: Family Provider Family Medicine Geriatric Medicine; PCP Family Medicine Geriatric Medicine; Visit Provider Internal Medicine Infectious Disease
DX: M86.071 Acute hematogenous osteomyelitis, right ankle and foot (principal); E11.69 Type 2 diabetes mellitus with other specified complication
CPT/HCPCS: 80048; 80076; 80202; 85027; 85652

== ENCOUNTER → 2017-07-11 12:58 | Outpatient (CLI) | payer MEDICARE, MEDICAID, SELFPAY ==
[2017-07-11 15:52] LABS: Absolute Lymphocyte Count 2.62 X10^3/ul (0.83-4.51); Absolute Neutrophil Count 5.1 X10^3/uL (2.0-7.7); Basophil# 0.06 X10^3/uL; Basophil% 0.7 % (0-1); Eosinophil# 0.28 X10^3/uL; Eosinophils% 3.1 % (0-5); Hematocrit 41.6 % (40-54); Hemoglobin 13.6 g/dl (13.0-16.5); Lymphocyte # 2.62 X10^3/ul (4.0); Lymphocyte % 29.3 % (19-41); Mean Corp Hgb Conc 32.7 g/gl (32-36); Mean Corpuscular Volume 91.8 fL (80-94); Monocyte# 0.92 X10^3/uL; Monocyte% 10.3 % (0-10); Neutrophil # 5.05 X10^3/uL (2.7-7.7); Neutrophil % 56.5 % (47-70); Platelet Count 328 K/mm3 (150-450); RBC Distribution Width CV 14.3 % (11.6-14.6); RBC Distribution Width SD 47.3 fl (35.1-43.9); Red Blood Count 4.53 M/mm3 (4.6-6.2); White Blood Count 8.9 K/mm3 (4.4-11.0)
[2017-07-11 15:59] LABS: POSITIVE COUNT NO; POSITIVE DIFFERENTIAL NO; POSITIVE MORPHOLOGY NO
[2017-07-11 16:23] LABS: AST(SGOT) 31 U/L (15-37); Alanine Aminotransfer ALT/SGPT 43 U/L (16-61); Albumin, Serum 3.6 g/dL (3.2-5.0); Alkaline Phosphatase 112 U/L (45-117); Anion Gap 7 (5-15); BUN 14 mg/dL (7-18); BUN/Creat Ratio 13.3 RATIO (10-20); Bilirubin, Direct 0.09 mg/dL (0.00-0.30); Calcium,Total 8.9 mg/dL (8.5-10.1); Chloride 103 mmol/L (98-107); Creatinine, Serum 1.05 mg/dL (0.70-1.30); EST Glomerular Filtration Rate 77 mL/min (>60); Est Glom Filt Rate - Afr Amer 94 mL/min (>60); Globulin 3.6 g/dL (2.2-4.2); Glucose 82 mg/dL (74-106); Potassium 3.6 mmol/L (3.5-5.1); Protein, Total 7.2 g/dL (6.4-8.2); Sodium Level 139 mmol/L (136-145)
[2017-07-11 16:34] LABS: Vancomycin, Trough Level 7.9 ug/mL (5.0-15.0)
== END ==
PROVIDERS: Family Provider Family Medicine Geriatric Medicine; PCP Family Medicine Geriatric Medicine; Visit Provider Internal Medicine Infectious Disease
DX: M86.9 Osteomyelitis, unspecified (principal)
CPT/HCPCS: 36415; 80048; 80076; 80202; 85025

== ENCOUNTER → 2017-07-17 10:54 | Outpatient (CLI) | payer MEDICARE, MEDICAID, SELFPAY ==
[2017-07-17 11:09] LABS: Hematocrit 42.1 % (40-54); Hemoglobin 14.1 g/dl (13.0-16.5); Mean Corp Hgb Conc 33.5 g/gl (32-36); Mean Corpuscular Hgb 29.9 pg (27.0-32.0); Mean Corpuscular Volume 89.2 fL (80-94); Mean Platelet Vol. 10.3 fl (6.2-12.0); Platelet Count 279 K/mm3 (150-450); RBC Distribution Width CV 13.8 % (11.6-14.6); RBC Distribution Width SD 44.9 fl (35.1-43.9); Red Blood Count 4.72 M/mm3 (4.6-6.2); Scan Indicated on CBC? Y/N NO; White Blood Count 7.9 K/mm3 (4.4-11.0)
[2017-07-17 11:12] LABS: Erythrocyte Sedimentation Rate 11 mm/hr (0-20)
[2017-07-17 11:23] LABS: AST(SGOT) 27 U/L (15-37); Alanine Aminotransfer ALT/SGPT 36 U/L (16-61); Albumin, Serum 3.5 g/dL (3.2-5.0); Alkaline Phosphatase 117 U/L (45-117); Anion Gap 8 (5-15); BUN 8 mg/dL (7-18); BUN/Creat Ratio 10.4 RATIO (10-20); Bilirubin, Direct 0.12 mg/dL (0.00-0.30); Calcium,Total 8.7 mg/dL (8.5-10.1); Chloride 103 mmol/L (98-107); Creatinine, Serum 0.77 mg/dL (0.70-1.30); EST Glomerular Filtration Rate 111 mL/min (>60); Est Glom Filt Rate - Afr Amer 135 mL/min (>60); Globulin 3.5 g/dL (2.2-4.2); Glucose 277 mg/dL (74-106); Sodium Level 137 mmol/L (136-145); Vancomycin, Trough Level 9.7 ug/mL (5.0-15.0)
== END ==
PROVIDERS: Family Provider Family Medicine Geriatric Medicine; PCP Family Medicine Geriatric Medicine; Visit Provider Internal Medicine Infectious Disease
DX: M86.071 Acute hematogenous osteomyelitis, right ankle and foot (principal); E11.69 Type 2 diabetes mellitus with other specified complication
CPT/HCPCS: 80048; 80076; 80202; 85027; 85652

== ENCOUNTER 2020-08-06 22:46 | Emergency (ER) | payer MEDICARE, MEDICAID, SELFPAY ==
[2020-08-06 22:48] VITALS: BP 152/126; PULSE 102; RESP 18; TEMP 36.8; O2SAT 100; BMI 20.7
--- NOTE | 2020-08-06 23:07 | ED.DCSUM_ITS ---
History of Present Illness Chief Complaint: Abscess Informant: Patient Onset: Today Context: Gradual Onset - noticed this AM, was very small but sore Timing: Continuous Quality: sore Location: left AC/forearm Current Severity: Moderate Maximum Severity: Severe Worsened by: palpation, bending at the elbow Relieved by: leaving alone Associated Symptoms: none. no fevers/chills. Narrative: Spontaneous onset of a tender swollen area in his left AC fossa. He denies injecting drugs. He denies any systemic symptoms or spontaneous drainage but it has grown very quickly in 24 hours. He also has some small swollen focal areas in his face, one on his left eyebrow and the other along the lateral aspect of his eyelids, they have been there for weeks and have not grown. - Past Medical History (1) CAD (coronary artery disease) Status: Chronic (2) COPD (chronic obstructive pulmonary disease) Status: Chronic (3) Compliance poor Status: Chronic (4) Fatty infiltration of liver Status: Chronic (5) HTN (hypertension) Status: Chronic (6) Peripheral neuropathy Status: Chronic (7) Peripheral vascular disease Status: Chronic (8) Subclavian arterial stenosis Status: Chronic (9) Type 2 diabetes mellitus with diabetic polyneuropathy Status: Chronic Past Medical History - Allergies and Home Meds Allergies/Adverse Reactions: Allergies vancomycin Allergy (Verified 08/06/20 22:47) MAYE SYNDROME NEED TO MEDICATE PRE AND GIVE 1/2 RATE Primary Care Physician: Darrian Henderson Chi, MD [COURTESY STAFF PHYSICIAN] - Surgical History: coronary bypass surgery, - - debridement left arm, 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 carpal tunnel release Smoking Status: Current every day smoker - Family History Maternal Family History: Reports: Heart Disease Paternal Family History: Reports: Heart Disease Review of Systems General: Denies: Chills, Fever, Sweats ENT: Denies: Rhinorrhea, Sore throat Cardiovascular: Denies: Chest pain, Palpitations Gastrointestinal: Denies: Abdominal pain, Nausea, Vomiting, Diarrhea Musculoskeletal: Reports: Extremity Pain - Left upper extremity abscess. Denies: Swelling Skin: Reports: Abscess. Denies: Rash Neurological: Denies: Headache, Weakness, Numbness Physical Exam Vital Signs/Narrative: Vital Signs Temp Pulse Resp BP Pulse Ox 08/06/20 22:48 98.3 F 102 H 18 152/126 H 100 Inital Vital Signs reviewed: Yes General: Well nourished, Well developed, No Acute Distress - Using cell phone as he arrives via EMS Head: Normocephalic, Atraumatic Eyes: Perrl, EOMI ENT: Moist mucous membranes, No rhinorrhea Neck: Supple, Nontender Cardiovascular: Regular rate, Regular rhythm, No murmurs Respiratory: No distress, CTA bilaterally, Chest nontender Extremities: No edema, Tenderness - Left AC fossa abscess without lymphangitis Skin: Normal color, No rash, - - Abscess left AC fossa approximately 6 cm in diameter, fluctuant, pointing, no spontaneous drainage, no lymphangitis. Neurological: Alert, Oriented x3, Cranial nerves II-XII grossly intact, Normal Strength, Normal Sensation Psychological: Normal affect, Normal Mood Diagnostic/Tx/Re-eval - Medical Decision Making Patient is clinically and hemodynamically stable with a large abscess on his proximal left forearm near the AC fossa, it was superficial to all important structures including radial artery. The small areas on his face are not abscesses, he agrees that they are not painful, they may be fatty deposits or sebaceous cyst, and he should follow-up as an outpatient for those. We incised and drained the cutaneous abscess of his left forearm here, it was packed and dressed, he tolerated well and said he felt much better afterwards, and he was given an initial [place] and Bactrim here, prescription for Bactrim at home, and follow-up instructions given. Procedures Procedure(s): Incision and drainage cutaneous left forearm abscess, complex --after isopropanol prep and 5 cc of local plain 1% lidocaine, abscess was incised at its maximum area of pointing with a #10 blade, there was pressurized release of pus which continued to be expressed in large amounts. The area was deloculated and the cavity was irrigated gently with sterile saline, approximately 60 cc. With the loculation more purulent material was expressed. The cavity was packed with half-inch gauze, and the wound was dressed with a gauze dressing and bacitracin. Tolerated well, no complications. ED Disposition - Plan for ED Patient: Disposition: Home or Assisted Living Diagnosis: Abscess of left forearm Instructions: ED Abscess Incision And Drainage Prescriptions: Smz/Tmp Ds [Bactrim Ds] 1 tablet PO BID #20 tab Prescription Printed Referrals: Darrian Henderson Chi, MD [COURTESY STAFF PHYSICIAN] - 3-5 Days if not improving (or return to ER) Additional Instructions: Change dressing as needed. Keep an eye on the redness and return if it spreads or you see red streaking up your arm. In 48 hours, as long as the redness is not worsening, pull the packing out and discard it. Change gauze dressing at least daily as long as there is discharge on it. Use antibiotic ointment against the wound when you change the dressing.
[2020-08-06] MEDS: Lidocaine 1% (20 ml mdv) 20 ML Vial INFILT (23:13)
[2020-08-06] MEDS: Smz/Tmp Ds Tablet 1 TABLET PO (23:13)
[2020-08-06] MEDS: HYDROcodone Bitartrate/Apap 5/325 Tablet PO (23:13)
[2020-08-06 23:25] LABS: Bedside Glucose 339 mg/dL (70-110)
[2020-08-07 01:00] VITALS: BP 142/76; PULSE 78; RESP 18; TEMP 36.6; O2SAT 98
[2020-08-07 02:04] VITALS: BP 142/76; PULSE 78; RESP 18; TEMP 36.6; O2SAT 98
== END 2020-08-07 02:37 | disposition home or self-care (01) ==
PROVIDERS: Emergency Provider Emergency Medicine; PCP Internal Medicine
DX: L02.414 Cutaneous abscess of left upper limb (principal); I10 Essential (primary) hypertension; E11.42 Type 2 diabetes mellitus with diabetic polyneuropathy; E11.51 Type 2 diabetes mellitus with diabetic peripheral angiopathy without gangrene; I25.10 Atherosclerotic heart disease of native coronary artery without angina pectoris; K76.0 Fatty (change of) liver, not elsewhere classified; J44.9 Chronic obstructive pulmonary disease, unspecified; Z91.19 Patient's noncompliance with other medical treatment and regimen; Z79.4 Long term (current) use of insulin; Z79.899 Other long term (current) drug therapy; F17.200 Nicotine dependence, unspecified, uncomplicated
CPT/HCPCS: 10061; 10060; 82962; 99285

== ENCOUNTER 2020-08-31 15:06 | Observation (INO) | payer MEDICARE, MEDICAID, SELFPAY ==
[2020-08-31] VITALS (13 sets, daily range): BP systolic 119–178; BP diastolic 69–96; PULSE 104–108; RESP 16–25; TEMP 36.5–37.1; O2SAT 83–98; BMI 23.1; BMI 22.4
--- NOTE | 2020-08-31 15:26 | EKG12_ITS ---
Test Reason : SOB Blood Pressure : / mmHG Vent. Rate : 106 BPM Atrial Rate : 106 BPM P-R Int : 154 ms QRS Dur : 086 ms QT Int : 344 ms P-R-T Axes : 079 135 050 degrees QTc Int : 456 ms Sinus tachycardia Left posterior fascicular block Nonspecific T wave abnormality Abnormal ECG Confirmed by LEON LEÓN, LIOR ([id number]), editor & co founder KEVIN TAYLOR ([id number]) on 09/02/2020 8:12:23 AM Referred By: ANGELA Confirmed By:NOHEMI QUINTERO MD
--- NOTE | 2020-08-31 15:33 | CT_ITS ---
STUDY: CTA CHEST REASON FOR EXAM: Male, 60 years old. sob -- left subclavian artery stent? RADIATION DOSAGE (If Supplied By Facility): CTDIvol = ( 28.03 ) mGy, DLP = ( 643.84 ) mGycm TECHNIQUE: The examination was performed with the intravenous administration of IV 100mL Isovue-300. Post-processing of the angiographic images was performed, with multiplanar reformation and 3D reconstruction. Individualized dose optimization techniques were used for this CT. COMPARISON: CT 05/23/2017 FINDINGS: Normal enhancement of the main pulmonary artery and right and left pulmonary arteries. Normal enhancement of the bilateral peripheral pulmonary arteries. There is no demonstrated pulmonary embolism. Normal thoracic aorta and visualized great vessels. There is no demonstrated aortic dissection. Normal heart and pericardium. Normal mediastinum. Normal hilar regions. Normal visualized trachea and bronchi. The lungs are well expanded. Mild right apical scarring. Large bilateral pleural effusions with bibasilar atelectasis. Normal chest wall structures. Normal osseous structures. Normal visualized upper abdomen. CT/CTA Chest W/WO Contrast IMPRESSION: 1. No CT evidence of pulmonary embolism. 2. Large bilateral pleural effusions with bibasilar atelectasis. Electronically Signed: Mert Ardon MD at 16:58 EDT Tel , Service support ,
[2020-08-31 15:39] LABS: Absolute Neutrophil Count 5.7 X10^3/uL (2.0-7.7); Basophil# 0.06 X10^3/uL; Basophil% 0.7 % (0-1); Eosinophil# 0.11 X10^3/uL; Eosinophils% 1.3 % (0-5); Hematocrit 36.7 % (40-54); Hemoglobin 11.5 g/dL (13.0-16.5); Lymphocyte % 22.6 % (19-41); Mean Corp Hgb Conc 31.3 g/dL (32-36); Mean Corpuscular Hgb 28.3 pg (27.0-32.0); Mean Corpuscular Volume 90.2 fL (80-94); Mean Platelet Vol. 10.2 fl (6.2-12.0); Monocyte# 0.61 X10^3/uL; Monocyte% 7.3 % (0-10); NRBC Flagged by Analyzer 0 % (0-5); Neutrophil # 5.69 X10^3/uL (2.7-7.7); Neutrophil % 67.6 % (47-70); Platelet Count 373 K/mm3 (150-450); RBC Distribution Width CV 14.6 % (11.6-14.6); RBC Distribution Width SD 48.7 fl (35.1-43.9); Red Blood Count 4.07 M/mm3 (4.6-6.2); White Blood Count 8.4 K/mm3 (4.4-11.0)
[2020-08-31] MEDS: Ipratropium/Albuterol Sulfate 3 ML AMPUL.NEB INHALATION (15:47)
[2020-08-31 15:49] LABS: Anion Gap 6 (5-15); BUN 19 mg/dL (7-18); Calcium,Total 8.9 mg/dL (8.5-10.1); Chloride 97 mmol/L (98-107); Creatinine, Serum 1.46 mg/dL (0.70-1.30); EST Glomerular Filtration Rate 52 mL/min (>60); Est Glom Filt Rate - Afr Amer 63 mL/min (>60); Estimated Creatinine Clearance 52.05 ml/min; Glucose 374 mg/dL (74-106); Potassium 4.9 mmol/L (3.5-5.1); Sodium Level 128 mmol/L (136-145)
--- NOTE | 2020-08-31 17:30 | PCM.HP.STD ---
History of Present Illness Date of Admission: 08/31/20 The patient is a 60 year old M [] Past Medical History Past Medical History (Chronic Problems): Chronic Problems Fatty infiltration of liver (Chronic) Subclavian arterial stenosis (Chronic) Foot osteomyelitis, right (Chronic) Ulcer of right foot with necrosis of muscle (Chronic) Yee esophagitis (Chronic) Abnormal CT scan, esophagus (Chronic) Dysphagia (Chronic) Compliance poor (Chronic) Peripheral vascular disease (Chronic) HTN (hypertension) (Chronic) Nicotine abuse (Chronic) Peripheral neuropathy (Chronic) CAD (coronary artery disease) (Chronic) COPD (chronic obstructive pulmonary disease) (Chronic) Type 2 diabetes mellitus with diabetic polyneuropathy (Chronic) Allergies vancomycin Allergy (Verified 08/31/20 15:15) MAYE SYNDROME NEED TO MEDICATE PRE AND GIVE 1/2 RATE Home Medications: Ambulatory Orders Medication Instructions Recorded Gabapentin [Neurontin] 800 mg PO TID 02/14/17 Lisinopril 20 mg PO DAILY 02/14/17 Metoprolol Succinate 25 mg PO DAILY 02/14/17 Simvastatin 40 mg PO DAILY 02/14/17 Albuterol Inhaler [Ventolin Hfa] 2 puff INHALATION Q4H PRN PRN 04/30/17 Insulin Aspart [Novolog Flexpen] See Protocol [facility] ACHS 06/10/17 Insulin Glargine,Hum.rec.anlog 22 unit SQ QHS 06/10/17 [Lantus] Acetaminophen [Tylenol Tablet] 650 mg PO Q6H PRN PRN tablet 06/14/17 Oxycodone [Oxyir] 5 mg PO Q4H PRN PRN 7 Days #30 tab 06/14/17 Smz/Tmp Ds [Bactrim Ds] 1 tablet PO BID #20 tab 08/07/20 Apixaban [Eliquis] 2.5 mg PO BID 08/31/20 Surgical History: coronary bypass surgery, - - debridement left arm, 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 carpal tunnel release Psychiatric History: No pertinent psych hx Smoking Status: Current every day smoker - *Family History Maternal History Items: Heart Disease Paternal History Items: Heart Disease - Physical Exam Vitals/I&O's: Vital Signs Temp Pulse Resp BP Pulse Ox 97.8 F 105 H 25 H 126/96 H 98 08/31/20 16:11 08/31/20 16:11 08/31/20 16:11 08/31/20 16:11 08/31/20 16:11 Oxygen Flow Rate (L/min) 2 Oxygen Delivery Method Nasal Cannula Weight: 152 lb 1.903 oz Body Mass Index (BMI) 23.1 Finger Stick Blood Glucose 336 Microbiology Past 72 Hours 08/31/20 15:30 Nasal Secretion SARS-CoV-2 Antigen (Rapid) - Final Laboratory Results 08/31/20 15:15: WBC 8.4, RBC 4.07 L, Hgb 11.5 L, Hct 36.7 L, MCV 90.2, MCH 28.3, MCHC 31.3 L, RDW Std Deviation 48.7 H, RDW Coeff of Elizabeth 14.6, Plt Count 373, MPV 10.2, Immature Gran % (Auto) 0.500, Neut % (Auto) 67.6, Lymph % (Auto) 22.6, [place] % (Auto) 7.3, Eos % (Auto) 1.3, Baso % (Auto) 0.7, Absolute Neuts (auto) 5.7, Absolute Lymphs (auto) 1.90, Nucleated RBC % 0 08/31/20 15:15: Sodium 128 L, Potassium 4.9, Chloride 97 L, Carbon Dioxide 25.0, Anion Gap 6, BUN 19 H, Creatinine 1.46 H, Estim Creat Clear Calc 52.05, Est GFR (MDRD) Af Amer 63, Est GFR (MDRD) Non-Af 52 L, BUN/Creatinine Ratio 13.0, Glucose 374 H, Calcium 8.9, Troponin I 0.292 H Assessment/Plan All Active Problems Sepsis (Ruled-out) Cellulitis of right foot (Resolved) Malnutrition (Ruled-out) Chronic osteomyelitis, other specified site (Resolved)
--- NOTE | 2020-08-31 17:33 | ED.DCSUM_ITS ---
- ER Visit Summary Date of Service: 08/31/20 Chief Complaint: Shortness of breath History of Present Illness: The patient is a 60 M presenting with shortness of breath. He states he became suddenly short of breath at 1 AM. This progressively worsened throughout the day. He denies chest pain. He called EMS this afternoon due to his shortness of breath. On their arrival his pulse ox was 80% on room air. He has had a mild cough. He has myalgias. Denies fever or chills. He states he has also had pain in his left middle finger since Saturday. He noticed discoloration in his left middle finger since that time. He states that he has a remote history of left subclavian artery stent. He states he has had these symptoms in the past before the stent was placed. Denies other complaints. Physical Examination: Vitals are stable. Patient is afebrile. Alert no acute distress. 98% on 2 L nasal cannula HEENT exam is unremarkable. Neck is supple. Lungs are diminished bilaterally. Heart is regular rate and tachycardic Abdomen is soft nontender nondistended. Extremities left middle finger cyanosis with delayed cap refill. Dopplerable radial pulse. Right AKA Skin is warm and dry. No focal neurologic deficit. Remainder of exam is unremarkable. Emergency Department Course and Treatment: EKG is sinus tachycardia rate of 106 with nonspecific T wave changes. Left arterial duplex shows decreased velocity left ulnar artery. CTA chest was obtained and shows no CT evidence of pulmonary embolism. Large bilateral pleural effusions with bibasilar atelectasis. CBC normal except hemoglobin 11.5. Chemistries show sodium 128, glucose 374, BUN 19, creatinine 1.46. Troponin 0.292. Covid negative. Discussed with Dr. Swan. Patient will remain on Eliquis and will be admitted. Patient states he prefers transfer to [facility]. I discussed with the [facility] transfer line and they currently do not have beds available. He will be put on the wait list. They advised he will likely not get a bed until tomorrow. Patient is agreeable to admission at [facility] until [facility] bed is available. Discussed with the hospitalist for admission. Disposition: Admission Impression: Dyspnea, pleural effusions, left middle finger cyanosis This note was generated with [employer] dictation software. It may contain incorrect words, spelling, and punctuation that were not noted in review of the chart prior to signing ED Disposition - Plan for ED Patient: Referrals: Rizwana Baker MD [Primary Care Provider] -
--- NOTE | 2020-08-31 17:46 | NURSING ---
CALLED BE FOR TRANSFER.
--- NOTE | 2020-08-31 17:46 | PCM.HP.STD ---
History of Present Illness Date of Admission: 08/31/20 Chief Complaint: shortness of breath The patient is a 60 year old M with a PMH as outlined including right AKA with subclavian stent on the right side. He came in with a complaint of shortness of breath for the past few days, which gradually worsened. He called the EMS and he was found to be saturating at 80%. He denied any fever or chills, any cough, any palpitations or dizziness, any chest pain, nausea vomiting or diarrhea. He did complain of bluish discoloration and diminished sensation at the tip of his right middle finger. CTA of the chest showed bilateral pleural effusions and was negative for PE. Vitals in the ED showed temp of 97.8F with BP of 126/96, GA of 105, RR of 25 and he was saturating at 98% on 2L of oxygen. CBC showed sodium of 128, chloride of 97, CR of 1.46, and initial troponin of 0.292. BNP was pending. CBC showed Hb of 11.5, wbc of 8.4 and platelets of 373. COVID antigen test was negative. He is being admitted for acute heart failure of unknown EF. His arterial duplex showed velocities of distal ulnar arteries were diminished to 20, when it should be 50. Dr Swan ws spoken to and he said patient should continue on eliquis and to follow up with vascular surgery. He is being admitted to be managed for acute hypoxic respiratory insufficiency due to bilateral pleural effusions which are likely due to acute heart failure of unknown EF. Of note, patient did not want to stay in [facility] and wanted to be transferred to [facility] on account of his self-reported previous bad experience in [facility]. [facility] did not have a bed for him today and said they might have a bed for him tomorrow. Patient was therefore willing to stay at least for tonight pending transfer to [facility]. Past Medical History Past Medical History (Chronic Problems): Chronic Problems Fatty infiltration of liver (Chronic) Subclavian arterial stenosis (Chronic) Foot osteomyelitis, right (Chronic) Ulcer of right foot with necrosis of muscle (Chronic) Yee esophagitis (Chronic) Abnormal CT scan, esophagus (Chronic) Dysphagia (Chronic) Compliance poor (Chronic) Peripheral vascular disease (Chronic) HTN (hypertension) (Chronic) Nicotine abuse (Chronic) Peripheral neuropathy (Chronic) CAD (coronary artery disease) (Chronic) COPD (chronic obstructive pulmonary disease) (Chronic) Type 2 diabetes mellitus with diabetic polyneuropathy (Chronic) Allergies vancomycin Allergy (Verified 08/31/20 15:15) MAYE SYNDROME NEED TO MEDICATE PRE AND GIVE 1/2 RATE Home Medications: Ambulatory Orders Medication Instructions Recorded Gabapentin [Neurontin] 800 mg PO TID 02/14/17 Lisinopril 20 mg PO DAILY 02/14/17 Metoprolol Succinate 25 mg PO DAILY 02/14/17 Simvastatin 40 mg PO DAILY 02/14/17 Albuterol Inhaler [Ventolin Hfa] 2 puff INHALATION Q4H PRN PRN 04/30/17 Insulin Aspart [Novolog Flexpen] See Protocol [facility] ACHS 06/10/17 Insulin Glargine,Hum.rec.anlog 22 unit SQ QHS 06/10/17 [Lantus] Acetaminophen [Tylenol Tablet] 650 mg PO Q6H PRN PRN tablet 06/14/17 Oxycodone [Oxyir] 5 mg PO Q4H PRN PRN 7 Days #30 tab 06/14/17 Smz/Tmp Ds [Bactrim Ds] 1 tablet PO BID #20 tab 08/07/20 Apixaban [Eliquis] 2.5 mg PO BID 08/31/20 Surgical History: coronary bypass surgery, - - debridement left arm, 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 carpal tunnel release Psychiatric History: No pertinent psych hx Lives: Alone Smoking Status: Heavy Smoker (>10/day) Tobacco Use: Cigarettes Alcohol: None Drugs: None - *Family History Maternal History Items: Heart Disease Paternal History Items: Heart Disease Review of Systems Constitutional: Denies: Chills, Fever, Malaise, Weakness, Weight Change HEENT: Denies: Head Aches, Sinus Congestion, Sinus Drainage Cardiovascular: Denies: Chest Pain, Chest Pressure, Heaviness, Light Headedness, Orthopnea, Palpitations, Paroxysmal Noc. Dyspnea, Syncope Respiratory: Reports: Shortness of Breath, Shortness of breath at rest, Shortness of breath upon exertion. Denies: Cough, Sputum production, Wheezing Gastrointestinal: Denies: Abdominal Pain, Nausea, Vomiting Genitourinary: Denies: Dysuria Musculoskeletal: Denies: Joint Pain, Joint Tenderness Skin: Reports: Skin Changes - bluish discoloration of right middle finger, -. Denies: Rash, Wounds Neurological: Denies: Numbness, Tingling, Focal weakness Psychiatric: Denies: Anxiety, Depression, Homicidal Ideations, Suicidal Ideations Hematologic/ Lymphatic: Denies: Easy Bruising, Easy Bleeding VTE Information - Inpt Only VTE Present on Admission: No VTE Pharm Prophylaxis ordered?: Yes - Physical Exam Vitals/I&O's: Vital Signs Temp Pulse Resp BP Pulse Ox 97.8 F 104 H 23 H 178/91 H 98 08/31/20 17:00 08/31/20 17:00 08/31/20 17:00 08/31/20 17:00 08/31/20 17:07 Oxygen Flow Rate (L/min) 2 Oxygen Delivery Method Nasal Cannula Weight: 152 lb 1.903 oz Body Mass Index (BMI) 23.1 Finger Stick Blood Glucose 336 General: Alert, Oriented x3, Cooperative, No apparent distress HEENT: Atraumatic, PERRLA, EOMI, Normocephalic Oral: Dry Mucosa Neck: Supple, No JVD, Negative Carotid Bruits Lungs: - - diminished breath sounds bibasally, no wheezes or crackles. On room air. Cardiovascular: Regular rate, Regular Rhythm, Normal S1, Normal S2, No murmurs Abdomen: Bowel Sounds Present, Soft, Non Tender, Non-Distended, No Hepato-splenomegaly Extremities: No clubbing, No cyanosis, - - RLE AKA. LLE mild 1+ pitting pedal edema Skin: - - bluish discoloration of right middle finger, very cold to touch, ulceration at the tip of the finger. Musculoskeletal: No Tenderness to Palpation of Joints or Extremities Lymphatic: No Cervical, Supraclavicular, or Inguinal Adenopathy Neurological: Cranial nerves II-XII grossly intact, Neuro grossly intact, Motor Exam 5/5 strength throughout Psych/Mental Status: Normal Affect, Appropriate, Alert and oriented to time, place, person, mood and affect Microbiology Past 72 Hours 08/31/20 15:30 Nasal Secretion SARS-CoV-2 Antigen (Rapid) - Final Laboratory Results 08/31/20 15:15: WBC 8.4, RBC 4.07 L, Hgb 11.5 L, Hct 36.7 L, MCV 90.2, MCH 28.3, MCHC 31.3 L, RDW Std Deviation 48.7 H, RDW Coeff of [place] 14.6, Plt Count 373, MPV 10.2, Immature Gran % (Auto) 0.500, Neut % (Auto) 67.6, Lymph % (Auto) 22.6, [place] % (Auto) 7.3, Eos % (Auto) 1.3, Baso % (Auto) 0.7, Absolute Neuts (auto) 5.7, Absolute Lymphs (auto) 1.90, Nucleated RBC % 0 08/31/20 15:15: Sodium 128 L, Potassium 4.9, Chloride 97 L, Carbon Dioxide 25.0, Anion Gap 6, BUN 19 H, Creatinine 1.46 H, Estim Creat Clear Calc 52.05, Est GFR (MDRD) Af Amer 63, Est GFR (MDRD) Non-Af 52 L, BUN/Creatinine Ratio 13.0, Glucose 374 H, Calcium 8.9, Troponin I 0.292 H Diagnostic Data Chest CTA 08/31/20 15:[address]: 1[address] evidence of pulmonary embolism. 2. Large bilateral pleural effusions with bibasilar atelectasis. Electronically Signed: Mert Ardon MD at 16:58 EDT Tel , Service support , Assessment/Plan All Active Problems Sepsis (Ruled-out) Cellulitis of right foot (Resolved) Malnutrition (Ruled-out) Chronic osteomyelitis, other specified site (Resolved) 60 y/o admitted with a complaint of shortness of breath #Acute hyoxic respiratory insufficiency due to acute heart failure of unknown EF Admit to PCU with telemetry Troponin was 0.292. This could likely be due to hypoxia. Diuresed with IV Lasix 40 mg twice daily. Monitor intake and output. Fluid restriction 1500 cc daily. Get 2D echo. Consult cardiology. Breathing treatments of bronchodilators. #Bilateral pleural effusions likely due to acute failure of unknown EF As above. If shortness of breath does not improve with diuresis, consult pulmonology. #Peripheral artery disease Right middle finger has a bluish discoloration with ulceration at the tip. Arterial duplex done showed decreased flow to the ulna artery. This was discussed with his vascular surgeon Dr. Swan recommended that patient continue taking his blood thinner. To follow-up with vascular surgery. S/p right lower extremity AKA. #Non-STEMI Is likely type II events due to demand ischemia. Troponin 0 0.292. Will consult cardiology Continue blood thinners and give aspirin. Cycle troponins. #Hypertension: On lisinopril and metoprolol. #Type 2 diabetes mellitus: On Lantus 22 units nightly. Insulin sliding scale. Accu-Cheks AC at bedtime. #Hyperlipidemia: On simvastatin DVT prophylaxis: Not indicated as he is on Eliquis CODE STATUS: Not determined I spoke extensively to patient about CODE STATUS including difference between full code, DNR CCA and DNR CCA. Patient said he did not wish to be intubated or have CPR as he has only 1 left of his family. When I try to clarify the difference between CCA and DNRCC, patient said he is not planning on staying in the hospital for longer and wants to be transferred to [facility] tomorrow. He therefore did not see the need for this discussion and did not want to go on further. Total [id number] time 18 minutes. #Disposition: Patient awaiting transfer to [facility] per his request. There is no bed for patient at [facility] and he says if tomorrow by 12 noon, there is no bed for him at [facility] he has not been transferred, he will sign out AGAINST MEDICAL ADVICE.
--- NOTE | 2020-08-31 17:46 | NURSING ---
ALVIN PAGED, DR STONER RETURNED CALL
--- NOTE | 2020-08-31 17:52 | NURSING ---
PCU KORAM DYSPNEA, HYPOXIA, PLEURAL EFFUSIONS
[2020-08-31] MEDS: Morphine 4 MG/ML Syringe IV (18:05)
[2020-08-31] MEDS: Ondansetron 4 MG/2 ML Vial IV (18:10)
[2020-08-31] MEDS: oxyCODONE 5 MG Tablet PO (20:26)
[2020-08-31 20:40] LABS: Cholesterol 176 mg/dL (200); High Density Lipoprotein 73 mg/dL; Triglycerides 78 mg/dL; Very Low Density Lipoprotein 16 mg/dL (5-40)
--- NOTE | 2020-08-31 21:06 | PCM.CONS.C ---
Problem List (1) CHF (congestive heart failure) Status: Acute (2) Abnormal cardiac enzyme level Status: Acute (3) Peripheral vascular disease Status: Chronic (4) HTN (hypertension) Status: Chronic (5) Type 2 diabetes mellitus with diabetic polyneuropathy Status: Chronic (6) COPD (chronic obstructive pulmonary disease) Status: Chronic Reason for Consult Date of Consultation: 08/31/20 History of Present Illness: The patient is a 60 year oldazj-bokl-xry white male with a past history which is included extensive peripheral vascular disease requiring peripheral vascular intervention, hypertension, diabetes mellitus, COPD, who is referred for evaluation of shortness of breath/dyspnea and hypoxemia and concerns of CHF with pleural effusions. The patient states that he was having more and more difficulty breathing. Thus he elected to present to the emergency department for further evaluation care. There he was found to be hypoxic with an O2 saturation reported at approximately 80%. He underwent evaluation with a chest CT scan. The results are as noted below. He was subsequently placed in the PCU for further evaluation and care. He has had cardiac enzymes performed which shows troponin I levels have been indeterminant. His ECG demonstrated what appeared to be sinus tachycardia with a rightward axis and a possible left posterior fascicular block and poor R wave progression. His chest CT scan is as noted. He also states that recently he has noted that on his left hand that one of his digits have been progressively cyanotic in the tip of the digit turning deep purple/black. He states he believes this is related to his extensive peripheral vascular disease for which she has had peripheral vascular interventions reportedly in the right subclavian artery as well as in his right lower extremity. He has had a right lower extremity AKA. He states he has been evaluated by Dr. Swan peripheral vascular surgery in [place], [place]. At the moment he is not complaining of ongoing chest discomfort or pain. His main concern was shortness of breath and dyspnea. He has denied any near-syncope or syncope. He has had mild edema of the left lower extremity. [] Past Medical History Allergies/Adverse Reactions: Allergies vancomycin Allergy (Verified 08/31/20 15:15) MAYE SYNDROME NEED TO MEDICATE PRE AND GIVE 1/2 RATE Home Medications: Ambulatory Orders Medication Instructions Recorded Gabapentin [Neurontin] 800 mg PO TID 02/14/17 Lisinopril 20 mg PO DAILY 10/05/17 Metoprolol Succinate 25 mg PO DAILY 02/14/17 Simvastatin 40 mg PO DAILY 02/14/17 Albuterol Inhaler [Ventolin Hfa] 2 puff INHALATION Q4H PRN PRN 04/30/17 Insulin Aspart [Novolog Flexpen] See Protocol SC ACHS 06/10/17 Insulin Glargine,Hum.rec.anlog 22 unit SQ QHS 06/10/17 [Lantus] Acetaminophen [Tylenol Tablet] 650 mg PO Q6H PRN PRN tablet 06/14/17 Oxycodone [Oxyir] 5 mg PO Q4H PRN PRN 7 Days #30 tab 06/14/17 Apixaban [Eliquis] 2.5 mg PO BID 08/31/20 Past Medical History (Chronic Problems): Chronic Problems Fatty infiltration of liver (Chronic) Subclavian arterial stenosis (Chronic) Foot osteomyelitis, right (Chronic) Ulcer of right foot with necrosis of muscle (Chronic) Yee esophagitis (Chronic) Abnormal CT scan, esophagus (Chronic) Dysphagia (Chronic) Compliance poor (Chronic) Peripheral vascular disease (Chronic) HTN (hypertension) (Chronic) Nicotine abuse (Chronic) Peripheral neuropathy (Chronic) CAD (coronary artery disease) (Chronic) COPD (chronic obstructive pulmonary disease) (Chronic) Type 2 diabetes mellitus with diabetic polyneuropathy (Chronic) Surgical History: coronary bypass surgery, - - debridement left arm, 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 carpal tunnel release Psychiatric History: No pertinent psych hx - *Family History Maternal History Items: Heart Disease Paternal History Items: Heart Disease Lives: Alone Smoking Status: Heavy Smoker (>10/day) Tobacco Use: Cigarettes Alcohol: None Drugs: None Review of Systems - Review of Systems General: Denies: Fever, Night Sweats, Fatigue Cardiovascular: Reports: Shortness of Breath, Shortness of Breath at Rest, Peripheral Edema. Denies: Chest Discomfort, Orthopnea, PND, Palpitations, Lightheadedness, Dizziness, Near Syncope, Syncope Respiratory: Reports: Shortness of Breath. Denies: Cough, Sputum Production, Hemoptysis Gastrointestinal: Denies: Hematemesis, Hematochezia, Melena Genitourinary: Denies: Dysuria, Hematuria Skin: Denies: Rash Subjectve: This is a 60-year-old white male who appears to be resting reasonably comfortably at the moment with O2 nasal cannula support and in no acute distress. Objective: Vital Signs Temp Pulse Resp BP Pulse Ox 98.8 F 104 H 18 119/69 98 08/31/20 18:37 08/31/20 19:00 08/31/20 18:37 08/31/20 18:37 08/31/20 18:37 Oxygen Flow Rate (L/min) 2 Oxygen Delivery Method Nasal Cannula Weight: 147 lb 4.301 oz Body Mass Index (BMI) 22.4 Finger Stick Blood Glucose 336 General: Awake, Alert, Oriented x 3, Cooperative, No Acute Distress HEENT: Atraumatic, Normocephalic, PERRL, EOMI, Sclera Non Icteric Neck: Supple, Good ROM, No JVD Lungs: Diminished Isaías Bases Cardiovascular: Regular Rhythm, Normal S1, Normal S2 Vascular: No Carotid Bruits, Decreased L Radial Pulse Abdomen: Bowel Sounds Present, Soft Extremities: Mild LLE Edema, - - Right AKA Neurological: No Focal Motor or Sensory Deficit Psych/Mental Status: Appropriate 08/31/20 15:15: WBC 8.4, RBC 4.07 L, Hgb 11.5 L, Hct 36.7 L, MCV 90.2, MCH 28.3, MCHC 31.3 L, Plt Count 373, MPV 10.2, Immature Gran % (Auto) 0.500, Neut % (Auto) 67.6, Lymph % (Auto) 22.6, [place] % (Auto) 7.3, Eos % (Auto) 1.3, Baso % (Auto) 0.7, Absolute Neuts (auto) 5.7, Nucleated RBC % 0 08/31/20 15:15: Sodium 128 L, Potassium 4.9, Chloride 97 L, Carbon Dioxide 25.0, Anion Gap 6, BUN 19 H, Creatinine 1.46 H, Est GFR (MDRD) Af Amer 63, Est GFR (MDRD) Non-Af 52 L, BUN/Creatinine Ratio 13.0, Glucose 374 H, Calcium 8.9, Troponin I 0.292 H 08/31/20 15:15: B-Natriuretic Peptide 3832.2 H 08/31/20 20:06: Troponin I 0.288 H, Triglycerides 78, Cholesterol 176, LDL Cholesterol 87, VLDL Cholesterol 16, HDL Cholesterol 73 Rhythm: Sinus rhythm/sinus tachycardia EKG: As noted above Chest CT Scan: FINDINGS: Normal enhancement of the main pulmonary artery and right and left pulmonary arteries. Normal enhancement of the bilateral peripheral pulmonary arteries. There is no demonstrated pulmonary embolism. Normal thoracic aorta and visualized great vessels. There is no demonstrated aortic dissection. Normal heart and pericardium. Normal mediastinum. Normal hilar regions. Normal visualized trachea and bronchi. The lungs are well expanded. Mild right apical scarring. Large bilateral pleural effusions with bibasilar atelectasis. Normal chest wall structures. Normal osseous structures. Normal visualized upper abdomen. CT/CTA Chest W/WO Contrast IMPRESSION: 1. No CT evidence of pulmonary embolism. 2. Large bilateral pleural effusions with bibasilar atelectasis. Electronically Signed: Mert Ardon MD at 16:58 EDT Assessment/Plan 1. CHF There is concern the patient has CHF. It is unclear at this time whether this is systolic or diastolic mediated. He is undergoing further evaluation. He will continue to be monitored. He should be considered for further evaluation with an echocardiogram to assess his ventricular wall motion systolic function. In the meantime he is placed on diuretic therapy to assist with his volume management. 2. Abnormal troponin I levels He does have abnormal troponin I levels. They are indeterminant. It is unclear whether this represents a type I event or potentially a type II event secondary to concerns of underlying CHF superimposed upon his other medical conditions. The present time his cardiac enzymes will be followed. His ECG will be followed. An echocardiogram can be requested to evaluate his left ventricular wall motion and overall systolic function. Depending upon his clinical course he may needed future noninvasive or invasive evaluation. If he does require invasive evaluation of his coronary anatomy he should be considered for transfer to a tertiary care center for such a procedure to be performed based upon his extensive peripheral vascular disease process. 3. Peripheral vascular disease He does have a history of extensive peripheral arterial occlusive disease. He has been evaluated by peripheral vascular surgery in the past. It appears he has had peripheral vascular interventions as well. He now has concerns of cyanosis of a left upper extremity digit. He will need to be reassessed by peripheral vascular surgery. 4. Hypertension His blood pressure can be followed and his medicines can be adjusted accordingly. 5. Diabetes mellitus He will continue evaluation care per internal medicine. 6. COPD He has a history of underlying COPD. He will continue evaluation care per internal medicine. Comment: The patient requested transfer to [facility] in [place], [place] for further evaluation and care. According to the [facility] staff this hospital was contacted regarding the patient requesting transfer to their institution. The patient apparently has been accepted there and is pending transfer based upon bed availability. This note was generated using a voice recognition system and there may be incorrect words, spelling or punctuation that were not noted when reviewing the office note prior to saving. Procedure Criteria Procedure Type: Elective COVID Risk Discussion: The surgeon/proceduralist and patient have discussed in detail the risk of exposure to and/or potential harm posed by the COVID-19 virus with having a surgery/procedure at this time versus the risk of delaying the surgery/procedure. It is not possible to know either the risk of delaying the surgery or procedure or chance of getting an infection with perfect accuracy, but a joint decision was made between the patient and the surgeon/proceduralist to proceed at this time with the scheduled surgery/procedure as indicated on the consent form.
[2020-08-31] MEDS: APIXABAN 2.5 MG TABLET PO (21:43)
[2020-08-31] MEDS: Gabapentin 800 MG Tablet PO (21:43)
[2020-08-31] MEDS: Atorvastatin Calcium 20 MG Tablet PO (21:43)
[2020-08-31 21:51] LABS: Bedside Glucose 358 mg/dL (70-110)
[2020-08-31] MEDS: Insulin Lispro 100 UNIT/ML INSULN.PEN SC (22:05)
[2020-08-31 23:05] LABS: Bedside Glucose 261 mg/dL (70-110)
[2020-08-31] MEDS: Albuterol 2.5 MG/3 ML VIAL.NEB. INHALATION (23:37)
[2020-09-01] VITALS (7 sets, daily range): BP systolic 130–139; BP diastolic 79–88; PULSE 90–98; RESP 16–18; TEMP 36.4–36.6; O2SAT 86–98
[2020-09-01] MEDS: oxyCODONE 5 MG Tablet PO ×3 (00:33→10:49)
[2020-09-01 01:50] LABS: Absolute Lymphocyte Count 3.01 X10^3/uL (0.83-4.51); Absolute Neutrophil Count 4.5 X10^3/uL (2.0-7.7); Basophil# 0.06 X10^3/uL; Basophil% 0.7 % (0-1); Eosinophils% 2.3 % (0-5); Hematocrit 34.8 % (40-54); Hemoglobin 10.9 g/dL (13.0-16.5); Lymphocyte # 3.01 X10^3/ul (0.83-4.51); Lymphocyte % 34.1 % (19-41); Mean Corp Hgb Conc 31.3 g/dL (32-36); Mean Corpuscular Hgb 28.2 pg (27.0-32.0); Mean Corpuscular Volume 90.2 fL (80-94); Mean Platelet Vol. 10.1 fl (6.2-12.0); Monocyte% 11.3 % (0-10); NRBC Flagged by Analyzer 0 % (0-5); Neutrophil # 4.52 X10^3/uL (2.7-7.7); Neutrophil % 51.1 % (47-70); Platelet Count 361 K/mm3 (150-450); RBC Distribution Width CV 14.6 % (11.6-14.6); RBC Distribution Width SD 48.2 fl (35.1-43.9); Red Blood Count 3.86 M/mm3 (4.6-6.2); White Blood Count 8.8 K/mm3 (4.4-11.0)
[2020-09-01 02:14] LABS: Anion Gap 9 (5-15); BUN 26 mg/dL (7-18); BUN/Creat Ratio 16.5 RATIO (10-20); Chloride 103 mmol/L (98-107); Creatinine, Serum 1.58 mg/dL (0.70-1.30); EST Glomerular Filtration Rate 48 mL/min (>60); Est Glom Filt Rate - Afr Amer 58 mL/min (>60); Estimated Creatinine Clearance 46.98 ml/min; Glucose 79 mg/dL (74-106); Potassium 4.3 mmol/L (3.5-5.1); Sodium Level 131 mmol/L (136-145)
[2020-09-01] MEDS: Gabapentin 800 MG Tablet PO (05:10)
--- NOTE | 2020-09-01 05:55 | EKG12_ITS ---
Test Reason : AM EKG Blood Pressure : / mmHG Vent. Rate : 095 BPM Atrial Rate : 095 BPM P-R Int : 156 ms QRS Dur : 090 ms QT Int : 360 ms P-R-T Axes : 061 018 112 degrees QTc Int : 452 ms Normal sinus rhythm Anterior infarct , age undetermined Abnormal ECG When compared with ECG of 31-AUG-2020 15:45, MANUAL COMPARISON REQUIRED, DATA IS UNCONFIRMED Confirmed by LEON LEÓN, LIOR ([id number]), senior technical editor KEVIN TAYLOR ([id number]) on 09/02/2020 8:27:03 AM Referred By: HERBIE Confirmed By:NOHEMI QUINTERO MD
[2020-09-01] MEDS: Insulin Lispro 100 UNIT/ML INSULN.PEN SC (06:42)
[2020-09-01 07:01] LABS: Bedside Glucose 151 mg/dL (70-110)
[2020-09-01] MEDS: Metoprolol(XL)Succ 25 MG Tablet PO (09:28)
[2020-09-01] MEDS: Furosemide 40 MG/4 ML Vial IV (09:28)
[2020-09-01] MEDS: Lisinopril 20 MG Tablet PO (09:28)
[2020-09-01] MEDS: 0.9% Saline Lock 10 ML Syringe IV ×2 (09:28→10:50)
[2020-09-01] MEDS: APIXABAN 2.5 MG TABLET PO (09:28)
--- NOTE | 2020-09-01 10:45 | CASEMGMT ---
[facility] assessment: Face to Face with patient for initial transition planning/care coordination assessment. RN ZIGGY introduced self and role at [facility], pt voices understanding and consents to assessment. Pt is sitting up in bed on room air in no distress. Pt is A/Ox4 and answers all questions appropriately. Care providers, pharmacy, and demographics verified. Presentation: Pt c/o increased SOB since 89, inhaler not helping-hx COPD Admitting dx: SOB PCP: Taylor ling Castle Specialists: keshia Swan Preferred Pharmacy: [facility] Insurance: [facility] Prescription Benefit: Yes Living Will/HPOA: Pt states does not have LW/HPOA and declines AD info. LNOK: Donna Dawkins, ex- Living Arrangements: Pt states lives alone in 1 story apt and states no concerns at home. Pt states is independent with ADL's. Transportation: Pt states drives self and states no transportation concerns. DME/HHC: Pt states has the following DME: HCP accessible apt, w/c, electric w/c, grab bars, and prostetic leg. Pt states has had HHC in the past and has been to [facility]. Pt states no concerns with going home at time of discharge. Pt states 'I was supposed to be transferred to [place] and if they don't do it soon, then I will just leave and drive there myself.' Dr. Ruby and Angel, supercharger mechanic, aware. Per Claudette Ortiz had no bed availability this am or last night for transfer and pt is aware. Pt is on disability. Pt staes smokes 1/2 pack cigarettes daily and does not drink ETOH. Pt states no further concerns/needs. CM to follow for home oxygen need and any further discharge planning/needs. Advised pt to ask for CM if any further questions/concerns/needs arise, voices understanding. Pt Goal: Home Plan: Home [place] [facility]
[2020-09-01 11:50] LABS: Bedside Glucose 111 mg/dL (70-110)
--- NOTE | 2020-09-01 13:10 | NURSING ---
This RN was approached by maintenance staff stating there was a nurse in the back hallway needing assistance. Upon arrival I observed the patient in a wheelchair attempting to go outside. He stated he had been released by his doctor and was trying to leave. I wheel the patient back to his room where I explained he could either sign AMA papers or wait for the doctor to discuss transfer to [facility]. He stated he would not wait and would take himself to the [facility] ED. He stated he would not sign AMA papers because he is going to get further care at [facility]. This RN removed the patient's IV and asked him how he planned to get home. He stated that the last time he left the hospital we arranged transportation for him. I informed him that under these circumstances we could not arrange transportation home unless he stayed and participated in the plan of care. He refused to stay and wheeled himself into the elevator. This RN and the housekeeping assistant escorted him to the main entrance where he called [employer] for a ride home.
--- NOTE | 2020-09-01 14:30 | PN.CARD_ITS ---
Subjectve: The patient was evaluated earlier this day. He stated that his breathing had improved since being in the hospital. He was not complaining of ongoing chest discomfort or pain. He still had concerns of his upper extremity hand/digits with respect to cyanosis and distal digit this colorization (purple/black). He was still pending transfer to [facility] in [place], [place]. Objective: Vital Signs Temp Pulse Resp BP Pulse Ox 97.8 F 90 18 139/79 H 94 09/01/20 09:27 09/01/20 09:28 09/01/20 09:27 09/01/20 09:27 09/01/20 09:27 Oxygen Flow Rate (L/min) 2 Oxygen Delivery Method Nasal Cannula Weight: 144 lb 13.499 oz Body Mass Index (BMI) 22.4 Finger Stick Blood Glucose 336 Intake and Output for Last 24 Hours 08/30/20 08/31/20 09/01/20 23:59 23:59 23:59 Intake Total 1240 / 1240 Balance 1240 / 1240 General: Awake, Alert, Oriented x 3, Cooperative, No Acute Distress HEENT: Atraumatic, Normocephalic, PERRL, EOMI, Sclera Non Icteric Neck: Supple, Good ROM, No JVD Lungs: Diminished Isaías Bases Cardiovascular: Regular Rhythm, Normal S1, Normal S2 Abdomen: Bowel Sounds Present, Soft Extremities: Trace LLE Edema Psych/Mental Status: Appropriate 08/31/20 15:15: WBC 8.4, RBC 4.07 L, Hgb 11.5 L, Hct 36.7 L, MCV 90.2, MCH 28.3, MCHC 31.3 L, Plt Count 373, MPV 10.2, Immature Gran % (Auto) 0.500, Neut % (Auto) 67.6, Lymph % (Auto) 22.6, [place] % (Auto) 7.3, Eos % (Auto) 1.3, Baso % (Auto) 0.7, Absolute Neuts (auto) 5.7, Nucleated RBC % 0 08/31/20 15:15: Sodium 128 L, Potassium 4.9, Chloride 97 L, Carbon Dioxide 25.0, Anion Gap 6, BUN 19 H, Creatinine 1.46 H, Est GFR (MDRD) Af Amer 63, Est GFR (MDRD) Non-Af 52 L, BUN/Creatinine Ratio 13.0, Glucose 374 H, Calcium 8.9, Troponin I 0.292 H 08/31/20 15:15: B-Natriuretic Peptide 3832.2 H 08/31/20 20:06: Troponin I 0.288 H, Triglycerides 78, Cholesterol 176, LDL Cholesterol 87, VLDL Cholesterol 16, HDL Cholesterol 73 08/31/20 22:42: Troponin I 0.286 H 09/01/20 01:30: WBC 8.8, RBC 3.86 L, Hgb 10.9 L, Hct 34.8 L, MCV 90.2, MCH 28.2, MCHC 31.3 L, Plt Count 361, MPV 10.1, Immature Gran % (Auto) 0.500, Neut % (Auto) 51.1, Lymph % (Auto) 34.1, [place] % (Auto) 11.3 H, Eos % (Auto) 2.3, Baso % (Auto) 0.7, Absolute Neuts (auto) 4.5, Nucleated RBC % 0 09/01/20 01:30: Sodium 131 L, Potassium 4.3, Chloride 103, Carbon Dioxide 19.0 L , Anion Gap 9, BUN 26 H, Creatinine 1.58 H, Est GFR (MDRD) Af Amer 58 L, Est GFR (MDRD) Non-Af 48 L, BUN/Creatinine Ratio 16.5, Glucose 79, Calcium 9.0 09/01/20 01:30: Troponin I 0.246 H Rhythm: Sinus rhythm Medical Necessity - Tobacco Use Smoking Status: Heavy Smoker (>10/day) Tobacco Use: Cigarettes Assessment/Plan 1. CHF There is concern the patient has CHF. It is unclear at this time whether this is systolic or diastolic mediated. He has been placed on medical management. He appears to be responding and feeling somewhat better at this time with his respiratory status. He is pending further evaluation. 2. Abnormal troponin I levels He does have abnormal troponin I levels. They are indeterminant. It is unclear whether this represents a type I event or potentially a type II event secondary to concerns of underlying CHF superimposed upon his other medical conditions. The present time his cardiac enzymes will be followed. His ECG will be followed. An echocardiogram has been requested to evaluate his left ventricular wall motion and overall systolic function. Depending upon his clinical course he may needed future noninvasive or invasive evaluation. If he does require invasive evaluation of his coronary anatomy he should be considered for transfer to a tertiary care center for such a procedure to be performed based upon his extensive peripheral vascular disease process. 3. Peripheral vascular disease He does have a history of extensive peripheral arterial occlusive disease. He has been evaluated by peripheral vascular surgery in the past. It appears he has had peripheral vascular interventions as well. He now has concerns of cyanosis of a left upper extremity digit. He will need to be reassessed by peripheral vascular surgery. 4. Hypertension His blood pressure can be followed and his medicines can be adjusted accordingly. 5. Diabetes mellitus He will continue evaluation care per internal medicine. 6. COPD He has a history of underlying COPD. He will continue evaluation care per internal medicine. Comment: The patient requested transfer to [facility] in [place], [place] for further evaluation and care. At the time of his evaluation he was pending transfer to [facility]. The patient stated that he was not able to be transferred to [facility] and he went to consider whether he would remain at [facility] or request to be released home for continued outpatient follow-up. WI: The patient's case has been discussed and reviewed with Dr. Ruby. This note was generated using a voice recognition system and there may be incorrect words, spelling or punctuation that were not noted when reviewing the office note prior to saving.
--- NOTE | 2020-09-02 19:30 | DS.PCM_ITS ---
Discharge Date and Diagnosis - Problem List Patient Problems: Active and Suspected Problems CHF (congestive heart failure) (Acute) Abnormal cardiac enzyme level (Acute) Date of Admission: 08/31/20 Date of Discharge: 09/01/20 - Primary Discharge Diagnosis Acute Problems: Active Problems #1 acute congestive heart failure-unknown whether it is systolic or diastolic mediated #2 indeterminate troponin levels etiology unclear #3 peripheral vascular disease #4 essential hypertension #5 type 2 diabetes #6 noncompliance with medical regimen - Secondary Discharge Diagnosis Chronic Problems: Chronic Problems Fatty infiltration of liver (Chronic) Subclavian arterial stenosis (Chronic) Foot osteomyelitis, right (Chronic) Ulcer of right foot with necrosis of muscle (Chronic) Yee esophagitis (Chronic) Abnormal CT scan, esophagus (Chronic) Dysphagia (Chronic) Compliance poor (Chronic) Peripheral vascular disease (Chronic) HTN (hypertension) (Chronic) Nicotine abuse (Chronic) Peripheral neuropathy (Chronic) CAD (coronary artery disease) (Chronic) COPD (chronic obstructive pulmonary disease) (Chronic) Type 2 diabetes mellitus with diabetic polyneuropathy (Chronic) Hospital Course and Treatment Operations: None Procedures: None Summary of Care Provided: The patient is a 60 year old M was seen in the emergency room at [facility] with chief complaint of shortness of breath. Patient denied chest pain EMS was called to the patient's residence, on arrival his pulse ox was 80% on room air, patient had a work-up in the emergency room which included an EKG which showed a sinus tachycardia with a rate of 106 with nonspecific T wave changes, CT of the chest was obtained and showed no evidence of pulmonary embolism, there was noted to be large bilateral pleural effusions with bibasilar atelectasis. CBC was normal except for hemoglobin of 11.5, glucose was elevated at 374, BUN was 19, troponin was 0.292. Patient was Covid negative. Patient preferred transfer to [facility], there were no beds available however at [place] and the patient was admitted to PCU for further care, patient was seen in consultation by cardiology and he was treated for congestive heart failure. Patient became adamant about leaving [facility] and requested discharge, I explained to him that he would have to be discharged AGAINST MEDICAL ADVICE and the patient requested this discharge. On 09/01/2020, patient was seen and examined: On examination he appeared her than his stated age. Vital signs as documented. Skin warm and dry and without overt rashes. Neck without JVD, neck was supple, trachea midline, thyroid was normal. Lungs-decreased breath sounds were noted bilaterally. Heart exam notable for regular rhythm, normal sounds and absence of murmurs, rubs or gallops. Abdomen unremarkable and without evidence of organomegaly, masses, or abdominal aortic enlargement. Bowel sounds are present, abdomen is not distended. Extremities a remote [id number] amputation is noted on the right, there is some left middle finger cyanosis noted to be present on exam. Neuro: Cranial nerves II through XII are grossly intact, no focal motor deficits were noted, sensation to light touch and pinprick intact, motor exam 5/5 throughout. Psych: Patient is alert and oriented x3, he appears unsettled and frustrated On 09/01/2020, patient was discharged AGAINST MEDICAL ADVICE, patient told this examiner that his plan was to go to [place] emergency room for further evaluation. Patient Problems: Active and Suspected Problems CHF (congestive heart failure) (Acute) Abnormal cardiac enzyme level (Acute) - Physical Exam Vitals/I&O's: Vital Signs Temp Pulse Resp BP Pulse Ox 97.8 F 90 18 139/79 H 94 09/01/20 09:27 09/01/20 09:28 09/01/20 09:27 09/01/20 09:27 09/01/20 09:27 Oxygen Flow Rate (L/min) 2 Oxygen Delivery Method Nasal Cannula Weight: 65.7 kg Body Mass Index (BMI) 22.4 Finger Stick Blood Glucose 336 Intake and Output for Last 24 Hours 08/31/20 09/01/20 09/02/20 23:59 23:59 23:59 Intake Total 1240 / 1240 Balance 1240 / 1240 Microbiology Past 72 Hours 08/31/20 15:30 Nasal Secretion SARS-CoV-2 Antigen (Rapid) - Final Home Medications: Medications to take at Discharge Gabapentin [Neurontin] 800 mg PO TID 02/14/17 Lisinopril 20 mg PO DAILY 02/14/17 Metoprolol Succinate 25 mg PO DAILY 02/14/17 Simvastatin 40 mg PO DAILY 02/14/17 Albuterol Inhaler [Ventolin Hfa] 2 puff INHALATION Q4H PRN PRN 04/30/17 Insulin Aspart [Novolog Flexpen] See Protocol SC ACHS 06/10/17 Insulin Glargine,Hum.rec.anlog [Lantus] 22 unit SQ QHS 06/10/17 Acetaminophen [Tylenol Tablet] 650 mg PO Q6H PRN PRN tablet 06/14/17 Oxycodone [Oxyir] 5 mg PO Q4H PRN PRN 7 Days #30 tab 06/14/17 Apixaban [Eliquis] 2.5 mg PO BID 08/31/20 Primary Care Physician: Rizwana Baker MD [Primary Care Provider] - Disposition: Against Medical Advice Minutes spent on discharge:: 31 Patient Condition:: Guarded Medical Necessity - Tobacco Use Smoking Status: Heavy Smoker (>10/day) Tobacco Use: Cigarettes Meaningful Use Info Meaningful Use Diagnoses (Choose all that apply): CHF - CHF TATIANNA/ARB ordered at discharge?: No Reason TATIANNA/ARB not ordered?: Allergy - Patient signed out AGAINST MEDICAL ADVICE Documented LVEF (%): 0 - Left AGAINST MEDICAL ADVICE Inpatient E&M: [id number] [facility]
== END 2020-09-01 13:10 | disposition left against medical advice (07) | DRG 282 ==
LOC: ED 17:55 → PCU 09-01 00:35
PROVIDERS: Admitting Provider Student in an Organized Health Care Education/Training Program; Emergency Provider Emergency Medicine; PCP Internal Medicine; Visit Provider Internal Medicine
DX: I11.0 Hypertensive heart disease with heart failure (principal); I21.4 Non-ST elevation (NSTEMI) myocardial infarction; R79.89 Other specified abnormal findings of blood chemistry; E11.51 Type 2 diabetes mellitus with diabetic peripheral angiopathy without gangrene; E11.42 Type 2 diabetes mellitus with diabetic polyneuropathy; E78.5 Hyperlipidemia, unspecified; F17.210 Nicotine dependence, cigarettes, uncomplicated; I25.10 Atherosclerotic heart disease of native coronary artery without angina pectoris; I50.9 Heart failure, unspecified; J44.9 Chronic obstructive pulmonary disease, unspecified; K76.0 Fatty (change of) liver, not elsewhere classified; Z79.01 Long term (current) use of anticoagulants; Z91.19 Patient's noncompliance with other medical treatment and regimen; Z79.4 Long term (current) use of insulin; Z79.899 Other long term (current) drug therapy; Z89.611 Acquired absence of right leg above knee
CPT/HCPCS: 36415; 71275; 80048; 80061; 82962; 83880; 84484; 85025; 87426; 93005; 93931; 94640; 96374; 96375; 99218; 99285; Q9967; A4216; G0378; J1940; J2405

== ENCOUNTER 2020-09-06 07:30 | Inpatient (IN) | payer MEDICARE, MEDICAID, SELFPAY ==
[2020-08-31 18:26] VITALS: BMI 22.4
[2020-09-06] VITALS (9 sets, daily range): BP systolic 155–180; BP diastolic 78–121; PULSE 87–102; RESP 15–26; TEMP 36.4–36.7; O2SAT 94–100; BMI 22.4
--- NOTE | 2020-09-06 09:00 | EKG12_ITS ---
Test Reason : SOB Blood Pressure : / mmHG Vent. Rate : 102 BPM Atrial Rate : 102 BPM P-R Int : 160 ms QRS Dur : 100 ms QT Int : 360 ms P-R-T Axes : 056 -32 104 degrees QTc Int : 469 ms Sinus tachycardia Left axis deviation Nonspecific T wave abnormality Poor R wave progression Anteroseptal WI, age undetermined, cannot be excluded Abnormal ECG Confirmed by [place] LEÓN, KASANDRA ([id number]), business editor KEVIN TAYLOR ([id number]) on 09/08/2020 9:10:12 AM Referred By: Confirmed By:KASANDRA BE MD
--- NOTE | 2020-09-06 09:07 | ED.RN ---
see downtime documentation.
--- NOTE | 2020-09-06 09:12 | CT_ITS ---
STUDY: CTA LEFT UPPER EXTREMITIES REASON FOR EXAM: Male, 60 years old. DYSPNEA, LT HAND DISCOLORATION RADIATION DOSAGE (If Supplied By Facility): CTDIvol = ( 19.10 ) mGy, DLP = ( 1529.93 ) mGycm TECHNIQUE: Axial CT angiography, multi-detector data acquisition was obtained from the neck base through the hands following intravenous administration of IV 100mL Isovue-370. mm axial images and MIP images were reconstructed from the axial data set. Post-processing of the angiographic images was performed, with multiplanar reformation and 3D reconstruction. Individualized dose optimization techniques were used for this CT. COMPARISON: None. FINDINGS: THORACIC AORTA: Normal visualized ascending thoracic aorta, without soft or calcific atherosclerotic plaque formation, luminal stenosis or aneurysm. Normal visualized aortic arch, with calcific atherosclerotic plaque formation. No luminal stenosis or aneurysm. Normal branching pattern of the great vessels. Normal visualized descending thoracic aorta, with calcific atherosclerotic plaque formation, no luminal stenosis or aneurysm. Normal origins of the brachiocephalic, left common carotid, and left subclavian arteries from the aortic arch, without soft or calcific atherosclerotic plaque formation or luminal stenosis. LEFT UPPER EXTREMITY: Normal subclavian artery, without soft or calcific atherosclerotic plaque formation, luminal stenosis or aneurysm. Normal visualized left vertebral artery arising from the left subclavian artery. Normal axillary artery, without soft or calcific atherosclerotic plaque formation, luminal stenosis or aneurysm. Normal brachial artery, without soft or calcific atherosclerotic plaque formation, luminal stenosis or aneurysm. CT/CTA Upper Ext W/WO Contrast IMPRESSION: Patency of the arterial structures to the level of the elbow joint. Electronically Signed: Dylan Duarte MD at 10:56 EDT , Service support ,
--- NOTE | 2020-09-06 09:13 | CT_ITS ---
STUDY: CTA CHEST REASON FOR EXAM: Male, 60 years old. DYSPNEA. Left hand discoloration. Subclavian arterial stenosis. RADIATION DOSAGE (If Supplied By Facility): CTDIvol = ( 19.10 ) mGy, DLP = ( 1529.93 ) mGycm TECHNIQUE: The examination was performed with the intravenous administration of IV 100mL Isovue-370. Post-processing of the angiographic images was performed, with multiplanar reformation and 3D reconstruction. Individualized dose optimization techniques were used for this CT. COMPARISON: Comparison is made with prior CTA of the thorax dated 08/31/2020. FINDINGS: Normal enhancement of the main pulmonary artery and right and left pulmonary arteries. Normal enhancement of the bilateral peripheral pulmonary arteries. There is no demonstrated pulmonary embolism. There is atherosclerotic calcification of the aortic arch with tortuosity. There is no demonstrated aortic dissection. Normal heart and pericardium. Normal mediastinum. Normal hilar regions. Normal visualized trachea and bronchi. The lungs are well expanded. Stable small bilateral pleural effusions with bibasilar atelectasis. Normal chest wall structures. Normal osseous structures. Normal visualized upper abdomen. CT/CTA Chest W/WO Contrast IMPRESSION: Bilateral pleural effusions with bibasilar atelectasis. This is unchanged. No evidence of pulmonary emboli. Electronically Signed: Dylan Duarte MD at 10:50 EDT , Service support ,
[2020-09-06 09:22] LABS: Absolute Lymphocyte Count 1.58 X10^3/uL (0.83-4.51); Absolute Neutrophil Count 6.5 X10^3/uL (2.0-7.7); Basophil# 0.08 X10^3/uL; Basophil% 0.9 % (0-1); Eosinophil# 0.08 X10^3/uL; Eosinophils% 0.9 % (0-5); Hematocrit 34.5 % (40-54); Hemoglobin 10.8 g/dL (13.0-16.5); Lymphocyte # 1.58 X10^3/ul (0.83-4.51); Lymphocyte % 17.1 % (19-41); Mean Corp Hgb Conc 31.3 g/dL (32-36); Mean Corpuscular Hgb 28.9 pg (27.0-32.0); Mean Corpuscular Volume 92.2 fL (80-94); Mean Platelet Vol. 10.1 fl (6.2-12.0); Monocyte# 0.94 X10^3/uL; Monocyte% 10.2 % (0-10); NRBC Flagged by Analyzer 0 % (0-5); Neutrophil % 70.4 % (47-70); Platelet Count 368 K/mm3 (150-450); RBC Distribution Width CV 14.9 % (11.6-14.6); Red Blood Count 3.74 M/mm3 (4.6-6.2); White Blood Count 9.2 K/mm3 (4.4-11.0)
--- NOTE | 2020-09-06 09:24 | ED.DCSUM_ITS ---
HPI Narrative Narrative: Patient presenting for evaluation secondary to shortness of breath and change in color of the left hand. Patient reports that he has an underlying history of subclavian artery stenosis, coronary artery disease, congestive heart failure, and COPD. Patient reports that he has been dealing with worsening shortness of breath over the course of the last 5 days . Patient states that he has been having some discoloration and pain of the fingers of the left hand. Patient reports that he has been out of his Eliquis anticoagulation over the course of about the last month. He denies that he has any chest pain associated with this. No cough. No fever. No sputum production. Review of systems otherwise negative. PFSH PFSH Home Medications gabapentin 800 mg PO TID 02/14/17 [History Last Taken 08/31/20] lisinopril 20 mg PO DAILY 02/14/17 [History Last Taken 08/30/20] metoprolol succinate 25 mg PO DAILY 02/14/17 [History Last Taken 08/30/20] simvastatin 40 mg PO DAILY 02/14/17 [History Last Taken 08/30/20] albuterol sulfate [Ventolin HFA] 2 puff INHALATION Q4H PRN PRN 04/30/17 [History Last Taken 06/10/17 08:00] insulin aspart U-100 [Novolog Flexpen U-100 Insulin] See Protocol SUBCUT ACHS 06/10/17 [History Last Taken Unknown] insulin glargine [Lantus U-100 Insulin] 22 unit SQ QHS 06/10/17 [History Last Taken 08/30/20] acetaminophen [Tylenol] 650 mg PO Q6H PRN PRN tablet 06/14/17 [Rx Last Taken Unknown] oxycodone 5 mg PO Q4H PRN PRN 7 Days #30 tab 06/14/17 [Rx Last Taken Unknown] apixaban 2.5 mg PO BID 08/31/20 [History Last Taken 08/31/20] Allergy/AdvReac Type Severity Reaction Status Date / Time vancomycin Allergy MAYE Verified 08/31/20 15:15 SYNDROME Social History Smoking Status: Heavy Smoker (>10/day) ROS ROS ED Constitutional Constitutional ED: Denies fever(s) ENT ENT ED: Denies sore throat Cardiovascular Cardiovascular: Denies chest pain Respiratory/Chest Respiratory/Chest: Reports dyspnea Gastrointestinal Gastrointestinal: Denies abdominal pain, nausea or vomiting Musculoskeletal Musculoskeletal: Denies myalgias Integumentary Reports as per HPI and other; Denies rash Neurologic Neurologic: Denies headache(s), paresthesias or weakness Psychiatric Psychiatric: Denies depression Endocrine Endocrinology: Denies polyuria Hematologic/Lymphatic Hematologic/Lymphatic: Denies easy bleeding or easy bruising Allergic/Immunologic Allergic/Immunologic ED: Denies urticaria EXAM Physical Exam Const Vital Signs: 09/06/20 09:11 09/06/20 10:09 09/06/20 11:18 Temperature 98.1 F 98.1 F Temperature Source Oral Temporal Pulse Rate 100 98 99 Respiratory Rate 15 25 H 26 H Blood Pressure 178/121 H 158/91 H 180/112 H Blood Pressure Mean 140 113 134 Pulse Ox 100 100 100 Oxygen Delivery Method Nasal Cannula Nasal Cannula Nasal Cannula Oxygen Flow Rate (L/min) 4 4 4 09/06/20 12:34 Temperature 97.8 F Temperature Source Temporal Pulse Rate 95 Respiratory Rate 24 H Blood Pressure 171/110 H Blood Pressure Mean 130 Pulse Ox 100 Oxygen Delivery Method Nasal Cannula Oxygen Flow Rate (L/min) 4 Positive well nourished and well developed General Appearance ED: well developed and NAD HEENT atraumatic Eyes PERRL and EOMs intact bilaterally Neck supple Resp normal respiratory effort and clear to auscultation bilaterally Auscultation: Negative for rales, rhonchi or wheezes Cardio regular rate, regular rhythm and no murmurs Cardio Narrative: 1+ radial pulses bilaterally symmetric GI non-tender Palpation: soft Extremity Extremity Narrative: Examination of the patient's left hand shows a amputation of the patient's index finger per the patient's previous history. There is dark discoloration of the long and ring digits that are cool with black discoloration of the tip of the long digit. Decreased sensation is noted. Hand still has good capillary refill, and is normal in temperature compared to the contralateral hand. Neuro Sensorium / Orientation: alert and stuporous Skin Rashes: no rashes MDM MDM MDM Narrative Medical decision making narrative: Patient presented secondary to shortness of breath and having signs of finger ischemia. On physical exam the patient does have circulatory changes actually of his long ring and small digits, but he has a normal Ed test with good capillary refill of the palm with both the radial and the ulnar arteries. Patient was immediately started on a heparin bolus and drip. Patient's work-up demonstrates him to have stable blood counts, mild hyponatremia at 130 significant hyperglycemia at 477 he was given some fluids. Lactic acid was 3.2 likely secondary to his finger ischemia rather than an infectious etiology. I performed a CT angiogram of the chest which did not demonstrate any evidence of blood clots or pneumonia, and a CT angiogram of the patient's upper extremity demonstrates patent vessels down to the level of the elbow, they were unable to characterize distal to this. I discussed patient's case with vascular surgery, Dr. Swan, he requested that wrist brachial and finger brachial indexes be recorded. This was ordered. He will consult on the patient tomorrow. Patient will be admitted under the hospitalist. Lab Data Labs: Laboratory Results - last 24 hr 09/06/20 09/06/20 09/06/20 07:35 07:35 07:35 WBC RBC Hgb Hct MCV MCH MCHC RDW Std Deviation RDW Coeff of Elizabeth Plt Count MPV Immature Gran % (Auto) Neut % (Auto) Lymph % (Auto) [place] % (Auto) Eos % (Auto) Baso % (Auto) Absolute Neuts (auto) Absolute Lymphs (auto) Nucleated RBC % PT 14.4 INR 1.2 APTT 29.8 Sodium 130 L Potassium 4.3 Chloride 96 L Carbon Dioxide 25.0 Anion Gap 9 BUN 18 Creatinine 1.66 H Est GFR (MDRD) Af Amer 55 L Est GFR (MDRD) Non-Af 45 L BUN/Creatinine Ratio 10.8 Glucose 477 H* Lactic Acid 3.2 H* Calcium 8.7 Total Creatine Kinase 154 Troponin I 0.057 H 09/06/20 07:35 WBC 9.2 RBC 3.74 L Hgb 10.8 L Hct 34.5 L MCV 92.2 MCH 28.9 MCHC 31.3 L RDW Std Deviation 50.0 H RDW Coeff of Elizabeth 14.9 H Plt Count 368 MPV 10.1 Immature Gran % (Auto) 0.500 Neut % (Auto) 70.4 H Lymph % (Auto) 17.1 L [place] % (Auto) 10.2 H Eos % (Auto) 0.9 Baso % (Auto) 0.9 Absolute Neuts (auto) 6.5 Absolute Lymphs (auto) 1.58 Nucleated RBC % 0 PT INR APTT Sodium Potassium Chloride Carbon Dioxide Anion Gap BUN Creatinine Est GFR (MDRD) Af Amer Est GFR (MDRD) Non-Af BUN/Creatinine Ratio Glucose Lactic Acid Calcium Total Creatine Kinase Troponin I Radiography Diagnostic Testing: Radiology Impression Upper Extremity CTA 09/06/20 09:12 IMPRESSION: Patency of the arterial structures to the level of the elbow joint. Electronically Signed: Dylan Duarte MD at 10:56 EDT , Service support , Chest CTA 09/06/20 09:13 IMPRESSION: Bilateral pleural effusions with bibasilar atelectasis. This is unchanged. No evidence of pulmonary emboli. Electronically Signed: Dylan Duarte MD at 10:50 EDT , Service support , Critical Care Time Critical Care Time: Yes Critical care time (excluding procedures): 30-74 minutes Discharge Plan Triage ED Provider: Jesse Aguayo Dx/Rx/DC Orders Clinical Impression: Ischemia of finger, Hyperglycemia Primary Care Provider: Rizwana Baker Disposition Patient Disposition: Acute Care Hospital [facility]
[2020-09-06 09:33] LABS: International Normalized Ratio 1.2; Prothrombin Time (Protime)PT. 14.4 SECONDS (11.7-14.9)
[2020-09-06 09:34] LABS: Partial Thromboplast Time 29.8 Seconds (24.1-36.2)
[2020-09-06 09:51] LABS: Anion Gap 9 (5-15); BUN 18 mg/dL (7-18); BUN/Creat Ratio 10.8 RATIO (10-20); CPK Total, Creatine Kinase 154 U/L (39-308); Calcium,Total 8.7 mg/dL (8.5-10.1); Chloride 96 mmol/L (98-107); Creatinine, Serum 1.66 mg/dL (0.70-1.30); EST Glomerular Filtration Rate 45 mL/min (>60); Est Glom Filt Rate - Afr Amer 55 mL/min (>60); Glucose 477 mg/dL (74-106); Lactic Acid 3.2 mmol/L (0.4-1.9); Potassium 4.3 mmol/L (3.5-5.1); Sodium Level 130 mmol/L (136-145)
--- NOTE | 2020-09-06 09:52 | ED.RN ---
DR. MURGUIA AWARE OF GLUCOSE 477 AND LACTIC 3.2.
[2020-09-06] MEDS: Benzonatate 100 MG Capsule PO (10:08)
[2020-09-06] MEDS: Morphine 4 MG/ML Syringe IV (10:40)
--- NOTE | 2020-09-06 12:20 | ART_ITS ---
Reason For Study: ischemia Procedure A bilateral upper extremity continuous wave Doppler with analog waveform analysis and segmental pressures. Pt became hungry and agitated. Refused digital portion of exam. Left Segmental Pressures Left brachial= 140mmHg. Left radial= 168.mmHg. Left ulnar= 129mmHg. The left radial waveforms are triphasic. The left ulnar waveforms are biphasic. Right Segmental Pressures Right brachial= 180mmHg. Right radial= 216mmHg. Right ulnar= 192mmHg. The right radial waveforms are triphasic. The right ulnar waveforms are triphasic. Indices The right wrist-brachial index is 1.2. The left wrist-brachial index is .93. VL/Ankle Brachial Index Interpretation Summary bilateral nomal perfusion at rest with triphasic flow and WBI 1.2 and 0.93. Ordering Physician: Sharif Aguayo Referring Physician: SHARIF AGUAYO MD Performed By: Akshat Pedraza RVT and Student
[2020-09-06 13:14] LABS: Reflex Lactate? Y
[2020-09-06] MEDS: HEPARIN/D5w 25,000 UNITS 25,000 UNITS/250 ML IV.SOLN. 10 UNITS IV (13:15)
[2020-09-06 13:37] LABS: Partial Thromboplast Time 55.9 Seconds (24.1-36.2)
[2020-09-06 13:58] LABS: Lactic Acid 2.5 mmol/L (0.4-1.9)
--- NOTE | 2020-09-06 14:29 | PCM.HP.STD ---
HPI - General General Date of Admission: 09/06/20 Chief Complaint: Change in color of the left hand -5 days HPI Narrative ROMELIA DAVIS, is a 60 M who presents with above ongoing for 5 days. Patient was recently admitted on 08/31/20 in signed out AMA on 09/02/20. Patient presents with left upper extremity duskiness that has been ongoing for 5 days. Patient has history of subclavian artery stenosis. He also has history of right above-knee amputation. He denied any chest pain or dizziness. His pain is fairly controlled in his left hand. PFSH Medical History Anxiety COPD (chronic obstructive pulmonary disease) Coronary artery disease Diabetes Hypertension Peripheral vascular disease Smoker Home Medications gabapentin 800 mg PO TID 02/14/17 [History Last Taken 08/31/20] lisinopril 20 mg PO DAILY 02/14/17 [History Last Taken 08/30/20] metoprolol succinate 25 mg PO DAILY 02/14/17 [History Last Taken 08/30/20] simvastatin 40 mg PO QHS 02/14/17 [History Last Taken 08/30/20] albuterol sulfate [Ventolin HFA] 2 puff INHALATION Q4H PRN PRN 04/30/17 [History Last Taken 06/10/17 08:00] Lantus U-100 Insulin 22 unit SQ QHS 06/10/17 [History Last Taken 08/30/20] insulin aspart U-100 [Novolog Flexpen U-100 Insulin] See Protocol SUBCUT ACHS 06/10/17 [History Last Taken Unknown] apixaban 2.5 mg PO BID 08/31/20 [History Last Taken 08/31/20] insulin aspart U-100 [Novolog Flexpen U-100 Insulin] 4 unit SUBCUT TIDCM 09/06/20 [History Last Taken Unknown] oxycodone 10 mg PO Q4H PRN PRN 09/06/20 [History Last Taken Unknown] Allergy/AdvReac Type Severity Reaction Status Date / Time vancomycin Allergy MAYE Verified 08/31/20 15:15 SYNDROME Family History (Updated 09/06/20 @ 18:[address] Maite Richard MD) Mother Heart disease Father Heart disease Surgical History (Updated 09/06/20 @ 18:[address] Maite Richard MD) Amputation of digit of left hand Carpal tunnel syndrome Hx of AKA (above knee amputation) S/P CABG (coronary artery bypass graft) Social History (Updated 09/06/20 @ 18:[address] Maite Richard MD) household members: spouse Smoking Status: Heavy Smoker (>10/day) alcohol intake: former ROS ROS Narrative Constitutional: Denies: Malaise, Weakness, Fatigue, Anorexia, Chills, Fever, Night Sweats, Weight Change Eyes: Denies: Blurred vision, Cataracts, Conjunctivae Inflammation, Pain, Redness, Vision Change HEENT: Denies: Difficulty Hearing, Difficulty Swallowing, Head Aches, Hearing Changes, Sinus Congestion, Sinus Drainage Cardiovascular: Denies: Chest Pain, Orthopnea, Palpitations Respiratory: Denies: Cough, Shortness of breath at rest, Sputum production Gastrointestinal: Denies: Abdominal Pain, Nausea, Vomiting Genitourinary: Denies: Dysuria Musculoskeletal: Reports pain in the left hand and finger denies: Joint Pain, Joint stiffness, Joint swelling, Joint Tenderness Skin: Denies: Rash, Wounds Neurological: Denies: Numbness, Tingling, Focal weakness Vital Signs Vital Signs Vital Signs: 09/06/20 09:11 09/06/20 10:09 09/06/20 11:18 Temperature 98.1 F 98.1 F Temperature Source Oral Temporal Pulse Rate 100 98 99 Respiratory Rate 15 25 H 26 H Blood Pressure 178/121 H 158/91 H 180/112 H Blood Pressure Mean 140 113 134 Blood Pressure Source Blood Pressure Position Blood Pressure Location Pulse Ox 100 100 100 Oxygen Delivery Method Nasal Cannula Nasal Cannula Nasal Cannula Oxygen Flow Rate (L/min) 4 4 4 09/06/20 12:34 09/06/20 14:15 Temperature 97.8 F 97.5 F L Temperature Source Temporal Temporal Pulse Rate 95 93 Respiratory Rate 24 H 18 Blood Pressure 171/110 H 155/78 H Blood Pressure Mean 130 103 Blood Pressure Source Monitor Blood Pressure Position Sitting Blood Pressure Location Right Arm Pulse Ox 100 94 Oxygen Delivery Method Nasal Cannula Room Air Oxygen Flow Rate (L/min) 4 Physical Exam Narrative Physical exam: General: Alert, Oriented x3, Cooperative, No apparent distress, Well developed, appears frail HEENT: Atraumatic Oral: Moist Mucosa Neck: Supple Lungs: Clear to auscultation Cardiovascular: HS I+II, regular, no murmurs Abdomen: Bowel Sounds Present, Soft, Non Tender Extremities: Right AKA, left lower extremity has +1 pedal edema, left upper extremity/hand feels cool, dusky, capillary refill is prolonged Skin: See under extremity Neurological: Grossly intact Psych/Mental Status: Appropriate Lab / Micro Data Result Diagrams: 09/06/20 07:35 09/06/20 07:35 Labs: Laboratory Results - last 24 hr 09/06/20 09/06/20 09/06/20 07:35 07:35 07:35 WBC RBC Hgb Hct MCV MCH MCHC RDW Std Deviation RDW Coeff of Elizabeth Plt Count MPV Immature Gran % (Auto) Neut % (Auto) Lymph % (Auto) [place]nn % (Auto) Eos % (Auto) Baso % (Auto) Absolute Neuts (auto) Absolute Lymphs (auto) Nucleated RBC % PT 14.4 INR 1.2 APTT 29.8 Sodium 130 L Potassium 4.3 Chloride 96 L Carbon Dioxide 25.0 Anion Gap 9 BUN 18 Creatinine 1.66 H Est GFR (MDRD) Af Amer 55 L Est GFR (MDRD) Non-Af 45 L BUN/Creatinine Ratio 10.8 Glucose 477 H* Lactic Acid 3.2 H* Calcium 8.7 Total Creatine Kinase 154 Troponin I 0.057 H 09/06/20 09/06/20 09/06/20 07:35 13:16 13:16 WBC 9.2 RBC 3.74 L Hgb 10.8 L Hct 34.5 L MCV 92.2 MCH 28.9 MCHC 31.3 L RDW Std Deviation 50.0 H RDW Coeff of Elizabeth 14.9 H Plt Count 368 MPV 10.1 Immature Gran % (Auto) 0.500 Neut % (Auto) 70.4 H Lymph % (Auto) 17.1 L Glynn % (Auto) 10.2 H Eos % (Auto) 0.9 Baso % (Auto) 0.9 Absolute Neuts (auto) 6.5 Absolute Lymphs (auto) 1.58 Nucleated RBC % 0 PT INR APTT 55.9 H Sodium Potassium Chloride Carbon Dioxide Anion Gap BUN Creatinine Est GFR (MDRD) Af Amer Est GFR (MDRD) Non-Af BUN/Creatinine Ratio Glucose Lactic Acid 2.5 H* Calcium Total Creatine Kinase Troponin I Micro: Microbiology 09/06/20 08:04 SARS-CoV-2 Antigen (Rapid) - Final Mucosa - Nasopharyngeal Radiology Impression Upper Extremity CTA 09/06/20 09:12 IMPRESSION: Patency of the arterial structures to the level of the elbow joint. Electronically Signed: Dylan Duarte MD at 10:56 EDT , Service support , Chest CTA 09/06/20 09:13 IMPRESSION: Bilateral pleural effusions with bibasilar atelectasis. This is unchanged. No evidence of pulmonary emboli. 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 use: with computer systems hardware analyst use Qualified Code(s): E11.42 - Type 2 diabetes mellitus with diabetic polyneuropathy; Z79.4 - penitentiary (current) use of insulin (5) Peripheral vascular disease: Status: Chronic Code(s): I73.9 - Peripheral vascular disease, unspecified (6) Ischemia of finger: Status: Acute Code(s): I99.8 - Other disorder of circulatory system (7) Hyperglycemia: Status: Acute Code(s): R73.9 - Hyperglycemia, unspecified (8) CHF (congestive heart failure): Status: Acute Code(s): I50.9 - Heart failure, unspecified Qualifiers: Heart failure type: unspecified Heart failure chronicity: acute Qualified Code(s): I50.9 - Heart failure, unspecified Plan: Admit to PCU Continue on heparin drip, vascular consulted from the ED?Dr. Beny Swan wants GABRIEL of the wrist and finger; ordered from the ED Continue with pain control Continue with nicotine repeat placement Continue home insulin with adjustments in the insulin sliding scale with blood glucose check Trend troponins Continue on IV Lasix 40 mg twice daily Will get 2D echo Inpatient E&M: 28515 Init Hosp L3
[2020-09-06 14:36] LABS: Bedside Glucose 406 mg/dL (70-110)
--- NOTE | 2020-09-06 15:20 | NURSING ---
left hand cool with non-pitting edema. tender to touch. left 3rd/4th/5th digit with erythema. tip of finger blue/black. cap refill WNL. erythema noted to side of hand closest to 5th digit. pt reports numbness/tingling/pain to hand/fingers starting at wrist. pain worse at fingers.
[2020-09-06] MEDS: Insulin Lispro 100 UNIT/ML INSULN.PEN SC ×3 (16:10→17:13)
[2020-09-06] MEDS: oxyCODONE 5 MG Tablet 10 MG PO ×2 (16:17→20:01)
[2020-09-06 17:20] LABS: Bedside Glucose 364 mg/dL (70-110)
--- NOTE | 2020-09-06 18:45 | ECHOD_ITS ---
Reason For Study: CHF Procedure This was a 2D Doppler, Color Flow transthoracic echocardiogram. Did not use Definity due to increased PAP. Exam performed portable in patient room. Left Ventricle Mildly dilated left ventricle. Severe global left ventricular systolic dysfunction. The estimated ejection fraction is 15 %. There is evidence of diastolic dysfunction. Right Ventricle Normal RV size. Mild global right ventricular systolic dysfunction. Atria The left atrium is mildly enlarged. Normal right atrium. No doppler evidence for ASD. Mitral Valve There is no mitral annular calcification. Moderate diffuse mitral valve thickening. Mild-Moderate (1-2+) mitral valve insufficiency. Tricuspid Valve Mild diffuse thickening of the tricuspid valve. Moderate (2+) eccentric tricuspid valve insufficiency. Right ventricular systolic pressure estimated to be 55 mmHg. Aortic Valve Trisinus/trileaflet aortic valve. Normal aortic valve. Pulmonic Valve The pulmonic valve is not well visualized. Mild (1+) pulmonic valve insufficiency. Great Vessels Normal sized aortic root. Pericardium/Pleural No pericardial effusion. MMode/2D Measurements & Calculations LVIDd: 5.4 cm IVSd: 1.3 cm Ao root diam: 2.8 cm LVIDs: 4.8 cm LVPWd: 1.1 cm RVDd: 4.7 cm FS: 10.7 % LAV(MOD-bp): 82.7 ml LVAd ap4: 35.5 cm2 SV(MOD-sp4): 30.9 ml LAV(MOD-bp) Indexed: 46.1 ml/m2 LVLd ap4: 8.5 cm LAV(MOD-sp2): 78.4 ml EDV(MOD-sp4): 120.9 ml LAV(MOD-sp4): 81.9 ml EDV(sp4-el): 125.8 ml LVAs ap4: 29.6 cm2 LVLs ap4: 8.1 cm ESV(MOD-sp4): 90.0 ml ESV(sp4-el): 92.2 ml EF(MOD-sp4): 25.6 % EF(sp4-el): 26.7 % SV(sp4-el): 33.6 ml LA A4 area: 24.9 cm2 LA dimension(2D): 4.9 cm RA A4 area: 15.2 cm2 Doppler Measurements & Calculations MV E max cosme: 98.3 cm/sec Lat Peak E' Cosme: 9.3 cm/sec Med Peak E' Cosme: 3.5 cm/sec MV A max cosme: 54.0 cm/sec E/E' lat: 10.6 E/E' med: 28.2 MV E/A: 1.8 Ao V2 max: 134.4 cm/sec LV V1 max: 82.7 cm/sec PA V2 max: 73.2 cm/sec Ao max P.2 mmHg LV V1 max P.7 mmHg Ao V2 mean: 96.0 cm/sec Ao mean P.0 mmHg Ao V2 VTI: 20.0 cm PI end-d cosme: 169.5 cm/sec TR max cosme: 361.2 cm/sec TR max P.2 mmHg ECHO/Echo Complete Interpretation Summary Mildly dilated left ventricle. Severe global left ventricular systolic dysfunction. The estimated ejection fraction is 15 %. Mild global right ventricular systolic dysfunction. The left atrium is mildly enlarged. Moderate diffuse mitral valve thickening. Mild-Moderate (1-2+) mitral valve insufficiency. Mild diffuse thickening of the tricuspid valve. Moderate (2+) eccentric tricuspid valve insufficiency. Mild (1+) pulmonic valve insufficiency. Right ventricular systolic pressure estimated to be 55 mmHg. There is evidence of diastolic dysfunction. Comment: 2D echocardiographic images demonstrate an approximately 1.0 cm x 1.2 cm echodensity in the left ventricular apical area compatible with a left ventricular apical thrombus . Ordering Physician: Maite Richard Referring Physician: Rizwana Baker Performed By: Virginie Pabon, ZAHIRA, RVT
[2020-09-06 19:40] LABS: Partial Thromboplast Time 38.1 Seconds (24.1-36.2)
[2020-09-06 19:46] LABS: Bedside Glucose 65 mg/dL (70-110)
[2020-09-06] MEDS: Furosemide 40 MG/4 ML Vial IV (20:01)
[2020-09-06] MEDS: Heparin Injection (Vial) 5,000 UNIT/ML VIAL IV (20:09)
[2020-09-06] MEDS: 0.9% Saline Lock 10 ML Syringe IV (20:10)
[2020-09-06] MEDS: Gabapentin 800 MG Tablet PO (21:13)
[2020-09-06] MEDS: Atorvastatin Calcium 20 MG Tablet PO (21:13)
[2020-09-06 21:20] LABS: Bedside Glucose 103 mg/dL (70-110)
--- NOTE | 2020-09-06 23:27 | NURSING ---
pt refusing telemetry at this time. will notify
[2020-09-07] VITALS (10 sets, daily range): BP systolic 108–168; BP diastolic 69–81; PULSE 89–118; RESP 14–22; TEMP 36.2–37.2; O2SAT 90–98
[2020-09-07] MEDS: oxyCODONE 5 MG Tablet 10 MG PO ×4 (02:05→16:28)
[2020-09-07 02:19] LABS: Absolute Lymphocyte Count 2.47 X10^3/uL (0.83-4.51); Absolute Neutrophil Count 7.6 X10^3/uL (2.0-7.7); Basophil# 0.06 X10^3/uL; Basophil% 0.5 % (0-1); Eosinophil# 0.19 X10^3/uL; Eosinophils% 1.7 % (0-5); Hematocrit 31.8 % (40-54); Hemoglobin 9.9 g/dL (13.0-16.5); Lymphocyte # 2.47 X10^3/ul (0.83-4.51); Lymphocyte % 21.6 % (19-41); Mean Corp Hgb Conc 31.1 g/dL (32-36); Mean Corpuscular Hgb 28.6 pg (27.0-32.0); Mean Corpuscular Volume 91.9 fL (80-94); Mean Platelet Vol. 9.6 fl (6.2-12.0); Monocyte% 9.6 % (0-10); NRBC Flagged by Analyzer 0 % (0-5); Neutrophil # 7.58 X10^3/uL (2.7-7.7); Neutrophil % 66.2 % (47-70); Platelet Count 284 K/mm3 (150-450); RBC Distribution Width CV 15.1 % (11.6-14.6); RBC Distribution Width SD 50.3 fl (35.1-43.9); Red Blood Count 3.46 M/mm3 (4.6-6.2); White Blood Count 11.5 K/mm3 (4.4-11.0)
[2020-09-07 02:28] LABS: Partial Thromboplast Time 57.5 Seconds (24.1-36.2)
[2020-09-07 03:14] LABS: ALB/GLOB Ratio 0.7 RATIO (0.9-2.4); AST(SGOT) 28 U/L (15-37); Alanine Aminotransfer ALT/SGPT 34 U/L (16-61); Albumin, Serum 2.7 g/dL (3.2-5.0); Alkaline Phosphatase 219 U/L (45-117); Anion Gap 7 (5-15); BUN 20 mg/dL (7-18); BUN/Creat Ratio 12.8 RATIO (10-20); Calcium,Total 8.5 mg/dL (8.5-10.1); Chloride 100 mmol/L (98-107); Creatinine, Serum 1.56 mg/dL (0.70-1.30); EST Glomerular Filtration Rate 49 mL/min (>60); Est Glom Filt Rate - Afr Amer 59 mL/min (>60); Estimated Creatinine Clearance 47.72 ml/min; Globulin 3.7 g/dL (2.2-4.2); Glucose 80 mg/dL (74-106); Protein, Total 6.4 g/dL (6.4-8.2); Sodium Level 133 mmol/L (136-145)
[2020-09-07] MEDS: Gabapentin 800 MG Tablet PO ×3 (06:48→20:55)
--- NOTE | 2020-09-07 06:55 | ED.RN ---
glucose checked to be 46 this am- 3 juice given and drank. Pt also had snacks at bedtime with lantus but novolog was not given. breakfast order called for pt. will get PB and crackers for pt now.
[2020-09-07 06:56] LABS: Bedside Glucose 46 mg/dL (70-110)
[2020-09-07] MEDS: HEPARIN/D5w 25,000 UNITS 25,000 UNITS/250 ML IV.SOLN. 12 UNITS IV ×2 (07:29→17:37)
[2020-09-07 07:35] LABS: Bedside Glucose 67 mg/dL (70-110)
[2020-09-07 09:07] LABS: Partial Thromboplast Time 40.5 Seconds (24.1-36.2)
[2020-09-07] MEDS: Furosemide 40 MG/4 ML Vial IV ×2 (11:10→20:55)
[2020-09-07 11:11] LABS: Bedside Glucose 122 mg/dL (70-110)
[2020-09-07] MEDS: Metoprolol(XL)Succ 25 MG Tablet PO (11:15)
[2020-09-07] MEDS: 0.9% Saline Lock 10 ML Syringe IV (11:16)
--- NOTE | 2020-09-07 12:12 | CON.PCM_ITS ---
Assessment & Plan Assessment/Plan (1) Subclavian artery stenosis: Status: Chronic Code(s): I77.1 - Stricture of artery Plan: 1. Subclavian. He may have some in-stent stenosis reviewing the CTA. Little bit difficult to fully see. Concern possibly could add a little emboli to his left fingers versus Buerger's disease. Clearly needs to quit smoking. Will need to do an angiogram and probably balloon angioplasty of that stent once he is recovered better from his heart failure. We will do all this as an outpatient. IN the meantime I will have him on dual antiplatelet therapy. Will need to see orthopedics for possible amputations of these fingers if it worsens. HPI Consult Data Date of Consult: 09/07/20 HPI Narrative HPI Narrative: ROMELIA DAVIS, is a 60 M who presents with CHF and worsening breathing. He is also had some ischemia to his left 2 fingers. He had duplex that appeared to have normal flow down this arm. He had wrist brachial index that showed 1.2 on the right and 0.93 on the left. Did have triphasic flow in the radial artery on the left. He has a palpable brachial pulse. Reviewed his CTA and the stent is patent with good flow but may have some in-stent stenosis. His ischemia to his fingers is either from the continued smoking and possibly a component of Buerger's disease or possibly some small emboli. Once he is fully recovered may need to do an angiogram of the stent and possible some balloon angioplasty of this. He clearly needs to quit smoking. Needs to be on dual antiplatelet therapy at this time as well. PFSH Medical History Anxiety COPD (chronic obstructive pulmonary disease) Coronary artery disease Diabetes Hypertension Peripheral vascular disease Smoker Home Medications gabapentin 800 mg PO TID 02/14/17 [History Last Taken 08/31/20] lisinopril 20 mg PO DAILY 02/14/17 [History Last Taken 08/30/20] metoprolol succinate 25 mg PO DAILY 02/14/17 [History Last Taken 08/30/20] simvastatin 40 mg PO QHS 02/14/17 [History Last Taken 08/30/20] albuterol sulfate [Ventolin HFA] 2 puff INHALATION Q4H PRN PRN 04/30/17 [History Last Taken 06/10/17 08:00] Lantus U-100 Insulin 22 unit SQ QHS 06/10/17 [History Last Taken 08/30/20] insulin aspart U-100 [Novolog Flexpen U-100 Insulin] See Protocol SUBCUT ACHS 06/10/17 [History Last Taken Unknown] apixaban 2.5 mg PO BID 08/31/20 [History Last Taken 08/31/20] insulin aspart U-100 [Novolog Flexpen U-100 Insulin] 4 unit SUBCUT TIDCM 09/06/20 [History Last Taken Unknown] oxycodone 10 mg PO Q4H PRN PRN 09/06/20 [History Last Taken Unknown] Allergy/AdvReac Type Severity Reaction Status Date / Time vancomycin Allergy MAYE Verified 08/31/20 15:15 SYNDROME Family History Mother Heart disease Father Heart disease Surgical History Amputation of digit of left hand Carpal tunnel syndrome Hx of AKA (above knee amputation) S/P CABG (coronary artery bypass graft) Social History household members: spouse Smoking Status: Heavy Smoker (>10/day) alcohol intake: former ROS ROS Narrative All negative for full 10 point review except for what is in the HPI. Physical Exam Narrative Patient awake alert oriented Mild discomfort at times with breathing and coughing Afebrile vital signs stable HEENT: Normal cephalic atraumatic Pupils appear to be equal reactive Moist mucous membranes Neck supple Chest nontender Heart appears regular Lungs reported clear Abdomen soft Extremities ischemia noted to the left 2 fingers Appears to have a palpable brachial and left slightly decreased radial pulse on the left Right leg amputation Left leg well perfused Moves all extremities well x4 Lab / Micro Data Result Diagrams: 09/07/20 02:00 09/07/20 02:00 Labs: Laboratory Results - last 24 hr 09/06/20 09/06/20 09/06/20 13:16 13:16 14:25 WBC RBC Hgb Hct MCV MCH MCHC RDW Std Deviation RDW Coeff of Elizabeth Plt Count MPV Immature Gran % (Auto) Neut % (Auto) Lymph % (Auto) [place] % (Auto) Eos % (Auto) Baso % (Auto) Absolute Neuts (auto) Absolute Lymphs (auto) Nucleated RBC % APTT 55.9 H Sodium Potassium Chloride Carbon Dioxide Anion Gap BUN Creatinine Estim Creat Clear Calc Est GFR (MDRD) Af Amer Est GFR (MDRD) Non-Af BUN/Creatinine Ratio Glucose Lactic Acid 2.5 H* Calcium Total Bilirubin AST ALT Alkaline Phosphatase Troponin I Total Protein Albumin Globulin Albumin/Globulin Ratio POC Glucose 406 H 09/06/20 09/06/20 09/06/20 16:04 17:10 19:20 WBC RBC Hgb Hct MCV MCH MCHC RDW Std Deviation RDW Coeff of Elizabeth Plt Count MPV Immature Gran % (Auto) Neut % (Auto) Lymph % (Auto) [place] % (Auto) Eos % (Auto) Baso % (Auto) Absolute Neuts (auto) Absolute Lymphs (auto) Nucleated RBC % APTT 38.1 H Sodium Potassium Chloride Carbon Dioxide Anion Gap BUN Creatinine Estim Creat Clear Calc Est GFR (MDRD) Af Amer Est GFR (MDRD) Non-Af BUN/Creatinine Ratio Glucose Lactic Acid Calcium Total Bilirubin AST ALT Alkaline Phosphatase Troponin I 0.064 H Total Protein Albumin Globulin Albumin/Globulin Ratio POC Glucose 364 H 09/06/20 09/06/20 09/06/20 19:20 19:34 21:11 WBC RBC Hgb Hct MCV MCH MCHC RDW Std Deviation RDW Coeff of Elizabeth Plt Count MPV Immature Gran % (Auto) Neut % (Auto) Lymph % (Auto) [place] % (Auto) Eos % (Auto) Baso % (Auto) Absolute Neuts (auto) Absolute Lymphs (auto) Nucleated RBC % APTT Sodium Potassium Chloride Carbon Dioxide Anion Gap BUN Creatinine Estim Creat Clear Calc Est GFR (MDRD) Af Amer Est GFR (MDRD) Non-Af BUN/Creatinine Ratio Glucose Lactic Acid Calcium Total Bilirubin AST ALT Alkaline Phosphatase Troponin I 0.057 H Total Protein Albumin Globulin Albumin/Globulin Ratio POC Glucose 65 L 103 09/06/20 09/07/20 09/07/20 22:34 02:00 02:00 WBC 11.5 H RBC 3.46 L Hgb 9.9 L Hct 31.8 L MCV 91.9 MCH 28.6 MCHC 31.1 L RDW Std Deviation 50.3 H RDW Coeff of Elizabeth 15.1 H Plt Count 284 MPV 9.6 Immature Gran % (Auto) 0.400 Neut % (Auto) 66.2 Lymph % (Auto) 21.6 [place] % (Auto) 9.6 Eos % (Auto) 1.7 Baso % (Auto) 0.5 Absolute Neuts (auto) 7.6 Absolute Lymphs (auto) 2.47 Nucleated RBC % 0 APTT Sodium 133 L Potassium 4.0 Chloride 100 Carbon Dioxide 26.0 Anion Gap 7 BUN 20 H Creatinine 1.56 H Estim Creat Clear Calc 47.72 Est GFR (MDRD) Af Amer 59 L Est GFR (MDRD) Non-Af 49 L BUN/Creatinine Ratio 12.8 Glucose 80 Lactic Acid Calcium 8.5 Total Bilirubin 0.30 AST 28 ALT 34 Alkaline Phosphatase 219 H Troponin I 0.050 H Total Protein 6.4 Albumin 2.7 L Globulin 3.7 Albumin/Globulin Ratio 0.7 L POC Glucose 09/07/20 09/07/20 09/07/20 02:00 06:42 07:28 WBC RBC Hgb Hct MCV MCH MCHC RDW Std Deviation RDW Coeff of Elizabeth Plt Count MPV Immature Gran % (Auto) Neut % (Auto) Lymph % (Auto) [place] % (Auto) Eos % (Auto) Baso % (Auto) Absolute Neuts (auto) Absolute Lymphs (auto) Nucleated RBC % APTT 57.5 H Sodium Potassium Chloride Carbon Dioxide Anion Gap BUN Creatinine Estim Creat Clear Calc Est GFR (MDRD) Af Amer Est GFR (MDRD) Non-Af BUN/Creatinine Ratio Glucose Lactic Acid Calcium Total Bilirubin AST ALT Alkaline Phosphatase Troponin I Total Protein Albumin Globulin Albumin/Globulin Ratio POC Glucose 46 L 67 L 09/07/20 09/07/20 08:28 10:35 WBC RBC Hgb Hct MCV MCH MCHC RDW Std Deviation RDW Coeff of Elizabeth Plt Count MPV Immature Gran % (Auto) Neut % (Auto) Lymph % (Auto) [place] % (Auto) Eos % (Auto) Baso % (Auto) Absolute Neuts (auto) Absolute Lymphs (auto) Nucleated RBC % APTT 40.5 H Sodium Potassium Chloride Carbon Dioxide Anion Gap BUN Creatinine Estim Creat Clear Calc Est GFR (MDRD) Af Amer Est GFR (MDRD) Non-Af BUN/Creatinine Ratio Glucose Lactic Acid Calcium Total Bilirubin AST ALT Alkaline Phosphatase Troponin I Total Protein Albumin Globulin Albumin/Globulin Ratio POC Glucose 122 H Micro: Microbiology 09/06/20 08:04 SARS-CoV-2 Antigen (Rapid) - Final Mucosa - Nasopharyngeal Radiology Impression Ankle Brachial Index 09/06/20 12:20 Interpretation Summary bilateral nomal perfusion at rest with triphasic flow and WBI 1.2 and 0.93. Ordering Physician: Jesse Aguayo Referring Physician: JSESE AGUAYO MD Performed By: Akshat Pedraza RVT and Student
--- NOTE | 2020-09-07 14:00 | PCM.PN.HOSP ---
Subjective Subjective: Patient seen and examined. He complains of tingling of tingling and numbness in his left hand. He refused his 2D-ECHO. Refused to go on a calorie controlled diet Objective Data Objective Data Vital Signs: Vital Signs Temp Pulse Resp BP Pulse Ox 97.2 F L 89 19 H 108/69 98 09/07/20 08:00 09/07/20 11:15 09/07/20 08:00 09/07/20 08:00 09/07/20 11:44 Oxygen Flow Rate (L/min) 4 Oxygen Delivery Method Room Air Weight: 67 kg Body Mass Index (BMI) 22.4 Finger Stick Blood Glucose 336 Intake & Output: Intake and Output for Last 24 Hours 09/05/20 09/06/20 09/07/20 23:59 23:59 23:59 Intake Total 307.67 / 307.67 337.6 / 337.6 Balance 307.67 / 307.67 337.6 / 337.6 Lab / Micro Data Result Diagrams: 09/07/20 02:00 09/07/20 02:00 Labs: Laboratory Results - last 24 hr 09/06/20 09/06/20 09/06/20 14:25 16:04 17:10 WBC RBC Hgb Hct MCV MCH MCHC RDW Std Deviation RDW Coeff of Elizabeth Plt Count MPV Immature Gran % (Auto) Neut % (Auto) Lymph % (Auto) [place] % (Auto) Eos % (Auto) Baso % (Auto) Absolute Neuts (auto) Absolute Lymphs (auto) Nucleated RBC % APTT Sodium Potassium Chloride Carbon Dioxide Anion Gap BUN Creatinine Estim Creat Clear Calc Est GFR (MDRD) Af Amer Est GFR (MDRD) Non-Af BUN/Creatinine Ratio Glucose Calcium Total Bilirubin AST ALT Alkaline Phosphatase Troponin I 0.064 H Total Protein Albumin Globulin Albumin/Globulin Ratio POC Glucose 406 H 364 H 09/06/20 09/06/20 09/06/20 19:20 19:20 19:34 WBC RBC Hgb Hct MCV MCH MCHC RDW Std Deviation RDW Coeff of Elizabeth Plt Count MPV Immature Gran % (Auto) Neut % (Auto) Lymph % (Auto) [place] % (Auto) Eos % (Auto) Baso % (Auto) Absolute Neuts (auto) Absolute Lymphs (auto) Nucleated RBC % APTT 38.1 H Sodium Potassium Chloride Carbon Dioxide Anion Gap BUN Creatinine Estim Creat Clear Calc Est GFR (MDRD) Af Amer Est GFR (MDRD) Non-Af BUN/Creatinine Ratio Glucose Calcium Total Bilirubin AST ALT Alkaline Phosphatase Troponin I 0.057 H Total Protein Albumin Globulin Albumin/Globulin Ratio POC Glucose 65 L 09/06/20 09/06/20 09/07/20 21:11 22:34 02:00 WBC 11.5 H RBC 3.46 L Hgb 9.9 L Hct 31.8 L MCV 91.9 MCH 28.6 MCHC 31.1 L RDW Std Deviation 50.3 H RDW Coeff of Elizabeth 15.1 H Plt Count 284 MPV 9.6 Immature Gran % (Auto) 0.400 Neut % (Auto) 66.2 Lymph % (Auto) 21.6 [place] % (Auto) 9.6 Eos % (Auto) 1.7 Baso % (Auto) 0.5 Absolute Neuts (auto) 7.6 Absolute Lymphs (auto) 2.47 Nucleated RBC % 0 APTT Sodium Potassium Chloride Carbon Dioxide Anion Gap BUN Creatinine Estim Creat Clear Calc Est GFR (MDRD) Af Amer Est GFR (MDRD) Non-Af BUN/Creatinine Ratio Glucose Calcium Total Bilirubin AST ALT Alkaline Phosphatase Troponin I 0.050 H Total Protein Albumin Globulin Albumin/Globulin Ratio POC Glucose 103 09/07/20 09/07/20 09/07/20 02:00 02:00 06:42 WBC RBC Hgb Hct MCV MCH MCHC RDW Std Deviation RDW Coeff of Elizabeth Plt Count MPV Immature Gran % (Auto) Neut % (Auto) Lymph % (Auto) [place] % (Auto) Eos % (Auto) Baso % (Auto) Absolute Neuts (auto) Absolute Lymphs (auto) Nucleated RBC % APTT 57.5 H Sodium 133 L Potassium 4.0 Chloride 100 Carbon Dioxide 26.0 Anion Gap 7 BUN 20 H Creatinine 1.56 H Estim Creat Clear Calc 47.72 Est GFR (MDRD) Af Amer 59 L Est GFR (MDRD) Non-Af 49 L BUN/Creatinine Ratio 12.8 Glucose 80 Calcium 8.5 Total Bilirubin 0.30 AST 28 ALT 34 Alkaline Phosphatase 219 H Troponin I Total Protein 6.4 Albumin 2.7 L Globulin 3.7 Albumin/Globulin Ratio 0.7 L POC Glucose 46 L 09/07/20 09/07/20 09/07/20 07:28 08:28 10:35 WBC RBC Hgb Hct MCV MCH MCHC RDW Std Deviation RDW Coeff of Elizabeth Plt Count MPV Immature Gran % (Auto) Neut % (Auto) Lymph % (Auto) [place] % (Auto) Eos % (Auto) Baso % (Auto) Absolute Neuts (auto) Absolute Lymphs (auto) Nucleated RBC % APTT 40.5 H Sodium Potassium Chloride Carbon Dioxide Anion Gap BUN Creatinine Estim Creat Clear Calc Est GFR (MDRD) Af Amer Est GFR (MDRD) Non-Af BUN/Creatinine Ratio Glucose Calcium Total Bilirubin AST ALT Alkaline Phosphatase Troponin I Total Protein Albumin Globulin Albumin/Globulin Ratio POC Glucose 67 L 122 H Micro: Microbiology 09/06/20 08:04 Mucosa - Nasopharyngeal SARS-CoV-2 Antigen (Rapid) - Final Radiography Diagnostic Testing: Radiology Impression Ankle Brachial Index 09/06/20 12:20 Interpretation Summary bilateral nomal perfusion at rest with triphasic flow and WBI 1.2 and 0.93. Ordering Physician: Jesse Aguayo Referring Physician: JESSE AGUAYO MD Performed By: Akshat Pedraza RVT and Student Physical Exam Narrative Physical exam: General: Alert, Oriented x3, Cooperative, No apparent distress, Well developed, appears frail HEENT: Atraumatic Oral: Moist Mucosa Neck: Supple Lungs: Clear to auscultation Cardiovascular: HS I+II, regular, no murmurs Abdomen: Bowel Sounds Present, Soft, Non Tender Extremities: Right AKA, left lower extremity has +1 pedal edema, left upper extremity/hand feels cool, dusky, capillary refill is prolonged Skin: See under extremity Neurological: Grossly intact Psych/Mental Status: Appropriate Assessment & Plan Assessment/Plan (1) Ischemia of hand: Status: Acute Code(s): I99.8 - Other disorder of circulatory system (2) Subclavian artery stenosis: Status: Chronic Code(s): I77.1 - Stricture of artery (3) Nicotine abuse: Status: Chronic Code(s): Z72.0 - Tobacco use (4) Type 2 diabetes mellitus with diabetic polyneuropathy: Status: Chronic Code(s): E11.42 - Type 2 diabetes mellitus with diabetic polyneuropathy Qualifiers: Diabetes mellitus middle or intermediate school principal insulin use: with middle or intermediate school principal use Qualified Code(s): E11.42 - Type 2 diabetes mellitus with diabetic polyneuropathy; Z79.4 - buttermaker continuous churn (current) use of insulin (5) Peripheral vascular disease: Status: Chronic Code(s): I73.9 - Peripheral vascular disease, unspecified (6) Ischemia of finger: Status: Acute Code(s): I99.8 - Other disorder of circulatory system (7) Hyperglycemia: Status: Acute Code(s): R73.9 - Hyperglycemia, unspecified (8) CHF (congestive heart failure): Status: Acute Code(s): I50.9 - Heart failure, unspecified Qualifiers: Heart failure chronicity: acute Heart failure type: unspecified Qualified Code(s): I50.9 - Heart failure, unspecified Plan: Discussed with vascular surgery; will discontinue heparin drip, start on aspirin and Plavix Vascular surgery to follow-up with patient in a couple of weeks; his office will call to schedule appointment Continue with pain control Continue with nicotine replacement Continue home insulin with adjustments in the insulin sliding scale with blood glucose check Continue on IV Lasix 40 mg Q8 Fluid restriction Encouraged patient to get 2D echo (9) Lactic acidosis: Status: Acute Code(s): E87.2 - Acidosis (10) Hyponatremia: Status: Acute Code(s): E87.1 - Hypo-osmolality and hyponatremia Inpatient E&M: 37010 Subs Hosp L2
[2020-09-07] MEDS: Ipratropium/Albuterol Sulfate 3 ML AMPUL.NEB INHALATION ×3 (14:24→23:06)
--- NOTE | 2020-09-07 15:06 | CASEMGMT ---
Addendum entered by Lalita Viera 09/07/20 15:09: Pt screened with [facility] Palliative Care Screening Tool d/t Strata 3 and being a readmission. Pt did not meet criteria at this time. Original Note: RN CM Readmission Note Previous Admission: 08/31/20-09/01/20 Diagnosis: CHF, abn cardiac enzymes Pt at [facility] and was waiting to be transferred to [place]. Pt unsatisfied with timing and decided to leave AMA. DC Disposition: AMA to [place] ER. Current Admission Presentation: Pt presented to ER from home with shortness of breath and change in color to left hand. RAVEN TRINH in to pt room. Pt states he was sent home without any services from [facility]. He states he was taking his medications correctly. He was set up with a PCP appt but he was hospitalized prior to appt. Pt states he is I at home despite his amputation of leg. He states he would like help with laundry and household tasks. Instructed pt to reach out to his [facility] top case assembler. He states he will but is unsure of her name. Pt denies need for HHC at [facility]. CM will follow. DC PLAN: Home
[2020-09-07] MEDS: Clopidogrel Bisulfate 75 MG Tablet PO (16:28)
[2020-09-07] MEDS: Aspirin 81 MG TAB.CHEW PO (16:28)
[2020-09-07 16:45] LABS: Bedside Glucose 93 mg/dL (70-110)
--- NOTE | 2020-09-07 17:06 | CHAPLAIN ---
Type of Pastoral Visit _x__ Initial Visit ___ Follow-up Visit ___ On-call Visit ___ General Patient Visit ___ Spiritual Assessment ___ Family Conference ___ Bereavement ___ Rapid Response ___ Code Blue ___ Other (describe below) Pastoral Care Referral From _x__ Patient ___ Family ___ Nurse _x__ Physician ___ User Experience Developer ___ Electron Beam Machine Welder Setter ___ Other (describe below) Sacrament/Intervention _x__ Active listening ___ Anointing ___ Faith ___ Bereavement ___ Communion _x__ Nikky exploration ___ _x__ Life review _x__ Prayer ___ Reconciliation ___ Sacrament of Sick _x__ Supportive presence ___ Wedding ___ Other (describe below) Pastoral Comments long visit of giving presence, life review, and prayer; pt would like offal baler to return tomorrow if possible; visit ended due to testing to be done at this time.
[2020-09-07] MEDS: Insulin Lispro 100 UNIT/ML INSULN.PEN SC (17:46)
[2020-09-07] MEDS: Atorvastatin Calcium 20 MG Tablet PO (20:55)
[2020-09-07 21:55] LABS: Bedside Glucose 116 mg/dL (70-110)
[2020-09-08] VITALS (9 sets, daily range): BP systolic 121–148; BP diastolic 79–88; PULSE 78–105; RESP 16–20; TEMP 37–37.2; O2SAT 95–98
[2020-09-08] MEDS: oxyCODONE 5 MG Tablet 10 MG PO ×4 (02:34→18:19)
[2020-09-08] MEDS: Ipratropium/Albuterol Sulfate 3 ML AMPUL.NEB INHALATION ×4 (03:03→14:52)
[2020-09-08] MEDS: HEPARIN/D5w 25,000 UNITS 25,000 UNITS/250 ML IV.SOLN. 12 UNITS IV (04:52)
[2020-09-08] MEDS: Gabapentin 800 MG Tablet PO ×2 (05:45→14:16)
[2020-09-08] MEDS: Furosemide 40 MG/4 ML Vial IV ×2 (05:45→14:16)
[2020-09-08 06:08] LABS: Partial Thromboplast Time 54.4 Seconds (24.1-36.2)
[2020-09-08] MEDS: Heparin Injection (Vial) 5,000 UNIT/ML VIAL IV (07:46)
[2020-09-08 07:55] LABS: Bedside Glucose 109 mg/dL (70-110)
[2020-09-08] MEDS: Insulin Lispro 100 UNIT/ML INSULN.PEN SC ×3 (08:52→11:52)
[2020-09-08] MEDS: Aspirin 81 MG TAB.CHEW PO (08:53)
[2020-09-08] MEDS: Metoprolol(XL)Succ 25 MG Tablet PO (08:54)
[2020-09-08 09:36] LABS: Absolute Lymphocyte Count 2.59 X10^3/uL (0.83-4.51); Absolute Neutrophil Count 6.3 X10^3/uL (2.0-7.7); Basophil# 0.07 X10^3/uL; Basophil% 0.7 % (0-1); Eosinophil# 0.19 X10^3/uL; Eosinophils% 1.8 % (0-5); Hematocrit 31.1 % (40-54); Hemoglobin 9.2 g/dL (13.0-16.5); Lymphocyte # 2.59 X10^3/ul (0.83-4.51); Lymphocyte % 24.9 % (19-41); Mean Corp Hgb Conc 29.6 g/dL (32-36); Mean Corpuscular Hgb 27.6 pg (27.0-32.0); Mean Corpuscular Volume 93.4 fL (80-94); Mean Platelet Vol. 9.9 fl (6.2-12.0); Monocyte# 1.19 X10^3/uL; Monocyte% 11.4 % (0-10); NRBC Flagged by Analyzer 0 % (0-5); Neutrophil # 6.31 X10^3/uL (2.7-7.7); Neutrophil % 60.7 % (47-70); Platelet Count 273 K/mm3 (150-450); RBC Distribution Width CV 15.2 % (11.6-14.6); RBC Distribution Width SD 51.7 fl (35.1-43.9); Red Blood Count 3.33 M/mm3 (4.6-6.2); White Blood Count 10.4 K/mm3 (4.4-11.0)
[2020-09-08 09:45] LABS: ALB/GLOB Ratio 0.7 RATIO (0.9-2.4); AST(SGOT) 29 U/L (15-37); Alanine Aminotransfer ALT/SGPT 32 U/L (16-61); Albumin, Serum 2.5 g/dL (3.2-5.0); Alkaline Phosphatase 205 U/L (45-117); Anion Gap 5 (5-15); BUN 30 mg/dL (7-18); BUN/Creat Ratio 16.3 RATIO (10-20); Calcium,Total 8.7 mg/dL (8.5-10.1); Chloride 98 mmol/L (98-107); Creatinine, Serum 1.84 mg/dL (0.70-1.30); EST Glomerular Filtration Rate 40 mL/min (>60); Est Glom Filt Rate - Afr Amer 49 mL/min (>60); Estimated Creatinine Clearance 40.46 ml/min; Globulin 3.6 g/dL (2.2-4.2); Glucose 100 mg/dL (74-106); Potassium 4.3 mmol/L (3.5-5.1); Protein, Total 6.1 g/dL (6.4-8.2); Sodium Level 131 mmol/L (136-145)
--- NOTE | 2020-09-08 09:50 | NURSING ---
Addendum entered by Sonja Montalvo 09/08/20 11:03: This RN and SW in room to talk with patient and see if he has made a decision. Patient is upset and states that he is not able to get ahold of his ex . He thinks that he needs to go home to take care of things and has people that he needs to say goodbye to, he states that he only needs a day to do it. THis RN and SW attempted to explain importance of staying in the hospital for medical supervision while waiting for a bed at a tertiary center. 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 Pt is upset and tearful at times; still has not made a final decision of what he wants to do. Pt is still trying to get ahold of ex , attempted to call her while this RN in room, but only able to leave a voicemail. Pt asked if we would come back in a little bit to see if he was able to get ahold of anyone and make a decision for a plan. Original Note: This RN and Dr Richard in room to talk with patient. MD discussed at length pt's health issues and importance of transfer to a tertiary center for further intervention. Patient expresses concerns about needing to go home in order to take care of his house, pay bills, and states that he has family to say goodbye to. MD and this RN stressed the risks if the patient goes home but patient states that is his choice and he understands. MD informed the patient that if he wishes to go home, that he would need to sign out AMA. Pt states that he would like some time to think about it.
--- NOTE | 2020-09-08 10:32 | CASEMGMT ---
According to the [place] website, the following tertiary facilities are in network: [facility], [facility], [facility], [facility], [facility], [facility], [facility], [facility] and .
--- NOTE | 2020-09-08 10:48 | CASEMGMT ---
Per physician patient needs transferred to tertiary care facility. However, patient is reluctant. SW and RN spoke with patient. He wants a day to take care of some things. He wants to be able to say bye to people and he has bills to pay. SW asked if there was anything that we can do to help. He was pretty insistent that he needs to take care of these things and there is nothing we can do. SW and RN continued to talk with him and explain things. He wanted more time to try and get a hold of people. Gina Davis MSW PAT
[2020-09-08 11:38] LABS: Partial Thromboplast Time 64.8 Seconds (24.1-36.2)
--- NOTE | 2020-09-08 11:50 | NURSING ---
Pt called this RN into room and stated that he is agreeable to be transferred to a tertiary center and would prefer [facility]. He states that he was able to get ahold of his ex and she will be able to take care of financial things for him. Notified Dr Richard of patient's decision. Also notified SW that ex is able to assist patient.
[2020-09-08 12:45] LABS: Bedside Glucose 177 mg/dL (70-110)
[2020-09-08] MEDS: 0.9% Saline Lock 10 ML Syringe IV (14:16)
--- NOTE | 2020-09-08 14:39 | PCM.PN.HOSP ---
Subjective Subjective: Patient was seen and examined. He has been refusing fluid restriction. Discussed transfer to a tertiary facility with him, initially he wanted to be discharged home to go take of his bills before he comes. I stressed on him that it would mean he has decided AGAINST MEDICAL ADVICE as I do not recommend that he goes home. He finally agreed to a transfer to tertiary facility and wanted to be transferred to [facility]. Objective Data Objective Data Vital Signs: Vital Signs Temp Pulse Resp BP Pulse Ox 98.9 F 88 18 121/88 H 95 09/08/20 09:30 09/08/20 11:27 09/08/20 11:27 09/08/20 09:30 09/08/20 09:30 Oxygen Flow Rate (L/min) 3 Oxygen Delivery Method Room Air Weight: 67 kg Body Mass Index (BMI) 22.4 Finger Stick Blood Glucose 336 Intake & Output: Intake and Output for Last 24 Hours 09/06/20 09/07/20 09/08/20 23:59 23:59 23:59 Intake Total 307.67 / 307.67 1282.0 / 1762.0 1622.22 / 1622.22 Output Total 700 / 700 1300 / 1300 Balance 307.67 / 307.67 582.0 / 1062.0 322.22 / 322.22 Lab / Micro Data Result Diagrams: 09/08/20 05:34 09/08/20 05:34 Labs: Laboratory Results - last 24 hr 09/07/20 09/07/20 09/08/20 16:25 20:54 05:34 WBC RBC Hgb Hct MCV MCH MCHC RDW Std Deviation RDW Coeff of Elizabeth Plt Count MPV Immature Gran % (Auto) Neut % (Auto) Lymph % (Auto) [place] % (Auto) Eos % (Auto) Baso % (Auto) Absolute Neuts (auto) Absolute Lymphs (auto) Nucleated RBC % APTT 54.4 H Sodium Potassium Chloride Carbon Dioxide Anion Gap BUN Creatinine Estim Creat Clear Calc Est GFR (MDRD) Af Amer Est GFR (MDRD) Non-Af BUN/Creatinine Ratio Glucose Calcium Total Bilirubin AST ALT Alkaline Phosphatase Total Protein Albumin Globulin Albumin/Globulin Ratio POC Glucose 93 116 H 09/08/20 09/08/20 09/08/20 05:34 05:34 07:45 WBC 10.4 RBC 3.33 L Hgb 9.2 L Hct 31.1 L MCV 93.4 MCH 27.6 MCHC 29.6 L RDW Std Deviation 51.7 H RDW Coeff of Elizabeth 15.2 H Plt Count 273 MPV 9.9 Immature Gran % (Auto) 0.500 Neut % (Auto) 60.7 Lymph % (Auto) 24.9 [place] % (Auto) 11.4 H Eos % (Auto) 1.8 Baso % (Auto) 0.7 Absolute Neuts (auto) 6.3 Absolute Lymphs (auto) 2.59 Nucleated RBC % 0 APTT Sodium 131 L Potassium 4.3 Chloride 98 Carbon Dioxide 28.0 Anion Gap 5 BUN 30 H Creatinine 1.84 H Estim Creat Clear Calc 40.46 Est GFR (MDRD) Af Amer 49 L Est GFR (MDRD) Non-Af 40 L BUN/Creatinine Ratio 16.3 Glucose 100 Calcium 8.7 Total Bilirubin 0.30 AST 29 ALT 32 Alkaline Phosphatase 205 H Total Protein 6.1 L Albumin 2.5 L Globulin 3.6 Albumin/Globulin Ratio 0.7 L POC Glucose 109 09/08/20 09/08/20 11:20 11:50 WBC RBC Hgb Hct MCV MCH MCHC RDW Std Deviation RDW Coeff of Elizabeth Plt Count MPV Immature Gran % (Auto) Neut % (Auto) Lymph % (Auto) [place] % (Auto) Eos % (Auto) Baso % (Auto) Absolute Neuts (auto) Absolute Lymphs (auto) Nucleated RBC % APTT 64.8 H Sodium Potassium Chloride Carbon Dioxide Anion Gap BUN Creatinine Estim Creat Clear Calc Est GFR (MDRD) Af Amer Est GFR (MDRD) Non-Af BUN/Creatinine Ratio Glucose Calcium Total Bilirubin AST ALT Alkaline Phosphatase Total Protein Albumin Globulin Albumin/Globulin Ratio POC Glucose 177 H Micro: Microbiology 09/08/20 12:45 Mucosa - Nose SARS-CoV-2 Antigen (Rapid) - Final 09/06/20 08:04 Mucosa - Nasopharyngeal SARS-CoV-2 Antigen (Rapid) - Final Radiography Diagnostic Testing: Radiology Impression Echocardiogram 09/06/20 18:45 Interpretation Summary Mildly dilated left ventricle. Severe global left ventricular systolic dysfunction. The estimated ejection fraction is 15 %. Mild global right ventricular systolic dysfunction. The left atrium is mildly enlarged. Moderate diffuse mitral valve thickening. Mild-Moderate (1-2+) mitral valve insufficiency. Mild diffuse thickening of the tricuspid valve. Moderate (2+) eccentric tricuspid valve insufficiency. Mild (1+) pulmonic valve insufficiency. Right ventricular systolic pressure estimated to be 55 mmHg. There is evidence of diastolic dysfunction. Comment: 2D echocardiographic images demonstrate an approximately 1.0 cm x 1.2 cm echodensity in the left ventricular apical area compatible with a left ventricular apical thrombus. Ordering Physician: Maite Richard Referring Physician: Rizwana Baker Performed By: Virginie Pabon, ZAHIRA, RVT Physical Exam Narrative Physical exam: General: Alert, Oriented x3, Cooperative, No apparent distress, Well developed, appears frail HEENT: Atraumatic Oral: Moist Mucosa Neck: Supple Lungs: Clear to auscultation Cardiovascular: HS I+II, regular, no murmurs Abdomen: Bowel Sounds Present, Soft, Non Tender Extremities: Right AKA, left lower extremity has +1 pedal edema, left upper extremity/hand feels cool, dusky, capillary refill is prolonged, tip of 3rd finger(distal phalange) is darkened; suggestive of ischemia. 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 Code(s): E11.42 - Type 2 diabetes mellitus with diabetic polyneuropathy Qualifiers: Diabetes mellitus superintendent marine oil terminal insulin use: with superintendent marine oil terminal use Qualified Code(s): E11.42 - Type 2 diabetes mellitus with diabetic polyneuropathy; Z79.4 - exterminator helper termite (current) use of insulin (5) Peripheral vascular disease: Status: Chronic Code(s): I73.9 - Peripheral vascular disease, unspecified (6) Ischemia of finger: Status: Acute Code(s): I99.8 - Other disorder of circulatory system (7) Hyperglycemia: Status: Acute Code(s): R73.9 - Hyperglycemia, unspecified (8) CHF (congestive heart failure): Status: Acute Code(s): I50.9 - Heart failure, unspecified Qualifiers: Heart failure type: unspecified Heart failure chronicity: acute Qualified Code(s): I50.9 - Heart failure, unspecified Plan: EF 15% (9) Lactic acidosis: Status: Acute Code(s): E87.2 - Acidosis (10) Hyponatremia: Status: Acute Code(s): E87.1 - Hypo-osmolality and hyponatremia (11) ZENAIDA (acute kidney injury): Status: Acute Code(s): N17.9 - Acute kidney failure, unspecified Plan: Unclear if patient has previous CKD, creatinine appears to have crept up; likely from acute CHF (12) LV (left ventricular) mural thrombus: Status: Acute Code(s): I51.3 - Intracardiac thrombosis, not elsewhere classified Plan: Per cardiology recommendation yesterday, and further discussions with patient; will transfer to [facility] Continue on heparin drip and aspirin p.o. DC IV Lasix; start on Lasix 40 mg p.o. twice daily Continue to monitor patient's blood sugar Inpatient E&M: [id number] [id number]
[2020-09-08 16:55] LABS: Bedside Glucose 78 mg/dL (70-110)
--- NOTE | 2020-09-08 17:01 | DS.PCM_ITS ---
Providers Date of Admission: 09/06/20 Primary Care Physician: Dr. Rizwana Baker MD Consultations 09/06/20 18:21 Consult: Vascular Surgery Routine Consulting Provider: Chet Swan Reason for Consult: Left Upper extremity ischemia EMERGENT Consult: No MD Notified: Yes Date Notified:: 09/07/20 Time Notified: 11:11 Method of Notification: Text Reason For Visit: left hand ischemia Diagnosis Discharge Diagnosis (1) Ischemia of hand: Status: Acute Code(s): I99.8 - Other disorder of circulatory system (2) Subclavian artery stenosis: Status: Chronic Code(s): I77.1 - Stricture of artery (3) Nicotine abuse: Status: Chronic Code(s): Z72.0 - Tobacco use (4) Type 2 diabetes mellitus with diabetic polyneuropathy: Status: Chronic Code(s): E11.42 - Type 2 diabetes mellitus with diabetic polyneuropathy Qualifiers: Diabetes mellitus fpc insulin use: with marine oil terminal superintendent use Qualified Code(s): E11.42 - Type 2 diabetes mellitus with diabetic polyneuropathy; Z79.4 - terminal operator (current) use of insulin (5) Peripheral vascular disease: Status: Chronic Code(s): I73.9 - Peripheral vascular disease, unspecified (6) Ischemia of finger: Status: Acute Code(s): I99.8 - Other disorder of circulatory system (7) Hyperglycemia: Status: Acute Code(s): R73.9 - Hyperglycemia, unspecified (8) CHF (congestive heart failure): Status: Acute Code(s): I50.9 - Heart failure, unspecified Qualifiers: Heart failure type: unspecified Heart failure chronicity: acute Qualified Code(s): I50.9 - Heart failure, unspecified (9) Lactic acidosis: Status: Acute Code(s): E87.2 - Acidosis (10) Hyponatremia: Status: Acute Code(s): E87.1 - Hypo-osmolality and hyponatremia (11) ZENAIDA (acute kidney injury): Status: Acute Code(s): N17.9 - Acute kidney failure, unspecified (12) LV (left ventricular) mural thrombus: Status: Acute Code(s): I51.3 - Intracardiac thrombosis, not elsewhere classified Medications at Discharge Home Medications gabapentin 800 mg PO TID 02/14/17 lisinopril 20 mg PO DAILY 02/14/17 metoprolol succinate 25 mg PO DAILY 02/14/17 simvastatin 40 mg PO QHS 02/14/17 albuterol sulfate [Ventolin HFA] 2 puff INHALATION Q4H PRN PRN 04/30/17 Lantus U-100 Insulin 22 unit SQ QHS 06/10/17 insulin aspart U-100 [Novolog Flexpen U-100 Insulin] See Protocol SUBCUT ACHS 06/10/17 apixaban 2.5 mg PO BID 08/31/20 insulin aspart U-100 [Novolog Flexpen U-100 Insulin] 4 unit SUBCUT TIDCM 09/06 oxycodone 10 mg PO Q4H PRN PRN 09/06/20 Hospital Course Operations None Procedures 2-D Echocardiogram Summary of Care Provided Minutes Spent on Discharge: 50 Hospital Course: 60 M who presents with ischemia of the left third finger as well as duskiness of the left hand ongoing for 5 days. Patient was recently admitted on 08/31/20 in signed out AMA on 09/02/20. Patient presents with left upper extremity duskiness that has been ongoing for 5 days. Patient has history of subclavian artery stenosis. He also has history of right above-knee amputation. He denied any chest pain or dizziness. His pain is fairly controlled in his left hand. He was admitted to the telemetry floor and managed on IV heparin. Vascular surgery was consulted. Recommended him to be on aspirin and Plavix. Patient was also treated for acute on chronic systolic CHF. He had 2D echo that showed an EF of 15% with a left ventricular thrombus. It was recommended patient be transferred to the tertiary center. Patient preferred transfer to [facility]. He was managed on heparin drip as well as aspirin. He was accepted and transferred. Physical Exam Narrative See progress note of the day ABG / Lab / Microbiology Data Result Diagrams: 09/08/20 05:34 09/08/20 05:34 Laboratory: Laboratory Results - last 24 hr 09/07/20 09/08/20 09/08/20 20:54 05:34 05:34 WBC 10.4 RBC 3.33 L Hgb 9.2 L Hct 31.1 L MCV 93.4 MCH 27.6 MCHC 29.6 L RDW Std Deviation 51.7 H RDW Coeff of Elizabeth 15.2 H Plt Count 273 MPV 9.9 Immature Gran % (Auto) 0.500 Neut % (Auto) 60.7 Lymph % (Auto) 24.9 [place] % (Auto) 11.4 H Eos % (Auto) 1.8 Baso % (Auto) 0.7 Absolute Neuts (auto) 6.3 Absolute Lymphs (auto) 2.59 Nucleated RBC % 0 APTT 54.4 H Sodium Potassium Chloride Carbon Dioxide Anion Gap BUN Creatinine Estim Creat Clear Calc Est GFR (MDRD) Af Amer Est GFR (MDRD) Non-Af BUN/Creatinine Ratio Glucose Calcium Total Bilirubin AST ALT Alkaline Phosphatase Total Protein Albumin Globulin Albumin/Globulin Ratio POC Glucose 116 H 09/08/20 09/08/20 09/08/20 05:34 07:45 11:20 WBC RBC Hgb Hct MCV MCH MCHC RDW Std Deviation RDW Coeff of Elizabeth Plt Count MPV Immature Gran % (Auto) Neut % (Auto) Lymph % (Auto) [place] % (Auto) Eos % (Auto) Baso % (Auto) Absolute Neuts (auto) Absolute Lymphs (auto) Nucleated RBC % APTT 64.8 H Sodium 131 L Potassium 4.3 Chloride 98 Carbon Dioxide 28.0 Anion Gap 5 BUN 30 H Creatinine 1.84 H Estim Creat Clear Calc 40.46 Est GFR (MDRD) Af Amer 49 L Est GFR (MDRD) Non-Af 40 L BUN/Creatinine Ratio 16.3 Glucose 100 Calcium 8.7 Total Bilirubin 0.30 AST 29 ALT 32 Alkaline Phosphatase 205 H Total Protein 6.1 L Albumin 2.5 L Globulin 3.6 Albumin/Globulin Ratio 0.7 L POC Glucose 109 09/08/20 09/08/20 11:50 16:47 WBC RBC Hgb Hct MCV MCH MCHC RDW Std Deviation RDW Coeff of Elizabeth Plt Count MPV Immature Gran % (Auto) Neut % (Auto) Lymph % (Auto) [facility] % (Auto) Eos % (Auto) Baso % (Auto) Absolute Neuts (auto) Absolute Lymphs (auto) Nucleated RBC % APTT Sodium Potassium Chloride Carbon Dioxide Anion Gap BUN Creatinine Estim Creat Clear Calc Est GFR (MDRD) Af Amer Est GFR (MDRD) Non-Af BUN/Creatinine Ratio Glucose Calcium Total Bilirubin AST ALT Alkaline Phosphatase Total Protein Albumin Globulin Albumin/Globulin Ratio POC Glucose 177 H 78 Microbiology: Microbiology 09/08/20 12:45 SARS-CoV-2 Antigen (Rapid) - Final Mucosa - Nose Microbiology 09/08/20 12:45 Mucosa - Nose SARS-CoV-2 Antigen (Rapid) - Final 09/06/20 08:04 Mucosa - Nasopharyngeal SARS-CoV-2 Antigen (Rapid) - Final Meaningful Use Info Meaningful Use Diagnoses (Choose all that apply): CHF CHF TATIANNA/ARB ordered at discharge?: No Reason TATIANNA/ARB not ordered?: Worsening renal dysfunctn Documented LVEF (%): 15 Discharge Plan Admission Admit Date/Time: 09/06/20 14:29 Primary Reason for Your Visit: Left UE ischemia Attending Provider: Maite Richard Primary Care Provider: Rizwana Baker Consulting Providers: Chet Swan Discharge Orders/Prescriptions Prescriptions: No Action lisinopril 20 MG tablet 20 mg PO DAILY RF: 0 simvastatin 40 MG tablet 40 mg PO QHS RF: 0 gabapentin 800 MG tablet 800 mg PO TID RF: 0 metoprolol succinate 25 MG tablet extended release 24 hr 25 mg PO DAILY RF: 0 albuterol sulfate [Ventolin HFA] 1 INHALER inhaler 2 puff inhalation Q4H PRN PRN (Reason: Shortness Of Breath) RF: 0 Lantus U-100 Insulin 100 UNIT/ML solution 22 unit SQ QHS RF: 0 insulin aspart U-100 [Novolog Flexpen U-100 Insulin] 100 UNITS/ML insulin pen See Protocol units subcut ACHS RF: 0 apixaban 2.5 MG tablet 2.5 mg PO BID RF: 0 insulin aspart U-100 [Novolog Flexpen U-100 Insulin] 100 unit/mL (3 mL) Insulin Pen 4 unit SUBCUT TIDCM RF: 0 oxycodone 5 MG tablet 10 mg PO Q4H PRN PRN (Reason: Moderate Pain (4-5/10)) RF: 0 Referrals: Rizwana Baker MD [Primary Care Provider] - Disposition Patient Disposition: Acute Care Hospital Inpatient E&M: [id number] Disch Hosp
--- NOTE | 2020-09-08 17:28 | NURSING ---
report called to [facility], spoke with nurse girma. Pt going to room 306. Transport to be here approximately @ 1830.
[2020-09-08 17:41] LABS: Bedside Glucose 110 mg/dL (70-110)
[2020-09-08 18:02] LABS: Partial Thromboplast Time 52.8 Seconds (24.1-36.2)
== END 2020-09-08 18:35 | disposition short-term general hospital (02) | DRG 299 ==
LOC: ED 12:34 → PCU 12:43
PROVIDERS: Admitting Provider Internal Medicine; Emergency Provider Emergency Medicine; PCP Internal Medicine; Visit Provider Internal Medicine
DX: I77.1 Stricture of artery (principal); I50.23 Acute on chronic systolic (congestive) heart failure; E87.2 Acidosis; I99.8 Other disorder of circulatory system; E11.42 Type 2 diabetes mellitus with diabetic polyneuropathy; E11.51 Type 2 diabetes mellitus with diabetic peripheral angiopathy without gangrene; E11.65 Type 2 diabetes mellitus with hyperglycemia; I11.0 Hypertensive heart disease with heart failure; I51.3 Intracardiac thrombosis, not elsewhere classified; I25.10 Atherosclerotic heart disease of native coronary artery without angina pectoris; F41.9 Anxiety disorder, unspecified; J44.9 Chronic obstructive pulmonary disease, unspecified; Z79.01 Long term (current) use of anticoagulants; Z79.4 Long term (current) use of insulin; Z79.899 Other long term (current) drug therapy; Z89.611 Acquired absence of right leg above knee; Z95.1 Presence of aortocoronary bypass graft; F17.200 Nicotine dependence, unspecified, uncomplicated
CPT/HCPCS: 36415; 71275; 73206; 80048; 80053; 82550; 82962; 83605; 84484; 85025; 85610; 85730; 87426; 93005; 93306; 93922; 94640; 96374; 96375; 97802; 99251; 99281; 99284; Q9957; Q9967; A4216; G0463; J1940; J2405

== ENCOUNTER 2020-11-28 14:38 | Emergency (ER) | payer MEDICARE, MEDICAID, SELFPAY ==
[2020-09-06 13:51] VITALS: BMI 22.4
[2020-11-28] VITALS (13 sets, daily range): BP systolic 132–172; BP diastolic 85–112; PULSE 74–102; RESP 14–24; TEMP 36.7–36.9; O2SAT 95–100; BMI 20.8
--- NOTE | 2020-11-28 15:38 | RAD_ITS ---
INDICATION: chest pain EXAMINATION/TECHNIQUE: X-RAY - XR Chest 1 View COMPARISON: 05/29/2017. FINDINGS: The lungs are clear. Tortuous and calcified thoracic aorta. The heart is not enlarged. Left subclavian artery stent. Multiple surgical clips throughout the mediastinum. No pleural effusion or pneumothorax. Degenerative changes of the thoracic spine and shoulders. RAD/Chest 1 View (Portable) IMPRESSION: No acute radiographic abnormalities. Electronically Signed: Ja Zapata MD at 16:09 EDT Tel , Service support ,
--- NOTE | 2020-11-28 15:38 | EKG12_ITS ---
Test Reason : CP Blood Pressure : / mmHG Vent. Rate : 102 BPM Atrial Rate : 102 BPM P-R Int : 154 ms QRS Dur : 086 ms QT Int : 362 ms P-R-T Axes : 076 051 101 degrees QTc Int : 471 ms Sinus tachycardia Nonspecific T wave abnormality Abnormal ECG Confirmed by [place] LEÓN, KASANDRA ([id number]), brands editor KEVIN TAYLOR ([id number]) on 11/30/2020 12:37:59 PM Referred By: JAN/ Confirmed By:KASANDRA BE MD
--- NOTE | 2020-11-28 15:40 | EDS_ITS ---
HPI History of Present Illness Chief Complaint: Chest Pain Informant: patient and spouse/S.O. Narrative Narrative: Patient presents from nursing facility where he is at rehab for stroke. He presents with episode of chest pain. History is a little hard to get as the patient has trouble speaking related to a stroke. However, with time, multiple questionings, and the help of his were able to get the history. Patient actually points more to the right upper quadrant where his pain was. It is better now. It is still a little bit sore though. He may have had some pain in his right arm. That is not completely clear. There was no diaphoresis. No coughing. No hemoptysis. Patient is on Eliquis. His reports that he has also had some liver problems before but this is nonspecific. He has not had a cholecystectomy. Nothing specifically made the symptoms better or worse. PFSH PFSH Medical History Anxiety COPD (chronic obstructive pulmonary disease) Coronary artery disease Diabetes Hypertension Peripheral vascular disease Smoker Home Medications gabapentin 800 mg PO TID 02/14/17 [History Last Taken 08/31/20] lisinopril 20 mg PO DAILY 02/14/17 [History Last Taken 08/30/20] metoprolol succinate 25 mg PO DAILY 02/14/17 [History Last Taken 08/30/20] simvastatin 40 mg PO QHS 02/14/17 [History Last Taken 08/30/20] albuterol sulfate [Ventolin HFA] 2 puff INHALATION Q4H PRN PRN 04/30/17 [History Last Taken 06/10/17 08:00] Lantus U-100 Insulin 22 unit SQ QHS 06/10/17 [History Last Taken 08/30/20] insulin aspart U-100 [Novolog Flexpen U-100 Insulin] See Protocol SUBCUT ACHS 06/10/17 [History Last Taken Unknown] apixaban 2.5 mg PO BID 08/31/20 [History Last Taken 08/31/20] insulin aspart U-100 [Novolog Flexpen U-100 Insulin] 4 unit SUBCUT TIDCM 09/06/20 [History Last Taken Unknown] oxycodone 10 mg PO Q4H PRN PRN 09/06/20 [History Last Taken Unknown] Allergy/AdvReac Type Severity Reaction Status Date / Time vancomycin Allergy MAYE Verified 11/28/20 14:51 SYNDROME Family History Mother Heart disease Father Heart disease Surgical History Amputation of digit of left hand Carpal tunnel syndrome Hx of AKA (above knee amputation) S/P CABG (coronary artery bypass graft) Social History household members: spouse Smoking Status: Heavy Smoker (>10/day) alcohol intake: former ROS ROS ED Constitutional Constitutional ED: Denies fever(s) or sweats Eyes Eyes: Denies blurry vision ENT ENT ED: Denies sore throat Cardiovascular Cardiovascular: Reports as per HPI Respiratory/Chest Respiratory/Chest: Reports dyspnea and other Details: Possible transient dyspnea. ; Denies sputum Gastrointestinal Gastrointestinal: Reports abdominal pain; Denies diarrhea, nausea or vomiting Genitourinary Genitourinary ED: Denies dysuria Musculoskeletal Musculoskeletal: Denies arthralgias Integumentary Denies rash Neurologic Neurologic: Reports other Details: Patient has some right-sided weakness related to a stroke. This also affects his speech. ; Denies headache(s) Psychiatric Psychiatric: Reports anxiety Endocrine Endocrinology: Denies polyuria Hematologic/Lymphatic Hematologic/Lymphatic: Reports easy bruising EXAM Physical Exam Const Vital Signs: 11/28/20 14:43 11/28/20 14:59 11/28/20 15:51 Temperature 98.1 F Temperature Source Temporal Pulse Rate 101 H 98 Respiratory Rate 16 17 Blood Pressure 132/112 H 137/91 H 154/92 H Blood Pressure Mean 118 106 112 Pulse Ox 99 95 Oxygen Delivery Method Room Air Room Air 11/28/20 16:00 11/28/20 16:22 11/28/20 16:40 Temperature Temperature Source Pulse Rate 98 101 H Respiratory Rate 14 21 H Blood Pressure 148/98 H 172/111 H Blood Pressure Mean 114 131 Pulse Ox 97 100 Oxygen Delivery Method Room Air Room Air 11/28/20 17:03 11/28/20 17:52 11/28/20 17:54 Temperature Temperature Source Pulse Rate 99 102 H 84 Respiratory Rate 20 H 24 H 24 H Blood Pressure 161/112 H 165/100 H 134/86 H Blood Pressure Mean 128 121 102 Pulse Ox 100 100 96 Oxygen Delivery Method Room Air Room Air Room Air 11/28/20 18:01 11/28/20 19:24 11/28/20 21:02 Temperature Temperature Source Pulse Rate 77 78 78 Respiratory Rate 20 H 17 16 Blood Pressure 141/86 H 142/85 H 146/90 H Blood Pressure Mean 104 104 108 Pulse Ox 97 100 Oxygen Delivery Method Room Air Room Air HEENT normocephalic and atraumatic Eyes PERRL General Eye ED: Negative for pale conjunctiva Neck supple Chest Wall inspection of chest normal and palpation of chest normal Chest Narrative: Well-healed midline sternotomy and prior chest tube scars. Chest: Negative for tenderness Resp normal respiratory effort Effort and Inspection: Negative for respiratory distress Auscultation: Negative for wheezes Cardio regular rate, regular rhythm and S1 normal heart sound GI normal to inspection, nondistended, normoactive bowel sounds, soft to palpation, non-tender and non-distended GI Narrative: Patient points to the right upper quadrant to and slightly right lateral upper quadrant area as where his pain was. But it seems to be better now. Palpation does not seem to bother it. Back/Spine no CVA tenderness Extremity Extremity Narrative: Patient has amputation of the right leg. Multiple fingers amputations. These are all from prior diabetes complications. Neuro Neuro Narrative: Expressive aphasia and some residual right-sided weakness. Sensorium / Orientation: awake and alert Psych mental status grossly normal Skin no rashes or lesions noted MDM MDM MDM Narrative Medical decision making narrative: Patient's work-up did not show any signifi cant acute chronic process. However he has multiple risks. He has been seen at [facility] and wanted to go there. I discussed the case with cardiology, Dr. Earl. He has been seen in evaluated there just back in August. Considering the unique situation and that we have high-sensitivity troponin the copra sampler was okay with repeating the troponin. As long as it did not rise significantly was okay with close follow-up as an outpatient. I discussed this with the patient and his and they are okay with this. Patient does also point that his pain might be more lower in the abdomen. I did do scan of the abdomen that shows no acute process. There are few gallstones but his liver function tests are okay and is not tender there. I think he is okay for discharge. We did discuss reasons to return. Lab Data Labs: Laboratory Results - last 24 hr 11/28/20 11/28/20 11/28/20 15:10 15:10 18:20 WBC 6.3 RBC 3.86 L Hgb 10.9 L Hct 35.0 L MCV 90.7 MCH 28.2 MCHC 31.1 L RDW Std Deviation 55.8 H RDW Coeff of Elizabeth 16.6 H Plt Count 256 MPV 10.6 Immature Gran % (Auto) 0.300 Neut % (Auto) 67.3 Lymph % (Auto) 18.8 L [place] % (Auto) 11.8 H Eos % (Auto) 0.9 Baso % (Auto) 0.9 Absolute Neuts (auto) 4.3 Absolute Lymphs (auto) 1.19 Nucleated RBC % 0 Sodium 135 L Potassium 4.1 Chloride 104 Carbon Dioxide 26.0 Anion Gap 5 BUN 20 H Creatinine 1.33 H Estim Creat Clear Calc 50.38 Est GFR (MDRD) Af Amer 70 Est GFR (MDRD) Non-Af 58 L BUN/Creatinine Ratio 15.0 Glucose 233 H Calcium 8.6 Total Bilirubin 0.40 AST 19 ALT 23 Alkaline Phosphatase 115 Troponin I High Sens 40.4 46.3 Total Protein 6.3 L Albumin 2.8 L Globulin 3.5 Albumin/Globulin Ratio 0.8 L Lipase 45 L POC Glucose 11/28/20 19:46 WBC RBC Hgb Hct MCV MCH MCHC RDW Std Deviation RDW Coeff of Elizabeth Plt Count MPV Immature Gran % (Auto) Neut % (Auto) Lymph % (Auto) [place] % (Auto) Eos % (Auto) Baso % (Auto) Absolute Neuts (auto) Absolute Lymphs (auto) Nucleated RBC % Sodium Potassium Chloride Carbon Dioxide Anion Gap BUN Creatinine Estim Creat Clear Calc Est GFR (MDRD) Af Amer Est GFR (MDRD) Non-Af BUN/Creatinine Ratio Glucose Calcium Total Bilirubin AST ALT Alkaline Phosphatase Troponin I High Sens Total Protein Albumin Globulin Albumin/Globulin Ratio Lipase POC Glucose 129 H Radiography Diagnostic Testing: Radiology Impression Chest X-Ray 11/28/20 15:38 IMPRESSION: No acute radiographic abnormalities. Electronically Signed: Ja Zapata MD at 16:09 EDT Tel , Service support , Abdomen/Pelvis CT 11/28/20 19:33 IMPRESSION: Fatty infiltration of the liver. Findings suggestive of small gallstones. Bilateral nonobstructive intrarenal calculi more prominent on the right side. Calcifications within the pancreas suggestive of chronic pancreatitis. Electronically Signed: Dylan Duarte MD at 20:40 EDT , Service support , Discharge Plan Triage Chief Complaint: Chest Pain Dx/Rx/DC Orders Clinical Impression: Chest pain, Abdominal pain Instructions: Abdominal Pain, ED Chest Pain, Uncertain Cause Prescriptions: No Action lisinopril 20 MG tablet 20 mg PO DAILY RF: 0 simvastatin 40 MG tablet 40 mg PO QHS RF: 0 gabapentin 800 MG tablet 800 mg PO TID RF: 0 metoprolol succinate 25 MG tablet extended release 24 hr 25 mg PO DAILY RF: 0 albuterol sulfate [Ventolin HFA] 1 INHALER inhaler 2 puff inhalation Q4H PRN PRN (Reason: Shortness Of Breath) RF: 0 Lantus U-100 Insulin 100 UNIT/ML solution 22 unit SQ QHS RF: 0 insulin aspart U-100 [Novolog Flexpen U-100 Insulin] 100 UNITS/ML insulin pen See Protocol units subcut ACHS RF: 0 apixaban 2.5 MG tablet 2.5 mg PO BID RF: 0 insulin aspart U-100 [Novolog Flexpen U-100 Insulin] 100 unit/mL (3 mL) Insulin Pen 4 unit SUBCUT TIDCM RF: 0 oxycodone 5 MG tablet 10 mg PO Q4H PRN PRN (Reason: Moderate Pain (4-5/10)) RF: 0 Primary Care Provider: Gennaro Pfeiffer Referrals: Gennaro Pfeiffer MD [Primary Care Provider] - Disposition Disposition: Group Home Facility Discharge Location: [facility]
[2020-11-28] MEDS: Aspirin 81 MG TAB.CHEW 324 MG PO (15:49)
[2020-11-28 15:51] LABS: Absolute Lymphocyte Count 1.19 X10^3/uL (0.83-4.51); Absolute Neutrophil Count 4.3 X10^3/uL (2.0-7.7); Basophil# 0.06 X10^3/uL; Basophil% 0.9 % (0-1); Eosinophil# 0.06 X10^3/uL; Eosinophils% 0.9 % (0-5); Hemoglobin 10.9 g/dL (13.0-16.5); Lymphocyte # 1.19 X10^3/ul (0.83-4.51); Lymphocyte % 18.8 % (19-41); Mean Corp Hgb Conc 31.1 g/dL (32-36); Mean Corpuscular Hgb 28.2 pg (27.0-32.0); Mean Corpuscular Volume 90.7 fL (80-94); Mean Platelet Vol. 10.6 fl (6.2-12.0); Monocyte# 0.75 X10^3/uL; Monocyte% 11.8 % (0-10); NRBC Flagged by Analyzer 0 % (0-5); Neutrophil # 4.26 X10^3/uL (2.7-7.7); Neutrophil % 67.3 % (47-70); Platelet Count 256 K/mm3 (150-450); RBC Distribution Width CV 16.6 % (11.6-14.6); RBC Distribution Width SD 55.8 fl (35.1-43.9); Red Blood Count 3.86 M/mm3 (4.6-6.2); White Blood Count 6.3 K/mm3 (4.4-11.0)
[2020-11-28 16:01] LABS: ALB/GLOB Ratio 0.8 RATIO (0.9-2.4); AST(SGOT) 19 U/L (15-37); Alanine Aminotransfer ALT/SGPT 23 U/L (16-61); Albumin, Serum 2.8 g/dL (3.2-5.0); Alkaline Phosphatase 115 U/L (45-117); Anion Gap 5 (5-15); BUN 20 mg/dL (7-18); Calcium,Total 8.6 mg/dL (8.5-10.1); Chloride 104 mmol/L (98-107); Creatinine, Serum 1.33 mg/dL (0.70-1.30); EST Glomerular Filtration Rate 58 mL/min (>60); Est Glom Filt Rate - Afr Amer 70 mL/min (>60); Estimated Creatinine Clearance 50.38 ml/min; Globulin 3.5 g/dL (2.2-4.2); Glucose 233 mg/dL (74-106); Lipase 45 U/L (73-393); Potassium 4.1 mmol/L (3.5-5.1); Protein, Total 6.3 g/dL (6.4-8.2); Sodium Level 135 mmol/L (136-145); Troponin-I HS 40.4 pg/mL (3.0-78.5)
[2020-11-28] MEDS: Labetalol (Prefilled) 20 MG/4 ML IV (17:49)
[2020-11-28 18:46] LABS: Troponin-I HS 46.3 pg/mL (3.0-78.5)
--- NOTE | 2020-11-28 19:33 | CT_ITS ---
STUDY: CT ABDOMEN AND PELVIS WITHOUT CONTRAST REASON FOR EXAM: Male, 60 years old. Right upper quadrant abdominal pain. RADIATION DOSAGE (If Supplied By Facility): CTDIvol = ( 6.08 ) mGy, DLP = ( 311.43 ) mGycm TECHNIQUE: Transaxial images were obtained from the dome of the diaphragm to the symphysis pubis without oral contrast, and without intravenous contrast. Sagittal and coronal images were reconstructed. Individualized dose optimization techniques were used for this CT. COMPARISON: Comparison is made with prior study dated 05/19/2017. FINDINGS: Stable mild increased markings at the lung bases with minimal pleural thickening suggestive of scarring and bibasilar atelectasis. Coronary artery calcification. There is decreased attenuation of the liver consistent with steatosis. I suspect small gallstones. Normal spleen. There are pancreatic calcifications in the distribution of the ducts consistent with chronic pancreatitis. Normal bilateral adrenal glands. Bilateral renal arterial calcification. Multiple right nonobstructive intrarenal calculi. The largest measures 6.2 mm. There is a 3 mm nonobstructive calculus in the midportion of the left kidney. Normal visualized stomach. Normal small intestine. There are multiple colonic diverticula consistent with diverticulosis. The appendix is visualized and appears normal. There is diffuse atherosclerotic calcification of the abdominal aorta and its major visceral branches, without a demonstrated aneurysm. Normal inferior vena cava. Normal retroperitoneum. Mild degree of diffuse bladder wall thickening. Evidence of prior inguinal hernia repair. There are diffuse degenerative changes of the visualized lumbar spine. CT/Abdomen/Pelvis without Cont IMPRESSION: Fatty infiltration of the liver. Findings suggestive of small gallstones. Bilateral nonobstructive intrarenal calculi more prominent on the right side. Calcifications within the pancreas suggestive of chronic pancreatitis. Electronically Signed: Dylan Duarte MD at 20:40 EDT , Service support ,
[2020-11-28 19:51] LABS: Bedside Glucose 129 mg/dL (70-110)
--- NOTE | 2020-11-28 21:53 | NURSING ---
is aware patient is being d/c back and aware of ct findings to follow up w pcp and eta of 30 minutes for [facility]. [facility] and talked to Sondra Cloud
== END 2020-11-28 22:19 | disposition skilled nursing facility (03) ==
PROVIDERS: Emergency Provider Emergency Medicine; PCP Family Medicine
DX: R07.9 Chest pain, unspecified (principal); R10.11 Right upper quadrant pain; K80.80 Other cholelithiasis without obstruction; I10 Essential (primary) hypertension; I69.351 Hemiplegia and hemiparesis following cerebral infarction affecting right dominant side; I69.320 Aphasia following cerebral infarction; I25.10 Atherosclerotic heart disease of native coronary artery without angina pectoris; E11.51 Type 2 diabetes mellitus with diabetic peripheral angiopathy without gangrene; J44.9 Chronic obstructive pulmonary disease, unspecified; F41.9 Anxiety disorder, unspecified; Z89.611 Acquired absence of right leg above knee; Z89.022 Acquired absence of left finger(s); Z79.4 Long term (current) use of insulin; Z79.01 Long term (current) use of anticoagulants; Z79.899 Other long term (current) drug therapy; F17.200 Nicotine dependence, unspecified, uncomplicated
CPT/HCPCS: 71045; 74176; 80053; 82962; 83690; 84484; 85025; 87426; 93005; 96374; 99285; A4216

== ENCOUNTER 2021-01-07 01:43 | Inpatient (IN) | payer MEDICARE, MEDICAID, SELFPAY ==
[2021-01-07] VITALS (36 sets, daily range): BP systolic 106–186; BP diastolic 62–149; PULSE 82–172; RESP 10–27; TEMP 36.1–36.6; O2SAT 95–100; BMI 20.7; BMI 19.8
--- NOTE | 2021-01-07 01:48 | EKG12_ITS ---
Test Reason : SEIZURES Blood Pressure : / mmHG Vent. Rate : 110 BPM Atrial Rate : 110 BPM P-R Int : 158 ms QRS Dur : 098 ms QT Int : 356 ms P-R-T Axes : 083 004 116 degrees QTc Int : [address] & T wave abnormality, consider lateral ischemia Abnormal ECG Confirmed by LATHA LEÓN, SANTY ([id number]), fan mail editor KEVIN TAYLOR ([id number]) on 01/09/2021 12:39:08 PM Referred By: DR VERNON Confirmed By:SANTY AZUL MD
--- NOTE | 2021-01-07 01:48 | CT_ITS ---
STUDY: CT BRAIN WITHOUT CONTRAST REASON FOR EXAM: Male, 60 years old. Seizure activity RADIATION DOSAGE (If Supplied By Facility): CTDIvol = ( 44.99 ) mGy, DLP = ( 897.35 ) mGycm TECHNIQUE: Transaxial CT imaging of the brain was performed without administration of intravenous contrast material. Individualized dose optimization techniques were used for this CT. COMPARISON: No relevant priors. FINDINGS: Normal soft tissue structures. Normal calvarium. There is mild cerebral atrophy with widening of the extra-axial spaces and ventricular dilatation. There is mild underlying bilateral periventricular and subcortical white matter hypoattenuation which is symmetric in distribution. Geographic hypoattenuation throughout the left parieto-occipital lobe with associated ex vacuo dilatation of the adjacent left posterior ventricular horn. Normal basal ganglia and thalami. Normal brainstem. Normal cerebellum. There is no intracranial hemorrhage. There is mild mucoperiosteal thickening of the paranasal sinuses. CT/Brain/Head without Contrast IMPRESSION: 1. No acute intracranial abnormality. 2. Encephalomalacic change throughout the left parieto-occipital lobe, consistent with prior infarct. 3. Mild underlying bilateral periventricular and subcortical white matter chronic small vessel disease with age appropriate cerebral atrophy. 4. Chronic paranasal sinus disease Electronically Signed: Chuy France MD at 2:39 EDT Tel , Service support ,
[2021-01-07] MEDS: LORazepam 2 MG/ML Syringe IV ×4 (01:55→02:30)
[2021-01-07] MEDS: Dextrose 50%-Water 25 GM/50 ML DISP.SYRIN IV (01:55)
[2021-01-07] MEDS: 0.9% Normal Saline 1,000 ML 1000 ML IV (01:58)
[2021-01-07 02:04] LABS: Absolute Neutrophil Count 5.4 X10^3/uL (2.0-7.7); Basophil# 0.14 X10^3/uL; Basophil% 0.9 % (0-1); Eosinophil# 0.43 X10^3/uL; Eosinophils% 2.7 % (0-5); Lymphocyte % 49.9 % (19-41); Mean Corp Hgb Conc 30.8 g/dL (32-36); Mean Corpuscular Hgb 28.2 pg (27.0-32.0); Mean Corpuscular Volume 91.5 fL (80-94); Mean Platelet Vol. 9.3 fl (6.2-12.0); Monocyte# 1.96 X10^3/uL; Monocyte% 12.4 % (0-10); NRBC Flagged by Analyzer 0 % (0-5); Neutrophil # 5.35 X10^3/uL (2.7-7.7); Neutrophil % 33.8 % (47-70); POSITIVE DIFFERENTIAL YES; POSITIVE MORPHOLOGY YES; Platelet Count 421 K/mm3 (150-450); RBC Distribution Width CV 13.9 % (11.6-14.6); RBC Distribution Width SD 46.3 fl (35.1-43.9); Red Blood Count 4.26 M/mm3 (4.6-6.2); White Blood Count 15.8 K/mm3 (4.4-11.0)
[2021-01-07 02:08] LABS: Differential Indicated SCAN CRITERIA MET
[2021-01-07] MEDS: levETIRAcetam IV 1,000 MG/100 ML BAG 400 MG IV (02:13)
[2021-01-07 02:18] LABS: Alcohol, Blood (Medical)-Serum < 3.0 mg/dL
[2021-01-07 02:30] LABS: Differential Comment SCANNED
[2021-01-07 02:31] LABS: International Normalized Ratio 1.4; Prothrombin Time (Protime)PT. 16.7 SECONDS (11.7-14.9)
[2021-01-07 02:39] LABS: ALB/GLOB Ratio 0.9 RATIO (0.9-2.4); AST(SGOT) 26 U/L (15-37); Alanine Aminotransfer ALT/SGPT 32 U/L (16-61); Albumin, Serum 3.7 g/dL (3.2-5.0); Alkaline Phosphatase 182 U/L (45-117); Anion Gap 17 (5-15); BUN 22 mg/dL (7-18); Calcium,Total 10.1 mg/dL (8.5-10.1); Chloride 105 mmol/L (98-107); Creatinine, Serum 1.47 mg/dL (0.70-1.30); EST Glomerular Filtration Rate 52 mL/min (>60); Est Glom Filt Rate - Afr Amer 63 mL/min (>60); Estimated Creatinine Clearance 45.35 ml/min; Globulin 4.3 g/dL (2.2-4.2); Glucose 148 mg/dL (74-106); Potassium 6.1 mmol/L (3.5-5.1); Sodium Level 139 mmol/L (136-145)
--- NOTE | 2021-01-07 03:12 | MRI_ITS ---
EXAM: MR HEAD WITHOUT INTRAVENOUS CONTRAST : 1960 CLINICAL INDICATION: New, Acute Seizure. Prior stroke about 2 months ago TECHNIQUE: Multiplanar and multisequence MR images of the brain were obtained without intravenous contrast. This report was created using [email or web address] report generation technology. COMPARISON: CT head December 30, 2020 FINDINGS: BRAIN AND EXTRA-AXIAL SPACES: Encephalomalacic changes of the left temporal, parietal and occipital lobes again noted. There is no abnormal diffusion weighted signal intensity to suggest an acute ischemic event. Multiple foci of increased T2 signal intensity within the cerebral white consistent with chronic microvascular disease. Prominence of the cortical sulci and ventricles related to volume loss change. No intra- or extra-axial hemorrhage. No intracranial mass or mass effect. Posterior fossa structures are unremarkable. Basal cisterns are patent. SELLA: Unremarkable. Normal sella turcica, pituitary gland, infundibular stalk, optic chiasm and hypothalamus. AUDITORY SYSTEM: Unremarkable. The internal auditory canals are patent. BONES/JOINTS: Unremarkable. No discrete lytic or blastic abnormalities. SINUSES: Unremarkable as visualized. Clear. MASTOID AIR CELLS: Mastoid sinuses are opacified. ORBITS: Unremarkable as visualized. Both globes, extraocular muscles, optic nerves and retrobulbar fat appear unremarkable. VASCULATURE: Unremarkable as visualized. Normal flow voids in the major intracranial circulation. MRI/Brain without Contrast IMPRESSION: 1. No acute intracranial abnormality. 2. Chronic ischemic changes. at 1042 Reported and signed by: Kayode Abel MD Electronically Signed: Kayode Abel MD at 10:41 EDT Tel , Service support ,
--- NOTE | 2021-01-07 03:13 | PCM.HP.STD ---
HPI - General General Date of Admission: 01/07/21 Date of Service: 01/07/21 Chief Complaint: New onset tonic-clonic seizure HPI Narrative The patient is a 60 y/o M w/ PMHx: CKD stage III, CAD s/p CABG, HTN, HLD, PAD/PVD, Diabetes mellitus type II, Chronic COPD, Anxiety and Depression, Tobacco use, massive recent CVA ~ 2 months prior noted to be near mute with R sided hemiplegia who presents to the [facility] ED on 01/07/21 with history of new onset seizure activity while at the SNF, ongoing x > 30 minutes initially found per staff at SNF as they noted abnormal noises starting at ~1:30 am, prompting immediate ED transition. Per discussion with patient's spouse he does have significant dysarthria, near mute although does respond no very readily she reports with significant right-sided hemiparesis. Work-up in the ED included T 97.6, heart rate initially 172 with repeat 118, BP 173/149 with repeat 152/68, respiratory rate 26, initially presenting 100% on a nonrebreather, CBC with WBC 15.8, hemoglobin 12, platelet 421 with left shift, coags with PT 16.7, INR 1.4, CMP with potassium 6.1, carbon oxide 17, anion gap 17, BUN/creatinine 22/1.47, glucose 148, unremarkable hepatic profile aside alk phos 182, ethyl alcohol less than 3, CT of the brain with no acute intracranial finding, evidence of encephalomalacia throughout the left parieto-occipital lobe consistent with prior infarct, mild underlying bilateral periventricular and subcortical white matter chronic small vessel disease with age-appropriate cerebral atrophy, chronic paranasal sinus disease. Patient was given ativan 6 mg IV total and keppra load 1,000 mg. [facility] Medical History Anxiety Aphasia Arthritis Cerebral abscess Chronic viral hepatitis Cirrhosis of liver COPD (chronic obstructive pulmonary disease) Coronary artery disease Depressed Diabetes Hemiplegia Hemiplegia affecting right dominant side Hypertension Myocardial infarct Peripheral vascular disease Schizophrenia Smoker Home Medications albuterol 2 mcg INHALATION Q4H PRN PRN 01/07/21 [History Last Taken Unknown] apixaban 5 mg PO BID 01/07/21 [History Last Taken Unknown] atorvastatin [Lipitor] 40 mg PO DAILY 01/07/21 [History Last Taken Unknown] clopidogrel 75 mg PO DAILY 01/07/21 [History Last Taken Unknown] duloxetine 60 mg PO DAILY 01/07/21 [History Last Taken Unknown] famotidine 20 mg PO BID 01/07/21 [History Last Taken Unknown] ferrous sulfate 325 mg PO BID 01/07/21 [History Last Taken Unknown] glipizide 2.5 mg PO BID 01/07/21 [History Last Taken Unknown] insulin glulisine U-100 10 unit SUBCUT DAILY 01/07/21 [History Last Taken Unknown] insulin lispro 2 unit SUBCUT TID 01/07/21 [History Last Taken Unknown] lisinopril 10 mg PO DAILY 01/07/21 [History Last Taken Unknown] metformin 500 mg PO BID 01/07/21 [History Last Taken Unknown] torsemide 10 mg PO DAILY 01/07/21 [History Last Taken Unknown] Allergy/AdvReac Type Severity Reaction Status Date / Time vancomycin Allergy MAYE Verified 11/28/20 14:51 SYNDROME Family History Mother Heart disease Father Heart disease Surgical History (Updated 01/07/21 @ 02:49 by Bridget Mai) Amputation of digit of left hand Aortocoronary bypass status Carpal tunnel syndrome Hx of AKA (above knee amputation) S/P CABG (coronary artery bypass graft) Social History (Updated 01/07/21 @ 03:[address] Palma Delgado MD) housing: long term Smoking Status: Former smoker alcohol intake: former substance use type: does not use ROS Review of Systems ROS Unobtainable: due to mental status Vital Signs Vital Signs Vital Signs: 01/07/21 01:44 01/07/21 01:51 01/07/21 01:57 Temperature 97.6 F L Temperature Source Temporal Pulse Rate 172 H Respiratory Rate 26 H Blood Pressure 173/149 H Blood Pressure Mean 157 Pulse Ox Oxygen Delivery Method Non-Rebreather Oxygen Flow Rate (L/min) 15 01/07/21 02:06 01/07/21 02:29 01/07/21 02:35 Temperature Temperature Source Pulse Rate 141 H 118 H 118 H Respiratory Rate 27 H 19 H 21 H Blood Pressure 175/86 H 180/71 H 152/68 H Blood Pressure Mean 115 107 96 Pulse Ox 100 100 99 Oxygen Delivery Method Non-Rebreather Non-Rebreather Room Air Oxygen Flow Rate (L/min) 15 Weight Weight: 132 lb 4.438 oz Body Mass Index (BMI) 20.7 Physical Exam Narrative Physical Examination: General: Patient is not awake, not alert, unable to answer any orientation questions although patient does have history of recent significant CVA with significant dysarthria, possibly near mute status, laying in the ED bed, notably postictal. Skin: Normal color, normal turgor, no icterus, no cyanosis. HEENT: AT/NC, EOM unable to be assessed given postictal status, lethargic, PERRLA, dry MM, no carotid bruits or JVD noted. Lungs: Diminished, greater bases, moderate effort, no evidence of any distress, no rales, ronchi or wheezing. Heart: Mildly tachycardic with regular rhythm; no gallop, rub audible. Abdomen: Soft, NTTP, ND, normal BS, no HSM. Extremities: No cyanosis, no clubbing, evidence prior left hand digit amputations, right lower extremity amputation. Neurological: Patient is not awake, not alert, unable to answer any orientation questions although patient does have history of recent significant CVA with significant dysarthria, possibly near mute status, laying in the ED bed, notably postictal, cognitive function not baseline intact; pupils equally reactive to light and accommodation, cranial nerves unable to be assessed well given lethargic/postictal status, strength severely global decrease, patient does have underlying right-sided hemiparesis and significant dysarthria. Psychiatric: Affect appears flat, postictal, no acute evidence of depressive or anxiety feelings. Results Lab / Micro Data Result Diagrams: 01/07/21 01:55 01/07/21 03:15 Labs: Laboratory Results - last 24 hr 01/07/21 01:55: WBC 15.8 H, RBC 4.26 L, Hgb 12.0 L, Hct 39.0 L, MCV 91.5, MCH 28.2, MCHC 30.8 L, RDW Std Deviation 46.3 H, RDW Coeff of Elizabeth 13.9, Plt Count 421, MPV 9.3, Immature Gran % (Auto) 0.300, Neut % (Auto) 33.8 L, Lymph % (Auto) 49.9 H, Ralls % (Auto) 12.4 H, Eos % (Auto) 2.7, Baso % (Auto) 0.9, Absolute Neuts (auto) 5.4, Absolute Lymphs (auto) 7.90 H, Nucleated RBC % 0, Differential Comment SCANNED, Diff Path Review September01/07/21 01:55: Sodium 139, Potassium 6.1 H*, Chloride 105, Carbon Dioxide 17.0 L, Anion Gap 17 H, BUN 22 H, Creatinine 1.47 H, Estim Creat Clear Calc 45.35, Est GFR (MDRD) Af Amer 63, Est GFR (MDRD) Non-Af 52 L, BUN/Creatinine Ratio 15.0, Glucose 148 H, Calcium 10.1, Total Bilirubin 0.40, AST 26, ALT 32, Alkaline Phosphatase 182 H, Total Protein 8.0, Albumin 3.7, Globulin 4.3 H, Albumin/Globulin Ratio 0.9 01/07/21 01:55: Ethyl Alcohol < 3.0 01/07/21 02:10: PT 16.7 H, INR 1.4 Micro: Microbiology 01/07/21 02:45 Nasal Secretion SARS-CoV-2 Antigen (Rapid) - Final Radiology Impression Brain CT 01/07/21 01:48 IMPRESSION: 1. No acute intracranial abnormality. 2. Encephalomalacic change throughout the left parieto-occipital lobe, consistent with prior infarct. 3. Mild underlying bilateral periventricular and subcortical white matter chronic small vessel disease with age appropriate cerebral atrophy. 4. Chronic paranasal sinus disease Electronically Signed: Chuy France MD at 2:39 EDT Tel , Service support , Assessment & Plan Assessment/Plan (1) Seizure: PLAN: The patient is a 60 y/o M w/ PMHx: CKD stage III, CAD s/p CABG, HTN, HLD, PAD/PVD, Diabetes mellitus type II, Chronic COPD, Anxiety and Depression, Tobacco use, massive recent CVA ~ 2 months prior noted to be near mute with R sided hemiplegia who presents to the [facility] ED on 01/07/21 with history of new onset seizure activity while at the SNF, ongoing x > 30 minutes initially found per staff at SNF as they noted abnormal noises starting at ~1:30 am, prompting immediate ED transition. 1. New-onset seizure, Tonic Clonic, likely secondary to significant recent CVA: Seizure witnessed, resolved after notable ativan administration as well as keppra load. Initial concerns for potential need for intubation secondary to severity. CT of the brain with no acute intracranial finding, evidence of encephalomalacia throughout the left parieto-occipital lobe consistent with prior infarct, mild underlying bilateral periventricular and subcortical white matter chronic small vessel disease with age-appropriate cerebral atrophy, chronic paranasal sinus disease. Will admit to ICU, maintain on telemetry, maintain on seizure precautions, obtain EEG which will be arranged for today, will obtain MRI brain although CT findings alone with recent massive CVA likely etiology, obtain TSH. Will continue on Keppra IV. Would plan to obtain Neurology consultation once EEG and MRI obtained. PRN ativan IV for seizure activity. NPO status until appropriate. We will continue patient Eliquis, Plavix, hypertensive regimen, diabetic regimen with alterations as noted for CVA. PT/OT/Speech/CM consultations for discharge planning. 2. Diabetes mellitus type II with initially hypoglycemia, eventually hyperglycemia, AG mildly elevated suspected secondary to acute seizure activity, lower suspicion DKA with initial presentation hypoglycemia: Will continue on insulin cautiously given initial presentation, obtain mag, phos daily w/ repletion as needed, trend BMP closely to assure AG not increasing, nutrition consultation, hemoglobin A1c requested. 3. Hyperkalemia: Admission potassium 6.1, in the ED patient administered normal saline, dextrose, will additionally administer calcium gluconate and Kayexalate with repeat BMP trending as noted. 4. Chronic Kidney Disease Stage III, unclear subtype: Admission BUN/Cr 22/1.47, baseline renal function primarily 1.4-1.6, repeat BMP serially as noted. 5. Chronic COPD: Patient not on any routine inhalers, will have as needed albuterol, once clinically appropriate will encourage I-S, maintain head of bed. 6. CAD, PAD: Status post CABG, we will continue patient apixaban, plavix, metoprolol, lisinopril, statin regimen. 7. Hypertension: Continue home regimen including metoprolol, lisinopril with hold parameters, PRN hydralazine. 8. Hyperlipidemia: We will continue home statin therapy. 9. Tobacco Abuse: Encouraged cessation, inpatient consultation per RT, NR if desired. 10. Anxiety and depression: Will continue home cymbalta regimen. 11. GERD: Maintain on famotidine. 12. DVT prophylaxis: SCDs, continue home eliquis regimen; however, if any recurrent CVA findings on MRI will need to hold for concern for potential conversion. 13. CODE status: Patient MELBA is his ex- who is present and living will is not in place she notes. Noted if interested in assistance with living will to review with case management/social work during patient's admission. Discussed CODE status at length including difference between FULL code, DNR-CCA and DNR-CC status. Following discussions about the differences in these status, requested Full Code status. Advanced Care Planning Face to Face Time: 16 minutes. Charges/Coding Visit Charges Inpatient E&M: 88775 Init Hosp L3 Procedures Hospitalists Procedures: 83374 Advncd Care Plan 30 Min
[2021-01-07 03:31] LABS: Magnesium 1.5 mg/dL (1.6-2.6); Potassium 4.1 mmol/L (3.5-5.1)
--- NOTE | 2021-01-07 03:32 | RAD_ITS ---
STUDY: X-RAY CHEST REASON FOR EXAM: Male, 60 years old. Cough and shortness of breath TECHNIQUE: Single AP portable view of the chest. COMPARISON: 11/28/2020 FINDINGS: No confluent airspace infiltrate. No pleural effusion or pneumothorax. Normal size heart. Normal mediastinum and herber. Left hilar surgical clips. Normal visualized pulmonary arteries. Normal visualized aortic arch and descending thoracic aorta. Proximal left subclavian arterial stent in place. Normal visualized thoracic spine. Normal visualized ribs, clavicles, and shoulders. There is no demonstrated abnormality of the visualized soft tissue structures of the upper abdomen. RAD/Chest 1 View (Portable) IMPRESSION: No acute cardiopulmonary disease Electronically Signed: Chuy France MD at 4:19 EDT Tel , Service support ,
[2021-01-07 03:45] LABS: Bacteria 0 SEEN /hpf (None Seen); Color, Urine Yellow (Yellow); Glucose, Dipstick 50 mg/dl (Normal); Ketone-Dipstick Negative (Negative); Leukocyte Esterase-Dipstick Negative /ul (Negative); Mucous, Urine 0 SEEN /hpf (<or=2+); Nitrite-Dipstick Negative (Negative); Occult Blood-Urine Negative /ul (Negative); Protein-Dipstick 100 mg/dl (Negative); Red Blood Cells-Urine 0 SEEN /hpf (0-5); Squamous Epithelial Cells - UA 0 SEEN /hpf (0-5); Urine Bilirubin Dipstick Negative (Negative); Urine Clarity Clear (Clear); Urine Urobilinogen Normal (Normal); White Blood Cells 0 SEEN /hpf (0-5)
[2021-01-07 03:56] LABS: Phosphorus 3.5 mg/dL (2.5-4.9)
[2021-01-07 04:00] LABS: Amphetamine Urine VISTA NEGATIVE (<1000 ng/mL); Barbiturate Urine VISTA NEGATIVE (< 200 ng/mL); Benzodiazepine Urine VISTA NEGATIVE (< 200 ng/mL); Cocaine Urine VISTA NEGATIVE (< 300 ng/mL); Ecstacy Urine VISTA NEGATIVE (< 500 ng/mL); Methadone Urine VISTA NEGATIVE (< 300 ng/mL); PCP Urine VISTA NEGATIVE (< 25 ng/mL); THC Urine VISTA NEGATIVE (< 50 ng/mL); Vista UDS pH Range 6
--- NOTE | 2021-01-07 04:13 | EX.ED.DYSGE1 ---
HPI History of Present Illness Chief Complaint: Seizure Informant: patient Narrative Narrative: Patient is a 60-year-old male with complex medical history including stroke with significant deficits, peripheral vascular disease, diabetes mellitus, COPD and coronary artery disease presenting with seizure-like activity. Patient is presenting from the [facility]. He has been there since he left [facility] after he had a stroke. His medical decision-maker/ex- is at the bedside who states he cannot speak well since his stroke. Apparently around 1 AM [facility] nursing staff heard him groaning and saw him clenching his right arm. EMS was called and he was brought to the emergency room. In the ER patient had seizure activity. Patient does not have a known history of seizures. Per EMS report, patient was last seen at his baseline around 9:30 PM. PFSH PFS Medical History Anxiety Aphasia Arthritis Cerebral abscess Chronic viral hepatitis Cirrhosis of liver COPD (chronic obstructive pulmonary disease) Coronary artery disease Depressed Diabetes Hemiplegia Hemiplegia affecting right dominant side Hypertension Myocardial infarct Peripheral vascular disease Schizophrenia Smoker Home Medications albuterol 2 mcg INHALATION Q4H PRN PRN 01/07/21 [History Last Taken Unknown] apixaban 5 mg PO BID 01/07/21 [History Last Taken Unknown] atorvastatin [Lipitor] 40 mg PO DAILY 01/07/21 [History Last Taken Unknown] clopidogrel 75 mg PO DAILY 01/07/21 [History Last Taken Unknown] duloxetine 60 mg PO DAILY 01/07/21 [History Last Taken Unknown] famotidine 20 mg PO BID 01/07/21 [History Last Taken Unknown] ferrous sulfate 325 mg PO BID 01/07/21 [History Last Taken Unknown] glipizide 2.5 mg PO BID 01/07/21 [History Last Taken Unknown] insulin glulisine U-100 10 unit SUBCUT DAILY 01/07/21 [History Last Taken Unknown] insulin lispro 2 unit SUBCUT TID 01/07/21 [History Last Taken Unknown] lisinopril 10 mg PO DAILY 01/07/21 [History Last Taken Unknown] metformin 500 mg PO BID 01/07/21 [History Last Taken Unknown] torsemide 10 mg PO DAILY 01/07/21 [History Last Taken Unknown] Allergy/AdvReac Type Severity Reaction Status Date / Time vancomycin Allergy MAYE Verified 11/28/20 14:51 SYNDROME Family History Mother Heart disease Father Heart disease Surgical History Amputation of digit of left hand Aortocoronary bypass status Carpal tunnel syndrome Hx of AKA (above knee amputation) S/P CABG (coronary artery bypass graft) Social History housing: [facility] Smoking Status: Former smoker alcohol intake: former substance use type: does not use ROS ROS ED Review of Systems ROS Unobtainable: due to mental status and other EXAM Physical Exam Const Vital Signs: 01/07/21 01:44 01/07/21 01:51 01/07/21 01:57 Temperature 97.6 F L Temperature Source Temporal Pulse Rate 172 H Respiratory Rate 26 H Blood Pressure 173/149 H Blood Pressure Mean 157 Pulse Ox Oxygen Delivery Method Non-Rebreather Oxygen Flow Rate (L/min) 01/07/21 02:06 01/07/21 02:29 01/07/21 02:35 Temperature Temperature Source Pulse Rate 141 H 118 H 118 H Respiratory Rate 27 H 19 H 21 H Blood Pressure 175/86 H 180/71 H 152/68 H Blood Pressure Mean 115 107 96 Pulse Ox 100 100 99 Oxygen Delivery Method Non-Rebreather Non-Rebreather Room Air Oxygen Flow Rate (L/min) 01/07/21 03:18 01/07/21 03:54 Temperature Temperature Source Pulse Rate 99 89 Respiratory Rate 18 17 Blood Pressure 119/62 106/71 Blood Pressure Mean 81 82 Pulse Ox 97 97 Oxygen Delivery Method Room Air Room Air Oxygen Flow Rate (L/min) General Appearance ED: other Unresponsive, seizing. Chronically ill-appearing HEENT Reports moist mucous membranes Negative for tenderness Eyes Eyes Narrative: Pupils mid dilated and fixed. Seems to have right gaze preference. Neck supple Neck Narrative: Positive JVD Chest Wall inspection of chest normal Chest Narrative: Midline sternotomy scar Resp normal respiratory effort and clear to auscultation bilaterally Cardio regular rhythm Rate: tachycardic GI normal to inspection, nondistended, normoactive bowel sounds Extremity Extremity Narrative: Right [id number] amputation, no peripheral edema of the left lower extremity Neuro Neuro Narrative: Patient is generalized tonic-clonic seizure activity. Does not follow commands. Sensorium / Orientation: orientation impaired Skin no rashes or lesions noted and no wounds MDM MDM MDM Narrative Medical decision making narrative: Patient is evaluated for seizure activity. He is given a total of 6 mg IV Ativan as well as a load of 1 g of IV Keppra before seizures stopped. Blood sugar was 61 and patient was also given an amp of D50. I had ordered medication for RSI and intubation however patient stopped seizing before this was needed. He does not have any further seizure activity in the emergency room. CT of the brain does not show any acute bleed. Patient does have significant encephalomalacia from his prior stroke. I suspect this is predisposing him to seizures. He has a leukocytosis, elevated anion gap and elevated potassium on his initial blood work. I suspect this is all secondary to acidosis and reactive from his seizure. Repeat potassium is normal. Patient does not have any EKG changes consistent with hyperkalemia. He is given IV fluids in the emergency room. He does not have any obvious source of infection on his lab work, chest x-ray or urinalysis. Discussed with hospitalist whether we could admit him here versus need for transport. As this patient does not require continuous EEG he will be admitted here into the ICU. Patient's ex- who is his medical decision-maker is agreeable with this plan of care. She confirms he is a full code. Patient is hemodynamically stable in the emergency room. Lab Data Labs: Laboratory Results - last 24 hr 01/07/21 01/07/21 01/07/21 01:55 01:55 01:55 WBC 15.8 H RBC 4.26 L Hgb 12.0 L Hct 39.0 L MCV 91.5 MCH 28.2 MCHC 30.8 L RDW Std Deviation 46.3 H RDW Coeff of Elizabeth 13.9 Plt Count 421 MPV 9.3 Immature Gran % (Auto) 0.300 Neut % (Auto) 33.8 L Lymph % (Auto) 49.9 H [place] % (Auto) 12.4 H Eos % (Auto) 2.7 Baso % (Auto) 0.9 Absolute Neuts (auto) 5.4 Absolute Lymphs (auto) 7.90 H Nucleated RBC % 0 Differential Comment SCANNED Diff Path Review May foll PT INR Sodium 139 Potassium 6.1 H* Chloride 105 Carbon Dioxide 17.0 L Anion Gap 17 H BUN 22 H Creatinine 1.47 H Estim Creat Clear Calc 45.35 Est GFR (MDRD) Af Amer 63 Est GFR (MDRD) Non-Af 52 L BUN/Creatinine Ratio 15.0 Glucose 148 H Calcium 10.1 Phosphorus Magnesium Total Bilirubin 0.40 AST 26 ALT 32 Alkaline Phosphatase 182 H Total Protein 8.0 Albumin 3.7 Globulin 4.3 H Albumin/Globulin Ratio 0.9 Urine Color Urine Clarity Urine pH Ur Specific Foster Urine Protein Urine Glucose (UA) Urine Ketones Urine Occult Blood Urine Nitrite Urine Bilirubin Urine Urobilinogen Ur Leukocyte Esterase Urine RBC Urine WBC Ur Squamous Epith Cells Urine Bacteria Urine Mucus Urine Opiates Screen Urine Methadone Screen Ur Barbiturates Screen Ur Phencyclidine Scrn Ur Amphetamines Screen U Methamphetamin-MDMA U Benzodiazepines Scrn Urine Cocaine Screen U Cannabinoids Screen Ur Drug Screen Comment Ethyl Alcohol < 3.0 01/07/21 01/07/21 01/07/21 02:10 03:15 03:15 WBC RBC Hgb Hct MCV MCH MCHC RDW Std Deviation RDW Coeff of Elizabeth Plt Count MPV Immature Gran % (Auto) Neut % (Auto) Lymph % (Auto) [place] % (Auto) Eos % (Auto) Baso % (Auto) Absolute Neuts (auto) Absolute Lymphs (auto) Nucleated RBC % Differential Comment Diff Path Review PT 16.7 H INR 1.4 Sodium Potassium 4.1 Chloride Carbon Dioxide Anion Gap BUN Creatinine Estim Creat Clear Calc Est GFR (MDRD) Af Amer Est GFR (MDRD) Non-Af BUN/Creatinine Ratio Glucose Calcium Phosphorus 3.5 Magnesium 1.5 L Total Bilirubin AST ALT Alkaline Phosphatase Total Protein Albumin Globulin Albumin/Globulin Ratio Urine Color Urine Clarity Urine pH Ur Specific Foster Urine Protein Urine Glucose (UA) Urine Ketones Urine Occult Blood Urine Nitrite Urine Bilirubin Urine Urobilinogen Ur Leukocyte Esterase Urine RBC Urine WBC Ur Squamous Epith Cells Urine Bacteria Urine Mucus Urine Opiates Screen Urine Methadone Screen Ur Barbiturates Screen Ur Phencyclidine Scrn Ur Amphetamines Screen U Methamphetamin-MDMA U Benzodiazepines Scrn Urine Cocaine Screen U Cannabinoids Screen Ur Drug Screen Comment Ethyl Alcohol 01/07/21 01/07/21 03:39 03:39 WBC RBC Hgb Hct MCV MCH MCHC RDW Std Deviation RDW Coeff of Elizabeth Plt Count MPV Immature Gran % (Auto) Neut % (Auto) Lymph % (Auto) [place] % (Auto) Eos % (Auto) Baso % (Auto) Absolute Neuts (auto) Absolute Lymphs (auto) Nucleated RBC % Differential Comment Diff Path Review PT INR Sodium Potassium Chloride Carbon Dioxide Anion Gap BUN Creatinine Estim Creat Clear Calc Est GFR (MDRD) Af Amer Est GFR (MDRD) Non-Af BUN/Creatinine Ratio Glucose Calcium Phosphorus Magnesium Total Bilirubin AST ALT Alkaline Phosphatase Total Protein Albumin Globulin Albumin/Globulin Ratio Urine Color Yellow Urine Clarity Clear Urine pH 6.0 Ur Specific Foster 1.010 Urine Protein 100 H Urine Glucose (UA) 50 H Urine Ketones Negative Urine Occult Blood Negative Urine Nitrite Negative Urine Bilirubin Negative Urine Urobilinogen Normal Ur Leukocyte Esterase Negative Urine RBC 0 SEEN Urine WBC 0 SEEN Ur Squamous Epith Cells 0 SEEN Urine Bacteria 0 SEEN Urine Mucus 0 SEEN Urine Opiates Screen NEGATIVE Urine Methadone Screen NEGATIVE Ur Barbiturates Screen NEGATIVE Ur Phencyclidine Scrn NEGATIVE Ur Amphetamines Screen NEGATIVE U Methamphetamin-MDMA NEGATIVE U Benzodiazepines Scrn NEGATIVE Urine Cocaine Screen NEGATIVE U Cannabinoids Screen NEGATIVE Ur Drug Screen Comment Ethyl Alcohol Radiography Chest X-Ray - ED: 1 View, Read by ED Physician and No Acute Disease Diagnostic Testing: Radiology Impression Brain CT 01/07/21 01:48 IMPRESSION: 1. No acute intracranial abnormality. 2. Encephalomalacic change throughout the left parieto-occipital lobe, consistent with prior infarct. 3. Mild underlying bilateral periventricular and subcortical white matter chronic small vessel disease with age appropriate cerebral atrophy. 4. Chronic paranasal sinus disease Electronically Signed: Chuy France MD at 2:39 EDT Tel , Service support , Rhythm Strip Rhythm Strip: Sinus Tach Rate: 110 Ectopy: None EKG Initial EKG: Attestation: I personally reviewed and interpreted this EKG as follows: Interpretation: Sinus Tachycardia Comments: Sinus tachycardia at a rate of 110 Normal axis Normal intervals T wave inversions in lateral leads but no reciprocal changes Critical Care Time Critical Care Time: Yes Critical care time (excluding procedures): 30-74 minutes (40 minutes. Patient presents with status epilepticus and requires frequent aliquots of medication and frequent reevaluation.), Discussing w/Patient &/or Family/Superintendent Operating, Arranging Admission or Transfer and Performing Direct Patient Care at Bedside Discharge Plan Triage Chief Complaint: Seizure ED Provider: Lauryn Mauro Dx/Rx/DC Orders Clinical Impression: Seizure, Leukocytosis Prescriptions: No Action atorvastatin [Lipitor] 40 mg Tablet 40 mg PO DAILY RF: 0 metformin 500 mg Tablet 500 mg PO BID RF: 0 torsemide 10 mg Tablet 10 mg PO DAILY RF: 0 clopidogrel 75 mg Tablet 75 mg PO DAILY RF: 0 famotidine 20 mg Tablet 20 mg PO BID RF: 0 glipizide 2.5 mg Tablet Extended Release 24hr 2.5 mg PO BID RF: 0 ferrous sulfate 325 mg (65 mg iron) Tablet 325 mg PO BID RF: 0 lisinopril 10 mg Tablet 10 mg PO DAILY RF: 0 albuterol 90 mcg/actuation Aerosol 2 mcg INHALATION Q4H PRN PRN (Reason: Shortness Of Breath) RF: 0 insulin lispro 100 unit/mL Solution 2 unit SUBCUT TID RF: 0 duloxetine 60 mg Capsule,Delayed Release(Dr/Ec) 60 mg PO DAILY RF: 0 insulin glulisine U-100 100 unit/mL Solution 10 unit SUBCUT DAILY RF: 0 apixaban 5 mg Tablet 5 mg PO BID RF: 0 Primary Care Provider: Care Physician,No Primary Referrals: Care Physician,No Primary [Primary Care Provider] -
[2021-01-07 05:16] LABS: Bedside Glucose 192 mg/dL (70-110)
[2021-01-07 05:16] LABS: Bedside Glucose 63 mg/dL (70-110)
[2021-01-07 05:19] LABS: Troponin-I HS 49 pg/mL (3.0-78.0)
--- NOTE | 2021-01-07 06:11 | EX.PCM.CONCC ---
Assessment & Plan Assessment/Plan (1) Seizure: PLAN: RECOMMENDATIONS: 1. Await EEG and MRI results. 2. Obtain neurology consultation. 3. Continue seizure precautions. 4. Continue Keppra and as needed Ativan. 5. Stop continuous IV fluids. 6. If testing is unable to be completed today, recommend that the patient be transferred to a tertiary care facility. IMPRESSIONS: 1. Encephalopathy in the setting of new onset seizures The patient has an extensive medical history and significant comorbidities, including recent CVA with residual deficits. He presented to the hospital with encephalopathy in the setting of new onset generalized tonic-clonic seizures. The patient was started on Keppra and received Ativan in the ED. He remains obtunded at this time. Further work-up including MRI brain and EEG are pending. Recommend neurology consultation today. Maintain seizure precautions. If testing is unable to be completed in a timely fashion today, recommend that the patient be transferred to a tertiary care facility with neurology coverage. 2. Recent CVA Apparently 2 months ago the patient sustained a significant CVA which left him with residual neurological deficits. Initial CT head on presentation did not demonstrate any acute intracranial findings. MRI brain is currently pending. 3. Chronic kidney disease/CAD status post CABG/hypertension/hyperlipidemia/questionable COPD/diabetes mellitus Complicates care, management, recovery and prognosis. Continue home medications as indicated. This note was generated with [employer] dictation software. It may contain incorrect words, spelling, and punctuation that were not noted in checking the note before signing. HPI Consult Data Date of Consult: 01/08/21 HPI Narrative Reason for Consultation: New onset seizures HPI Narrative: The patient is a 60-year-old male, with a history as outlined below, who presented to the emergency department on January 07 via EMS after he apparently experienced [facility]. Approximately 2 months ago the patient suffered a significant stroke which left him with significant residual deficits. The patient's history is also significant for subclavian artery stenosis and he is status post right above-knee amputation. The patient also has systolic heart failure with echocardiogram last completed in August 2020 demonstrating an ejection fraction of 15% and severe global LV systolic dysfunction. Right ventricular systolic pressure was estimated to be 55 mmHg. On presentation to the emergency department, the patient was noted to be afebrile but was tachycardic, tachypneic and hypertensive. Initial laboratory evaluation revealed an elevated white blood cell count to 16,000. INR was noted to be 1.4. Chemistry profile was notable for a bicarbonate of 17, anion gap of 17 and creatinine of 1.47. Magnesium was low at 1.5. Urine analysis was unremarkable. Toxicology and alcohol screen was negative. CT head revealed no acute intracranial abnormality. Chest x-ray demonstrated no acute cardiopulmonary process. Rapid coronavirus antigen testing was negative. Orders were placed for MRI and EEG. In the emergency department, the patient received supplemental IV fluid hydration, Ativan and was started on Keppra. He was subsequently admitted to the medical intensive care unit for further management. [facility] Medical History Anxiety Aphasia Arthritis Cerebral abscess Chronic viral hepatitis Cirrhosis of liver COPD (chronic obstructive pulmonary disease) Coronary artery disease Depressed Diabetes Hemiplegia Hemiplegia affecting right dominant side Hypertension Myocardial infarct Peripheral vascular disease Schizophrenia Smoker Home Medications albuterol 2 mcg INHALATION Q4H PRN PRN 01/07/21 [History Last Taken Unknown] apixaban 5 mg PO BID 01/07/21 [History Last Taken Unknown] atorvastatin [Lipitor] 40 mg PO DAILY 01/07/21 [History Last Taken Unknown] clopidogrel 75 mg PO DAILY 01/07/21 [History Last Taken Unknown] duloxetine 60 mg PO DAILY 01/07/21 [History Last Taken Unknown] famotidine 20 mg PO BID 01/07/21 [History Last Taken Unknown] ferrous sulfate 325 mg PO BID 01/07/21 [History Last Taken Unknown] glipizide 2.5 mg PO BID 01/07/21 [History Last Taken Unknown] insulin glulisine U-100 10 unit SUBCUT DAILY 01/07/21 [History Last Taken Unknown] insulin lispro 2 unit SUBCUT TID 01/07/21 [History Last Taken Unknown] lisinopril 10 mg PO DAILY 01/07/21 [History Last Taken Unknown] metformin 500 mg PO BID 01/07/21 [History Last Taken Unknown] torsemide 10 mg PO DAILY 01/07/21 [History Last Taken Unknown] Allergy/AdvReac Type Severity Reaction Status Date / Time vancomycin Allergy MAYE Verified 11/28/20 14:51 SYNDROME Family History Mother Heart disease Father Heart disease Surgical History Amputation of digit of left hand Aortocoronary bypass status Carpal tunnel syndrome Hx of AKA (above knee amputation) S/P CABG (coronary artery bypass graft) Social History housing: detention Smoking Status: Former smoker alcohol intake: former substance use type: does not use ROS Review of Systems ROS Unobtainable: due to encephalopathy and due to mental status Physical Exam Const Orientation / Consciousness: obtunded HEENT normocephalic and head/scalp atraumatic Eyes PERRL and conjunctivae normal Neck supple General: trachea midline Resp Auscultation: diminished lung sounds; Negative for rales, rhonchi or wheezes Cardio regular rate and regular rhythm GI normal to inspection, nondistended, normoactive bowel sounds Extremity no clubbing, cyanosis or edema General Extremity: amputation Skin no rashes or lesions noted Neuro Neuro Narrative: The patient is currently obtunded and nonresponsive. Unable to perform neurological evaluation. Psych Mood & Affect: flat affect Lab / Micro Data Result Diagrams: 01/08/21 04:28 01/07/21 11:50 Labs: Laboratory Results - last 24 hr 01/07/21 01:53: POC Glucose 63 L 01/07/21 01:55: WBC 15.8 H, RBC 4.26 L, Hgb 12.0 L, Hct 39.0 L, MCV 91.5, MCH 28.2, MCHC 30.8 L, RDW Std Deviation 46.3 H, RDW Coeff of [place] 13.9, Plt Count 421, MPV 9.3, Immature Gran % (Auto) 0.300, Neut % (Auto) 33.8 L, Lymph % (Auto) 49.9 H, [place] % (Auto) 12.4 H, Eos % (Auto) 2.7, Baso % (Auto) 0.9, Absolute Neuts (auto) 5.4, Absolute Lymphs (auto) 7.90 H, Nucleated RBC % 0, Differential Comment SCANNED, Diff Path Review September01/07/21 01:55: Sodium 139, Potassium 6.1 H*, Chloride 105, Carbon Dioxide 17.0 L, Anion Gap 17 H, BUN 22 H, Creatinine 1.47 H, Estim Creat Clear Calc 45.35, Est GFR (MDRD) Af Amer 63, Est GFR (MDRD) Non-Af 52 L, BUN/Creatinine Ratio 15.0, Glucose 148 H, Calcium 10.1, Total Bilirubin 0.40, AST 26, ALT 32, Alkaline Phosphatase 182 H, Total Protein 8.0, Albumin 3.7, Globulin 4.3 H, Albumin/Globulin Ratio 0.9 01/07/21 01:55: Ethyl Alcohol < 3.0 01/07/21 02:10: PT 16.7 H, INR 1.4 01/07/21 03:15: Potassium 4.1, Magnesium 1.5 L 01/07/21 03:15: Phosphorus 3.5 01/07/21 03:15: Troponin I High Sens 49 01/07/21 03:18: POC Glucose 192 H 01/07/21 03:39: Urine Opiates Screen NEGATIVE, Urine Methadone Screen NEGATIVE, Ur Barbiturates Screen NEGATIVE, Ur Phencyclidine Scrn NEGATIVE, Ur Amphetamines Screen NEGATIVE, U Methamphetamin-MDMA NEGATIVE, U Benzodiazepines Scrn NEGATIVE, Urine Cocaine Screen NEGATIVE, U Cannabinoids Screen NEGATIVE, Ur Drug Screen Comment 01/07/21 03:39: Urine Color Yellow, Urine Clarity Clear, Urine pH 6.0, Ur Specific [place] 1.010, Urine Protein 100 H, Urine Glucose (UA) 50 H, Urine Ketones Negative, Urine Occult Blood Negative, Urine Nitrite Negative, Urine Bilirubin Negative, Urine Urobilinogen Normal, Ur Leukocyte Esterase Negative, Urine RBC 0 SEEN, Urine WBC 0 SEEN, Ur Squamous Epith Cells 0 SEEN, Urine Bacteria 0 SEEN, Urine Mucus 0 SEEN Micro: Microbiology 01/07/21 02:45 Nasal Secretion SARS-CoV-2 Antigen (Rapid) - Final Rhythm Strip Rhythm Strip: Sinus Tach Rate: 110 Ectopy: None Radiology Impression Brain CT 01/07/21 01:48 IMPRESSION: 1. No acute intracranial abnormality. 2. Encephalomalacic change throughout the left parieto-occipital lobe, consistent with prior infarct. 3. Mild underlying bilateral periventricular and subcortical white matter chronic small vessel disease with age appropriate cerebral atrophy. 4. Chronic paranasal sinus disease Electronically Signed: Chuy France MD at 2:39 EDT Tel , Service support , Chest X-Ray 01/07/21 03:32 IMPRESSION: No acute cardiopulmonary disease Electronically Signed: Chuy France MD at 4:19 EDT Tel , Service support , Charges/Coding Visit Charges Inpatient E&M: 22161 Init Hosp L3
[2021-01-07] MEDS: 0.9% Normal Saline 1,000 ML 125 ML IV ×2 (06:39→16:04)
[2021-01-07 06:45] LABS: Bedside Glucose 146 mg/dL (70-110)
[2021-01-07 07:04] LABS: CPK Total, Creatine Kinase 81 U/L (39-308)
--- NOTE | 2021-01-07 07:37 | PN.HOSP_ITS ---
Subjective Subjective The patient is obtunded, lethargic. No verbal response. No appreciable gag reflex. Objective Data Objective Data Vital Signs: Vital Signs Temp Pulse Resp BP Pulse Ox 97.0 F L 85 13 168/74 H 100 01/07/21 05:08 01/07/21 06:52 01/07/21 06:52 01/07/21 06:52 01/07/21 06:52 Oxygen Flow Rate (L/min) 3 Oxygen Delivery Method Venturi Mask Weight: 127 lb Body Mass Index (BMI) 19.8 Intake & Output: Intake and Output for Last 24 Hours 01/05/21 01/06/21 01/07/21 23:59 23:59 23:59 Intake Total 1100 / 1100 Balance 1100 / 1100 Lab / Micro Data Result Diagrams: 01/07/21 01:55 01/07/21 03:15 Labs: Laboratory Results - last 24 hr 01/07/21 01:53: POC Glucose 63 L 01/07/21 01:55: WBC 15.8 H, RBC 4.26 L, Hgb 12.0 L, Hct 39.0 L, MCV 91.5, MCH 28.2, MCHC 30.8 L, RDW Std Deviation 46.3 H, RDW Coeff of [place] 13.9, Plt Count 421, MPV 9.3, Immature Gran % (Auto) 0.300, Neut % (Auto) 33.8 L, Lymph % (Auto) 49.9 H, [place] % (Auto) 12.4 H, Eos % (Auto) 2.7, Baso % (Auto) 0.9, Absolute Neuts (auto) 5.4, Absolute Lymphs (auto) 7.90 H, Nucleated RBC % 0, Differential Comment SCANNED, Diff Path Review September01/07/21 01:55: Sodium 139, Potassium 6.1 H*, Chloride 105, Carbon Dioxide 17.0 L, Anion Gap 17 H, BUN 22 H, Creatinine 1.47 H, Estim Creat Clear Calc 45.35, Est GFR (MDRD) Af Amer 63, Est GFR (MDRD) Non-Af 52 L, BUN/Creatinine Ratio 15.0, Glucose 148 H, Calcium 10.1, Total Bilirubin 0.40, AST 26, ALT 32, Alkaline Phosphatase 182 H, Total Protein 8.0, Albumin 3.7, Globulin 4.3 H, Albumin/Globulin Ratio 0.9 01/07/21 01:55: Ethyl Alcohol < 3.0 01/07/21 02:10: PT 16.7 H, INR 1.4 01/07/21 03:15: Potassium 4.1, Magnesium 1.5 L 01/07/21 03:15: Phosphorus 3.5 01/07/21 03:15: Troponin I High Sens 49 01/07/21 03:18: POC Glucose 192 H 01/07/21 03:39: Urine Opiates Screen NEGATIVE, Urine Methadone Screen NEGATIVE, Ur Barbiturates Screen NEGATIVE, Ur Phencyclidine Scrn NEGATIVE, Ur Amphetamines Screen NEGATIVE, U Methamphetamin-MDMA NEGATIVE, U Benzodiazepines Scrn NEGATIVE, Urine Cocaine Screen NEGATIVE, U Cannabinoids Screen NEGATIVE, Ur Drug Screen Comment 01/07/21 03:39: Urine Color Yellow, Urine Clarity Clear, Urine pH 6.0, Ur Specific [place] 1.010, Urine Protein 100 H, Urine Glucose (UA) 50 H, Urine Ketones Negative, Urine Occult Blood Negative, Urine Nitrite Negative, Urine Bilirubin Negative, Urine Urobilinogen Normal, Ur Leukocyte Esterase Negative, Urine RBC 0 SEEN, Urine WBC 0 SEEN, Ur Squamous Epith Cells 0 SEEN, Urine Bacteria 0 SEEN, Urine Mucus 0 SEEN 01/07/21 06:30: Total Creatine Kinase 81 01/07/21 06:30: Lactic Acid 1.0 01/07/21 06:40: POC Glucose 146 H Micro: Microbiology 01/07/21 02:45 Nasal Secretion SARS-CoV-2 Antigen (Rapid) - Final Radiography Diagnostic Testing: Radiology Impression Brain CT 01/07/21 01:48 IMPRESSION: 1. No acute intracranial abnormality. 2. Encephalomalacic change throughout the left parieto-occipital lobe, consistent with prior infarct. 3. Mild underlying bilateral periventricular and subcortical white matter chronic small vessel disease with age appropriate cerebral atrophy. 4. Chronic paranasal sinus disease Electronically Signed: Chuy France MD at 2:39 EDT Tel , Service support , Chest X-Ray 01/07/21 03:32 IMPRESSION: No acute cardiopulmonary disease Electronically Signed: Chuy France MD at 4:19 EDT Tel , Service support , Rhythm Strip Rhythm Strip: Sinus Tach Rate: 110 Ectopy: None Physical Exam Narrative General: Obtunded, unconscious. Nonverbal HEENT: Atraumatic, EOMI, Normocephalic, pupils sluggish reactive Oral: No Gingival or Mucosal Lesions/ Ulcerations Neck: Supple, No JVD, Negative Carotid Bruits Lungs: Air entry diminished in bilateral lung bases. No crepitation/rhonchi Cardiovascular: Sinus rhythm, regular, Normal S1, Normal S2, No murmurs, PAD, subclavian stenosis Abdomen: Bowel Sounds sluggish, Soft, Non Tender, Non-Distended : No renal angle tenderness. No suprapubic tenderness. Extremities: Right BKA, Capillary Refill Less than 3 Seconds Skin: No rashes, No breakdown Musculoskeletal: No Tenderness to Palpation of Joints or Extremities Neurological: Detail neuro exam unobtainable. Gag reflex compromised. Psych/Mental Status: Obtunded. Assessment & Plan Assessment/Plan (1) Seizure: PLAN: The patient is a 60 y/o M with multiple comorbidities was admitted with new onset seizure in SNF, more than 30 minutes initially and then in ED and admitted in ICU. Patient had massive recent CVA 2 months ago. 1. New-onset seizure, Tonic Clonic, likely secondary to significant recent CVA: Patient loaded with Keppra. CT brain shows evidence of encephalomalacia, infarct of left parietal occipital lobe. MRI scheduled today. On IV Keppra. EEG ordered. Ativan as needed. 2. Diabetes mellitus type II with hypoglycemia probably due to seizure episode: Anion gap 17, admitted 9 gap metabolic acidosis. Lactic acid 1.0 3. Hyperkalemia: Admission potassium 6.1, had cocktail in ED. Resolved. Most recent K4.1. 4. Chronic Kidney Disease Stage IIIb, : Admission BUN/Cr 22/1.47, baseline renal function primarily 1.4-1.6. Patient has Ramirez catheter. No urine output documented. Small amount of dark urine in Ramirez tube 5. COPD: Patient not on any routine inhalers, will have as needed albuterol, once clinically appropriate will encourage I-S, maintain head of bed. 6. CAD, PAD, recent left third finger, hand ischemia: Status post CABG, we will continue patient apixaban, plavix, metoprolol, lisinopril, statin regimen. 7. Hypertension: Continue home regimen including metoprolol, lisinopril with hold parameters, PRN hydralazine. 8. Hyperlipidemia: We will continue home statin therapy. 9. Tobacco Abuse: Encouraged cessation, inpatient consultation per RT, NR if desired. 10. Anxiety and depression: Will continue home cymbalta regimen. 11. GERD: Maintain on famotidine. 12. DVT prophylaxis: SCDs, continue home eliquis regimen 13. CODE status: Patient MELBA is his ex-. No living will. Full code
[2021-01-07 12:19] LABS: Anion Gap 9 (5-15); BUN 16 mg/dL (7-18); BUN/Creat Ratio 19.9 RATIO (10-20); Calcium,Total 7.2 mg/dL (8.5-10.1); Chloride 112 mmol/L (98-107); EST Glomerular Filtration Rate 104 mL/min (>60); Est Glom Filt Rate - Afr Amer 126 mL/min (>60); Estimated Creatinine Clearance 80.01 ml/min; Glucose 113 mg/dL (74-106); Potassium 4.2 mmol/L (3.5-5.1); Sodium Level 143 mmol/L (136-145)
[2021-01-07 13:10] LABS: Bedside Glucose 118 mg/dL (70-110)
[2021-01-07 14:01] LABS: Anion Gap 10 (5-15); BUN 21 mg/dL (7-18); BUN/Creat Ratio 19.8 RATIO (10-20); Calcium,Total 8.9 mg/dL (8.5-10.1); Chloride 106 mmol/L (98-107); Creatinine, Serum 1.06 mg/dL (0.70-1.30); EST Glomerular Filtration Rate 76 mL/min (>60); Est Glom Filt Rate - Afr Amer 92 mL/min (>60); Estimated Creatinine Clearance 60.38 ml/min; Glucose 149 mg/dL (74-106); Potassium 4.2 mmol/L (3.5-5.1); Sodium Level 138 mmol/L (136-145)
--- NOTE | 2021-01-07 14:19 | TELEMED_ITS ---
[facility] Telemed has confirmed receipt of a request for visit. This document confirms receipt of the order initiating the consult. To find the results of the consultation, please view the patient's reports for the scanned Telemed Consult.
[2021-01-07] MEDS: hydrALAZINE 20 MG/ML Vial 10 MG IV (17:27)
[2021-01-07] MEDS: 0.9% Saline Lock 10 ML Syringe IV (17:29)
[2021-01-07 17:50] LABS: Bedside Glucose 108 mg/dL (70-110)
[2021-01-08] VITALS (22 sets, daily range): BP systolic 107–171; BP diastolic 54–81; PULSE 88–102; RESP 10–20; TEMP 36.4–37; O2SAT 2–100
[2021-01-08] LABS: Bedside Glucose 118 mg/dL (70-110)
[2021-01-08] MEDS: 0.9% Normal Saline 1,000 ML 125 ML IV (00:13)
[2021-01-08 04:36] LABS: Absolute Lymphocyte Count 2.07 X10^3/uL (0.83-4.51); Absolute Neutrophil Count 3.9 X10^3/uL (2.0-7.7); Basophil# 0.06 X10^3/uL; Basophil% 0.9 % (0-1); Eosinophil# 0.14 X10^3/uL; Eosinophils% 2.1 % (0-5); Lymphocyte # 2.07 X10^3/ul (0.83-4.51); Lymphocyte % 30.4 % (19-41); Mean Corp Hgb Conc 31.3 g/dL (32-36); Mean Corpuscular Hgb 28.5 pg (27.0-32.0); Mean Corpuscular Volume 91.2 fL (80-94); Mean Platelet Vol. 8.8 fl (6.2-12.0); Monocyte# 0.68 X10^3/uL; NRBC Flagged by Analyzer 0 % (0-5); Neutrophil # 3.85 X10^3/uL (2.7-7.7); Neutrophil % 56.3 % (47-70); Platelet Count 290 K/mm3 (150-450); RBC Distribution Width CV 14.3 % (11.6-14.6); RBC Distribution Width SD 47.5 fl (35.1-43.9); Red Blood Count 3.51 M/mm3 (4.6-6.2); White Blood Count 6.8 K/mm3 (4.4-11.0)
[2021-01-08 05:02] LABS: Thyroid Stim Hormone (TSH) 1.23 uIU/mL (0.358-3.74)
[2021-01-08 06:21] LABS: Bedside Glucose 98 mg/dL (70-110)
--- NOTE | 2021-01-08 06:42 | PN.CC_ITS ---
Assessment & Plan Assessment/Plan (1) Seizure: PLAN: RECOMMENDATIONS: 1. Await EEG results. 2. Obtain neurology consultation. 3. Continue antiepileptics and as needed Ativan. 4. Maintain seizure precautions. 5. Physical therapy to evaluate the patient. 6. The patient is medically stable for transfer out of the intensive care unit. 7. Will sign off from a critical care perspective. Please call with any additional questions. IMPRESSIONS: 1. Encephalopathy in the setting of new onset seizures The patient has an extensive medical history and significant comorbidities, including recent CVA with residual deficits. He presented to the hospital with encephalopathy in the setting of new onset generalized tonic-clonic seizures. The patient was started on Keppra and received Ativan in the ED. MRI brain was unremarkable. EEG read is still pending. The patient is more alert and interactive this morning. Recommend follow-up neurology consultation. Physical therapy to evaluate and work with the patient. 2. Recent CVA Apparently 2 months ago the patient sustained a significant CVA which left him with residual neurological deficits. Initial CT head on presentation did not demonstrate any acute intracranial findings. MRI brain was likewise unremarkable. 3. Chronic kidney disease/CAD status post CABG/hypertension/hyperlipidemia/questionable COPD/diabetes mellitus Complicates care, management, recovery and prognosis. Continue home medications as indicated. This note was generated with [employer] dictation software. It may contain incorrect words, spelling, and punctuation that were not noted in checking the note before signing. Subjective Subjective The patient was seen and examined at the bedside this morning. Events from the last 24 hours have been reviewed. The patient is currently afebrile, hemodynamically stable and maintaining appropriate oxygen saturations on 2 L/min via nasal cannula. The patient is documented to be overall net +1.2 L for the hospital admission. EEG and MRI were completed yesterday. However, EEG read is still pending. The patient is certainly more alert and interactive this morning. Objective Data Objective Data The patient's most recent lab work, culture data and imaging studies have all been personally reviewed. MRI brain revealed no acute intracranial abnormality. Rapid coronavirus antigen testing was negative. Vital Signs: Vital Signs Temp Pulse Resp BP Pulse Ox 97.8 F 95 20 H 124/57 H 100 01/08/21 06:00 01/08/21 06:00 01/08/21 06:00 01/08/21 06:00 01/08/21 06:00 Oxygen Flow Rate (L/min) 2 Oxygen Delivery Method Nasal Cannula Weight: 57.6 kg Body Mass Index (BMI) 19.8 Intake & Output: Intake and Output for Last 24 Hours 01/06/21 01/07/21 01/08/21 23:59 23:59 23:59 Intake Total 2310.00 / 2310.00 1000 / 1000 Output Total 1825 / 1975 250 / 250 Balance 485.00 / 335.00 750 / 750 Medical Nutrition Assessment Dietitian: Malnutrition Criteria Met Start: 01/07/21 14:18 Freq: Status: Active Protocol: Document 01/07/21 14:26 RMA (Rec: 01/07/21 14:26 RMA [id number]) Nutrition Malnutrition Evidence of Malnutrition Exists Yes Malnutrition (severe): Chronic Evidenced By Suboptimal Energy Intake ( Severe),Weight Loss (Severe) Clinical Problem Chronic Disease or Condition Related Malnutrition Etiology Severe protein-calorie malnutrition in the context of chronic disease related to inadequate energy intake/ dysphagia Signs/Symptoms as evidenced by 4-5% wt loss x past 1 month, 15% wt loss x past 4 months and suspected ongoing inadequate oral intake meeting less than 50% estimated nutrition needs x past 2-4 months. Status Active Problem Recommendation Dietitian Recommendations/Changes If patient remains contraindicated for PO nutrition in 24-48 hours, suggest TF support to prevent further protein/energy depletion. If able to advance PO, suggest liberalized regular diet with consistency as per [employer]. If TF indicated, consult RD to order and manage enteral nutrition support. Oral nutrition supplements if deemed same for PO nutrition to replete calorie/protein. Daily weights. Lab / Micro Data Attestation: I reviewed the patient's lab results. Result Diagrams: 01/08/21 04:28 01/08/21 04:28 Labs: Laboratory Results - last 24 hr 01/07/21 06:30: Sodium 138, Potassium 4.2, Chloride 106, Carbon Dioxide 22.0, Anion Gap 10, BUN 21 H, Creatinine 1.06, Estim Creat Clear Calc 60.38, Est GFR (MDRD) Af Amer 92, Est GFR (MDRD) Non-Af 76, BUN/Creatinine Ratio 19.8, Glucose 149 H, Calcium 8.9 01/07/21 06:30: Total Creatine Kinase 81 01/07/21 06:30: Lactic Acid 1.0 01/07/21 06:40: POC Glucose 146 H 01/07/21 11:50: Sodium 143, Potassium 4.2, Chloride 112 H, Carbon Dioxide 22.0, Anion Gap 9, BUN 16, Creatinine 0.80, Estim Creat Clear Calc 80.01, Est GFR (MDRD) Af Amer 126, Est GFR (MDRD) Non-Af 104, BUN/Creatinine Ratio 19.9, Gluc ose 113 H, Calcium 7.2 L 01/07/21 13:03: POC Glucose 118 H 01/07/21 17:39: POC Glucose 108 01/07/21 23:56: POC Glucose 118 H 01/08/21 04:28: WBC 6.8, RBC 3.51 L, Hgb 10.0 L, Hct 32.0 L, MCV 91.2, MCH 28.5, MCHC 31.3 L, RDW Std Deviation 47.5 H, RDW Coeff of [place] 14.3, Plt Count 290, MPV 8.8, Immature Gran % (Auto) 0.300, Neut % (Auto) 56.3, Lymph % (Auto) 30.4, [place] % (Auto) 10.0, Eos % (Auto) 2.1, Baso % (Auto) 0.9, Absolute Neuts (auto) 3.9, Absolute Lymphs (auto) 2.07, Nucleated RBC % 0 01/08/21 04:28: TSH 1.23 01/08/21 06:10: POC Glucose 98 Micro: Microbiology 01/07/21 02:45 Nasal Secretion SARS-CoV-2 Antigen (Rapid) - Final Radiography Diagnostic Testing: Radiology Impression Brain MRI 01/07/21 03:12 IMPRESSION: 1. No acute intracranial abnormality. 2. Chronic ischemic changes. at 1042 Reported and signed by: Kayode Abel MD Electronically Signed: Kayode Abel MD at 10:41 EDT Tel , Service support , Rhythm Strip Rhythm Strip: Sinus Tach Rate: 110 Ectopy: None Physical Exam Const alert and no apparent distress Constitutional Narrative: The patient is nonverbal. HEENT normocephalic and head/scalp atraumatic Eyes EOMs intact bilaterally and conjunctivae normal Neck supple General: trachea midline Resp normal respiratory effort Auscultation: Negative for rales, rhonchi or wheezes Cardio regular rate and regular rhythm GI normal to inspection, nondistended, normoactive bowel sounds Extremity no clubbing, cyanosis or edema Skin no rashes or lesions noted Neuro Neuro Narrative: Baseline neurological status with right-sided deficits. Psych Mood & Affect: flat affect Charges/Coding Visit Charges Inpatient E&M: 45600 Subs Hosp L3
[2021-01-08 07:11] LABS: Hemoglobin A1c 6.2 % (3.8-5.6)
[2021-01-08 07:59] LABS: ALB/GLOB Ratio 0.9 RATIO (0.9-2.4); AST(SGOT) 18 U/L (15-37); Alanine Aminotransfer ALT/SGPT 24 U/L (16-61); Albumin, Serum 2.8 g/dL (3.2-5.0); Alkaline Phosphatase 131 U/L (45-117); Anion Gap 5 (5-15); BUN 15 mg/dL (7-18); BUN/Creat Ratio 16.9 RATIO (10-20); Calcium,Total 8.4 mg/dL (8.5-10.1); Chloride 115 mmol/L (98-107); Creatinine, Serum 0.89 mg/dL (0.70-1.30); EST Glomerular Filtration Rate 93 mL/min (>60); Est Glom Filt Rate - Afr Amer 112 mL/min (>60); Estimated Creatinine Clearance 72.03 ml/min; Globulin 3.1 g/dL (2.2-4.2); Glucose 102 mg/dL (74-106); Potassium 3.9 mmol/L (3.5-5.1); Protein, Total 5.9 g/dL (6.4-8.2); Sodium Level 143 mmol/L (136-145)
[2021-01-08] MEDS: 0.9% Normal Saline 1,000 ML 75 ML IV (08:25)
--- NOTE | 2021-01-08 12:11 | PCM.PN.HOSP ---
Subjective Subjective Patient is more awake. His baseline communication is very limited to yes and now or 1-2 words, repetitive. Needs to be evaluated by speech therapist before starting oral. Had supraventricular runs of about 4-5 beats at heart rate 140/min, most probably junctional tachycardia Objective Data Objective Data Vital Signs: Vital Signs Temp Pulse Resp BP Pulse Ox 97.8 F 97 18 129/61 H 99 01/08/21 11:00 01/08/21 11:00 01/08/21 11:00 01/08/21 11:00 01/08/21 11:00 Oxygen Flow Rate (L/min) 2 Oxygen Delivery Method Nasal Cannula Weight: 127 lb 3.307 oz Body Mass Index (BMI) 19.8 Intake & Output: Intake and Output for Last 24 Hours 01/06/21 01/07/21 01/08/21 23:59 23:59 23:59 Intake Total 2310.00 / 2310.00 2105 / 2105 Output Total 1825 / 1975 450 / 450 Balance 485.00 / 335.00 1655 / 1655 Medical Nutrition Assessment Dietitian: Malnutrition Criteria Met Start: 01/07/21 14:18 Freq: Status: Active Protocol: Document 01/07/21 14:26 RMA (Rec: 01/07/21 14:26 RMA [id number]) Nutrition Malnutrition Evidence of Malnutrition Exists Yes Malnutrition (severe): Chronic Evidenced By Suboptimal Energy Intake ( Severe),Weight Loss (Severe) Clinical Problem Chronic Disease or Condition Related Malnutrition Etiology Severe protein-calorie malnutrition in the context of chronic disease related to inadequate energy intake/ dysphagia Signs/Symptoms as evidenced by 4-5% wt loss x past 1 month, 15% wt loss x past 4 months and suspected ongoing inadequate oral intake meeting less than 50% estimated nutrition needs x past 2-4 months. Status Active Problem Recommendation Dietitian Recommendations/Changes If patient remains contraindicated for PO nutrition in 24-48 hours, suggest TF support to prevent further protein/energy depletion. If able to advance PO, suggest liberalized regular diet with consistency as per OUTSOLES CHANNEL OPENER. If TF indicated, consult RD to order and manage enteral nutrition support. Oral nutrition supplements if deemed same for PO nutrition to replete calorie/protein. Daily weights. Lab / Micro Data Result Diagrams: 01/08/21 04:28 01/08/21 04:28 Labs: Laboratory Results - last 24 hr 01/07/21 06:30: Sodium 138, Potassium 4.2, Chloride 106, Carbon Dioxide 22.0, Anion Gap 10, BUN 21 H, Creatinine 1.06, Estim Creat Clear Calc 60.38, Est GFR (MDRD) Af Amer 92, Est GFR (MDRD) Non-Af 76, BUN/Creatinine Ratio 19.8, Glucose 149 H, Calcium 8.9 01/07/21 11:50: Sodium 143, Potassium 4.2, Chloride 112 H, Carbon Dioxide 22.0, Anion Gap 9, BUN 16, Creatinine 0.80, Estim Creat Clear Calc 80.01, Est GFR (MDRD) Af Amer 126, Est GFR (MDRD) Non-Af 104, BUN/Creatinine Ratio 19.9, Glucose 113 H, Calcium 7.2 L 01/07/21 13:03: POC Glucose 118 H 01/07/21 17:39: POC Glucose 108 01/07/21 23:56: POC Glucose 118 H 01/08/21 04:28: WBC 6.8, RBC 3.51 L, Hgb 10.0 L, Hct 32.0 L, MCV 91.2, MCH 28.5, MCHC 31.3 L, RDW Std Deviation 47.5 H, RDW Coeff of Elizabeth 14.3, Plt Count 290, MPV 8.8, Immature Gran % (Auto) 0.300, Neut % (Auto) 56.3, Lymph % (Auto) 30.4, [place] % (Auto) 10.0, Eos % (Auto) 2.1, Baso % (Auto) 0.9, Absolute Neuts (auto) 3.9, Absolute Lymphs (auto) 2.07, Nucleated RBC % 0 01/08/21 04:28: TSH 1.23 01/08/21 04:28: Hemoglobin A1c 6.2 H 01/08/21 04:28: Sodium 143, Potassium 3.9, Chloride 115 H, Carbon Dioxide 23.0, Anion Gap 5, BUN 15, Creatinine 0.89, Estim Creat Clear Calc 72.03, Est GFR (MDRD) Af Amer 112, Est GFR (MDRD) Non-Af 93, BUN/Creatinine Ratio 16.9, Glucose 102, Calcium 8.4 L, Total Bilirubin 0.30, AST 18, ALT 24, Alkaline Phosphatase 131 H, Total Protein 5.9 L, Albumin 2.8 L, Globulin 3.1, Albumin/Globulin Ratio 0.9 01/08/21 06:10: POC Glucose 98 01/08/21 08:10: Ammonia 18.0 Micro: Microbiology 01/07/21 02:45 Nasal Secretion SARS-CoV-2 Antigen (Rapid) - Final Rhythm Strip Rhythm Strip: Sinus Tach Rate: 110 Ectopy: None Physical Exam Narrative General: Lethargic but wakeful on verbal command. Limited communication, baseline HEENT: Atraumatic, EOMI, Normocephalic, pupils sluggish reactive Oral: No Gingival or Mucosal Lesions/ Ulcerations Neck: Supple, No JVD, Negative Carotid Bruits Lungs: Air entry diminished in bilateral lung bases. No crepitation/rhonchi Cardiovascular: Sinus rhythm, regular, Normal S1, Normal S2, No murmurs, PAD, subclavian stenosis Abdomen: Bowel Sounds sluggish, Soft, Non Tender, Non-Distended : No renal angle tenderness. No suprapubic tenderness. Extremities: Right AKA, chronic, Capillary Refill Less than 3 Seconds Skin: No rashes, No breakdown Musculoskeletal: No Tenderness to Palpation of Joints or Extremities Neurological: Detail neuro exam unobtainable. More responsive. No seizure activities in ICU Psych/Mental Status: Flat affect. Lethargic Assessment & Plan Assessment/Plan (1) Seizure: PLAN: The patient is a 60 y/o M with multiple comorbidities was admitted with new onset seizure in SNF, more than 30 minutes initially and then in ED and admitted in ICU. Patient had massive recent CVA 2 months ago. 1. New-onset seizure, Tonic Clonic, likely secondary to significant recent CVA: Patient loaded with Keppra. CT brain shows evidence of encephalomalacia, infarct of left parietal occipital lobe. MRI scheduled today. On IV Keppra. EEG ordered. Ativan as needed. 01/08: MRI brain was unremarkable. EEG done but report is still pending. TSH and ammonia level normal. 2. Diabetes mellitus type II with hypoglycemia probably due to seizure episode: Anion gap 17, admitted 9 gap metabolic acidosis. Lactic acid 1.0 A1c 6.2 3. Hyperkalemia: Admission potassium 6.1, had cocktail in ED. Resolved. Most recent K4.1. 4. Chronic Kidney Disease Stage IIIb, : Admission BUN/Cr 22/1.47, baseline renal function primarily 1.4-1.6. Patient has Ramirez catheter. Total urine output 1815, positive balance about 1 L. 5. COPD: Patient not on any routine inhalers, will have as needed albuterol, once clinically appropriate will encourage I-S, maintain head of bed. 6. CAD, PAD, recent left third finger, hand ischemia: Status post CABG, we will continue patient apixaban, plavix, metoprolol, lisinopril, statin regimen. 7. Junctional tachycardia and baseline hypertension: Continue home regimen including metoprolol, lisinopril when oral is allowed. Metoprolol IV for tachycardia, heart rate more than 130/min 8. Hyperlipidemia: On a statin at home 9. Tobacco Abuse: Encouraged cessation, inpatient consultation per RT, NR if desired. 10. Anxiety and depression: continue home cymbalta regimen. 11. GERD: Maintain on famotidine. 12. DVT prophylaxis: SCDs, continue home eliquis regimen 13. CODE status: Patient MELBA is his ex-. No living will. Full code Charges/Coding Visit Charges Inpatient E&M: 73035 Subs Hosp L3
[2021-01-08 12:31] LABS: Bedside Glucose 96 mg/dL (70-110)
[2021-01-08] MEDS: Dext 5%-0.45% NS 1,000 ML 75 ML IV (13:28)
--- NOTE | 2021-01-08 15:23 | NURSING ---
report called to Evan santana in [facility]
--- NOTE | 2021-01-08 15:24 | NURSING ---
[facility]
[2021-01-08] MEDS: hydrALAZINE 20 MG/ML Vial 10 MG IV (15:41)
[2021-01-08] MEDS: 0.9% Saline Lock 10 ML Syringe IV (15:41)
[2021-01-08 17:30] LABS: Bedside Glucose 127 mg/dL (70-110)
--- NOTE | 2021-01-08 19:33 | PCS.PANDOC ---
PANDEMIC DOCUMENTATION INITIATED: Date: 12/26/2020 Time: 190
--- NOTE | 2021-01-08 22:49 | NURSING ---
Pt refused vitals; RN was finally able to get vitals on patient. Pt currently refusing IV fluids at this time. RN will attempt again. notified.
[2021-01-08 22:51] LABS: Bedside Glucose 121 mg/dL (70-110)
--- NOTE | 2021-01-09 04:06 | NURSING ---
Pt still refusing to wear counter sales person at this time. Pt also refusing IV fluids to be hooked up to IV. MD aware. Pt's , Donna, will be here after noon and stated she will try to get patient to comply. RN will continue to try to get patient to comply with care. Pt resting in bed with no signs of distress.
--- NOTE | 2021-01-09 05:01 | NURSING ---
Pt refused vitals and blood glucose check at this time; RN will attempt again later.
--- NOTE | 2021-01-09 05:46 | NURSING ---
Pt refused am labwork; Pt again refused blood glucose check and vitals. notified.
[2021-01-09 08:37] VITALS: O2SAT 96
--- NOTE | 2021-01-09 10:47 | NURSING ---
0945-pt refusing vital signs/assessment at this time. pt refusing IV keppra infusion as well. Dereck Bruno NP made aware. will continue to monitor.
[2021-01-09 11:17] LABS: Bedside Glucose 160 mg/dL (70-110)
--- NOTE | 2021-01-09 11:50 | CASEMGMT ---
PRISCILLA spoke with Monica at [facility] and patient has been there since November 18. He will not need a pre-cert to return. PRISCILLA faxed updates to [facility]. Gina Davis [employer] RETAIL SALES MANAGER PAT
--- NOTE | 2021-01-09 12:21 | PCM.PN.HOSP ---
Documented by User: Lisa Bruno NP, INFORMATICS SPECIALIST-C 01/09/21 14:08 Subjective Subjective Patient seen and examined. Per nursing, patient refusing vitals and has been irritable. Patient aphasic at baseline following recent CVA. Speaking incoherently during exam. No evident distress or seizure activity. Objective Data Objective Data Vital Signs: Vital Signs Temp Pulse Resp BP Pulse Ox 98.6 F 92 17 159/76 H 96 01/08/21 22:44 01/08/21 22:44 01/08/21 22:44 01/08/21 22:44 01/09/21 08:37 Oxygen Flow Rate (L/min) 2 Oxygen Delivery Method Room Air Weight: 128 lb 8.472 oz Body Mass Index (BMI) 19.8 Intake & Output: Intake and Output for Last 24 Hours 01/07/21 01/08/21 01/09/21 23:59 23:59 23:59 Intake Total 2310.00 / 2310.00 3241.25 / 3241.25 0 / 0 Output Total 1825 / 1975 700 / 700 625 / 625 Balance 485.00 / 335.00 2541.25 / 2541.25 -625 / -625 Medical Nutrition Assessment Dietitian: Malnutrition Criteria Met Start: 01/07/21 14:18 Freq: Status: Active Protocol: Document 01/07/21 14:26 RMA (Rec: 01/07/21 14:26 RMA [id number]) Nutrition Malnutrition Evidence of Malnutrition Exists Yes Malnutrition (severe): Chronic Evidenced By Suboptimal Energy Intake ( Severe),Weight Loss (Severe) Clinical Problem Chronic Disease or Condition Related Malnutrition Etiology Severe protein-calorie malnutrition in the context of chronic disease related to inadequate energy intake/ dysphagia Signs/Symptoms as evidenced by 4-5% wt loss x past 1 month, 15% wt loss x past 4 months and suspected ongoing inadequate oral intake meeting less than 50% estimated nutrition needs x past 2-4 months. Status Active Problem Recommendation Dietitian Recommendations/Changes If patient remains contraindicated for PO nutrition in 24-48 hours, suggest TF support to prevent further protein/energy depletion. If able to advance PO, suggest liberalized regular diet with consistency as per FIXED INCOME ANALYST. If TF indicated, consult RD to order and manage enteral nutrition support. Oral nutrition supplements if deemed same for PO nutrition to replete calorie/protein. Daily weights. Lab / Micro Data Result Diagrams: 01/08/21 04:28 01/08/21 04:28 Labs: Laboratory Results - last 24 hr 01/08/21 12:25: POC Glucose 96 01/08/21 17:25: POC Glucose 127 H 01/08/21 22:47: POC Glucose 121 H 01/09/21 11:10: POC Glucose 160 H Micro: Microbiology 01/07/21 02:45 Nasal Secretion SARS-CoV-2 Antigen (Rapid) - Final Rhythm Strip Rhythm Strip: Sinus Tach Rate: 110 Ectopy: None Physical Exam Const alert, oriented x3 and no apparent distress Orientation / Consciousness: awake, oriented to person, oriented to place and oriented to time HEENT normocephalic and moist oral mucous membranes Eyes PERRL, EOMs intact bilaterally and conjunctivae normal Neck no lymphadenopathy Resp normal respiratory effort and clear to auscultation bilaterally Cardio regular rate, regular rhythm and no murmurs Peripheral Pulses: pulses 2+ throughout GI normal to inspection, nondistended, normoactive bowel sounds, non-tender and non-distended Extremity normal to inspection Extremity Narrative: Right AKA Skin no rashes or lesions noted Lesions: no lesions Rashes: no rashes Trauma: no lacerations or abrasions Neuro CN's II-XII intact bilaterally, no focal motor deficits, no sensory deficits noted and deep tendon reflexes 2+ bilaterally Neuro Narrative: Right-sided hemiparesis/dysarthria/aphasia, chronic from prior CVA Psych Attitude: uncooperative and agitated Assessment & Plan Assessment/Plan (1) Seizure: PLAN: 1. New onset seizure-IV Keppra. Suspect related to recent massive CVA. Repeat MRI shows no acute abnormality. EEG without seizure activity. Seizure precautions. Will consult SOC neurology. 2. Recent massive CVA-2 months prior, resulting in significant aphasia/dysarthria and right-sided hemiplegia. Continue Plavix, statin, Eliquis. 3. Chronic systolic heart failure-echocardiogram 09/07/2020 demonstrated an EF of 15%, mild to moderate mitral valve insufficiency, moderate tricuspid valve insufficiency, RVSP estimated to be 55 mmHg. Continue with diuretic regimen, lisinopril. No acute exacerbation. 4. 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 On Eliquis. 5. Type 2 diabetes [id number] with sliding scale insulin. Hemoglobin A1c 6.2%. History of right AKA. 6. Chronic kidney disease stage IIIa- Appears improved compared to prior baseline labs. Trend BMP. 7. Chronic COPD-as needed albuterol aerosol. 8. CAD/significant PAD/subclavian artery stenosis/hand ischemia status post intervention-history of CABG. on Eliquis, Plavix, metoprolol, statin. 9. Hypertension-on metoprolol, lisinopril. 10. Hyperlipidemia-continue statin. 11. Anxiety/depression-on Cymbalta. 12. GERD-on famotidine. DVT prophylaxis-Eliquis. Discharge planning: Return to SNF when medically stable. This patient was seen by ELYSSA Henry under the supervision of Dr. Richard. Documented by User: Dr. Maite Richard MD 01/09/21 15:43 Objective Data Lab / Micro Data Result Diagrams: 01/08/21 04:28 01/08/21 04:28 Charges/Coding Addendum Addendum: This patient was seen in conjunction with Lisa Bruno. I have independently interviewed and examined the patient and reviewed pertinent historical, laboratory, and other data. I have reviewed her note and concur with her documentation Patient was seen and examined. No seizures seen since admission. No acute events overnight. Patient is aphasic. Physical Exam: Gen: Aphasic, not pale, not jaundiced CVS:HS I +II, regular, no murmurs RESP: Diminished at lung bases GI: BS present and normal, soft, nontender, no palpable organs EXT:No edema, right BKA ASSESSMENT: 1. New-onset seizure 2. Recent CVA 3. Chronic heart failure with reduced EF 4. History of left ventricular thrombus 5. Type II DM 6. CKD stage III 7. Not in acute exacerbation, will continue with prn breathing treatments, continue on oxygen Plan: Appreciate SOC consult -Vimpat started Will taper off per recommendation Continue on Keppra Continue on Eliquis, Plavix, statin, metoprolol Reevaluate in a.m. Visit Charges Inpatient E&M: 17570 Subs Hosp L2
--- NOTE | 2021-01-09 13:51 | TREXTCAR_ITS ---
Diet 01/09/21 11:33 Diet: Regular - General Food consistency:: Pureed Liquid Consistency:: Honey/Moderately Thick Is pt able to select menu?: No Diet Comments: Direct Sup/Assist as needed. Sips 1 oz at a time via cup. Routine Orders/Code Status Enema Type: Fleetz Enema Frequency: Daily PRN Suppository Type: Dulcolax 10mg Suppository Frequency: Daily PRN Routine Lab Work: - (Weekly CBC, BMP) Code Status: Full Code Wound(s) RIGHT UKA: Wound Type: Amputation 2,3,4 TIPS OF LEFT HAND: Wound Type: Amputation Suggestions for Active Care Change Position every (hours): 2 Times a day to sit in chair: 3 Therapies Physical Therapy: Eval and Treat Occupational Therapy: Eval and Treat Speech Therapy: Eval and Treat Problem/Diagnosis (1) Seizure: Status: Acute Allergies/Procedures Done in Hospital Allergies vancomycin Allergy (Verified 11/28/20 14:51) MAYE SYNDROME NEED TO MEDICATE PRE AND GIVE 1/2 RATE Dietary and Speech Recommendations Dietitian Recommendations/Changes: If patient remains contraindicated for PO nutrition in 24-48 hours, suggest TF support to prevent further protein/energy depletion. If able to advance PO, suggest liberalized regular diet with consistency as per INSURANCE ADJUSTOR. If TF indicated, consult RD to order and manage enteral nutrition support. Oral nutrition supplements if deemed same for PO nutrition to replete calorie/protein. Daily weights. Discharge Plan Admission Admit Date/Time: 01/07/21 03:12 Attending Provider: Maite Richard Primary Care Provider: Care Physician,Soha Primary Consulting Providers: Edmar Dalton Discharge Orders/Prescriptions Prescriptions: No Action atorvastatin [Lipitor] 40 mg Tablet 40 mg PO DAILY RF: 0 metformin 500 mg Tablet 500 mg PO BID RF: 0 torsemide 10 mg Tablet 10 mg PO DAILY RF: 0 clopidogrel 75 mg Tablet 75 mg PO DAILY RF: 0 famotidine 20 mg Tablet 20 mg PO BID RF: 0 glipizide 2.5 mg Tablet Extended Release 24hr 2.5 mg PO BID RF: 0 ferrous sulfate 325 mg (65 mg iron) Tablet 325 mg PO BID RF: 0 lisinopril 10 mg Tablet 10 mg PO DAILY RF: 0 albuterol 90 mcg/actuation Aerosol 2 mcg INHALATION Q4H PRN PRN (Reason: Shortness Of Breath) RF: 0 insulin lispro 100 unit/mL Solution 2 unit SUBCUT TID RF: 0 duloxetine 60 mg Capsule,Delayed Release(Dr/Ec) 60 mg PO DAILY RF: 0 insulin glulisine U-100 100 unit/mL Solution 10 unit SUBCUT DAILY RF: 0 apixaban 5 mg Tablet 5 mg PO BID RF: 0 Referrals / Follow Up: Care Physician,No Primary [Primary Care Provider] -
[2021-01-09 13:54] VITALS: PULSE 86
[2021-01-09] MEDS: Metoprolol(XL)Succ 25 MG Tablet 12.5 MG PO (13:54)
[2021-01-09] MEDS: Lisinopril 10 MG Tablet PO (13:55)
[2021-01-09] MEDS: Clopidogrel Bisulfate 75 MG Tablet PO (13:56)
[2021-01-09] MEDS: Furosemide 20 MG Tablet PO (13:56)
[2021-01-09] MEDS: Famotidine 20 MG Tablet PO ×2 (13:56→20:28)
[2021-01-09] MEDS: DULoxetine Hcl 60 MG Capsule PO (13:56)
[2021-01-09] MEDS: APIXABAN 5 MG TABLET PO ×2 (13:57→20:28)
[2021-01-09 14:00] VITALS: BP 182/84; PULSE 86; RESP 18; TEMP 36.4; O2SAT 100
[2021-01-09 14:04] LABS: Pathologist Review Reviewed
[2021-01-09] MEDS: Lacosamide 50 MG Tablet PO ×2 (16:28→20:28)
[2021-01-09 16:36] LABS: Bedside Glucose 210 mg/dL (70-110)
[2021-01-09] MEDS: Atorvastatin Calcium 40 MG Tablet PO (20:28)
[2021-01-09] MEDS: levETIRAcetam 500 MG Tablet PO (20:28)
--- NOTE | 2021-01-09 20:46 | NURSING ---
ex- Lucille called. Update provide. Pt made aware that she called to check in.
[2021-01-09 21:49] VITALS: BP 166/92; PULSE 81; RESP 14; TEMP 36.4; O2SAT 97
[2021-01-10 03:41] VITALS: BP 165/80; PULSE 82; RESP 12; TEMP 36.7; O2SAT 100
[2021-01-10 07:02] VITALS: O2SAT 97
[2021-01-10] MEDS: Famotidine 20 MG Tablet PO (09:10)
[2021-01-10] MEDS: levETIRAcetam 500 MG Tablet PO (09:10)
[2021-01-10] MEDS: Clopidogrel Bisulfate 75 MG Tablet PO (09:10)
[2021-01-10] MEDS: DULoxetine Hcl 60 MG Capsule PO (09:10)
[2021-01-10] MEDS: Furosemide 20 MG Tablet PO (09:10)
[2021-01-10] MEDS: Lisinopril 20 MG Tablet PO (09:10)
[2021-01-10] MEDS: APIXABAN 5 MG TABLET PO (09:10)
[2021-01-10] MEDS: Lacosamide 50 MG Tablet PO (09:15)
[2021-01-10 09:18] VITALS: BP 159/81; PULSE 74
[2021-01-10] MEDS: Metoprolol(XL)Succ 50 MG Tablet PO (09:18)
[2021-01-10 09:40] VITALS: BP 159/81; PULSE 74; RESP 14; TEMP 36.6; O2SAT 99
--- NOTE | 2021-01-10 11:58 | PCM.TXEXTCAR ---
Diet 01/09/21 11:33 Diet: Regular - General Food consistency:: Pureed Liquid Consistency:: Honey/Moderately Thick Is pt able to select menu?: No Diet Comments: Direct Sup/Assist as needed. Sips 1 oz at a time via cup. Routine Orders/Code Status Enema Type: Fleetz Enema Frequency: Daily PRN Suppository Type: Dulcolax 10mg Suppository Frequency: Daily PRN Routine Lab Work: - (Weekly CBC, BMP) Code Status: Full Code Wound(s) RIGHT UKA: Wound Type: Amputation 2,3,4 TIPS OF LEFT HAND: Wound Type: Amputation Therapies Physical Therapy: Eval and Treat Occupational Therapy: Eval and Treat Speech Therapy: Eval and Treat Problem/Diagnosis (1) Seizure: Status: Acute Allergies/Procedures Done in Hospital Allergies vancomycin Allergy (Verified 11/28/20 14:51) MAYE SYNDROME NEED TO MEDICATE PRE AND GIVE 1/2 RATE Procedures: Electroencephalogram Type of Care/Length of Stay Estimated LOS: Convalescent Care Less Than 30 days Type of Care Needed: Skilled Rehab Potential: Fair Prognosis: Fair Additional Orders/Day of Discharge H&P will serve as current which was dated: 01/07/21 Day of Discharge: 01/10/21 Dietary and Speech Recommendations Dietitian Recommendations/Changes: If patient remains contraindicated for PO nutrition in 24-48 hours, suggest TF support to prevent further protein/energy depletion. If able to advance PO, suggest liberalized regular diet with consistency as per BUS VAN DRIVER. If TF indicated, consult RD to order and manage enteral nutrition support. Oral nutrition supplements if deemed same for PO nutrition to replete calorie/protein. Daily weights. Discharge Plan Admission Admit Date/Time: 01/07/21 03:12 Primary Reason for Your Visit: New onset seizure Attending Provider: Maiet Richard Primary Care Provider: Care Physician,No Primary Consulting Providers: Edmar Dalton Discharge Orders/Prescriptions Prescriptions: New metoprolol succinate 50 mg Tablet Extended Release 24 Hr 50 mg PO DAILY Qty: 0 RF: 0 lisinopril 20 mg Tablet 20 mg PO DAILY Qty: 0 RF: 0 Vimpat 50 mg Tablet 100 mg PO BID Qty: 0 RF: 0 levetiracetam 500 mg Tablet 250 mg PO BID Qty: 0 RF: 0 Continued atorvastatin [Lipitor] 40 mg Tablet 40 mg PO DAILY RF: 0 metformin 500 mg Tablet 500 mg PO BID RF: 0 torsemide 10 mg Tablet 10 mg PO DAILY RF: 0 clopidogrel 75 mg Tablet 75 mg PO DAILY RF: 0 famotidine 20 mg Tablet 20 mg PO BID RF: 0 glipizide 2.5 mg Tablet Extended Release 24hr 2.5 mg PO BID RF: 0 ferrous sulfate 325 mg (65 mg iron) Tablet 325 mg PO BID RF: 0 albuterol 90 mcg/actuation Aerosol 2 mcg INHALATION Q4H PRN PRN (Reason: Shortness Of Breath) RF: 0 insulin lispro 100 unit/mL Solution 2 unit SUBCUT TID RF: 0 duloxetine 60 mg Capsule,Delayed Release(Dr/Ec) 60 mg PO DAILY RF: 0 insulin glulisine U-100 100 unit/mL Solution 10 unit SUBCUT DAILY RF: 0 apixaban 5 mg Tablet 5 mg PO BID RF: 0 Discontinued lisinopril 10 mg Tablet 10 mg PO DAILY RF: 0 Referrals / Follow Up: Joseph Kellogg MD [STAFF PHYSICIAN] - Within 2 Weeks (or primary neurologist) Care Physician,No Primary [Primary Care Provider] - In 1 Week Disposition Disposition (needs filled in before D/C Order can be placed): [facility]
[2021-01-10 12:05] LABS: Bedside Glucose 303 mg/dL (70-110)
[2021-01-10] MEDS: Insulin Lispro 100 UNIT/ML INSULN.PEN SC (12:06)
[2021-01-10] MEDS: Insulin Lispro 100 UNIT/ML INSULN.PEN 10 UNIT SC (12:06)
--- NOTE | 2021-01-10 12:31 | PCM.DC.SUM ---
Documented by User: Lisa Bruno NP, REAL ESTATE ASSESSOR-C 01/10/21 12:36 Providers Date of Admission: 01/07/21 Date of Discharge: 01/10/21 Primary Care Physician: No Primary Care Phys Consultations 01/07/21 06:08 Consult: Bulk Driver / Pulmonary Medicine Routine Consulting Provider: Edmar Dalton Reason for Consult: Tonic clonic seizures, recent massive CVA 2 months prior EMERGENT Consult: No MD Notified: Yes Date Notified: 01/07/21 Time Notified: 03:06 Method of Notification: cortext Reason For Visit: SEIZURE, HYPERKALEMIA Diagnosis Discharge Diagnosis (1) Seizure: Status: Acute Code(s): R56.9 - Unspecified convulsions Medications at Discharge Home Medications albuterol 2 mcg INHALATION Q4H PRN PRN 01/07/21 apixaban 5 mg PO BID 01/07/21 atorvastatin [Lipitor] 40 mg PO DAILY 01/07/21 clopidogrel 75 mg PO DAILY 01/07/21 duloxetine 60 mg PO DAILY 01/07/21 famotidine 20 mg PO BID 01/07/21 ferrous sulfate 325 mg PO BID 01/07/21 glipizide 2.5 mg PO BID 01/07/21 insulin glulisine U-100 10 unit SUBCUT DAILY 01/07/21 insulin lispro 2 unit SUBCUT TID 01/07/21 metformin 500 mg PO BID 01/07/21 torsemide 10 mg PO DAILY 01/07/21 lacosamide [Vimpat] 100 mg PO BID #0 tab 01/10/21 levetiracetam 250 mg PO BID #0 tab 01/10/21 lisinopril 20 mg PO DAILY #0 tab 01/10/21 metoprolol succinate 50 mg PO DAILY #0 tab 01/10/21 Hospital Course Operations None Procedures Electroencephalogram Summary of Care Provided Minutes Spent on Discharge: 35 Hospital Course: Patient is a 60-year-old male admitted 01/07/2021 due to new onset seizure. 1. New onset seizure- Suspect related to recent massive CVA. Repeat MRI shows no acute abnormality. EEG without seizure activity. Seizure precautions. SOC neurology neurology consulted, recommend transition from Keppra to Vimpat due to increased agitation. Vimpat increased to 100 mg twice daily at discharge. Can titrate Vimpat to 200 mg twice daily if patient has recurrent seizures. Taper Keppra at discharge with 250 mg twice daily for 2 doses then 250 mg x 1 dose then stop. Follow-up with neurology in 2 weeks. 2. Recent massive CVA-2 months prior, resulting in significant aphasia/dysarthria and right-sided hemiplegia. Continue Plavix, statin, Eliquis. Follow-up with neurology as noted above. 3. Chronic systolic heart failure-echocardiogram 09/07/2020 demonstrated an EF of 15%, mild to moderate mitral valve insufficiency, moderate tricuspid valve insufficiency, RVSP estimated to be 55 mmHg. Continue with diuretic regimen, lisinopril. No acute exacerbation. 4. 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 On Eliquis. 5. Type 2 diabetes mellitus-continue home oral and insulin regimen. Hemoglobin A1c 6.2%. 6. Chronic kidney disease stage IIIa- Appears improved compared to prior baseline labs. Trend BMP. 7. Chronic COPD-as needed albuterol aerosol. 8. CAD/significant PAD/subclavian artery stenosis/hand ischemia status post intervention-history of CABG. on Eliquis, Plavix, metoprolol, statin. 9. Hypertension-on metoprolol, lisinopril. Lisinopril increased to 20 mg daily. 10. Hyperlipidemia-continue statin. 11. Anxiety/depression-on Cymbalta. 12. GERD-on famotidine. 13. History of right AKA-PT/OT. Physical Exam Const alert, oriented x3 and no apparent distress Orientation / Consciousness: awake, oriented to person, oriented to place and oriented to time HEENT normocephalic and moist oral mucous membranes Eyes PERRL, EOMs intact bilaterally and conjunctivae normal Neck no lymphadenopathy Resp normal respiratory effort and clear to auscultation bilaterally Cardio regular rate, regular rhythm and no murmurs Peripheral Pulses: pulses 2+ throughout GI normal to inspection, nondistended, normoactive bowel sounds, non-tender and non-distended Extremity normal to inspection Extremity Narrative: Right AKA Skin no rashes or lesions noted Lesions: no lesions Rashes: no rashes Trauma: no lacerations or abrasions Neuro CN's II-XII intact bilaterally, no focal motor deficits, no sensory deficits noted and deep tendon reflexes 2+ bilaterally Neuro Narrative: Right-sided hemiparesis/dysarthria/aphasia, chronic from prior CVA Psych Attitude: uncooperative and agitated Patient seen and examined prior to discharge. Physical assessment as noted above. Patient is stable for discharge with follow up recommendations as noted above. This patient was seen by ELYSSA Henry under the supervision of Dr. Richard. Medical Records Data Medical Nutrition Assessment Dietitian: Malnutrition Criteria Met Start: 01/07/21 14:18 Freq: Status: Active Protocol: Document 01/07/21 14:26 RMA (Rec: 01/07/21 14:26 RMA [id number]) Nutrition Malnutrition Evidence of Malnutrition Exists Yes Malnutrition (severe): Chronic Evidenced By Suboptimal Energy Intake ( Severe),Weight Loss (Severe) Clinical Problem Chronic Disease or Condition Related Malnutrition Etiology Severe protein-calorie malnutrition in the context of chronic disease related to inadequate energy intake/ dysphagia Signs/Symptoms as evidenced by 4-5% wt loss x past 1 month, 15% wt loss x past 4 months and suspected ongoing inadequate oral intake meeting less than 50% estimated nutrition needs x past 2-4 months. Status Active Problem Recommendation Dietitian Recommendations/Changes If patient remains contraindicated for PO nutrition in 24-48 hours, suggest TF support to prevent further protein/energy depletion. If able to advance PO, suggest liberalized regular diet with consistency as per FURNACE HELPER. If TF indicated, consult RD to order and manage enteral nutrition support. Oral nutrition supplements if deemed same for PO nutrition to replete calorie/protein. Daily weights. Weight / BMI Weight Weight: 122 lb 5.705 oz Body Mass Index (BMI) 19.8 ABG / Lab / Microbiology Data Result Diagrams: 01/08/21 04:28 01/08/21 04:28 Laboratory: Laboratory Results - last 24 hr 01/07/21 01:55: Diff Path Review Reviewed 01/09/21 16:30: POC Glucose 210 H 01/10/21 12:00: POC Glucose 303 H Microbiology: Microbiology 01/07/21 02:45 Nasal Secretion SARS-CoV-2 Antigen (Rapid) - Final Meaningful Use Info Meaningful Use Diagnoses (Choose all that apply): None applicable Discharge Plan Admission Admit Date/Time: 01/07/21 03:12 Primary Reason for Your Visit: New onset seizure Attending Provider: Maite Richard Primary Care Provider: Care Physician,No Primary Consulting Providers: Edmar Dalton Discharge Orders/Prescriptions Prescriptions: New metoprolol succinate 50 mg Tablet Extended Release 24 Hr 50 mg PO DAILY Qty: 0 RF: 0 lisinopril 20 mg Tablet 20 mg PO DAILY Qty: 0 RF: 0 Vimpat 50 mg Tablet 100 mg PO BID Qty: 0 RF: 0 levetiracetam 500 mg Tablet 250 mg PO BID Qty: 0 RF: 0 Continued atorvastatin [Lipitor] 40 mg Tablet 40 mg PO DAILY RF: 0 metformin 500 mg Tablet 500 mg PO BID RF: 0 torsemide 10 mg Tablet 10 mg PO DAILY RF: 0 clopidogrel 75 mg Tablet 75 mg PO DAILY RF: 0 famotidine 20 mg Tablet 20 mg PO BID RF: 0 glipizide 2.5 mg Tablet Extended Release 24hr 2.5 mg PO BID RF: 0 ferrous sulfate 325 mg (65 mg iron) Tablet 325 mg PO BID RF: 0 albuterol 90 mcg/actuation Aerosol 2 mcg INHALATION Q4H PRN PRN (Reason: Shortness Of Breath) RF: 0 insulin lispro 100 unit/mL Solution 2 unit SUBCUT TID RF: 0 duloxetine 60 mg Capsule,Delayed Release(Dr/Ec) 60 mg PO DAILY RF: 0 insulin glulisine U-100 100 unit/mL Solution 10 unit SUBCUT DAILY RF: 0 apixaban 5 mg Tablet 5 mg PO BID RF: 0 Discontinued lisinopril 10 mg Tablet 10 mg PO DAILY RF: 0 Referrals / Follow Up: Joseph Kellogg MD [STAFF PHYSICIAN] - Within 2 Weeks (or primary neurologist) Care Physician,No Primary [Primary Care Provider] - In 1 Week Disposition Disposition (needs filled in before D/C Order can be placed): Care Home Facility Documented by User: Dr. Maite Richard MD 01/10/21 15:51 Providers Date of Admission: 01/07/21 Reason For Visit: SEIZURE, HYPERKALEMIA Medications at Discharge Home Medications albuterol 2 mcg INHALATION Q4H PRN PRN 01/07/21 apixaban 5 mg PO BID 01/07/21 atorvastatin [Lipitor] 40 mg PO DAILY 01/07/21 clopidogrel 75 mg PO DAILY 01/07/21 duloxetine 60 mg PO DAILY 01/07/21 famotidine 20 mg PO BID 01/07/21 ferrous sulfate 325 mg PO BID 01/07/21 glipizide 2.5 mg PO BID 01/07/21 insulin glulisine U-100 10 unit SUBCUT DAILY 01/07/21 insulin lispro 2 unit SUBCUT TID 01/07/21 metformin 500 mg PO BID 01/07/21 torsemide 10 mg PO DAILY 01/07/21 lacosamide [Vimpat] 100 mg PO BID #0 tab 01/10/21 levetiracetam 250 mg PO BID #0 tab 01/10/21 lisinopril 20 mg PO DAILY #0 tab 01/10/21 metoprolol succinate 50 mg PO DAILY #0 tab 01/10/21 ABG / Lab / Microbiology Data Result Diagrams: 01/08/21 04:28 01/08/21 04:28 Discharge Plan Admission Admit Date/Time: 01/07/21 03:12 Primary Reason for Your Visit: New onset seizure Attending Provider: Maite Richard Primary Care Provider: Care Physician,No Primary Consulting Providers: Edmar Dalton Discharge Orders/Prescriptions Prescriptions: New metoprolol succinate 50 mg Tablet Extended Release 24 Hr 50 mg PO DAILY Qty: 0 RF: 0 lisinopril 20 mg Tablet 20 mg PO DAILY Qty: 0 RF: 0 Vimpat 50 mg Tablet 100 mg PO BID Qty: 0 RF: 0 levetiracetam 500 mg Tablet 250 mg PO BID Qty: 0 RF: 0 Continued atorvastatin [Lipitor] 40 mg Tablet 40 mg PO DAILY RF: 0 metformin 500 mg Tablet 500 mg PO BID RF: 0 torsemide 10 mg Tablet 10 mg PO DAILY RF: 0 clopidogrel 75 mg Tablet 75 mg PO DAILY RF: 0 famotidine 20 mg Tablet 20 mg PO BID RF: 0 glipizide 2.5 mg Tablet Extended Release 24hr 2.5 mg PO BID RF: 0 ferrous sulfate 325 mg (65 mg iron) Tablet 325 mg PO BID RF: 0 albuterol 90 mcg/actuation Aerosol 2 mcg INHALATION Q4H PRN PRN (Reason: Shortness Of Breath) RF: 0 insulin lispro 100 unit/mL Solution 2 unit SUBCUT TID RF: 0 duloxetine 60 mg Capsule,Delayed Release(Dr/Ec) 60 mg PO DAILY RF: 0 insulin glulisine U-100 100 unit/mL Solution 10 unit SUBCUT DAILY RF: 0 apixaban 5 mg Tablet 5 mg PO BID RF: 0 Discontinued lisinopril 10 mg Tablet 10 mg PO DAILY RF: 0 Referrals / Follow Up: Joseph Kellogg MD [STAFF PHYSICIAN] - Within 2 Weeks (or primary neurologist) Care Physician,No Primary [Primary Care Provider] - In 1 Week Disposition Disposition (needs filled in before D/C Order can be placed): Care Home Facility Charges/Coding Addendum Addendum: This patient was seen in conjunction with Lisa Bruno. I have independently interviewed and examined the patient and reviewed pertinent historical, laboratory, and other data. I have reviewed her note and concur with her documentation 60-year-old male with multiple comorbidities, aphasic from a recent stroke who comes in with new onset seizure. Patient was started on Keppra. SOC was consulted. Patient was switched to Vimpat with Keppra taper off. Patient continued to be stable. He was seen by PT and OT and skilled for discharge to [facility] facility. On the day of discharge, patient was seen and examined. Denied any new complaint. Physical Exam: Gen: Aphasic, not pale, not jaundiced CVS:HS I +II, regular, no murmurs RESP: Diminished at lung bases GI: BS present and normal, soft, nontender, no palpable organs EXT:No edema, right BKA Visit Charges Inpatient E&M: 74192 Disch Hosp
--- NOTE | 2021-01-10 14:12 | PHA.DC.MR ---
Pharmacy Service has performed discharge medication reconciliation for this patient. The patient's discharge medication list was reviewed for discrepancies and discrepancies were resolved. Home Medications albuterol 2 mcg INHALATION Q4H PRN PRN 01/07/21 apixaban 5 mg PO BID 01/07/21 atorvastatin [Lipitor] 40 mg PO DAILY 01/07/21 clopidogrel 75 mg PO DAILY 01/07/21 duloxetine 60 mg PO DAILY 01/07/21 famotidine 20 mg PO BID 01/07/21 ferrous sulfate 325 mg PO BID 01/07/21 glipizide 2.5 mg PO BID 01/07/21 insulin glulisine U-100 10 unit SUBCUT DAILY 01/07/21 insulin lispro 2 unit SUBCUT TID 01/07/21 metformin 500 mg PO BID 01/07/21 torsemide 10 mg PO DAILY 01/07/21 lacosamide [Vimpat] 100 mg PO BID #0 tab 01/10/21 levetiracetam 250 mg PO BID #0 tab 01/10/21 lisinopril 20 mg PO DAILY #0 tab 01/10/21 metoprolol succinate 50 mg PO DAILY #0 tab 01/10/21
--- NOTE | 2021-01-10 14:36 | CASEMGMT ---
PRISCILLA called Monica at [facility] and left her a message letting her know patient will be discharged today. Gina Davis FILM TOUCH UP INSPECTOR PAT
--- NOTE | 2021-01-10 15:09 | CASEMGMT ---
SW arranged for patient to get picked up at [facility]p via [facility]. SW faxed orders, negative COVID test, and pick up and delivery driver time to [facility]. SW called patient's ex- and let her know. SW also notified RN and legal secretary. RN said she would notify patient. Plan: d/c back to [facility] under skilled level of care. Gina Davis GRIEF COUNSELOR PAT
[2021-01-10 15:29] VITALS: BP 157/80; PULSE 70; RESP 14; TEMP 36.7; O2SAT 100
--- NOTE | 2021-01-10 16:23 | NURSING ---
called [facility] left name and number for report after being transferred to [facility] several times and no answer
--- NOTE | 2021-01-10 16:57 | NURSING ---
Nurse Delgado called from [facility] report given
== END 2021-01-10 16:04 | disposition skilled nursing facility (03) | DRG 100 ==
LOC: ED 02:32 → ICU 04:41 → PCU 01-08 16:27
PROVIDERS: Internal Medicine; Internal Medicine Critical Care Medicine; Admitting Provider Family Medicine; Emergency Provider Emergency Medicine; Visit Provider Internal Medicine
DX: R56.9 Unspecified convulsions (principal); E43 Unspecified severe protein-calorie malnutrition; I13.0 Hypertensive heart and chronic kidney disease with heart failure and stage 1 through stage 4 chronic kidney disease, or unspecified chronic kidney disease; I50.22 Chronic systolic (congestive) heart failure; Z68.1 Body mass index [BMI] 19.9 or less, adult; I69.351 Hemiplegia and hemiparesis following cerebral infarction affecting right dominant side; I47.1 Supraventricular tachycardia; E11.649 Type 2 diabetes mellitus with hypoglycemia without coma; I69.322 Dysarthria following cerebral infarction; I69.320 Aphasia following cerebral infarction; E87.5 Hyperkalemia; E11.22 Type 2 diabetes mellitus with diabetic chronic kidney disease; E11.51 Type 2 diabetes mellitus with diabetic peripheral angiopathy without gangrene; E78.5 Hyperlipidemia, unspecified; F20.9 Schizophrenia, unspecified; F32.9 Major depressive disorder, single episode, unspecified; F41.9 Anxiety disorder, unspecified; G56.00 Carpal tunnel syndrome, unspecified upper limb; I25.2 Old myocardial infarction; I25.10 Atherosclerotic heart disease of native coronary artery without angina pectoris; K21.9 Gastro-esophageal reflux disease without esophagitis; K74.60 Unspecified cirrhosis of liver; I70.8 Atherosclerosis of other arteries; J44.9 Chronic obstructive pulmonary disease, unspecified; M19.90 Unspecified osteoarthritis, unspecified site; N18.31 Chronic kidney disease, stage 3a; Z89.611 Acquired absence of right leg above knee; Z95.1 Presence of aortocoronary bypass graft; Z79.4 Long term (current) use of insulin; Z79.01 Long term (current) use of anticoagulants; Z79.02 Long term (current) use of antithrombotics/antiplatelets; Z79.899 Other long term (current) drug therapy; F17.200 Nicotine dependence, unspecified, uncomplicated
CPT/HCPCS: 51702; 70450; 70551; 71045; 80048; 80053; 80307; 81001; 82077; 82140; 82550; 82962; 83036; 83605; 83735; 84100; 84132; 84443; 84484; 85025; 85610; 87426; 92526; 92610; 93005; 95819; 99285; J7030; A4216; J7799

== ENCOUNTER 2021-04-26 02:24 | Emergency (ER) | payer MEDICARE, MEDICAID, SELFPAY ==
[2021-04-26 02:25] VITALS: BP 235/121; PULSE 81; RESP 19; O2SAT 96
--- NOTE | 2021-04-26 02:30 | CT_ITS ---
EXAM: CT HEAD WITHOUT INTRAVENOUS CONTRAST : 1960 CLINICAL INDICATION: Strokelike symptoms TECHNIQUE: Multiple axial images were obtained of the head without intravenous contrast. This CT exam was performed using one or more of the following dose reduction techniques: automated exposure control, adjustment of the mA and/or kV according to patient size, and/or use of iterative reconstruction technique. This report was created using [employer] report generation technology. COMPARISON: 01/07/21 FINDINGS: BRAIN AND EXTRA-AXIAL SPACES: Diffuse cerebral volume loss. Periventricular small vessel chronic ischemic change. Chronic left parietal lobe infarct with encephalomalacia. Small chronic infarct in the right parietal lobe. No intra- or extra-axial hemorrhage. No intracranial mass or mass effect. Posterior fossa structures are unremarkable. No hydrocephalus. Basal cisterns are patent. BONES/JOINTS: Unremarkable. No discrete lytic or blastic abnormalities. VASCULATURE: Arterial calcifications. SINUSES: Unremarkable as visualized. Clear. MASTOID AIR CELLS: Unremarkable. Clear. ORBITS: Visualized globes, extraocular muscles, optic nerves and retrobulbar fat appear unremarkable. ASPECTS: 10 CT/Brain/Head without Contrast IMPRESSION: 1. No acute intracranial abnormalities. 2. Stable chronic infarct changes predominantly in the left parietal lobe. 3. Age-related changes. Individualized dose optimization techniques were used for this CT. at 0249 Reported and signed by: Alejandro Quinn MD N.B. : The above Results were Read Back by Alejandro Quinn MD to Geovanny Muñiz MD, and understanding confirmed on 04/26/2021 02:56:11 (ET). Electronically Signed: Alejandro Quinn MD at 2:49 EST Tel , Service support ,
--- NOTE | 2021-04-26 02:30 | CT_ITS ---
EXAM: CT ANGIOGRAPHY HEAD AND NECK WITH INTRAVENOUS CONTRAST : 1960 CLINICAL INDICATION: Strokelike symptoms TECHNIQUE: [place] [facility] [place]/head and neck CT angiography protocol performed with intravenous contrast. This CT exam was performed using one or more of the following dose reduction techniques: automated exposure control, adjustment of the mA and/or kV according to patient size, and/or use of iterative reconstruction technique. This report was created using [employer] report generation technology. MIP reconstructed images were created and reviewed. CONTRAST: IV 100mL [id number] COMPARISON: None. FINDINGS: HEAD: RIGHT ANTERIOR CEREBRAL ARTERY: Unremarkable. No significant stenosis at the visualized segments. Anterior communicating artery is present. No aneurysm. RIGHT MIDDLE CEREBRAL ARTERY: Unremarkable. No significant stenosis at the visualized segments. No aneurysm. RIGHT POSTERIOR CEREBRAL ARTERY: The right posterior cerebral artery is primarily supplied by the right ICA circulation through a prominent posterior communicating artery. No occlusion or significant stenosis. No aneurysm. LEFT ANTERIOR CEREBRAL ARTERY: Unremarkable. No significant stenosis at the visualized segments. No aneurysm. LEFT MIDDLE CEREBRAL ARTERY: Unremarkable. No significant stenosis at the visualized segments. No aneurysm. LEFT POSTERIOR CEREBRAL ARTERY: The left posterior cerebral artery is supplied by the left ICA circulation through prominent posterior communicating artery. No occlusion or significant stenosis. No aneurysm. BASILAR ARTERY: Minimal irregular flow within the basilar artery. No significant stenosis. No aneurysm. GREAT VESSELS OF AORTIC ARCH: Stent within the left subclavian artery origin. OTHER VASCULATURE: No vascular malformation. NECK: RIGHT COMMON CAROTID ARTERY: Unremarkable. No significant stenosis. No dissection or occlusion. RIGHT INTERNAL CAROTID ARTERY: Moderate, 55% stenosis of the proximal right internal carotid artery. RIGHT EXTERNAL CAROTID ARTERY: Unremarkable. No occlusion. RIGHT VERTEBRAL ARTERY: The right vertebral artery demonstrates severe stenosis at its origin with lack of flow proximally until reaching the C3 level. No dissection or occlusion. LEFT COMMON CAROTID ARTERY: Unremarkable. No significant stenosis. No dissection or occlusion. LEFT INTERNAL CAROTID ARTERY: Moderate, 60% stenosis of the proximal left internal carotid artery. LEFT EXTERNAL CAROTID ARTERY: Unremarkable. No occlusion. LEFT VERTEBRAL ARTERY: The left vertebral artery is also occluded proximally up to the C3 level. LUNG APICES: Unremarkable as visualized. SOFT TISSUES: Unremarkable. CAROTID STENOSIS REFERENCE USING NASCET CRITERIA: % ICA stenosis = (1 - narrowest ICA diameter/diameter of distal cervical ICA) x 100. Moderate - 50-69% stenosis. Severe - 70-94% stenosis. Near occlusion - 95-99% stenosis. Occluded - 100% stenosis. CT/CTA Head AND Neck W/ Contrast IMPRESSION: 1. The right vertebral artery demonstrates severe stenosis at its origin with lack of flow proximally until reaching the C3 level. 2. The left vertebral artery is also occluded proximally up to the C3 level. 3. Minimal irregular flow within the basilar artery. 4. Although both posterior cerebral arteries are primarily supplied by the anterior circulation, the vertebral and basilar artery findings are of uncertain chronicity and could be causing acute posterior fossa stroke symptoms. Consider further evaluation with MRI. 5. Moderate stenosis of the proximal internal carotid arteries bilaterally. Individualized dose optimization techniques were used for this CT. at 0310 Reported and signed by: Alejandro Quinn MD Electronically Signed: Alejandro Quinn MD at 3:10 EST Tel , Service support ,
--- NOTE | 2021-04-26 02:32 | RAD_ITS ---
EXAM: XR CHEST, 1 VIEW : 1960 CLINICAL INDICATION: cough TECHNIQUE: Frontal view of the chest. This report was created using [employer] report generation technology. COMPARISON: 01/07/21 FINDINGS: LUNGS AND PLEURAL SPACES: Unremarkable. No consolidation or edema. No pneumothorax. No effusion. HEART: Unremarkable. Cardiac silhouette not enlarged. MEDIASTINUM: Surgical changes in the mediastinum. BONES/JOINTS: Unremarkable. SOFT TISSUES: Unremarkable. VASCULATURE: Left subclavian artery origin stent. RAD/Chest 1 View (Portable) IMPRESSION: No acute findings in the chest. at 0357 Reported and signed by: Alejandro Quinn MD Electronically Signed: Alejandro Quinn MD at 3:56 EST Tel , Service support ,
--- NOTE | 2021-04-26 02:37 | EKG12_ITS ---
Test Reason : DYSRHYTHMIA Blood Pressure : / mmHG Vent. Rate : 079 BPM Atrial Rate : 079 BPM P-R Int : 206 ms QRS Dur : 090 ms QT Int : 374 ms P-R-T Axes : 062 033 102 degrees QTc Int : 428 ms Normal sinus rhythm Septal infarct , age undetermined ST & T wave abnormality, consider lateral ischemia Abnormal ECG Confirmed by LATHA LEÓN, SANTY ([id number]), editor farm journal KEVIN TAYLOR ([id number]) on 04/28/2021 1:00:52 PM Referred By: LELAND Confirmed By:SANTY AZUL MD
[2021-04-26 02:47] VITALS: BMI 21.1
[2021-04-26 02:51] VITALS: BP 196/89; PULSE 85; RESP 18; TEMP 36.3; O2SAT 99; BMI 21.1
[2021-04-26] MEDS: Ondansetron 4 MG/2 ML Vial IV (02:56)
[2021-04-26 03:08] LABS: Absolute Lymphocyte Count 1.36 X10^3/uL (0.83-4.51); Absolute Neutrophil Count 10.9 X10^3/uL (2.0-7.7); Basophil# 0.08 X10^3/uL; Basophil% 0.6 % (0-1); Eosinophils% 0.8 % (0-5); Hematocrit 37.5 % (40-54); Hemoglobin 12.3 g/dL (13.0-16.5); Lymphocyte # 1.36 X10^3/ul (0.83-4.51); Lymphocyte % 10.3 % (19-41); Mean Corp Hgb Conc 32.8 g/dL (32-36); Mean Corpuscular Hgb 30.2 pg (27.0-32.0); Mean Corpuscular Volume 92.1 fL (80-94); Mean Platelet Vol. 10.6 fl (6.2-12.0); Monocyte# 0.75 X10^3/uL; Monocyte% 5.7 % (0-10); NRBC Flagged by Analyzer 0 % (0-5); Neutrophil # 10.91 X10^3/uL (2.7-7.7); Neutrophil % 82.1 % (47-70); Platelet Count 296 K/mm3 (150-450); RBC Distribution Width CV 12.7 % (11.6-14.6); RBC Distribution Width SD 43.2 fl (35.1-43.9); Red Blood Count 4.07 M/mm3 (4.6-6.2); White Blood Count 13.3 K/mm3 (4.4-11.0)
[2021-04-26] MEDS: Labetalol (Prefilled) 20 MG/4 ML IV (03:12)
[2021-04-26 03:16] VITALS: BP 139/80; PULSE 82; RESP 17; O2SAT 100
[2021-04-26 03:18] LABS: International Normalized Ratio 1.2; Partial Thromboplast Time 31.9 Seconds (24.1-36.2)
--- NOTE | 2021-04-26 03:18 | ED.RN ---
NOTIFIED OF PATIENT STATUS AND TRANSFER.
--- NOTE | 2021-04-26 03:20 | EX.ED.DYSGE1 ---
HPI History of Present Illness Chief Complaint: Neuro S/Sx Narrative Narrative: Patient is a 60-year-old male with medical history of atrial fibrillation coronary artery disease COPD type 2 diabetes and peripheral vascular disease. He also has a past medical history of stroke and is currently on Eliquis and Plavix. Reportedly he went to bed at midnight and then at 1 in the morning awoke his and she reported that his slurred speech was worse and that he had facial droop and increased right-sided weakness and therefore called EMS. EMS reports when they arrived patient had right-sided facial droop as well as a flaccid right arm and difficulty answering questions. EMS reports his blood sugar was checked and was normal but with concern for an acute stroke was brought to the hospital for evaluation [facility] Medical History (Updated 04/26/21 @ 03:[address] Geovanny Muñiz, ) Anxiety Aphasia Arthritis Cerebral abscess Chronic viral hepatitis Cirrhosis of liver COPD (chronic obstructive pulmonary disease) Coronary artery disease Depressed Diabetes Hemiplegia Hemiplegia affecting right dominant side Hypertension Myocardial infarct Peripheral vascular disease Schizophrenia Seizure Smoker Stroke/cerebrovascular accident Home Medications albuterol 2 mcg INHALATION Q4H PRN PRN 01/07/21 [History Last Taken Unknown] apixaban 5 mg PO BID 01/07/21 [History Last Taken Unknown] atorvastatin [Lipitor] 40 mg PO DAILY 01/07/21 [History Last Taken Unknown] clopidogrel 75 mg PO DAILY 01/07/21 [History Last Taken Unknown] duloxetine 60 mg PO DAILY 01/07/21 [History Last Taken Unknown] famotidine 20 mg PO BID 01/07/21 [History Last Taken Unknown] glipizide 2.5 mg PO BID 01/07/21 [History Last Taken Unknown] insulin glulisine U-100 10 unit SUBCUT DAILY 01/07/21 [History Last Taken Unknown] insulin lispro 2 unit SUBCUT TID 01/07/21 [History Last Taken Unknown] metformin 500 mg PO BID 01/07/21 [History Last Taken Unknown] torsemide 10 mg PO DAILY 01/07/21 [History Last Taken Unknown] levetiracetam 250 mg PO BID #0 tab 01/10/21 [Rx Last Taken Unknown] metoprolol succinate 50 mg PO DAILY #0 tab 01/10/21 [Rx Last Taken Unknown] lacosamide [Vimpat] 200 mg PO BID 04/26/21 [History Last Taken Unknown] lisinopril 10 mg PO DAILY 04/26/21 [History Last Taken Unknown] Allergy/AdvReac Type Severity Reaction Status Date / Time vancomycin Allergy MAYE Verified 11/28/20 14:51 SYNDROME Family History Mother Heart disease Father Heart disease Surgical History Amputation of digit of left hand Aortocoronary bypass status Carpal tunnel syndrome Hx of AKA (above knee amputation) S/P CABG (coronary artery bypass graft) Social History housing: correction Smoking Status: Former smoker alcohol intake: former substance use type: does not use ROS ROS ED Review of Systems ROS Unobtainable: other Details: Unable to obtain secondary to dysarthria and aphasia EXAM Physical Exam Const Vital Signs: 04/26/21 02:25 04/26/21 02:51 04/26/21 03:16 Temperature 97.4 F L Temperature Source Temporal Pulse Rate 81 85 82 Respiratory Rate 19 H 18 17 Blood Pressure 235/121 H 196/89 H 139/80 H Blood Pressure Mean 159 124 99 Pulse Ox 96 99 100 Oxygen Delivery Method Room Air Room Air Room Air Positive well nourished and well developed General Appearance ED: well developed HEENT Reports moist mucous membranes Eyes PERRL and EOMs intact bilaterally Neck supple and no JVD Chest Wall palpation of chest normal Resp Resp Narrative: Breath sounds are diminished throughout but overall clear to auscultation with no signs of respiratory distress Cardio Rate: other Other Details: Tachycardic rate with regular rhythm GI non-tender, non-distended and no masses GI Narrative: Bowel sounds are hyperactive no voluntary guarding no rigidity no pulsatile mass Palpation: soft Extremity Extremity Narrative: Patient has a right [id number] amputation Neuro Neuro Narrative: Patient is awake but disoriented there is asymmetric right arm weakness compared to left. He also has dysarthria and aphasia present and it is difficult for him to follow commands. However based on his mental status slurred speech aphasia and weakness he does receive an NIH stroke scale score of 8 Skin no rashes or lesions noted MDM MDM MDM Narrative Medical decision making narrative: Patient presented to the ER with concern for an acute stroke. His right arm weakness did seem improved compared to EMS report I did not appreciate any obvious facial droop but he said difficulty answering questions was aphasic and had dysarthria as well and there was still persistent right arm weakness. Initial CT revealed no bleed but the CTA showed changes concerning for a large vessel occlusion in the left MCA. The patient is currently on Eliquis and Plavix and therefore is not a TPA candidate but with the large vessel occlusion changes would benefit from thrombolysis/thrombectomy and therefore will be transferred to [facility] for further care Lab Data Labs: Laboratory Results - last 24 hr 04/26/21 04/26/21 02:58 02:58 WBC 13.3 H RBC 4.07 L Hgb 12.3 L Hct 37.5 L MCV 92.1 MCH 30.2 MCHC 32.8 RDW Std Deviation 43.2 RDW Coeff of Elizabeth 12.7 Plt Count 296 MPV 10.6 Immature Gran % (Auto) 0.500 Neut % (Auto) 82.1 H Lymph % (Auto) 10.3 L [place] % (Auto) 5.7 Eos % (Auto) 0.8 Baso % (Auto) 0.6 Absolute Neuts (auto) 10.9 H Absolute Lymphs (auto) 1.36 Nucleated RBC % 0 PT 15.0 H INR 1.2 APTT 31.9 Radiography Diagnostic Testing: Clinical Impression(s) from Imaging Studies Brain CT 04/26/21 02:30 IMPRESSION: 1. No acute intracranial abnormalities. 2. Stable chronic infarct changes predominantly in the left parietal lobe. 3. Age-related changes. Individualized dose optimization techniques were used for this CT. at 0249 Reported and signed by: Alejandro Quinn MD N.B. : The above Results were Read Back by Alejandro Quinn MD to Geovanny Muñiz MD, and understanding confirmed on 04/26/2021 02:56:11 (ET). Electronically Signed: Alejandro Quinn MD at 2:49 EST Tel , Service support , Head/Neck CTA 04/26/21 02:30 IMPRESSION: 1. The right vertebral artery demonstrates severe stenosis at its origin with lack of flow proximally until reaching the C3 level. 2. The left vertebral artery is also occluded proximally up to the C3 level. 3. Minimal irregular flow within the basilar artery. 4. Although both posterior cerebral arteries are primarily supplied by the anterior circulation, the vertebral and basilar artery findings are of uncertain chronicity and could be causing acute posterior fossa stroke symptoms. Consider further evaluation with MRI. 5. Moderate stenosis of the proximal internal carotid arteries bilaterally. Individualized dose optimization techniques were used for this CT. at 0310 Reported and signed by: Alejandro Quinn MD Electronically Signed: Alejandro Quinn MD at 3:10 EST Tel , Service support , Critical Care Time Critical Care Time: Yes Critical care time (excluding procedures): - (Please note critical care time of 31 minutes) Discharge Plan Triage Chief Complaint: Neuro S/Sx ED Provider: Geovanny Muñiz Dx/Rx/DC Orders Clinical Impression: Acute cerebrovascular accident (CVA) Prescriptions: No Action atorvastatin [Lipitor] 40 mg Tablet 40 mg PO DAILY RF: 0 metformin 500 mg Tablet 500 mg PO BID RF: 0 torsemide 10 mg Tablet 20 mg PO DAILY RF: 0 clopidogrel 75 mg Tablet 75 mg PO DAILY RF: 0 famotidine 20 mg Tablet 20 mg PO BID RF: 0 glipizide 2.5 mg Tablet Extended Release 24hr 5 mg PO BID RF: 0 albuterol 90 mcg/actuation Aerosol 2 mcg INHALATION Q4H PRN PRN (Reason: Shortness Of Breath) RF: 0 insulin lispro 100 unit/mL Solution 2 unit SUBCUT TID RF: 0 duloxetine 60 mg Capsule,Delayed Release(Dr/Ec) 60 mg PO DAILY RF: 0 insulin glulisine U-100 100 unit/mL Solution 10 unit SUBCUT DAILY RF: 0 apixaban 5 mg Tablet 5 mg PO BID RF: 0 metoprolol succinate 50 mg Tablet Extended Release 24 Hr 50 mg PO DAILY Qty: 0 RF: 0 levetiracetam 500 mg Tablet 250 mg PO BID Qty: 0 RF: 0 lisinopril 20 mg tablet 10 mg PO DAILY RF: 0 Vimpat 50 mg tablet 200 mg PO BID RF: 0 Primary Care Provider: Jesse Monroy Referrals: Jesse Monroy DO [Primary Care Provider] - Disposition Disposition: Transfer to Another Type [facility]CF Discharge Location: [facility]
[2021-04-26 03:25] VITALS: BP 143/69; PULSE 79; RESP 17; O2SAT 99
[2021-04-26 03:30] LABS: AST(SGOT) 13 U/L (15-37); Alanine Aminotransfer ALT/SGPT 20 U/L (16-61); Albumin, Serum 3.2 g/dL (3.2-5.0); Alkaline Phosphatase 105 U/L (45-117); Anion Gap 8 (5-15); BUN 19 mg/dL (7-18); BUN/Creat Ratio 14.2 RATIO (10-20); Bilirubin, Direct 0.12 mg/dL (0.00-0.30); Calcium,Total 9.1 mg/dL (8.5-10.1); Chloride 99 mmol/L (98-107); Creatinine, Serum 1.34 mg/dL (0.70-1.30); EST Glomerular Filtration Rate 58 mL/min (>60); Est Glom Filt Rate - Afr Amer 70 mL/min (>60); Estimated Creatinine Clearance 50.66 ml/min; Globulin 3.7 g/dL (2.2-4.2); Glucose 308 mg/dL (74-106); Lipase 65 U/L (73-393); Protein, Total 6.9 g/dL (6.4-8.2); Sodium Level 136 mmol/L (136-145); Troponin-I HS 41 pg/mL (3.0-78.0)
[2021-04-26 03:50] VITALS: BP 121/65; PULSE 82; RESP 18; O2SAT 96
== END 2021-04-26 03:54 | disposition short-term general hospital (02) ==
PROVIDERS: Emergency Provider Emergency Medicine; PCP Student in an Organized Health Care Education/Training Program
DX: I63.9 Cerebral infarction, unspecified (principal); R29.810 Facial weakness; R47.01 Aphasia; G83.21 Monoplegia of upper limb affecting right dominant side; R29.708 NIHSS score 8; I10 Essential (primary) hypertension; F20.9 Schizophrenia, unspecified; F32.A Depression, unspecified; F41.9 Anxiety disorder, unspecified; I25.10 Atherosclerotic heart disease of native coronary artery without angina pectoris; I48.91 Unspecified atrial fibrillation; I65.23 Occlusion and stenosis of bilateral carotid arteries; J44.9 Chronic obstructive pulmonary disease, unspecified; K74.60 Unspecified cirrhosis of liver; M19.90 Unspecified osteoarthritis, unspecified site; E11.51 Type 2 diabetes mellitus with diabetic peripheral angiopathy without gangrene; I25.2 Old myocardial infarction; G40.909 Epilepsy, unspecified, not intractable, without status epilepticus; Z86.73 Personal history of transient ischemic attack (TIA), and cerebral infarction without residual deficits; Z95.1 Presence of aortocoronary bypass graft; Z79.4 Long term (current) use of insulin; Z79.01 Long term (current) use of anticoagulants; Z79.02 Long term (current) use of antithrombotics/antiplatelets; Z79.899 Other long term (current) drug therapy; Z87.891 Personal history of nicotine dependence
CPT/HCPCS: 70450; 70496; 70498; 71045; 80048; 80076; 83690; 84484; 85025; 85610; 85730; 87426; 93005; 96374; 96375; 99285; Q9967; A4216; J2405

== ENCOUNTER → 2022-07-02 | Outpatient (CLI) | payer MEDICARE, MEDICAID, SELFPAY ==
--- NOTE | 2022-07-02 11:30 | LES_PTH ---
PATIENT: ROMELIA DAVIS Jr. LOC: [facility] U#:[id number] AGE/SX: 62/M ROOM: RE07/02/[address]: Dr. Macho Pierre MD : 1960 BED: DIS: 07/02/2022 SPEC #: [id number] RECD: 07/02/22 14:59 STATUS: ARASH RELeno #: [id number] FABI: 07/02/22 11:[address]: Macho Pierre DEPT: SURGICAL PATHOLOGY RECD BY: Yessi Dixon ENTERED: 07/03/22 10:07 SP TYPE: Lesion OTHR DR: Dr. Jesse Monroy, DO Tissues: Skin of eyelid, NOS Procedures: Surgery Specimen Level III HEADER OPERATION: Left upper eyelid biopsy PRE-OP DIAGNOSIS: Left upper eyelid growth, likely sebaceous cyst TISSUE SUBMITTED: Left upper eyelid lesion MICROSCOPIC DIAGNOSIS Left upper eyelid lesion, biopsy: Epidermal inclusion cyst. Dermal chronic inflammation. SJ:elaina 07/04/2022 MICROSCOPIC DESCRIPTION Slides are reviewed. GROSS DESCRIPTION Received in fixative is one container labeled with the patient's name and designated left upper lid. The specimen consists of a piece of skin with underlying tissue measuring 1.5 x 0.5 x 0.5 cm. The specimen is inked and bisected. Also present in the container are multiple fragments of still-white cheesy material. The entire specimen is submitted in one cassette. / GOVIND:elaina 07/03/2022 TC:5 [facility]: [id number]
== END | disposition home or self-care (01) ==
PROVIDERS: PCP Student in an Organized Health Care Education/Training Program; Referring Provider Ophthalmology; Visit Provider Ophthalmology
DX: H02.9 Unspecified disorder of eyelid (principal)
CPT/HCPCS: 88304; 88305